=== PATIENT | female | born 1950 | race Two or more races ===

== ENCOUNTER 2020-03-24 11:21 | Outpatient (REF) | payer MEDICARE, MEDICAID, SELFPAY ==
--- NOTE | ~2020-03-24 | XR_ITS ---
EXAMINATION: XR knee RT 4V, XR knee LT 4V CLINICAL INFORMATION: Reason for Exam PAIN IN RIGHT KNEE COMPARISON: None available at the time of this dictation. TECHNIQUE: frontal, lateral, tunnel and patella sunrise views FINDINGS: BONES: No fracture or dislocation is present. JOINTS: Narrowing of joint spaces and developed osteophytes from the edges of articular surfaces suggest degenerative osteoarthritis. There is a small left knee joint effusion. SOFT TISSUE: Normal XR/XR knee RT 4V IMPRESSION: Bilateral moderate to severe degenerative osteoarthritis involving both medial and lateral compartments. There is a small left knee joint effusion.
--- NOTE | ~2020-03-24 | XR_ITS ---
EXAMINATION: XR knee RT 4V, XR knee LT 4V CLINICAL INFORMATION: Reason for Exam PAIN IN RIGHT KNEE COMPARISON: None available at the time of this dictation. TECHNIQUE: frontal, lateral, tunnel and patella sunrise views FINDINGS: BONES: No fracture or dislocation is present. JOINTS: Narrowing of joint spaces and developed osteophytes from the edges of articular surfaces suggest degenerative osteoarthritis. There is a small left knee joint effusion. SOFT TISSUE: Normal XR/XR knee LT 4V IMPRESSION: Bilateral moderate to severe degenerative osteoarthritis involving both medial and lateral compartments. There is a small left knee joint effusion.
[2020-03-24 12:36] LABS: Alanine Aminotransferase 16 U/L (0-31); Albumin Level 4.1 g/dL (3.5-5.0); Alkaline Phosphatase 98 U/L (39-117); Anion Gap 12 (12-20); Aspartate Amino Transferase 19 U/L (5-31); Bilirubin Direct < 0.2 mg/dL (0.0-0.5); Bilirubin Total 0.3 mg/dL (0.0-1.0); Blood Urea Nitrogen 30 mg/dL (9-16); Calcium 9.1 mg/dL (8.4-10.2); Carbon Dioxide 30 mmol/L (22-29); Chloride 103 mmol/L (96-108); Cholesterol 232 mg/dL; Estimated Glomerular Filt Rate 44; Glucose Random 94 mg/dL (60-115); HDL Cholesterol 78 mg/dL; LDL Cholesterol Calculated 143 mg/dl; Potassium 5.1 mmol/L (3.3-5.1); Sodium 140 mmol/L (135-145); Total Protein 7.4 g/dL (6.5-8.0); Triglycerides 56 mg/dL
== END 2020-03-24 11:22 | disposition home or self-care (01) ==
LOC: HO.LAB 11:21
PROVIDERS: PCP Student in an Organized Health Care Education/Training Program; Visit Provider Internal Medicine
DX: I10 Essential (primary) hypertension (principal); M25.562 Pain in left knee; M25.561 Pain in right knee
CPT/HCPCS: 36415; 73564; 80048; 80061; 80076

== ENCOUNTER → 2020-04-13 14:48 | Outpatient (BNVA) | payer MEDICARE, MEDICAID, SELFPAY | PROVIDERS: PCP Student in an Organized Health Care Education/Training Program; Visit Provider Surgery | DX: K64.9 Unspecified hemorrhoids (principal) | CPT/HCPCS: 46600; 99202 ==

== ENCOUNTER 2020-04-30 16:31 | Outpatient (REF) | payer MEDICARE, MEDICAID, SELFPAY ==
--- NOTE | ~2020-04-30 | XR_ITS ---
EXAMINATION: XR HIP, RIGHT CLINICAL INFORMATION: Pain. COMPARISON: None TECHNIQUE: Two views of the right hip. FINDINGS: Bones and soft tissues are normal. No fracture. Alignment is anatomic. Hip joint space is maintained. XR/XR hip RT min 2V IMPRESSION: Unremarkable right hip.
== END 2020-04-30 16:32 | disposition home or self-care (01) ==
LOC: HO.XRAY 16:31
PROVIDERS: PCP Student in an Organized Health Care Education/Training Program; Visit Provider Internal Medicine
DX: M25.551 Pain in right hip (principal)
CPT/HCPCS: 73502

== ENCOUNTER → 2020-05-15 11:02 | Outpatient (BNVA) | payer MEDICARE, MEDICAID, SELFPAY | PROVIDERS: PCP Student in an Organized Health Care Education/Training Program; Visit Provider Internal Medicine Gastroenterology | DX: Z13.89 Encounter for screening for other disorder (principal) | CPT/HCPCS: Q3014 ==

== ENCOUNTER 2020-06-08 13:22 | Outpatient (REF) | payer MEDICARE, MEDICAID, SELFPAY ==
--- NOTE | ~2020-06-08 | MM_ITS ---
EXAMINATION: MM SCREENING DIGITAL BREAST TOMOSYNTHESIS, BILATERAL CLINICAL INFORMATION: Screening. Asymptomatic. The lifetime risk of breast cancer based on the Tyrer-Cuzick Model is 19.5%. COMPARISON: Mammography: 09/17/2018, 11/26/2015 TECHNIQUE: Digital breast tomosynthesis is performed in both the craniocaudal and mediolateral oblique views along with computer-aided detection (CAD). Synthesized 2D images are generated from the tomosynthesis. Additional right CC view is provided. FINDINGS: There are scattered areas of fibroglandular density (ACR BI-RADS breast composition Category b). There are no significant masses, abnormal calcifications, or other abnormalities. Parenchymal pattern is similar to prior studies. No developing density. Again, there is biopsy clip marker central anterior left breast and a dermal lesion is again noted overlying the upper outer right breast. No significant changes. MM/MM tomosynthesis screening BI IMPRESSION: No mammographic evidence of malignancy. ASSESSMENT: BI-RADS 2: Benign RECOMMENDATION: Routine annual mammography screening. This patient's information was entered into a reminder system with a target due date for their next mammogram.
== END 2020-06-08 13:23 | disposition home or self-care (01) ==
LOC: HO.MAMMO 13:22
PROVIDERS: PCP Student in an Organized Health Care Education/Training Program; Visit Provider Student in an Organized Health Care Education/Training Program
DX: Z12.31 Encounter for screening mammogram for malignant neoplasm of breast (principal)
CPT/HCPCS: 77063; 77067

== ENCOUNTER → 2020-06-23 11:21 | Outpatient (BNVA) | payer MEDICARE, MEDICAID, SELFPAY | PROVIDERS: PCP Student in an Organized Health Care Education/Training Program; Visit Provider Internal Medicine Gastroenterology | DX: Z13.89 Encounter for screening for other disorder (principal) | CPT/HCPCS: Q3014 ==

== ENCOUNTER 2020-09-30 10:35 | Outpatient (REF) | payer MEDICARE, MEDICAID, SELFPAY ==
--- NOTE | ~2020-09-30 | US_ITS ---
EXAMINATION: US RETROPERITONEAL LIMITED (RENAL ONLY) CLINICAL INFORMATION: Disorder of kidney and ureter. COMPARISON: Renal ultrasound 03/15/2013. TECHNIQUE: Real-time imaging of the kidneys. FINDINGS: Limited exam likely due to patient body habitus. RIGHT KIDNEY: 9.4 x 3.6 x 5.4 cm (SAG x AP x TRV). The kidney is normal in size, contour, and echogenicity. Renal cortical thickness is normal. No calculi or focal parenchymal lesions. No hydronephrosis. LEFT KIDNEY: 10.6 x 5.1 x 4.3 cm (SAG x AP x TRV). The kidney is normal in size, contour, and echogenicity. Renal cortical thickness is normal. No calculi or focal parenchymal lesions. No hydronephrosis. US/US renal BI IMPRESSION: Limited exam likely due to patient body habitus. There is no hydronephrosis or stone seen here..
--- NOTE | ~2020-09-30 | XR_ITS ---
EXAMINATION: XR LUMBOSACRAL SPINE WITH OBLIQUES CLINICAL INFORMATION: Low back pain COMPARISON: None TECHNIQUE: AP, both oblique, and lateral views of the lumbar spine. Lateral view of the lumbosacral junction. FINDINGS: The vertebral bodies and posterior elements are normal. Alignment is normal. There is mild multilevel endplate degenerative changes. There is mild facet arthropathy lower lumbar spine. There is mild bilateral multilevel foraminal stenosis in the lumbar spine. The paraspinal soft tissues are normal. XR/XR lumbar spine 4V min IMPRESSION: Mild degenerative disease of lumbar spine.
[2020-09-30 11:35] LABS: Hematocrit 34.9 % (37-47); Mean Corpuscular HGB Conc 31.5 g/dl (31.0-35.0); Mean Corpuscular Hemoglobin 26.2 pg (27.0-33.0); Mean Corpuscular Volume 83.1 fL (80-98); Mean Platelet Volume 10.4 fL (9.4-12.3); Platelet Count 390 X10*3/uL (160-400); Red Cell Distribution Width 14.4 % (11.0-16.0); White Blood Count 5.3 X10*3/uL (4.8-10.8)
[2020-09-30 12:39] LABS: Thyroid Stimulating Hormone 1.88 uIU/mL (0.32-4.0)
[2020-09-30 12:44] LABS: Alanine Aminotransferase 12 U/L (0-31); Albumin Level 3.8 g/dL (3.5-5.0); Alkaline Phosphatase 121 U/L (39-117); Anion Gap 16 (12-20); Aspartate Amino Transferase 13 U/L (5-31); Bilirubin Direct 0.2 mg/dL (0.0-0.5); Bilirubin Total 0.4 mg/dL (0.0-1.0); Blood Urea Nitrogen 18 mg/dL (9-16); Calcium 9.3 mg/dL (8.4-10.2); Carbon Dioxide 25 mmol/L (22-29); Chloride 102 mmol/L (96-108); Cholesterol 205 mg/dL; Estimated Glomerular Filt Rate 38; Glucose Random 98 mg/dL (60-115); HDL Cholesterol 58 mg/dL; LDL Cholesterol Calculated 132 mg/dl; Potassium 4.9 mmol/L (3.3-5.1); Sodium 138 mmol/L (135-145); Total Protein 7.4 g/dL (6.5-8.0); Triglycerides 75 mg/dL
== END 2020-09-30 10:36 | disposition home or self-care (01) ==
LOC: HO.US 10:35
PROVIDERS: Absent Provider Student in an Organized Health Care Education/Training Program; PCP Student in an Organized Health Care Education/Training Program; Visit Provider General Practice
DX: N28.89 Other specified disorders of kidney and ureter (principal); M54.5 Low back pain; I10 Essential (primary) hypertension
CPT/HCPCS: 36415; 72110; 76775; 80048; 80061; 80076; 84443; 85027

== ENCOUNTER → 2020-10-27 08:57 | Outpatient (BNVA) | payer MEDICARE, MEDICAID, SELFPAY | PROVIDERS: PCP Student in an Organized Health Care Education/Training Program; Visit Provider Internal Medicine Gastroenterology | CPT/HCPCS: Q3014 ==

== ENCOUNTER 2021-06-16 14:35 | Outpatient (REF) | payer MEDICARE, MEDICAID, SELFPAY ==
--- NOTE | ~2021-06-16 | MM_ITS ---
EXAMINATION: MM SCREENING DIGITAL BREAST TOMOSYNTHESIS, BILATERAL CLINICAL INFORMATION: Screening. Asymptomatic. History right excisional biopsy 2006. The lifetime risk of breast cancer based on the Tyrer-Cuzick Model is 4%. COMPARISON: Mammography: 06/08/2020, 09/17/2018, 11/26/2015 TECHNIQUE: Digital breast tomosynthesis is performed in both the craniocaudal and mediolateral oblique views along with computer-aided detection (CAD). Synthesized 2D images are generated from the tomosynthesis. FINDINGS: There are scattered areas of fibroglandular density (ACR BI-RADS breast composition Category b). Parenchymal pattern is similar to prior studies. There is asymmetry of the soft tissues, right breast slightly smaller consistent with the prior surgery. There is biopsy clip marker again noted central anterior left breast. A dermal lesion overlies the upper outer quadrant right breast. There is no interval mass or architectural abnormality or abnormal calcifications. No significant changes. MM/MM tomosynthesis screening BI IMPRESSION: No mammographic evidence of malignancy. ASSESSMENT: BI-RADS 2: Benign RECOMMENDATION: Routine annual mammography screening. This patient's information was entered into a reminder system with a target due date for their next mammogram.
== END 2021-06-16 14:36 | disposition home or self-care (01) ==
LOC: HO.MAMMO 14:35
PROVIDERS: PCP Student in an Organized Health Care Education/Training Program; Visit Provider Student in an Organized Health Care Education/Training Program
DX: Z12.31 Encounter for screening mammogram for malignant neoplasm of breast (principal)
CPT/HCPCS: 77063; 77067

== ENCOUNTER 2021-08-10 08:27 | Outpatient (REF) | payer MEDICARE, MEDICAID, SELFPAY ==
--- NOTE | ~2021-08-10 | US_ITS ---
EXAMINATION: US ABDOMEN COMPLETE CLINICAL INFORMATION: Right upper quadrant pain. COMPARISON: US retroperitoneal limited (renal only) 09/30/2020 and 03/15/2013. CT abdomen with contrast 10/01/2012. TECHNIQUE: Real-time imaging of the abdominal viscera. FINDINGS: PANCREAS: Normal. ABDOMINAL AORTA: There is atherosclerotic disease. Abdominal aorta is normal in caliber. INFERIOR VENA CAVA: Visualized portions are normal. LIVER: Normal. The liver is normal in size. The liver contour is normal. Parenchymal echogenicity is normal. No focal hepatic lesion. There is no intrahepatic biliary duct dilatation seen. GALLBLADDER: Surgically absent. COMMON BILE DUCT: Normal in caliber measuring 0.5 cm in diameter. RIGHT KIDNEY: Normal. No hydronephrosis. No renal calculi or focal parenchymal lesions. The kidney measures 10.6 cm in maximum dimension. LEFT KIDNEY: There is a 7 mm cyst in the lower pole. No hydronephrosis or renal calculi. The kidney measures 11.1 cm in maximum dimension. SPLEEN: Normal. The spleen measures 9.5 cm in maximum dimension. FREE FLUID: None. US/US abdomen complete IMPRESSION: Small left renal cyst. Otherwise unremarkable exam.
[2021-08-10 09:45] LABS: MANUAL DIFF FLAG NO
[2021-08-10 10:33] LABS: Basophils Percent Auto 0.5 % (0-2); Eosinophils Absolute Auto 0.3 X10*3/uL (0.0-0.4); Eosinophils Percent Auto 4.7 % (0-4); Hematocrit 37.7 % (37.0-47.0); Hemoglobin 11.6 g/dl (12.0-16.0); Imm Gran Abs Auto 0.01 X10*3/uL (0.00-0.03); Imm Gran Pct Auto 0.2 % (0.0-0.4); Lymphocytes Absolute Auto 1.3 X10*3/uL (1.2-4.9); Lymphocytes Percent Auto 23.9 % (20-40); Mean Corpuscular HGB Conc 30.8 g/dl (31.0-35.0); Mean Corpuscular Hemoglobin 27.1 pg (27.0-33.0); Mean Corpuscular Volume 88.1 fL (80.0-98.0); Mean Platelet Volume 10.9 fL (9.4-12.3); Monocytes Absolute Auto 0.6 X10*3/uL (0.1-1.2); Monocytes Percent Auto 10.2 % (2-11); Neutrophils Absolute Auto 3.3 x10*3/uL (2.0-8.3); Neutrophils Percent Auto 60.5 % (45-73); Platelet Count 322 X10*3/uL (160-400); Red Blood Count 4.28 X10*6/uL (4.20-5.50); Red Cell Distribution Width 13.7 % (11.0-16.0); White Blood Count 5.5 X10*3/uL (4.8-10.8)
[2021-08-10 11:17] LABS: Alanine Aminotransferase 12 U/L (0-31); Albumin Level 4.1 g/dL (3.5-5.0); Alkaline Phosphatase 127 U/L (39-117); Anion Gap 13 (12-20); Aspartate Amino Transferase 14 U/L (5-31); Bilirubin Total 0.3 mg/dL (0.0-1.0); Blood Urea Nitrogen 19 mg/dL (9-16); Calcium 9.4 mg/dL (8.4-10.2); Carbon Dioxide 27 mmol/L (22-29); Chloride 103 mmol/L (96-108); Estimated Glomerular Filt Rate 47; Glucose Random 98 mg/dL (60-115); Lipase 52 U/L (8-78); Potassium 4.4 mmol/L (3.3-5.1); Sodium 139 mmol/L (135-145); Total Protein 7.4 g/dL (6.5-8.0)
== END 2021-08-10 08:28 | disposition home or self-care (01) ==
LOC: HO.US 08:27
PROVIDERS: PCP Student in an Organized Health Care Education/Training Program; Referring Provider Student in an Organized Health Care Education/Training Program; Visit Provider Internal Medicine Gastroenterology
DX: R10.11 Right upper quadrant pain (principal); K75.81 Nonalcoholic steatohepatitis (NASH)
CPT/HCPCS: 36415; 76700; 80053; 83690; 85025

== ENCOUNTER 2021-09-27 12:07 | Outpatient (REF) | payer MEDICARE, MEDICAID, SELFPAY | END 2021-09-27 12:08 | disposition home or self-care (01) | LOC: HO.LNP 12:07 | PROVIDERS: Visit Provider Internal Medicine Gastroenterology | DX: K21.9 Gastro-esophageal reflux disease without esophagitis (principal); Z11.0 Encounter for screening for intestinal infectious diseases | CPT/HCPCS: 87338 ==

== ENCOUNTER → 2021-11-15 14:21 | Outpatient (BNVA) | payer MEDICARE, MEDICAID, SELFPAY | PROVIDERS: PCP Student in an Organized Health Care Education/Training Program; Visit Provider Internal Medicine Gastroenterology | DX: K21.9 Gastro-esophageal reflux disease without esophagitis (principal) | CPT/HCPCS: 99212 ==

== ENCOUNTER 2021-12-09 06:28 | Day surgery (SDC) | payer MEDICARE, MEDICAID, SELFPAY ==
[2021-12-03 13:28] VITALS: BMI 33.4
--- NOTE | 2021-12-08 13:23 | HO.ANESPROP2 ---
Documented by User: Celia Aguila NP 12/08/21 13:24 HPI - Anesthesia Eval Consult details Narrative: 71yo F for Upper Endo Chew PH Pillcam PMFSH Active Problems Active Problems: All Active Problems (Updated 12/03/21 @ 13:23 by Unique Gordon, RN) Constipation (Acute) Hemorrhoids (Acute) LLQ abdominal pain (Acute) RUQ abdominal pain (Acute) GERD (gastroesophageal reflux disease) (Acute) Bleeding hemorrhoids (Acute) Arthritis (Acute) Hypertension (Acute) Past Medical History Medical History (Updated 12/03/21 @ 13:23 by Unique Gordon, RN) Anemia Arthritis Back pain Bleeding hemorrhoids Elevated cholesterol GERD (gastroesophageal reflux disease) History of depression Hypertension Family History Family History Father History of stomach cancer Brother History of melanoma Surgical History Surgical History (Updated 12/03/21 @ 13:23 by Unique Gordon RN) History of cataract surgery History of cholecystectomy History of esophagogastroduodenoscopy (EGD) History of hysterectomy History of neck surgery Hx of colonoscopy Hx of total knee replacement Social History Social History Household Members: Children Alcohol intake: current Alcohol intake frequency: holidays/special occasions only Patient Tobacco Use Status: Former Tobacco user Current occupational status: disabled Meds Allergies Allergy/AdvReac Type Severity Reaction Status Date / Time hydromorphone [Dilaudid] Allergy Unknown Unknown Verified 12/03/21 13:23 morphine Allergy Unknown Unknown Verified 12/03/21 13:23 Home Medications Medication Instructions Recorded Confirmed Last Taken Type aspirin 81 mg tablet,delayed 81 mg PO DAILY 04/13/20 12/03/21 Unknown History release lisinopril 20 1 tab PO DAILY 04/13/20 12/03/21 Unknown History mg-hydrochlorothiazide 25 mg tablet multivitamin with iron 1 tab PO DAILY 04/13/20 12/03/21 Unknown History blood pressure test kit-large #1 ea 05/15/20 05/15/20 Unknown History cyclobenzaprine 10 mg tablet 10 mg PO BEDTIME 05/15/20 12/03/21 Unknown History diclofenac sodium 1 % topical gel topical 05/15/20 05/15/20 Unknown History phenylephrine 0.25 %-mineral oil [place] BID 05/15/20 05/15/20 Unknown History 14 %-petrolatm 74.9 % rectal ointment ferrous sulfate 325 mg (65 mg 325 mg PO DAILY 10/27/20 12/03/21 Unknown History iron) tablet rosuvastatin 10 mg tablet 1 tab PO DAILY 12/03/21 12/03/21 Unknown History Exam Exam Date and Time: December 08, 2021 1323 Height,Weight and Vital Signs: Height 5 ft 5 in Weight 91.172 kg Pertinent Lab Results Pertinent Lab Results: Laboratory Tests 08/10/21 08/10/21 09:42 09:42 WBC 5.5 Hgb 11.6 L Hct 37.7 Plt Count 322 Sodium 139 Potassium 4.4 Chloride 103 Carbon Dioxide 27 BUN 19 H Creatinine 1.15 Assessment and Plan Assessment Anesthesia Assessment: Chart Reviewed Documented by User: Jalil Moreno MD 12/09/21 18:09 [facility] Past Medical History Medical History (Updated 12/03/21 @ 13:23 by Unique Gordon, VINAY) Anemia Arthritis Back pain Bleeding hemorrhoids Elevated cholesterol GERD (gastroesophageal reflux disease) History of depression Hypertension Functional capacity: independent ambulation Family History Family History Father History of stomach cancer Brother History of melanoma Family history of problems with anesthesia: No Surgical History Surgical History (Updated 12/03/21 @ 13:23 by Unique Gordon RN) History of cataract surgery History of cholecystectomy History of esophagogastroduodenoscopy (EGD) History of hysterectomy History of neck surgery Hx of colonoscopy Hx of total knee replacement History of Problems with Anesthesia: No Social History Social History Household Members: Children Alcohol intake: current Alcohol intake frequency: holidays/special occasions only Patient Tobacco Use Status: Former Tobacco user Current occupational status: disabled Meds Allergies Allergy/AdvReac Type Severity Reaction Status Date / Time hydromorphone [Dilaudid] Allergy Unknown Unknown Verified 12/03/21 13:23 morphine Allergy Unknown Unknown Verified 12/03/21 13:23 Home Medications Medication Instructions Recorded Confirmed Last Taken Type aspirin 81 mg tablet,delayed 81 mg PO DAILY 04/13/20 12/03/21 Unknown History release lisinopril 20 1 tab PO DAILY 04/13/20 12/03/21 Unknown History mg-hydrochlorothiazide 25 mg tablet multivitamin with iron 1 tab PO DAILY 04/13/20 12/03/21 Unknown History blood pressure test kit-large #1 ea 05/15/20 05/15/20 Unknown History cyclobenzaprine 10 mg tablet 10 mg PO BEDTIME 05/15/20 12/03/21 Unknown History diclofenac sodium 1 % topical gel topical 05/15/20 05/15/20 Unknown History phenylephrine 0.25 %-mineral oil [place] BID 05/15/20 05/15/20 Unknown History 14 %-petrolatm 74.9 % rectal ointment ferrous sulfate 325 mg (65 mg 325 mg PO DAILY 10/27/20 12/03/21 Unknown History iron) tablet rosuvastatin 10 mg tablet 1 tab PO DAILY 12/03/21 12/03/21 Unknown History Exam Airway Mallampati Class: IV TM Dist: >3cm Neck ROM: Full Loose/Missing/Broken Teeth: Yes (Poor dentition overall , fillings ) Heart: S1,S2 Lungs: b/l breath sounds Assessment and Plan Assessment Anesthesia Assessment: Anesthesia Plan Discussed Final Anesthetic Review Family History of Problems with Anesthesia: No History of Problems with Anesthesia: No NPO: Yes ASA Class: III Final Preanesthetic Review: Meds/Allgs Chart Reviewed, Consent Obtained/Reviewed and Anes Risks/Benef Reviewed Patient Risk: Intermediate Procedure Risk: Intermediate Anesthetic Plan Anesthetic Plan: MAC: Disposition: Standard PACU
--- NOTE | 2021-12-09 06:22 | MHC.SHP ---
Pre-Procedural Eval Section A Date of Service: 12/09/21 The patient is an INPATIENT: No The History & Physical has been completed within 30 days and I have reviewed it.: Yes Section B Chief Complaint: relux, abdominal pain Allergies: Allergies Allergy/AdvReac Type Severity Reaction Status Date / Time hydromorphone [Dilaudid] Allergy Unknown Unknown Verified 12/03/21 13:23 morphine Allergy Unknown Unknown Verified 12/03/21 13:23 Plan Diagnosis/Plan: Unchanged I have reviewed the history and physical and performed a pertinent physical examination on my patient. No changes have occurred unless specified.
[2021-12-09 06:40] VITALS: BMI 33.5
[2021-12-09 06:51] VITALS: BP 126/71; PULSE 86; RESP 16; TEMP 37.3; O2SAT 96
[2021-12-09] MEDS: Lactated Ringers 1,000 ML 100 ML IVCONT (07:06)
--- NOTE | 2021-12-09 07:49 | W.PM.OPN ---
Operative Note Operative Note Date of Service: 12/09/21 Narrative: Procedure Description: EGD Indication: GERD, abdominal pain Anesthesia: MAC FLEXIBLE TRANSORAL UPPER GASTROINTESTINAL ENDOSCOPY UPPER ENDOSCOPY Consent: Indications for the procedure and potential complications of bleeding, perforation, reaction to medications and missed diagnosis were discussed with the patient and informed consent was obtained. Instrument: Olympus GIF H 190 J mid size upper endoscope Monitoring: Vital signs and clinical assessment, continuous EKG monitoring, Pulse oximetry, Carbon Dioxide monitoring and blood pressure monitoring were done throughout the procedure. Procedure: The patient was placed in the left lateral decubitis position and pre-procedure medications were administered and a bite block was placed. The endoscope was inserted into the mouth and advanced under direct vision to the third part of duodenum. A careful inspection was made as the upper endoscope was withdrawn including a retroflexed examination of the proximal stomach; Findings and interventions are described below. Findings: Larynx:normal Esophagus: GE junction at 40 cm, diaphragm hiatus at 40 cm, no varices or esophagitis. Peters was deployed at 34 cm and confirmed endoscopically. Stomach: Patchy gastric erythema. Biopsies were obtained. Grade 2 flap valve on retroflexed examination of the cardia. Duodenum: Normal bulb and descending duodenum, Intervention: Biopsies as noted above, Peters placement Impression/Findings: gastritis Peters placement PLAN: await PETERS data, cont with PPI during PETERS.
--- NOTE | 2021-12-09 08:04 | PC.NURSE ---
financial analyst accountant used for the rep giving instructions.
[2021-12-09 08:36] VITALS: BP 115/73; PULSE 91; RESP 18; TEMP 36.2; O2SAT 97
[2021-12-09 08:51] VITALS: BP 123/79; PULSE 75; RESP 18; TEMP 36.2; O2SAT 95
== END 2021-12-09 09:20 | disposition home or self-care (01) ==
PROVIDERS: PCP Student in an Organized Health Care Education/Training Program; Visit Provider Internal Medicine Gastroenterology
PROC: (CPT 43239; principal; 2021-12-09 07:30)
DX: K29.50 Unspecified chronic gastritis without bleeding (principal); K21.9 Gastro-esophageal reflux disease without esophagitis; K44.9 Diaphragmatic hernia without obstruction or gangrene; I10 Essential (primary) hypertension; E78.00 Pure hypercholesterolemia, unspecified; D64.9 Anemia, unspecified; K59.00 Constipation, unspecified; K64.8 Other hemorrhoids; Z79.82 Long term (current) use of aspirin; Z79.899 Other long term (current) drug therapy; Z88.8 Allergy status to other drugs, medicaments and biological substances; Z87.891 Personal history of nicotine dependence; Z90.49 Acquired absence of other specified parts of digestive tract
CPT/HCPCS: 43239; 88305; 88342; J2250

== ENCOUNTER → 2021-12-27 10:57 | Outpatient (BNVA) | payer MEDICARE, MEDICAID, SELFPAY | PROVIDERS: PCP Student in an Organized Health Care Education/Training Program; Visit Provider Internal Medicine Gastroenterology | DX: K21.9 Gastro-esophageal reflux disease without esophagitis (principal); R63.4 Abnormal weight loss; R68.81 Early satiety | CPT/HCPCS: 99212 ==

== ENCOUNTER 2022-02-25 12:49 | Outpatient (REF) | payer MEDICARE, MEDICAID, SELFPAY ==
[2022-02-25 13:07] LABS: MANUAL DIFF FLAG NO
[2022-02-25 13:29] LABS: Basophils Percent Auto 0.6 % (0-2); Eosinophils Absolute Auto 0.3 X10*3/uL (0.0-0.4); Eosinophils Percent Auto 5.4 % (0-4); Hemoglobin 11.4 g/dl (12.0-16.0); Imm Gran Abs Auto 0.01 X10*3/uL (0.00-0.03); Imm Gran Pct Auto 0.2 % (0.0-0.4); Lymphocytes Absolute Auto 1.9 X10*3/uL (1.2-4.9); Lymphocytes Percent Auto 36.6 % (20-40); Mean Corpuscular HGB Conc 31.7 g/dl (31.0-35.0); Mean Corpuscular Hemoglobin 26.3 pg (27.0-33.0); Mean Corpuscular Volume 83.1 fL (80.0-98.0); Mean Platelet Volume 10.4 fL (9.4-12.3); Monocytes Absolute Auto 0.9 X10*3/uL (0.1-1.2); Monocytes Percent Auto 16.4 % (2-11); Neutrophils Absolute Auto 2.1 x10*3/uL (2.0-8.3); Neutrophils Percent Auto 40.8 % (45-73); Platelet Count 320 X10*3/uL (160-400); Red Blood Count 4.33 X10*6/uL (4.20-5.50); White Blood Count 5.2 X10*3/uL (4.8-10.8)
[2022-02-25 14:25] LABS: Alanine Aminotransferase 10 U/L (0-31); Albumin Level 3.9 g/dL (3.5-5.0); Alkaline Phosphatase 110 U/L (39-117); Anion Gap 13 (12-20); Aspartate Amino Transferase 17 U/L (5-31); Bilirubin Total 0.4 mg/dL (0.0-1.0); Blood Urea Nitrogen 25 mg/dL (9-16); Calcium 9.1 mg/dL (8.4-10.2); Carbon Dioxide 25 mmol/L (22-29); Chloride 104 mmol/L (96-108); Estimated Glomerular Filt Rate 48; Glucose Random 83 mg/dL (60-115); Magnesium 1.7 mg/dL (1.6-2.6); Phosphorus 2.3 mg/dL (2.7-4.5); Potassium 4.7 mmol/L (3.3-5.1); Sodium 137 mmol/L (135-145); Total Protein 7.3 g/dL (6.5-8.0); Uric Acid 7.5 mg/dL (2.4-5.7)
[2022-02-25 14:28] LABS: Vitamin D 25-OH Total 20.9 ng/mL (>30)
[2022-02-25 15:03] LABS: Creatinine Urine 161.66 mg/dL; Protein/Creatinine Ratio, Ur 0.06 (<0.2); Total Protein Urine Random 10 mg/dL (<12)
[2022-02-28 13:24] LABS: PTHI 106 pg/mL (16-77)
== END 2022-02-25 12:50 | disposition home or self-care (01) ==
LOC: HO.LAB 12:49
PROVIDERS: PCP Student in an Organized Health Care Education/Training Program; Visit Provider Internal Medicine Nephrology
DX: I10 Essential (primary) hypertension (principal); R60.0 Localized edema
CPT/HCPCS: 36415; 80053; 82306; 83735; 83970; 84100; 84156; 84550; 85025

== ENCOUNTER → 2022-03-21 13:52 | Outpatient (REF) | payer MEDICARE, MEDICAID, SELFPAY ==
--- NOTE | 2022-03-21 13:55 | CA_ITS ---
Transthoracic Echocardiogram Patient (Last, First, Middle): Usha Grace, Gender: Female Date of : 1950 Age: 71 Procedure Date: 03/21/2022 Procedure Type: Transthoracic Echocardiogram Location: OP Height: 165.1 cm Weight: 92.53 kg BSA: 1.99 m2 Heart Rate: 83 bpm BP: 125 / 75 mmHg Bag Printer: DOMINICK Mills MD: Ayaka Mitchell MD Lens Finisher: Lexx Tomas MD Symptoms: CP Study Quality: Adequate/Contrast ECG Rhythm: Sinus Conclusions: - 1. Normal LV systolic function with impaired relaxation filling pattern 2. Normal cardiac valvular Doppler 3. Normal RV systolic pressure 4. No gross pericardial effusion Findings Procedure Information Contrast agent, definity, is being given per protocol without apparent complications. Left Ventricle Normal left ventricular size, thickness, and systolic function. The visually estimated ejection fraction is between 60-65%. Spectral Doppler is indicative of an impaired relaxation filling pattern. E/E prime ratio is between 8 and 15 consistent with indeterminate filling pressures. Right Ventricle Normal right ventricular cavity size and systolic function. Atria The left atrium is normal in size. Interatrial shunt cannot be excluded. The right atrium was not well visualized. Aortic Valve The aortic valve was not well visualized. There is no aortic valve stenosis. There is no aortic valve regurgitation. Mitral Valve There is mild anterior and posterior mitral leaflet thickening. There is trace mitral valve regurgitation. There is no mitral valve stenosis. Pulmonic Valve The pulmonic valve was not well visualized. Tricuspid Valve Likely normal tricuspid valve structure and function. There is trace tricuspid valve regurgitation. The right ventricular systolic pressure is normal. The right ventricular systolic pressure is 22 mmHg. Normal right atrial pressure. There is no evidence of pulmonary hypertension. Great Vessels All visible segments of the aorta are normal in size. The pulmonary artery was not well visualized. Venous The inferior vena cava is normal in size and collapses greater than 50% with inspiration. Pericardium/Pleural There is no evidence of pericardial effusion. Prior Study Comparison No prior study available for comparison. Measurements 2D Linear Measurements IVSd: 0.96 0.6-0.9/0.6-1.0 cm LVIDd: 3.94 3.9-5.3/4.2-5.9 cm LVIDd Index: 1.98 2.4-3.2/2.2-3.1 cm/m2 LVIDs: 2.46 2.0-3.6 cm LVPWd: 1.03 0.7-1.1 cm LA Diam: 3.20 2.7-3.8/3.0-4.0 cm LAIDs Index: 1.61 1.5-2.3 cm/m2 LV Mass: 153.26 67-162/88-224 g LV Mass Index: 77.01 43-95/49-115 g/m2 LVOT Diam: 1.90 3.0+(-)1.3 cm 2D Systolic Function EF 4C: 55.90 >55% EF 2C: 69.10 >55% Mitral Valve MV Pk E: 0.62 MV PK A: 0.78 MV Decel Time: 245.00 E/A: 0.80 E'Lateral: 8.27 E'Medial: 5.33 E/E' Med: 11.60 E/E' Lat: 7.50 PHT: 72.00 MVA PHT: 3.06 Decel [place]: 2.52 Aortic Valve AoV Pk Marvin: 1.38 AoV Mn Marvin: 1.01 AoV VTI: 0.30 AoV Pk Grad: 8.00 Aov Mn Grad: 4.00 TANNER Cont.VTI: 1.86 LVOT LVOT Pk Marvin: 0.97 LVOT Mn Marvin: 0.69 LVOT VTI: 0.20 LVOT Pk Grad: 4.00 LVOT Mn Grad: 2.00 LVOT Diam: 1.90 LVOT Area: 2.84 Diastolic Function MV Pk E: 0.62 MV Pk A: 0.78 E/A: 0.80 E'Medial: 5.33 E/E' Med: 11.60 E' Laterial: 8.27 E/E' Lat: 7.50 Right Ventricle TAPSE (mm): 20.00 TVS' Marvin: 11.90 Tricuspid Valve TR Pk Marvin: 2.19 TR Pk Grad: 19.00 RA Press: 3.00 RVSP: 22.00 Great Vessels Aorta Sinus of Valsalva: 3.00 2.0-3.5 cm Ao Asc: 3.40 2.1-3.4 cm Pulmonary Valve PV Pk Marvin: 0.81 Peak PV Grad: 3.00 Updated in Other Vendor System with Status of Final Lexx Tomas MD electronically signed on 03/22/2022 5:52:06 PM with status of Final
== END ==
LOC: HO.CARD 13:52
PROVIDERS: PCP Student in an Organized Health Care Education/Training Program; Visit Provider Pediatrics
DX: R07.9 Chest pain, unspecified (principal); N18.31 Chronic kidney disease, stage 3a; K29.30 Chronic superficial gastritis without bleeding
CPT/HCPCS: 93306; Q9957

== ENCOUNTER 2022-04-19 07:39 | Outpatient (REF) | payer MEDICARE, MEDICAID, SELFPAY ==
--- NOTE | ~2022-04-19 | CT_ITS ---
EXAMINATION: CT SINUS WITHOUT CONTRAST CLINICAL INFORMATION: Chronic maxillary sinusitis. COMPARISON: None available. TECHNIQUE: Axial 2 mm thin and reformatted 2 mm thin sagittal and coronal images of the sinuses were obtained. This CT examination was performed using dose optimization techniques as appropriate, variously including the following: *Automated exposure control *Adjustment of mA and/or kV according to patient size (this includes techniques or standardized protocols for targeted exams where dose is matched to indication/reason for exam; i.e. extremities or head) *Use of iterative reconstruction technique DLP: 90 mGy-cm FINDINGS: There is normal aeration of bilateral paranasal sinuses without any mucoperiosteal thickening or air-fluid levels. The bony sinus arcos are intact. Bilateral ostiomeatal complexes and frontoethmoidal recesses are widely patent. There is a ariela bullosa of the right middle turbinate, otherwise the turbinates are symmetrical. The nasopharyngeal and nasal cavity airway is widely patent. The bony orbits, optic globes and intraconal and extraconal soft tissues are normal. No maxillofacial or periorbital soft tissue swelling is seen. CT/CT sinus wo IV con IMPRESSION: Unremarkable CT sinus exam.
== END 2022-04-19 07:40 | disposition home or self-care (01) ==
LOC: HO.CT 07:39
PROVIDERS: Visit Provider Pediatrics
DX: J32.0 Chronic maxillary sinusitis (principal)
CPT/HCPCS: 70486

== ENCOUNTER 2022-07-27 14:27 | Outpatient (REF) | payer MEDICARE, MEDICAID, SELFPAY ==
--- NOTE | ~2022-07-27 | MM_ITS ---
EXAMINATION: MM SCREENING DIGITAL BREAST TOMOSYNTHESIS, BILATERAL CLINICAL INFORMATION: Screening. Asymptomatic. Right excisional biopsy, 2006. The lifetime risk of breast cancer based on the Tyrer-Cuzick Model is 18%. COMPARISON: Mammography: 06/16/2021, 06/08/2020, 09/17/2018 TECHNIQUE: Digital breast tomosynthesis is performed in both the craniocaudal and mediolateral oblique views along with computer-aided detection (CAD). Synthesized 2D images are generated from the tomosynthesis. FINDINGS: There are scattered areas of fibroglandular density (ACR BI-RADS breast composition Category b). There are no significant masses, abnormal calcifications, or other abnormalities. No architectural abnormality. Right breast is slightly smaller consistent with the prior lumpectomy. There is a dermal lesion again seen overlying the posterior outer right breast. The axilla are unremarkable. No significant changes. MM/MM tomosynthesis screening BI IMPRESSION: No mammographic evidence of malignancy. ASSESSMENT: BI-RADS 2: Benign RECOMMENDATION: Routine annual mammography screening. This patient's information was entered into a reminder system with a target due date for their next mammogram.
== END 2022-07-27 14:28 | disposition home or self-care (01) ==
LOC: HO.MAMMO 14:27
PROVIDERS: PCP Student in an Organized Health Care Education/Training Program; Visit Provider Student in an Organized Health Care Education/Training Program
DX: Z12.31 Encounter for screening mammogram for malignant neoplasm of breast (principal)
CPT/HCPCS: 77063; 77067

== ENCOUNTER → 2022-08-08 14:03 | Outpatient (BNVA) | payer MEDICARE, MEDICAID, SELFPAY | PROVIDERS: PCP Student in an Organized Health Care Education/Training Program; Referring Provider Student in an Organized Health Care Education/Training Program; Visit Provider Internal Medicine Cardiovascular Disease | DX: R07.9 Chest pain, unspecified (principal); I10 Essential (primary) hypertension; E78.5 Hyperlipidemia, unspecified | CPT/HCPCS: 99202 ==

== ENCOUNTER → 2022-08-19 08:42 | Outpatient (REF) | payer MEDICARE, MEDICAID, SELFPAY ==
--- NOTE | ~2022-08-19 | NM_ITS ---
EXERCISE MYOCARDIAL PERFUSION STUDY INDICATION: Chest pain, assess for coronary disease and ischemia TECHNIQUE: The patient was brought in for an exercise perfusion study on 08/19/2022. Patient performed exercise as per Fan protocol and was injected 30 mCi of sestamibi once target heart rate was achieved. Images were obtained using the SPECT gamma camera interlaced with the gating device. Images were obtained in supine position. Resting perfusion study was performed on 08/24/2022. Patient was administered 30 mCi of sestamibi intravenously at rest. Images were then obtained in supine position. Images were processed with the software and compared side to side in short axis, horizontal long axis and vertical long axis views. Total DLP 104mGy-cm. FINDINGS: Raw images were reviewed. The stress perfusion study showed diminished tracer uptake in the distal part of anterior wall. There is improvement with CT attenuation correction suggestive of soft tissue attenuation artifact. The gated study shows normal LV systolic function with calculated LVEF of 70%. LV cavity is normal in size. The gated study shows normal wall thickening and contraction of segments. Resting study shows no significant perfusion abnormality. Gating at rest reveals normal wall motion with ejection fraction at 70%. The findings are consistent with mild reversible distal anterior defect, suspected to be from soft tissue attenuation artifact. NM/[place] cardiolite stress test IMPRESSION: 1. Myocardial perfusion imaging study shows no clear evidence of any ischemia or infarction at the attained workload of 4.6 METS. Based on pretest probability of obstructive coronary disease, consider further workup. 2. Gated LVEF is 70% during stress and rest. 3. Transient ischemic dilatation not present. EKG component of the test reported separately. Patient had chest pain as well as EKG findings of possible ischemia.
== END ==
LOC: HO.CARD 08:42
PROVIDERS: PCP Student in an Organized Health Care Education/Training Program; Visit Provider Internal Medicine Cardiovascular Disease
DX: R07.9 Chest pain, unspecified (principal)
CPT/HCPCS: 78452; 93017; A9500; J0280; J2785

== ENCOUNTER → 2022-08-19 08:44 | Outpatient (BNV) | payer MEDICARE, MEDICAID, SELFPAY | PROVIDERS: PCP Student in an Organized Health Care Education/Training Program; Visit Provider Nurse Practitioner Family | DX: R07.9 Chest pain, unspecified (principal) | CPT/HCPCS: 78452; 93016; 93018 ==

== ENCOUNTER 2022-10-06 15:01 | Outpatient (AMB) | payer MEDICARE, MEDICAID, SELFPAY ==
[2022-10-06 15:21] VITALS: BP 114/70; PULSE 78; BMI 34.1
--- NOTE | 2022-10-06 15:21 | MHC.OFFVIS ---
Intake Vital Signs 10/06/22 15:21 Height 5 ft 5 in Weight 205 lb 0.478 oz BMI 34.1 BP 114/70 Blood Pressure Location Lt brachial Position Sitting Pulse 78 Intake Visit Reasons: fu nuclear stress/ and CTA Intake Note: f/u nuclear stress/ and CTA Phlebotomy Tech Required: Yes Phlebotomy Tech Name: Francesco lagos [id number] Allergies hydromorphone [Dilaudid] Allergy (Unknown, Verified 10/06/22 15:28) Unknown morphine Allergy (Unknown, Verified 10/06/22 15:28) Unknown Medication List - Last Reconciled 10/06/22 by Rossy Epps, COMPOSING MACHINE OPERATOR/TENDER-C aspirin 81 mg PO DAILY blood pressure test kit-large As directed cholecalciferol (vitamin D3) 1 PO DAILY diclofenac sodium 1% 2 grams topical BID esomeprazole magnesium 40 mg PO DAILY ezetimibe (Zetia) 10 mg PO DAILY fluticasone propionate 50 mcg/actuation sprays intranasal hydrocortisone 2.5% (Anusol-HC) 1 appl [place] BID-QID PRN lisinopril-hydrochlorothiazide 20-25 mg 1 tab PO DAILY metoprolol succinate ER 25 mg PO DAILY omega 2-ntu-njx-fish oil 1,000 mg (120 mg-180 mg) 1 cap PO BID HPI fu nuclear stress/ and CTA HPI Details Usha is a 72-year-old female with past medical history of hypertension, hyperlipidemia who recently reported an episode of exertional chest discomfort and has undergone cardiac evaluation. She recently had a stress test followed by CTA of the coronary arteries and now presents for follow-up. Today she reports she has had only mild discomfort in her chest which occurs randomly. She has not had any of the more intense discomfort like she had the time when she was dancing. She describes a mild pressure in her mid chest at times. She remains active but is limited by arthritis. No shortness of breath, palpitations, dizziness, presyncope, syncope, PND, orthopnea or edema. Taking all meds as directed. [facility] Medical History Anemia Arthritis Back pain Bleeding hemorrhoids Elevated cholesterol GERD (gastroesophageal reflux disease) History of depression Hypertension Surgical History History of cataract surgery History of cholecystectomy History of esophagogastroduodenoscopy (EGD) History of hysterectomy History of neck surgery Hx of colonoscopy Hx of total knee replacement Family History Father History of stomach cancer Brother History of melanoma Social History Household Members: Children Alcohol intake: current Alcohol intake frequency: holidays/special occasions only Patient Tobacco Use Status: Former Tobacco user Current occupational status: disabled Review of Systems Const All systems reviewed & are unremarkable except as noted in HPI and below ENT Denies dizziness Card Reports chest pain, Denies chest pain at rest, Denies chest pain with activity, Denies rapid heart rate, Denies pedal edema, Denies edema, Denies leg edema, Denies lightheadedness, Denies palpitations, Denies dyspnea, Denies dyspnea on exertion and Denies orthopnea Resp Denies cough, Denies dyspnea and Denies dyspnea on exertion GI Denies hematochezia and Denies change in stool character Musc Denies abnormal gait, Denies limited range of motion, Denies muscle cramps, Denies muscle weakness, Denies numbness, Denies radiating pain into limb, Denies stiffness and Denies tingling Neuro Denies abnormal gait, Denies dizziness, Denies numbness and Denies tingling Endo Denies palpitations Physical Exam Vital Signs: Last Vital Signs Pulse 78 10/06/22 15:21 BP 114/70 10/06/22 15:21 BMI result Body Mass Index 34.1 Const General: cooperative, healthy appearing, comfortable and no acute distress Orientation/consciousness: patient oriented x3 Neck Neck: Yes normal visual inspection Resp Effort & Inspection: normal respiratory effort Auscultation: clear to auscultation bilaterally, no crackles, no rales, no rhonchi and no wheezes Cardio Jugular venous distension: no JVD Rate: regular rate Rhythm: regular rhythm Heart sounds: S1 normal heart sound present, S2 normal heart sound present, no gallops, no murmurs and no rubs Neuro General: patient oriented x3 Extrem General: Yes normal to inspection Psych Appearance: grossly normal Mental Status: mental status grossly normal Speech and movement: Normal speech and movement present Assessment & Plan Assessment & Plan (1) Exertional chest pain: Code(s): R07.9 - Chest pain, unspecified Plan: Episode of exertional chest discomfort that occurred while dancing. She tells me she has not had recurrent symptoms like that however does get random pressure in the mid chest which is different. Echocardiogram was done 03/21/2022 showing EF 60-65%, no valve abnormalities and no regional wall motion abnormalities. A nuclear stress test was done on 08/19/2022 showing exercise 9-1/2 minutes with 6/10 chest discomfort, borderline EKG changes and no clear ischemia seen on nuclear imaging. She had CTA of the coronary arteries on 09/26/2022 showing OM 1 more than 70% stenosis, FFR 0.79, no significant FFR decrease in the remainder of the coronary vasculature. She was recently started on metoprolol but she did not take it right away as she was unclear if she could take it with her lisinopril/hydrochlorothiazide. She has only been taking it a few days. At this time her symptoms are occurring randomly so will continue with medical management. Will have her continue the metoprolol, aspirin. She is not on statin as she tells me she gets significant muscle aches from them. Will add Zetia 10 mg daily with ideal LDL goal less than 70. No recent lipid profile for review, last lipid profile available in 2020 showed LDL 132. Will plan for fasted lipid in 2-3 months. Cardiology follow-up in 1 month, sooner if needed. If she continues to have discomfort that sounds anginal in nature then will consider cardiac catheterization and intervention on OM1. Reviewed with patient and she states understanding. (2) Coronary atherosclerosis: Code(s): I25.10 - Atherosclerotic heart disease of [place] coronary artery without angina pectoris (3) Hypertension: Code(s): I10 - Essential (primary) hypertension Plan: Well controlled at present time. No changes to her antihypertensive meds. (4) Hyperlipidemia: Code(s): E78.5 - Hyperlipidemia, unspecified Plan: [place] LDL goal less than 70. Intolerant to statins. Starting Zetia. Fasting lipids in 2-3 months Medications: New ezetimibe (Zetia) 10 mg PO DAILY 30 tabs 5RF Coding Level of Care Code Est Pt Level 4 (50187) Diagnoses Exertional chest pain R07.9 Coronary atherosclerosis I25.10 Hypertension I10 Hyperlipidemia E78.5 Time Spent (min) 26 Comment chart review, document, interview, assess
== END 2022-10-06 16:05 | disposition home or self-care (01) ==
PROVIDERS: PCP Student in an Organized Health Care Education/Training Program; Referring Provider Student in an Organized Health Care Education/Training Program; Visit Provider Nurse Practitioner Family
DX: R07.9 Chest pain, unspecified (principal); I25.10 Atherosclerotic heart disease of native coronary artery without angina pectoris; I10 Essential (primary) hypertension; E78.5 Hyperlipidemia, unspecified
CPT/HCPCS: 99214

== ENCOUNTER → 2022-10-06 15:01 | Outpatient (BNVA) | payer MEDICARE, MEDICAID, SELFPAY | PROVIDERS: PCP Student in an Organized Health Care Education/Training Program; Referring Provider Student in an Organized Health Care Education/Training Program; Visit Provider Nurse Practitioner Family | DX: R07.9 Chest pain, unspecified (principal); I25.10 Atherosclerotic heart disease of native coronary artery without angina pectoris; I10 Essential (primary) hypertension; E78.5 Hyperlipidemia, unspecified | CPT/HCPCS: 99212 ==

== ENCOUNTER 2022-11-08 14:32 | Outpatient (AMB) | payer MEDICARE, MEDICAID, SELFPAY ==
[2022-11-08 14:52] VITALS: BP 112/62; PULSE 88; O2SAT 97; BMI 34.0
--- NOTE | 2022-11-08 14:52 | MHC.OFFVIS ---
Intake Vital Signs 11/08/22 14:52 Height 5 ft 5 in Weight 204 lb 2.369 oz BMI 34.0 BP 112/62 Blood Pressure Location Lt brachial Position Sitting Pulse 88 Pulse Source Pulse Oximeter Pulse Oximetry (%) 97 Oxygen Delivery Method Room Air Intake Visit Reasons: 1 month follow up Intake Note: Pt presents to the office today for a 1 month follow up. Pt states she is feeling better. Pt states she has no more chest pain. Pt denies any SOB or pain. Allergies hydromorphone [Dilaudid] Allergy (Unknown, Verified 11/08/22 14:55) Unknown morphine Allergy (Unknown, Verified 11/08/22 14:55) Unknown Medication List - Last Reconciled 11/08/22 by Rossy Epps AIR AND WATER FILLER-C aspirin 81 mg PO DAILY blood pressure test kit-large As directed cholecalciferol (vitamin D3) 1 PO DAILY diclofenac sodium 1% 2 grams topical BID esomeprazole magnesium 40 mg PO DAILY ezetimibe (Zetia) 10 mg PO DAILY fluticasone propionate 50 mcg/actuation sprays intranasal hydrocortisone 2.5% (Anusol-HC) 1 appl [place] BID-QID PRN lisinopril-hydrochlorothiazide 20-25 mg 1 tab PO DAILY metoprolol succinate ER 25 mg PO DAILY omega 9-ihv-ivp-fish oil 1,000 mg (120 mg-180 mg) 1 cap PO BID HPI 1 month follow up HPI Details Usha is a 72-year-old female with past medical history of hypertension, hyperlipidemia, exertional chest discomfort who underwent cardiac evaluation and most recently CTA of the coronary arteries showing significant OM1 stenosis. She was started on metoprolol and now presents for follow-up. Today she reports that she no longer has any exertional chest discomfort. She tells me she had been getting it with stair climbing and walking far distances. Since her last visit she started on the metoprolol and she also stop taking Metamucil at night. She believes that the acid was causing her esophageal discomfort and contributing to her symptom. She is currently pleased with how she feels. She denies any shortness of breath, presyncope, syncope, falls. No PND, orthopnea or edema. She is taking her meds as directed. [facility] Medical History Back pain Anemia History of depression Elevated cholesterol GERD (gastroesophageal reflux disease) Bleeding hemorrhoids Arthritis Hypertension Surgical History History of esophagogastroduodenoscopy (EGD) Hx of colonoscopy Hx of total knee replacement History of cataract surgery History of hysterectomy History of cholecystectomy History of neck surgery Family History Father History of stomach cancer Brother History of melanoma Social History Household Members: Children Alcohol intake: current Alcohol intake frequency: holidays/special occasions only Patient Tobacco Use Status: Former Tobacco user Current occupational status: disabled Review of Systems Const All systems reviewed & are unremarkable except as noted in HPI and below Card Denies chest pain, Denies chest pain at rest and Denies chest pain with activity Physical Exam Vital Signs: Last Vital Signs Pulse 88 11/08/22 14:52 BP 112/62 11/08/22 14:52 Pulse Ox 97 11/08/22 14:52 Oxygen Delivery Method Room Air 11/08/22 14:52 BMI result Body Mass Index 34.0 Const General: cooperative, healthy appearing, comfortable and no acute distress Orientation/consciousness: patient oriented x3 Neck Neck: Yes normal visual inspection and Yes no JVD Resp Effort & Inspection: normal respiratory effort Auscultation: clear to auscultation bilaterally, no crackles, no rales, no rhonchi and no wheezes Cardio Jugular venous distension: no JVD Rate: regular rate Rhythm: regular rhythm Heart sounds: S1 normal heart sound present, S2 normal heart sound present, no murmurs and no rubs GI Inspection: Yes normal to inspection Skin General skin exam: no rashes or lesions noted Neuro General: patient oriented x3 Extrem General: Yes normal to inspection, No no pedal edema and No calf tenderness Psych Appearance: grossly normal Mental Status: mental status grossly normal Speech and movement: Normal speech and movement present Assessment & Plan Assessment & Plan (1) Exertional chest pain: Code(s): R07.9 - Chest pain, unspecified Plan: Initial episode of exertional chest discomfort occurred while dancing. She also had reported some random pressure in the mid chest. Echocardiogram was done 03/21/2022 showing EF 60-65%, no valve abnormalities and no regional wall motion abnormalities. A nuclear stress test was done on 08/19/2022 showing exercise 9-1/2 minutes with 6/10 chest discomfort, borderline EKG changes and no clear ischemia seen on nuclear imaging. She had CTA of the coronary arteries on 09/26/2022 showing OM 1 more than 70% stenosis, FFR 0.79, no significant FFR decrease in the remainder of the coronary vasculature. On last visit she was started on metoprolol. Her symptoms were reportedly random at that time. She now states her chest discomfort has resolved. She does admit that when she was getting it previously it was occurring with stair climbing and walking. Currently she denies any anginal symptoms. She believes the use of her Metamucil at night may have contributed to her chest discomfort. More likely it is the metoprolol improving her symptom. Reviewed this with her. At present will continue on aspirin and metoprolol. She refuses statin due to prior issues with significant muscle aches. . A fasting lipid profile is due, order entered. Patient informed that if she has recurrent exertional chest discomfort then cardiac catheterization will be warranted. Informed that she has coronary artery disease and may need coronary stent placement in the future. Signs and symptoms of angina reviewed. Cardiology follow-up in 3 month, sooner if needed. Emergency care if needed for any concerning symptoms (2) Coronary atherosclerosis: Code(s): I25.10 - Atherosclerotic heart disease of [place] coronary artery without angina pectoris Qualifiers: Coronary Disease-Associated Artery/Lesion type: [place] artery [place] vs. transplanted heart: [place] heart Associated angina: without angina Qualified Code(s): I25.10 - Atherosclerotic heart disease of [place] coronary artery without angina pectoris (3) Hypertension: Code(s): I10 - Essential (primary) hypertension Qualifiers: Hypertension type: primary hypertension Qualified Code(s): I10 - Essential (primary) hypertension Plan: Well controlled at present time. No changes to her antihypertensive meds. (4) Hyperlipidemia: Code(s): E78.5 - Hyperlipidemia, unspecified Qualifiers: Hyperlipidemia type: unspecified Qualified Code(s): E78.5 - Hyperlipidemia, unspecified Plan: [place] LDL goal less than 70. Intolerant to statins. Started Zetia last visit. Fasting lipids test ordered. Orders: Orders Lipid Panel Today E78.5 - Hyperlipidemia, unspecified Coding Level of Care Code Est Pt Level 3 (64661) Diagnoses Exertional chest pain R07.9 Atherosclerosis of [place] coronary artery of [place] heart without angina pectoris I25.10 Coronary Disease-Associated Artery/Lesion type: [place] artery [place] vs. transplanted heart: [place] heart Associated angina: without angina Primary hypertension I10 Hypertension type: primary hypertension Hyperlipidemia, unspecified hyperlipidemia type E78.5 Hyperlipidemia type: unspecified Time Spent (min) 24
== END 2022-11-08 15:19 | disposition home or self-care (01) ==
PROVIDERS: PCP Student in an Organized Health Care Education/Training Program; Visit Provider Nurse Practitioner Family
DX: R07.9 Chest pain, unspecified (principal); I25.10 Atherosclerotic heart disease of native coronary artery without angina pectoris; I10 Essential (primary) hypertension; E78.5 Hyperlipidemia, unspecified
CPT/HCPCS: 99213

== ENCOUNTER → 2022-11-08 14:32 | Outpatient (BNVA) | payer MEDICARE, MEDICAID, SELFPAY | PROVIDERS: PCP Student in an Organized Health Care Education/Training Program; Visit Provider Nurse Practitioner Family | DX: R07.9 Chest pain, unspecified (principal); I25.10 Atherosclerotic heart disease of native coronary artery without angina pectoris; I10 Essential (primary) hypertension; E78.5 Hyperlipidemia, unspecified | CPT/HCPCS: 99212 ==

== ENCOUNTER 2023-02-23 13:52 | Outpatient (AMB) | payer OTHER, SELFPAY ==
[2023-02-23 14:06] VITALS: BP 114/62; PULSE 86; BMI 34.0
--- NOTE | 2023-02-23 14:06 | MHC.OFFVIS ---
Intake Vital Signs 02/23/23 14:06 Height 5 ft 5 in Weight 204 lb 9.423 oz BMI 34.0 BP 114/62 Blood Pressure Location Lt brachial Position Sitting Pulse 86 Pulse Source Pulse Oximeter Intake Visit Reasons: 6 mth f/up Receiving Supervisor Required: Yes Receiving Supervisor Language: Book Salesman Name: cj [id number] Allergies hydromorphone [Dilaudid] Allergy (Unknown, Verified 02/23/23 14:10) Unknown morphine Allergy (Unknown, Verified 02/23/23 14:10) Unknown Medication List - Last Reconciled 02/23/23 by Rossy Epps NP-C aspirin 81 mg PO DAILY blood pressure test kit-large As directed cholecalciferol (vitamin D3) 1 PO DAILY diclofenac sodium 1% 2 grams topical BID esomeprazole magnesium 40 mg PO DAILY ezetimibe (Zetia) 10 mg PO DAILY fluticasone propionate 50 mcg/actuation sprays intranasal hydrocortisone 2.5% (Anusol-HC) 1 appl [place] BID-QID PRN lisinopril-hydrochlorothiazide 20-25 mg 1 tab PO DAILY metoprolol succinate ER 25 mg PO DAILY 90 days omega 2-uvd-rtv-fish oil 1,000 mg (120 mg-180 mg) 1 cap PO BID HPI 6 mth f/up HPI Details Usha is a 72-year-old female with past medical history of hypertension, hyperlipidemia, exertional chest discomfort who underwent cardiac evaluation and most recently CTA of the coronary arteries showing significant OM1 stenosis. She was started on metoprolol and reported resolution of her symptoms. She now presents for follow-up. Today she reports that she continues to feel good. She has not had any recurrent chest discomfort. No new symptoms including shortness of breath, palpitations, presyncope, syncope, PND, orthopnea or edema. She reports good activity tolerance. Taking all meds as directed. Certified historical interpreter used. [facility] Medical History Back pain Anemia History of depression Elevated cholesterol GERD (gastroesophageal reflux disease) Bleeding hemorrhoids Arthritis Hypertension Surgical History History of esophagogastroduodenoscopy (EGD) Hx of colonoscopy Hx of total knee replacement History of cataract surgery History of hysterectomy History of cholecystectomy History of neck surgery Family History Father History of stomach cancer Brother History of melanoma Social History Household Members: Children Alcohol intake: current Alcohol intake frequency: holidays/special occasions only Patient Tobacco Use Status: Former Tobacco user Current occupational status: disabled Review of Systems Const All systems reviewed & are unremarkable except as noted in HPI and below ENT Denies dizziness Card Denies chest pain, Denies chest pain at rest, Denies chest pain with activity, Denies rapid heart rate, Denies pedal edema, Denies edema, Denies leg edema, Denies lightheadedness, Denies palpitations, Denies dyspnea, Denies dyspnea on exertion and Denies orthopnea Resp Denies cough, Denies dyspnea and Denies dyspnea on exertion GI Denies hematochezia and Denies change in stool character Musc Denies abnormal gait, Denies limited range of motion, Denies muscle cramps, Denies muscle weakness, Denies numbness, Denies radiating pain into limb, Denies stiffness and Denies tingling Neuro Denies abnormal gait, Denies dizziness, Denies numbness and Denies tingling Endo Denies palpitations Physical Exam Vital Signs: Last Vital Signs Pulse 86 02/23/23 14:06 BP 114/62 02/23/23 14:06 BMI result Body Mass Index 34.0 Const General: cooperative, healthy appearing, comfortable and no acute distress Orientation/consciousness: patient oriented x3 Neck Neck: Yes normal visual inspection and Yes no JVD Resp Effort & Inspection: normal respiratory effort Auscultation: clear to auscultation bilaterally, no crackles, no rales, no rhonchi and no wheezes Cardio Jugular venous distension: no JVD Rate: regular rate Rhythm: regular rhythm Heart sounds: S1 normal heart sound present, S2 normal heart sound present, no murmurs and no rubs Neuro General: patient oriented x3 Extrem General: Yes normal to inspection, No no pedal edema and No calf tenderness Psych Appearance: grossly normal Mental Status: mental status grossly normal Speech and movement: Normal speech and movement present Assessment & Plan Assessment & Plan (1) Exertional chest pain: Code(s): R07.9 - Chest pain, unspecified Plan: Initial episode of exertional chest discomfort occurred while dancing. She also had reported some random pressure in the mid chest. Echocardiogram was done 03/21/2022 showing EF 60-65%, no valve abnormalities and no regional wall motion abnormalities. A nuclear stress test was done on 08/19/2022 showing exercise 9-1/2 minutes with 6/10 chest discomfort, borderline EKG changes and no clear ischemia seen on nuclear imaging. She had CTA of the coronary arteries on 09/26/2022 showing OM 1 more than 70% stenosis, FFR 0.79, no significant FFR decrease in the remainder of the coronary vasculature. Result was reviewed with her. She was then started on metoprolol. And continued on aspirin and Zetia. Her symptoms resolved. Today she reports that she continues to feel well with no recurrent symptoms. She reports good activity tolerance. Continue medication management for CAD, with aspirin, Zetia and metoprolol. She is intolerant to statins. Fasting lipid profile is pending. Patient informed that if she has recurrent exertional chest discomfort then cardiac catheterization will be warranted. Signs and symptoms of angina reviewed. Cardiology follow-up in 6 month, sooner if needed. Emergency care if needed for any concerning symptoms (2) Coronary atherosclerosis: Code(s): I25.10 - Atherosclerotic heart disease of [place] coronary artery without angina pectoris Qualifiers: Associated angina: without angina Coronary Disease-Associated Artery/Lesion type: [place] artery [place] vs. transplanted heart: [place] heart Qualified Code(s): I25.10 - Atherosclerotic heart disease of [place] coronary artery without angina pectoris Plan: As above (3) Hypertension: Code(s): I10 - Essential (primary) hypertension Qualifiers: Hypertension type: primary hypertension Qualified Code(s): I10 - Essential (primary) hypertension Plan: Well controlled at present time. No changes to her antihypertensive meds. (4) Hyperlipidemia: Code(s): E78.5 - Hyperlipidemia, unspecified Qualifiers: Hyperlipidemia type: unspecified Qualified Code(s): E78.5 - Hyperlipidemia, unspecified Plan: [place] LDL goal less than 70. Intolerant to statins. Started Zetia last visit. Fasting lipids test ordered. If LDL not at goal then may need PCSK9 inhibitor Plan Time spent on chart review, documentation, interview and assessment Orders: Orders Comprehensive Met. Panel Today E78.5 - Hyperlipidemia, unspecified, I10 - Essential (primary) hypertension Coding Level of Care Code Est Pt Level 4 (62522) Diagnoses Exertional chest pain R07.9 Atherosclerosis of [place] coronary artery of [place] heart without angina pectoris I25.10 Associated angina: without angina Coronary Disease-Associated Artery/Lesion type: [place] artery [place] vs. transplanted heart: [place] heart Primary hypertension I10 Hypertension type: primary hypertension Hyperlipidemia, unspecified hyperlipidemia type E78.5 Hyperlipidemia type: unspecified Time Spent (min) 28
== END 2023-02-23 14:33 | disposition home or self-care (01) ==
PROVIDERS: PCP Student in an Organized Health Care Education/Training Program; Visit Provider Nurse Practitioner Family
DX: R07.9 Chest pain, unspecified (principal); I25.10 Atherosclerotic heart disease of native coronary artery without angina pectoris; I10 Essential (primary) hypertension; E78.5 Hyperlipidemia, unspecified
CPT/HCPCS: 99214

== ENCOUNTER → 2023-02-23 13:52 | Outpatient (BNVA) | payer OTHER, SELFPAY | PROVIDERS: PCP Student in an Organized Health Care Education/Training Program; Visit Provider Nurse Practitioner Family | DX: R07.9 Chest pain, unspecified (principal); I25.10 Atherosclerotic heart disease of native coronary artery without angina pectoris; I10 Essential (primary) hypertension; E78.5 Hyperlipidemia, unspecified | CPT/HCPCS: 99212 ==

== ENCOUNTER 2023-03-01 09:53 | Outpatient (REF) | payer OTHER, SELFPAY ==
[2023-03-01 11:24] LABS: Alanine Aminotransferase 12 U/L (0-31); Albumin Level 3.8 g/dL (3.5-5.0); Alkaline Phosphatase 93 U/L (39-117); Anion Gap 10 (12-20); Aspartate Amino Transferase 13 U/L (5-31); Bilirubin Total 0.4 mg/dL (0.0-1.0); Blood Urea Nitrogen 25 mg/dL (9-16); Calcium 9.5 mg/dL (8.4-10.2); Carbon Dioxide 28 mmol/L (22-29); Chloride 104 mmol/L (96-108); Cholesterol 235 mg/dL (<200); Estimated Glomerular Filt Rate 45; Glucose Random 93 mg/dL (60-115); HDL Cholesterol 71 mg/dL (>40); LDL Cholesterol Calculated 147 mg/dL (<100); Potassium 4.4 mmol/L (3.3-5.1); Sodium 138 mmol/L (135-145); Total Protein 7.3 g/dL (6.5-8.0); Triglycerides 87 mg/dL (<150)
== END 2023-03-01 09:54 | disposition home or self-care (01) ==
LOC: HO.LAB 09:53
PROVIDERS: PCP Student in an Organized Health Care Education/Training Program; Visit Provider Nurse Practitioner Family
DX: E78.5 Hyperlipidemia, unspecified (principal); I10 Essential (primary) hypertension
CPT/HCPCS: 36415; 80053; 80061

== ENCOUNTER 2023-03-24 10:51 | Outpatient (REF) | payer OTHER, SELFPAY ==
--- NOTE | ~2023-03-24 | XR_ITS ---
EXAMINATION: XR ABDOMEN KUB CLINICAL INDICATION: Right upper quadrant pain. COMPARISON: Abdominal ultrasound dated 08/02/2021. TECHNIQUE: 2 AP views of the abdomen and pelvis are submitted. FINDINGS: The bowel gas pattern is normal with no evidence of ileus or obstruction. There is a mild to moderate stool burden. Gas and stool identified to the level of the rectum. No unusual soft tissue calcifications are noted. There are right upper quadrant surgical clips. Multiple pelvic phleboliths are noted. The bones are unremarkable. XR/XR KUB IMPRESSION: Unremarkable examination.
[2023-03-24 11:59] LABS: MANUAL DIFF FLAG NO
[2023-03-24 12:19] LABS: Basophils Percent Auto 0.4 % (0-2); Eosinophils Absolute Auto 0.2 X10*3/uL (0.0-0.4); Eosinophils Percent Auto 3.6 % (0-4); Hemoglobin 12.2 g/dl (12.0-16.0); Imm Gran Abs Auto 0.02 X10*3/uL (0.00-0.03); Imm Gran Pct Auto 0.4 % (0.0-0.4); Lymphocytes Absolute Auto 1.5 X10*3/uL (1.2-4.9); Lymphocytes Percent Auto 28.7 % (20-40); Mean Corpuscular HGB Conc 32.1 g/dl (31.0-35.0); Mean Corpuscular Hemoglobin 28.3 pg (27.0-33.0); Mean Corpuscular Volume 88.2 fL (80.0-98.0); Mean Platelet Volume 10.6 fL (9.4-12.3); Monocytes Absolute Auto 0.6 X10*3/uL (0.1-1.2); Monocytes Percent Auto 11.7 % (2-11); Neutrophils Absolute Auto 2.9 x10*3/uL (2.0-8.3); Neutrophils Percent Auto 55.2 % (45-73); Platelet Count 313 X10*3/uL (160-400); Red Blood Count 4.31 X10*6/uL (4.20-5.50); Red Cell Distribution Width 18.4 % (11.0-16.0); White Blood Count 5.2 X10*3/uL (4.8-10.8)
[2023-03-24 12:46] LABS: Alanine Aminotransferase 14 U/L (0-31); Albumin Level 3.9 g/dL (3.5-5.0); Alkaline Phosphatase 104 U/L (39-117); Anion Gap 12 (12-20); Aspartate Amino Transferase 16 U/L (5-31); Bilirubin Total 0.3 mg/dL (0.0-1.0); Blood Urea Nitrogen 23 mg/dL (9-16); Calcium 9.7 mg/dL (8.4-10.2); Carbon Dioxide 28 mmol/L (22-29); Chloride 102 mmol/L (96-108); Estimated Glomerular Filt Rate 44; Glucose Random 82 mg/dL (60-115); Potassium 4.9 mmol/L (3.3-5.1); Sodium 137 mmol/L (135-145); Total Protein 7.4 g/dL (6.5-8.0)
[2023-03-24 13:13] LABS: Appearance Urine Clear; Color Urine Yellow; Glucose Urine UA Negative (Negative); Leukocyte Esterase Urine Negative (Negative); Nitrite Urine Negative (Negative); PH 6.5 (5.0-9.0); Urine Blood Negative (Negative); Urine Ketones Negative (Negative); Urine Protein Negative (Neg-Trace)
== END 2023-03-24 10:52 | disposition home or self-care (01) ==
LOC: HO.LAB 10:51
PROVIDERS: PCP Student in an Organized Health Care Education/Training Program; Visit Provider Internal Medicine Gastroenterology
DX: K75.81 Nonalcoholic steatohepatitis (NASH) (principal); R30.0 Dysuria; R10.11 Right upper quadrant pain; K21.9 Gastro-esophageal reflux disease without esophagitis
CPT/HCPCS: 36415; 74018; 80053; 81003; 85025; 99212

== ENCOUNTER 2023-03-24 10:51 | Outpatient (AMB) | payer OTHER, SELFPAY ==
--- NOTE | 2023-03-24 10:59 | MHC.OFFVIS ---
Intake Vital Signs 03/24/23 11:02 Height 5 ft 5 in Weight 209 lb BMI 34.8 BP 118/57 L Blood Pressure Location Lt brachial Position Sitting Pulse 86 Intake Visit Reasons: f/u gerd Intake Note: Patient follow up for GERD. Patient cc: GERD on and off, RUQ pain radiating to her back, chronic constipation, denies any other GI issues. Patient wanted a Magnesium prescription. Formula Bottler Required: Yes Formula Bottler Name: [facility] [place] interpeter Accompanied by: Self / Same As Patient Allergies hydromorphone [Dilaudid] Allergy (Unknown, Verified 03/24/23 10:58) Unknown morphine Allergy (Unknown, Verified 03/24/23 10:58) Unknown HPI f/u gerd HPI Details 72 yr old f being seen for f/u RECAP: she has been having rectal bleeding on wiping, saw Dr King and will have surgery in future she wants to get eye and knee surgery first notes worse bleeding with naprosyn taking iron supplements which makes her more constipated she has left sided abdo discomfort which is wrose with constipation takes metamucil bid, occ tid stool is not hard when comes outshe also gets a lot of bloating and gas she has been having worse refluex, not on PPI, no dysphagia reviewed results of her EGD/colon 2018 --rept due 2023--no polyps, hemorrhoids and tics she was using steroid cream which gives her relief, but she ran out of it otherwise she is having pain and discomfort from the hemorrhoids she felt doxycycline did not help any symptoms of bloating and gas As she was still having bad reflux I arranged PETERS on PPI EGD 11/2021--gastritis PETERS: minimal acid reflux noted, Demeester <14.7 INTERIM: she has right sided abdominal pain--goes into the back unable to describe worse to touch food can make her have more pain no nausea or vomiting no fever no jaundice she is constipated, can be bad at times--passing gas and stools helps her pain a lot she was taking metamucil, helping a little EXAM: GENERAL: The patient is well developed and nontoxic. VITAL SIGNS:see workflow HEENT: Nonicteric sclerae, PERRLA, EOMI. Oropharynx clear. Moist mucous membranes. Conjunctivae appear well perfused. No thyroid mass. CHEST: Chest wall is nontender. HEART: Regular rate and rhythm without murmurs. LUNGS: Clear to auscultation bilaterally. ABDOMEN: Soft, positive bowel sounds,tender epigastrium, no organomegaly. tender flank left side also suprapubic SKIN: No rash, no excessive bruising, petechiae, or purpura. NEUROLOGIC: Cranial nerves II-XII intact without motor/sensory deficit. Psych: normal a/P: 1/ Constipation, maybe causing her sx as above, ddx: bile duct stones, kidney stones, UTI PLAN: 1/ Mag citrate for constipation, keep taking fiber as helps her 2/ due colonsocopy shoudl schedule due to constipation -- suprep 3/ KUB [facility] Medical History Back pain Anemia History of depression Elevated cholesterol GERD (gastroesophageal reflux disease) Bleeding hemorrhoids Arthritis Hypertension Surgical History History of esophagogastroduodenoscopy (EGD) Hx of colonoscopy Hx of total knee replacement History of cataract surgery History of hysterectomy History of cholecystectomy History of neck surgery Family History Father History of stomach cancer Brother History of melanoma Social History Household Members: Children Alcohol intake: current Alcohol intake frequency: holidays/special occasions only Patient Tobacco Use Status: Former Tobacco user Current occupational status: disabled Physical Exam Vital Signs: Last Vital Signs Pulse 86 03/24/23 11:02 BP 118/57 L 03/24/23 11:02 BMI result Body Mass Index 34.8 Assessment & Plan Assessment & Plan (1) RUQ abdominal pain: Code(s): R10.11 - Right upper quadrant pain Plan: a/P: 1/ Constipation, maybe causing her sx as above, ddx: bile duct stones, kidney stones, UTI PLAN: 1/ Mag citrate for constipation, keep taking fiber as helps her 2/ due colonsocopy shoudl schedule due to constipation -- suprep 3/ KUB Orders: Orders XR KUB 03/24/23 R10.11 - Right upper quadrant pain US abdomen complete 03/24/23 R10.11 - Right upper quadrant pain UA CC w/rflx Micro + Cult 03/24/23 R10.11 - Right upper quadrant pain, R30.0 - Dysuria Complete Blood Count Auto Diff 03/24/23 R10.11 - Right upper quadrant pain Comprehensive Met. Panel 03/24/23 K75.81 - Nonalcoholic steatohepatitis (RITTER), R10.11 - Right upper quadrant pain Medications: New magnesium citrate 30 mL PO DAILY PRN 296 mL 2RF constipation sodium,potassium,mag sulfates 17.5-3.13-1.6 gram (Suprep Bowel Prep Kit) DILUTE; drink 1/2 at 6-8 pm and half at 11 PM- 1AM 354 mL 0RF Coding Level of Care Code Est Pt Level 3 (28944) Diagnoses RUQ abdominal pain R10.11
[2023-03-24 11:02] VITALS: BP 118/57; PULSE 86; BMI 34.8
== END 2023-03-24 11:43 | disposition home or self-care (01) ==
PROVIDERS: PCP Student in an Organized Health Care Education/Training Program; Visit Provider Internal Medicine Gastroenterology
DX: R10.11 Right upper quadrant pain (principal)
CPT/HCPCS: 99213

== ENCOUNTER 2023-03-30 08:50 | Outpatient (REF) | payer OTHER, SELFPAY ==
--- NOTE | ~2023-03-30 | US_ITS ---
EXAMINATION: US ABDOMEN COMPLETE CLINICAL INFORMATION: Right upper quadrant pain. Right upper quadrant discomfort, flank pain as well. COMPARISON: X-ray abdomen KUB 03/24/2023. Ultrasound abdomen complete 08/10/2021. Renal ultrasound 09/30/2020. CT abdomen 10/01/2012. TECHNIQUE: Real-time imaging of the abdominal viscera. FINDINGS: PANCREAS: Normal. ABDOMINAL AORTA: The proximal, mid, and distal segments are normal in caliber. INFERIOR VENA CAVA: Visualized portions are normal. LIVER: The liver is normal in size. The liver contour is normal. There is diffuse increased liver parenchymal echogenicity. No focal hepatic lesion. There is no intrahepatic biliary duct dilatation seen. GALLBLADDER: Surgically absent. COMMON BILE DUCT: Normal in caliber measuring 0.5 cm in diameter. RIGHT KIDNEY: Normal. No hydronephrosis. No renal calculi or focal parenchymal lesions. The kidney measures 10.3 cm in maximum dimension. LEFT KIDNEY: Normal. No hydronephrosis. No renal calculi or focal parenchymal lesions. The kidney measures 10.3 cm in maximum dimension. SPLEEN: Normal. The spleen measures 10.2 cm in maximum dimension. FREE FLUID: None. US/US abdomen complete IMPRESSION: 1. There is generalized increase in hepatic echotexture, consistent with fatty infiltration or hepatocellular disease. Please correlate clinically. No focal hepatic mass or intrahepatic biliary dilatation is seen. 2. The gallbladder is surgically absent.
== END 2023-03-30 08:51 | disposition home or self-care (01) ==
LOC: HO.HMGCX 08:50
PROVIDERS: PCP Student in an Organized Health Care Education/Training Program; Visit Provider Internal Medicine Gastroenterology
DX: R10.11 Right upper quadrant pain (principal)
CPT/HCPCS: 76700

== ENCOUNTER 2023-07-18 13:09 | Outpatient (REF) | payer OTHER, SELFPAY ==
--- NOTE | ~2023-07-18 | XR_ITS ---
EXAMINATION: XR ABDOMEN KUB CLINICAL INDICATION: Left lower quadrant pain COMPARISON: None available. TECHNIQUE: AP view of the abdomen. FINDINGS: The bowel gas pattern is normal with no evidence of ileus or obstruction. No excessive stool burden. Multiple calcifications consistent with phleboliths are seen within the pelvis. Surgical clips in the right upper quadrant are consistent with prior cholecystectomy. The lung bases are clear. Degenerative changes are seen in the lower lumbar spine. XR/XR KUB IMPRESSION: No obstruction. No excessive stool burden.
[2023-07-18 13:29] LABS: MANUAL DIFF FLAG NO
[2023-07-18 13:52] LABS: Basophils Percent Auto 0.6 % (0-2); Eosinophils Absolute Auto 0.2 X10*3/uL (0.0-0.4); Eosinophils Percent Auto 4.8 % (0-4); Hemoglobin 12.1 g/dl (12.0-16.0); Imm Gran Abs Auto 0.01 X10*3/uL (0.00-0.03); Imm Gran Pct Auto 0.2 % (0.0-0.4); Lymphocytes Absolute Auto 1.6 X10*3/uL (1.2-4.9); Lymphocytes Percent Auto 31.8 % (20-40); Mean Corpuscular HGB Conc 32.7 g/dl (31.0-35.0); Mean Corpuscular Hemoglobin 29.6 pg (27.0-33.0); Mean Corpuscular Volume 90.5 fL (80.0-98.0); Mean Platelet Volume 10.9 fL (9.4-12.3); Monocytes Absolute Auto 0.6 X10*3/uL (0.1-1.2); Monocytes Percent Auto 11.1 % (2-11); Neutrophils Absolute Auto 2.6 x10*3/uL (2.0-8.3); Neutrophils Percent Auto 51.5 % (45-73); Platelet Count 282 X10*3/uL (160-400); Red Blood Count 4.09 X10*6/uL (4.20-5.50)
[2023-07-18 14:01] LABS: Appearance Urine Clear; Color Urine Yellow; Glucose Urine UA Negative (Negative); Leukocyte Esterase Urine Negative (Negative); Nitrite Urine Negative (Negative); Specific Gravity - Urine <= 1.005 (1.005-1.025); Urine Blood Negative (Negative); Urine Ketones Negative (Negative); Urine Protein Negative (Neg-Trace)
[2023-07-18 14:28] LABS: Alanine Aminotransferase 12 U/L (0-31); Albumin Level 3.9 g/dL (3.5-5.0); Alkaline Phosphatase 86 U/L (39-117); Anion Gap 11 (12-20); Aspartate Amino Transferase 17 U/L (5-31); Bilirubin Total 0.3 mg/dL (0.0-1.0); Blood Urea Nitrogen 24 mg/dL (9-16); C Reactive Protein 0.33 mg/dL (< or = 0.50); Calcium 9.4 mg/dL (8.4-10.2); Carbon Dioxide 27 mmol/L (22-29); Chloride 103 mmol/L (96-108); Estimated Glomerular Filt Rate 47; Glucose Random 88 mg/dL (60-115); Lipase 101 U/L (8-78); Potassium 4.4 mmol/L (3.3-5.1); Sodium 137 mmol/L (135-145)
[2023-07-18 14:44] LABS: Ferritin 33 ng/mL (10-250)
[2023-07-18 15:19] LABS: Folate 17.5 ng/mL (> or = 4.0); Vitamin B12 < 148 pg/mL (200-900)
== END 2023-07-18 13:10 | disposition home or self-care (01) ==
LOC: HO.XRAY 13:09
PROVIDERS: PCP Student in an Organized Health Care Education/Training Program; Visit Provider Internal Medicine Gastroenterology
DX: R30.0 Dysuria (principal); R10.32 Left lower quadrant pain; R10.11 Right upper quadrant pain; M19.90 Unspecified osteoarthritis, unspecified site; K75.81 Nonalcoholic steatohepatitis (NASH)
CPT/HCPCS: 36415; 74018; 80053; 81003; 82607; 82728; 82746; 83690; 85025; 86140

== ENCOUNTER → 2023-08-01 12:00 | Outpatient (BNV) | payer OTHER, SELFPAY | PROVIDERS: PCP Student in an Organized Health Care Education/Training Program; Visit Provider Radiology Diagnostic Radiology | DX: Z12.31 Encounter for screening mammogram for malignant neoplasm of breast (principal) | CPT/HCPCS: 77063; 77067 ==

== ENCOUNTER 2023-08-01 12:03 | Outpatient (REF) | payer OTHER, SELFPAY | END 2023-08-01 12:04 | disposition home or self-care (01) | LOC: HO.MAMMO 12:03 | PROVIDERS: PCP Student in an Organized Health Care Education/Training Program; Visit Provider Student in an Organized Health Care Education/Training Program | DX: Z12.31 Encounter for screening mammogram for malignant neoplasm of breast (principal) | CPT/HCPCS: 77063; 77067 ==

== ENCOUNTER 2023-08-04 12:48 | Outpatient (REF) | payer OTHER, SELFPAY ==
--- NOTE | ~2023-08-04 | US_ITS ---
EXAMINATION: US VENOUS ULTRASOUND WITH DOPPLER LOWER EXTREMITY, LEFT CLINICAL INFORMATION: Pain COMPARISON: None available. TECHNIQUE: Ultrasound of the deep veins is performed from the hip to the calf with compression sonography and color and pulse Doppler assessment. Spectral analysis with color-flow imaging is performed. FINDINGS: There is normal venous compression and respiratory variation and augmented flow. The visualized common femoral vein, superficial femoral vein, profunda femoral vein, popliteal vein, and the trifurcation region shows no evidence of deep venous thrombosis. There is no significant popliteal fossa cyst. US/US venous duplex LE LT IMPRESSION: No DVT demonstrated in the left lower extremity.
== END 2023-08-04 12:49 | disposition home or self-care (01) ==
LOC: HO.US 12:48
PROVIDERS: Visit Provider Student in an Organized Health Care Education/Training Program
DX: M79.662 Pain in left lower leg (principal)
CPT/HCPCS: 93971

== ENCOUNTER 2023-08-10 06:08 | Day surgery (SDC) | payer OTHER, SELFPAY ==
[2023-08-08 09:56] VITALS: BMI 34.8
--- NOTE | 2023-08-09 08:14 | HO.ANESPROP2 ---
Documented by User: Celia Aguila NP 08/09/23 08:22 HPI - Anesthesia Eval Consult details Narrative: 72yo F for Colonoscopy Follows [facility] [place] cardiology for CAD. Med management with beta tesfaye. Stable at 02/2023 office visit. [facility] Active Problems Active Problems: All Active Problems Hyperlipidemia (Acute) Coronary atherosclerosis (Acute) Exertional chest pain (Acute) Constipation (Acute) Hemorrhoids (Acute) LLQ abdominal pain (Acute) RUQ abdominal pain (Acute) GERD (gastroesophageal reflux disease) (Acute) Bleeding hemorrhoids (Acute) Arthritis (Acute) Hypertension (Acute) Past Medical History Medical History Back pain Anemia History of depression Elevated cholesterol GERD (gastroesophageal reflux disease) Bleeding hemorrhoids Arthritis Hypertension Family History Family History Father History of stomach cancer Brother History of melanoma Family history of problems with anesthesia: No Surgical History Surgical History History of esophagogastroduodenoscopy (EGD) Hx of colonoscopy Hx of total knee replacement History of cataract surgery History of hysterectomy History of cholecystectomy History of neck surgery History of Problems with Anesthesia: No Social History Social History Household Members: Children Alcohol intake: current Alcohol intake frequency: does not drink Patient Tobacco Use Status: Former Tobacco user Are you DNR?: No Advance Directives: No Advance Directives Information Provided: Yes Recently lost weight without trying: No Nutrition Risks: No Nutritional Risk Current occupational status: disabled Meds Allergies Allergy/AdvReac Type Severity Reaction Status Date / Time hydromorphone [Dilaudid] Allergy Severe Shortness Verified 08/10/23 06:21 of Breath morphine Allergy Severe Shortness Verified 08/10/23 06:21 of Breath Home Medications ?Medication ?Instructions ?Recorded ?Confirmed ?Last Taken ?Type aspirin 81 mg tablet,delayed 81 mg PO DAILY 04/13/20 08/10/23 08/09/23 History release lisinopril 20 1 tab PO DAILY 04/13/20 08/10/23 Unknown History mg-hydrochlorothiazide 25 mg tablet blood pressure test kit-large #1 ea 05/15/20 02/23/23 Unknown History omega 9-bus-gkt-fish oil 1,000 mg 1 cap PO BID 08/08/22 08/10/23 08/02/23 History (120 mg-180 mg) capsule cholecalciferol (vitamin D3) 50 1 mcg PO DAILY 10/06/22 02/23/23 Unknown History mcg (2,000 unit) capsule fluticasone propionate 50 1 spray intranasal BID 10/06/22 08/10/23 Unknown History mcg/actuation nasal spray,suspension Exam Height,Weight and Vital Signs: Height 5 ft 5 in Weight 94.801 kg Pertinent Lab Results Pertinent Lab Results: Laboratory Tests 07/18/23 13:28 WBC 5.0 Hgb 12.1 Hct 37.0 Plt Count 282 Sodium 137 Potassium 4.4 Chloride 103 Carbon Dioxide 27 Creatinine 1.13 Narrative Narrative: ECHO 2022 Conclusions: - 1. Normal LV systolic function with impaired relaxation filling pattern 2. Normal cardiac valvular Doppler 3. Normal RV systolic pressure 4. No gross pericardial effusion nuclear stress test was done on 08/19/2022 showing exercise 9-1/2 minutes with 6/10 chest discomfort, borderline EKG changes and no clear ischemia seen on nuclear imaging CTA of the coronary arteries on 09/26/2022 showing OM 1 more than 70% stenosis, FFR 0.79, no significant FFR decrease in the remainder of the coronary vasculature. Assessment and Plan Assessment Anesthesia Assessment: Chart Reviewed Final Anesthetic Review Family History of Problems with Anesthesia: No History of Problems with Anesthesia: No Documented by User: Milena Bettencourt MD 08/10/23 08:00 [facility] Active Problems Active Problems: All Active Problems Hyperlipidemia (Acute) Coronary atherosclerosis (Acute) Exertional chest pain (Acute) Constipation (Acute) Hemorrhoids (Acute) LLQ abdominal pain (Acute) RUQ abdominal pain (Acute) GERD (gastroesophageal reflux disease) (Acute) Bleeding hemorrhoids (Acute) Arthritis (Acute) Hypertension (Acute) CAD. Follows up with [facility] [place] cardiology. Denies recent chest pain Past Medical History Medical History Back pain Anemia History of depression Elevated cholesterol GERD (gastroesophageal reflux disease) Bleeding hemorrhoids Arthritis Hypertension Family History Family History Father History of stomach cancer Brother History of melanoma Family history of problems with anesthesia: No Surgical History Surgical History History of esophagogastroduodenoscopy (EGD) Hx of colonoscopy Hx of total knee replacement History of cataract surgery History of hysterectomy History of cholecystectomy History of neck surgery History of Problems with Anesthesia: No (woke up during colonoscopy ) Social History Social History Household Members: Children Alcohol intake: current Alcohol intake frequency: does not drink Patient Tobacco Use Status: Former Tobacco user Are you DNR?: No Advance Directives: No Advance Directives Information Provided: Yes Recently lost weight without trying: No Nutrition Risks: No Nutritional Risk Current occupational status: disabled Meds Allergies Allergy/AdvReac Type Severity Reaction Status Date / Time hydromorphone [Dilaudid] Allergy Severe Shortness Verified 08/10/23 06:21 of Breath morphine Allergy Severe Shortness Verified 08/10/23 06:21 of Breath Home Medications ?Medication ?Instructions ?Recorded ?Confirmed ?Last Taken ?Type aspirin 81 mg tablet,delayed 81 mg PO DAILY 04/13/20 08/10/23 08/09/23 History release lisinopril 20 1 tab PO DAILY 04/13/20 08/10/23 Unknown History mg-hydrochlorothiazide 25 mg tablet blood pressure test kit-large #1 ea 05/15/20 02/23/23 Unknown History omega 6-niu-jnd-fish oil 1,000 mg 1 cap PO BID 08/08/22 08/10/23 08/02/23 History (120 mg-180 mg) capsule cholecalciferol (vitamin D3) 50 1 mcg PO DAILY 10/06/22 02/23/23 Unknown History mcg (2,000 unit) capsule fluticasone propionate 50 1 spray intranasal BID 10/06/22 08/10/23 Unknown History mcg/actuation nasal spray,suspension Exam Height,Weight and Vital Signs: Height 5 ft 5 in Weight 94.801 kg Vital Signs Temp Pulse Resp BP Pulse Ox O2 Del Method 08/10/23 06:25 98.4 F 90 18 132/85 97 Room Air Airway Mallampati Class: III (Significant Overbite) TM Dist: >3cm Neck ROM: Full Loose/Missing/Broken Teeth: Yes (Missing 1 tooth bottom Right and left back) Heart: RRR Lungs: CTAB Assessment and Plan Assessment Anesthesia Assessment: Anesthesia Plan Discussed and Chart Reviewed Final Anesthetic Review Family History of Problems with Anesthesia: No History of Problems with Anesthesia: No (woke up during colonoscopy ) NPO: Yes ASA Class: III Final Preanesthetic Review: No Changes in Pt Med Stat, Meds/Allgs Chart Reviewed, Consent Obtained/Reviewed and Anes Risks/Benef Reviewed Patient Risk: Intermediate Procedure Risk: Low Assessment/Block/Sedation in SS: Assess/Block/Sedation-SS Anesthetic Plan Anesthetic Plan: TIVA Disposition: Standard PACU
--- NOTE | 2023-08-10 06:11 | MHC.SHP ---
Pre-Procedural Eval Section A - 24 Hr Update-Section A only Date of Service: 08/10/23 Section B - Complete if H&P > 30 days Chief Complaint: screening Relevant Family History (Specify if Yes): No Relevant Social History: None Present Medications: see Short Stay Collaborative assessment Medical History: Significant History (Back pain Anemia History of depression Elevated cholesterol GERD (gastroesophageal reflux disease) Bleeding hemorrhoids Arthritis Hypertension) History of Previous Operations: Relevant previous surgery/procedure and date(s) (History of esophagogastroduodenoscopy (EGD) Hx of colonoscopy Hx of total knee replacement History of cataract surgery History of hysterectomy History of cholecystectomy History of neck surgery) Allergies: Allergies Allergy/AdvReac Type Severity Reaction Status Date / Time hydromorphone [Dilaudid] Allergy Unknown Unknown Verified 03/24/23 10:58 morphine Allergy Unknown Unknown Verified 03/24/23 10:58 Review of Systems Sugical H&P ROS: Negative: Constitution, Cardiovascular, Respiratory, Neurological, Psychiatric, Hem-Onc, Allergic/Immunologic, Gastrointestinal, Genitourinary, Musculoskeletal, Integumentary, Endocrine and Eyes/Ears/Nose/Throat Exam Surgical H&P Exam: Normal: HEENT, Normal: Heart, Normal: Lungs, Normal: Extremities, Normal: Abdomen, Normal: Skin and Normal: Neurological Plan Diagnosis/Plan: Unchanged I have reviewed the history and physical and performed a pertinent physical examination on my patient. No changes have occurred unless specified. Time Spent With Patient Time: Total time managing care of this patient today ____ minutes.
[2023-08-10 06:25] VITALS: BP 132/85; PULSE 90; RESP 18; TEMP 36.9; O2SAT 97
[2023-08-10 06:26] VITALS: BMI 34.5
[2023-08-10] MEDS: Lactated Ringers 1,000 ML 100 ML IVCONT (06:47)
--- NOTE | 2023-08-10 08:02 | P.OP_ITS ---
Operative Note Operative Note Date of Service: 08/10/23 Narrative: Operative Information Procedure Description: Colonoscopy Indication: abdominal pain Anesthesia: MAC COLONOSCOPY Instrument: Olympus variable stiffness pediatric scope 190L Colonoscopy Monitoring: Vital signs and clinical assessment, continuous EKG monitoring, Pulse oximetry, Carbon Dioxide monitoring and blood pressure monitoring were done throughout the procedure. Colon withdrawal time was 13 minutes. Procedure: The patient was placed in the left lateral decubitis position and pre-procedure medications were administered. After a digital rectal examination of the ano-rectum, the video colonoscope was inserted into the rectum and advanced through the colon to the cecum/TI. The colonoscope was slowly withdrawn in a retrograde panoramic fashion and the colon mucosa was carefully examined including a retroflexed view of the rectum. Findings and interventions are described below. Procedure Difficulty: easy External hemorrhoids noted Findings: Terminal Ileum-normal, random bx taken random bx taken from right, left and rectum sides Cecum:normal Ascending Colon: 10 mm sessile polyp removed with cold snare Transverse Colon -normal Descending Colon:normal Sigmoid Colon: normal Rectum: Retroflexion with large internal hemorrhoids seen, grade II Anorectum - normal Intervention: cold forceps bx, and cold snare Colon preparation: [place] Bowel Preparation Scale Right colon; 2 Transverse colon: 2 Left colon; 2 (0 = Unprepared colon segment with mucosa not seen due to solid stool that cannot be cleared. 1 = Portion of mucosa of the colon segment seen, but other areas of the colon segment not well seen due to staining, residual stool and/or opaque liquid. 2 = Minor amount of residual staining, small fragments of stool and/or opaque liquid, but mucosa of colon segment seen well. 3 = Entire mucosa of colon segment seen well with no residual staining, small fragments of stool or opaque liquid) Impression and Post Procedure Diagnosis: colon polyp internal hemorrhoids external hemorrhoids Plan: High fiber diet leaflet Avoid straining at stool, epsom salts and sitz bath, anusol supps or cream Repeat Colonoscopy in 5 years if health allows or earlier if clinically in dicated Above findings were reviewed with the patient and relevant handouts were provided if indicated.
[2023-08-10 08:08] VITALS: BP 99/62; PULSE 83; RESP 20; TEMP 36.2; O2SAT 96
[2023-08-10 08:23] VITALS: BP 146/81; PULSE 75; RESP 16; TEMP 36.2; O2SAT 99
[2023-08-10] MEDS: Hydrocortisone 2.5 % Rectal Cr 30 GM TUBE 1 APPL PR (08:40)
== END 2023-08-10 08:57 | disposition home or self-care (01) ==
PROVIDERS: PCP Student in an Organized Health Care Education/Training Program; Visit Provider Internal Medicine Gastroenterology
PROC: 0DJD8ZZ Inspection of Lower Intestinal Tract, Via Natural or Artificial Opening Endoscopic (ICD-10-PCS; CPT 45378; principal; 2023-08-10 07:30)
DX: Z12.11 Encounter for screening for malignant neoplasm of colon (principal); D12.2 Benign neoplasm of ascending colon; K64.0 First degree hemorrhoids; K59.00 Constipation, unspecified; K75.81 Nonalcoholic steatohepatitis (NASH); R10.11 Right upper quadrant pain; Z80.0 Family history of malignant neoplasm of digestive organs; K21.9 Gastro-esophageal reflux disease without esophagitis; I10 Essential (primary) hypertension; I25.10 Atherosclerotic heart disease of native coronary artery without angina pectoris; E78.00 Pure hypercholesterolemia, unspecified; D64.9 Anemia, unspecified; Z79.51 Long term (current) use of inhaled steroids; Z79.82 Long term (current) use of aspirin; Z79.899 Other long term (current) drug therapy; Z88.5 Allergy status to narcotic agent; Z79.890 Hormone replacement therapy; Z87.891 Personal history of nicotine dependence
CPT/HCPCS: 45385; 45380; 88305; J2704

== ENCOUNTER → 2023-08-10 06:08 | Outpatient (BNV) | payer OTHER, SELFPAY | PROVIDERS: PCP Student in an Organized Health Care Education/Training Program; Visit Provider Internal Medicine Gastroenterology | DX: Z12.11 Encounter for screening for malignant neoplasm of colon (principal); K63.5 Polyp of colon; K64.1 Second degree hemorrhoids; R10.9 Unspecified abdominal pain | CPT/HCPCS: 45380; 45385 ==

== ENCOUNTER 2023-08-25 11:54 | Outpatient (AMB) | payer OTHER, SELFPAY ==
--- NOTE | 2023-08-25 11:56 | MHC.OFFVIS ---
Vital Signs 08/25/23 11:58 Height 5 ft 5 in Weight 205 lb 0.478 oz BMI 34.1 BP 109/62 Blood Pressure Location Lt brachial Position Sitting Pulse 87 Intake Visit Reasons: s/p colon Intake Note: Usha presents in the office as a follow up colonoscopy. CC: Sometimes she has pains in the umbilical region. It will take turns from left and right. [employer] Required: Yes [employer] Name: [id number] Isabella Allergies hydromorphone [Dilaudid] Allergy (Severe, Verified 08/25/23 11:58) Shortness of Breath morphine Allergy (Severe, Verified 08/25/23 11:58) Shortness of Breath HPI HPI s/p colon: Details: 72 yr old f being seen for f/u RECAP: she has been having rectal bleeding on wiping, saw Dr King and will have surgery in future she wants to get eye and knee surgery first notes worse bleeding with naprosyn taking iron supplements which makes her more constipated she has left sided abdo discomfort which is wrose with constipation takes metamucil bid, occ tid stool is not hard when comes outshe also gets a lot of bloating and gas she has been having worse refluex, not on PPI, no dysphagia reviewed results of her EGD/colon 2018 --rept due 2023--no polyps, hemorrhoids and tics she was using steroid cream which gives her relief, but she ran out of it otherwise she is having pain and discomfort from the hemorrhoids she felt doxycycline did not help any symptoms of bloating and gas As she was still having bad reflux I arranged PETERS on PPI EGD 11/2021--gastritis PETERS: minimal acid reflux noted, Demeester <14.7\ colonoscopy 07/2023-- internal hemorrhoids grade II, polyp removed , tortuous colon noted she was very low on b12 was given replacement INTERIM: she has crampy left sided abdominal pain she has tried bentyl in the past and it has helped her symptoms no nausea or vomiting no fever no jaundice EXAM: GENERAL: The patient is well developed and nontoxic. VITAL SIGNS:see workflow HEENT: Nonicteric sclerae, PERRLA, EOMI. Oropharynx clear. Moist mucous membranes. Conjunctivae appear well perfused. No thyroid mass. CHEST: Chest wall is nontender. HEART: Regular rate and rhythm without murmurs. LUNGS: Clear to auscultation bilaterally. ABDOMEN: Soft, positive bowel sounds,tender epigastrium, no organomegaly. tender flank left side also suprapubic SKIN: No rash, no excessive bruising, petechiae, or purpura. NEUROLOGIC: Cranial nerves II-XII intact without motor/sensory deficit. Psych: normal a/P: 1/ Left sided abdo pain, prob related to tortuous colon 2/ hemorrhoids, PLAN: 1/ refer IR for hemorrhoid treatment 2/ trial of levsin 3/ recheck b12 level [facility] Medical History Back pain Anemia History of depression Elevated cholesterol GERD (gastroesophageal reflux disease) Bleeding hemorrhoids Arthritis Hypertension Surgical History History of esophagogastroduodenoscopy (EGD) Hx of colonoscopy Hx of total knee replacement History of cataract surgery History of hysterectomy History of cholecystectomy History of neck surgery Family History Father History of stomach cancer Brother History of melanoma Social History Household Members: Children Alcohol intake: current Alcohol intake frequency: does not drink Patient Tobacco Use Status: Former Tobacco user Current occupational status: disabled Physical Exam Vital Signs: Last Vital Signs Pulse 87 08/25/23 11:58 BP 109/62 08/25/23 11:58 BMI result Body Mass Index 34.1 Assessment & Plan Assessment & Plan (1) Hemorrhoids: Code(s): K64.9 - Unspecified hemorrhoids Category: Medical Qualifiers: Hemorrhoid type: unspecified Qualified Code(s): K64.9 - Unspecified hemorrhoids Plan: see above (2) B12 deficiency: Code(s): E53.8 - Deficiency of other specified B group vitamins Category: Medical Plan: see above Orders: Orders Vitamin B12 and Folate Today E53.8 - Deficiency of other specified B group vitamins, K64.9 - Unspecified hemorrhoids Parietal Cell Antibody Today E53.8 - Deficiency of other specified B group vitamins, K64.9 - Unspecified hemorrhoids Intrinsic Factor Antibodies Today E53.8 - Deficiency of other specified B group vitamins, K64.9 - Unspecified hemorrhoids Medications: New hyoscyamine sulfate 0.25 mg (2 x 0.125 mg) PO TID-QID PRN 60 tabs 1RF dyspepsia Coding Level of Care Code Est Pt Level 3 (02406) Diagnoses Hemorrhoids, unspecified hemorrhoid type K64.9 Hemorrhoid type: unspecified B12 deficiency E53.8
[2023-08-25 11:58] VITALS: BP 109/62; PULSE 87; BMI 34.1
== END 2023-08-25 12:38 | disposition home or self-care (01) ==
PROVIDERS: PCP Student in an Organized Health Care Education/Training Program; Visit Provider Internal Medicine Gastroenterology
DX: K64.9 Unspecified hemorrhoids (principal); E53.8 Deficiency of other specified B group vitamins
CPT/HCPCS: 99213

== ENCOUNTER 2023-08-25 11:54 | Outpatient (REF) | payer OTHER, SELFPAY ==
[2023-08-25 14:43] LABS: Folate 16.8 ng/mL (> or = 4.0); Vitamin B12 983 pg/mL (200-900)
[2023-08-29 14:19] LABS: Intrinsic Factor Antibodies Positive (Negative)
[2023-09-03 13:27] LABS: Parietal Cell Antibody 40.8 Unit (<=20.0)
== END 2023-08-25 11:55 | disposition home or self-care (01) ==
LOC: HO.LAB 11:54
PROVIDERS: PCP Student in an Organized Health Care Education/Training Program; Visit Provider Internal Medicine Gastroenterology
DX: K64.9 Unspecified hemorrhoids (principal); E53.8 Deficiency of other specified B group vitamins; R10.9 Unspecified abdominal pain
CPT/HCPCS: 36415; 82607; 82746; 83516; 86340; 99212

== ENCOUNTER 2023-09-18 12:49 | Outpatient (AMB) | payer OTHER, SELFPAY ==
--- NOTE | 2023-09-18 12:52 | A.OFFVIS_ITS ---
Vital Signs 09/18/23 12:53 Height 5 ft 5 in Weight 205 lb 14.588 oz BMI 34.3 BP 100/62 Blood Pressure Location Lt brachial Position Sitting Pulse 88 Pulse Source Pulse Oximeter Intake Visit Reasons: f/u per NS Mixed Crop Farmer Required: No Allergies hydromorphone [Dilaudid] Allergy (Severe, Verified 09/18/23 12:59) Shortness of Breath morphine Allergy (Severe, Verified 09/18/23 12:59) Shortness of Breath Medication List - Last Reconciled 09/18/23 by MICHAEL Reyez aspirin 81 mg PO DAILY blood pressure test kit-large As directed cholecalciferol (vitamin D3) 1 mcg PO DAILY cyanocobalamin (vitamin B-12) 1,000 mcg PO DAILY diclofenac sodium 1% topical esomeprazole magnesium 40 mg PO DAILY ezetimibe (Zetia) 10 mg PO DAILY fluticasone propionate 50 mcg/actuation 1 spray intranasal BID hydrocortisone 2.5% (Procto-Med HC) 1 appl ME BEDTIME hyoscyamine sulfate 0.25 mg (2 x 0.125 mg) PO TID-QID PRN lisinopril-hydrochlorothiazide 20-25 mg 1 tab PO DAILY magnesium citrate 30 mL PO DAILY PRN metoprolol succinate ER 25 mg PO DAILY 90 days omega 4-egh-tbr-fish oil 1,000 mg (120 mg-180 mg) 1 cap PO BID rosuvastatin 5 mg PO DAILY triamcinolone acetonide 0.5% topical DAILY HPI HPI f/u per NS: Details: Usha is a 73-year-old female with past medical history of hypertension, hyp erlipidemia, episode of exertional chest discomfort who underwent cardiac evaluation and most recently CTA of the coronary arteries showing significant OM1 stenosis. She was started on metoprolol and reported resolution of her symptoms. She now presents for follow-up. Today she reports that on 1 day in early July she notice shortness of breath with activity. She said she had an uncomfortable feeling in her chest but no real pain. Her breathing improved with rest. She had no other concerning symptoms that day. Since then she has been doing well without recurrent symptoms. She denies any exertional chest discomfort or shortness of breath. She tells me she has been doing normal ADLs without issues.. No new symptoms including palpitations, presyncope, syncope, PND, orthopnea or edema. She reports good activity tolerance. Taking all meds as directed. [facility] Medical History Back pain Anemia History of depression Elevated cholesterol GERD (gastroesophageal reflux disease) Bleeding hemorrhoids Arthritis Hypertension Surgical History History of esophagogastroduodenoscopy (EGD) Hx of colonoscopy Hx of total knee replacement History of cataract surgery History of hysterectomy History of cholecystectomy History of neck surgery Family History Father History of stomach cancer Brother History of melanoma Social History Household Members: Children Alcohol intake: current Alcohol intake frequency: does not drink Patient Tobacco Use Status: Former Tobacco user Current occupational status: disabled Review of Systems Const All systems reviewed & are unremarkable except as noted in HPI and below ENT Denies dizziness Card Denies chest pain, Denies chest pain at rest, Denies chest pain with activity, Denies rapid heart rate, Denies pedal edema, Denies edema, Denies leg edema, Denies lightheadedness, Denies palpitations, Denies dyspnea, Denies dyspnea on exertion and Denies orthopnea Resp Denies cough, Denies dyspnea and Denies dyspnea on exertion GI Denies hematochezia and Denies change in stool character Musc Details: right knee pain Denies abnormal gait, Denies limited range of motion, Denies muscle cramps, Denies muscle weakness, Denies numbness, Denies radiating pain into limb, Denies stiffness and Denies tingling Neuro Denies abnormal gait, Denies dizziness, Denies numbness and Denies tingling Endo Denies palpitations Physical Exam Vital Signs: Last Vital Signs Pulse 88 09/18/23 12:53 BP 100/62 09/18/23 12:53 BMI result Body Mass Index 34.3 Const General: cooperative, healthy appearing, comfortable and no acute distress Orientation/consciousness: patient oriented x3 Neck Neck: Yes normal visual inspection and Yes no JVD Resp Effort & Inspection: normal respiratory effort Auscultation: clear to auscultation bilaterally, no crackles, no rales, no rhonchi and no wheezes Cardio Jugular venous distension: no JVD Rate: regular rate Rhythm: regular rhythm Heart sounds: S1 normal heart sound present, S2 normal heart sound present, no murmurs and no rubs Neuro General: patient oriented x3 Extrem General: Yes normal to inspection, No no pedal edema and No calf tenderness Psych Appearance: grossly normal Mental Status: mental status grossly normal Speech and movement: Normal speech and movement present Assessment & Plan Assessment & Plan (1) Exertional chest pain: Code(s): R07.9 - Chest pain, unspecified Category: Medical Plan: Initial episode of exertional chest discomfort occurred last summer while dancing. She also had reported some random pressure in the mid chest. Echocardiogram was done 03/21/2022 showing EF 60-65%, no valve abnormalities and no regional wall motion abnormalities. A nuclear stress test was done on 08/19/2022 showing exercise 9-1/2 minutes with 6/10 chest discomfort, borderline EKG changes and no clear ischemia seen on nuclear imaging. She had CTA of the coronary arteries on 09/26/2022 showing OM 1 more than 70% stenosis, FFR 0.79, no significant FFR decrease in the remainder of the coronary vasculature. Result was reviewed with her. She was then started on metoprolol. And continued on aspirin and Zetia. Her symptoms had fully resolved. Today she reports that in early July she had an episode of shortness of breath and uncomfortable feeling in her chest with activity on 1 specific day. She has had no recurrent symptoms since that time. Currently she feels well and denies chest discomfort. Her primary complaint is right knee pains. At this time will continue medication management for CAD, with aspirin, and metoprolol. She is intolerant to statins and says she is not taking Zetia for unclear reason. Discussed Repatha use and she is willing to try it. Will order then plan for fasting lipid profile after 6 weeks. Patient informed that if she has recurrent exertional chest discomfort then cardiac catheterization will be warranted. Signs and symptoms of angina reviewed. Cardiology follow-up in 6 month, sooner if needed. Emergency care if needed for any concerning symptoms. (2) Coronary atherosclerosis: Code(s): I25.10 - Atherosclerotic heart disease of [place] coronary artery without angina pectoris Category: Medical Qualifiers: Associated angina: without angina Coronary Disease-Associated Artery/Lesion type: [place] artery Tribe vs. transplanted heart: [place] heart Qualified Code(s): I25.10 - Atherosclerotic heart disease of [place] coronary artery without angina pectoris Plan: As above (3) Hypertension: Code(s): I10 - Essential (primary) hypertension Category: Medical Qualifiers: Hypertension type: primary hypertension Qualified Code(s): I10 - Essential (primary) hypertension Plan: Well controlled at present time. No changes to her antihypertensive meds. (4) Hyperlipidemia: Code(s): E78.5 - Hyperlipidemia, unspecified Category: Medical Qualifiers: Hyperlipidemia type: unspecified Qualified Code(s): E78.5 - Hyperlipidemia, unspecified Plan: [place] LDL goal less than 70. Intolerant to statins. Not taking Zetia. Starting Repatha. Plan Time spent on chart review, documentation, interview and assessment Medications: New evolocumab (Repatha SureClick) 140 mg subcut Q2W 6 mL 3RF hyperlipidemia 90 days Discontinued ezetimibe (Zetia) Discontinued Reason: Patient no longer taking 10 mg PO DAILY 30 tabs 5RF rosuvastatin Discontinued Reason: Patient no longer taking 5 mg PO DAILY 30 tabs 2RF Coding Level of Care Code Est Pt Level 4 (62408) Diagnoses Exertional chest pain R07.9 Atherosclerosis of [place] coronary artery of [place] heart without angina pectoris I25.10 Associated angina: without angina Coronary Disease-Associated Artery/Lesion type: [place] artery Tribe vs. transplanted heart: [place] heart Primary hypertension I10 Hypertension type: primary hypertension Hyperlipidemia, unspecified hyperlipidemia type E78.5 Hyperlipidemia type: unspecified Time Spent (min) 28
[2023-09-18 12:53] VITALS: BP 100/62; PULSE 88; BMI 34.3
== END 2023-09-18 13:35 | disposition home or self-care (01) ==
PROVIDERS: PCP Student in an Organized Health Care Education/Training Program; Visit Provider Nurse Practitioner Family
DX: R07.9 Chest pain, unspecified (principal); I25.10 Atherosclerotic heart disease of native coronary artery without angina pectoris; I10 Essential (primary) hypertension; E78.5 Hyperlipidemia, unspecified
CPT/HCPCS: 99214

== ENCOUNTER → 2023-09-18 12:49 | Outpatient (BNVA) | payer OTHER, SELFPAY | PROVIDERS: PCP Student in an Organized Health Care Education/Training Program; Visit Provider Nurse Practitioner Family | DX: I10 Essential (primary) hypertension (principal); E78.5 Hyperlipidemia, unspecified; R07.9 Chest pain, unspecified; I25.10 Atherosclerotic heart disease of native coronary artery without angina pectoris | CPT/HCPCS: 99212 ==

== ENCOUNTER 2023-11-01 12:29 | Outpatient (REF) | payer OTHER, SELFPAY ==
--- NOTE | ~2023-11-01 | US_ITS ---
EXAMINATION: Noninvasive assessment of the bilateral lower extremities with ARTERIAL DUPLEX and ANKLE BRACHIAL INDICES (ABIs). CLINICAL INFORMATION: Peripheral vascular disease, venous insufficiency TECHNIQUE: Duplex Doppler techniques with waveform analysis and measurement of velocities in the bilateral common femoral, profunda femoris, superficial femoral, popliteal and tibial arteries were performed. Additionally, ankle pulse volume recordings, ankle pressure measurements and ankle brachial indices were obtained of the lower extremity arterial system bilaterally. The study was performed only at rest. COMPARISON: None FINDINGS: DIRECT DUPLEX DOPPLER FINDINGS: RIGHT LEG: Common femoral artery: 111 cm/s, phasicity: Biphasic Profunda femoris artery: 61 cm/s, phasicity: Biphasic Superficial femoral artery (proximal): 80 cm/s, phasicity: Biphasic Superficial femoral artery (mid): 90 cm/s, phasicity: Biphasic Superficial femoral artery (distal): 64 cm/s, phasicity: Biphasic Popliteal artery: 54 cm/s, phasicity: Biphasic Posterior tibial artery: 68 cm/s, phasicity: Biphasic Peroneal artery: 61 cm/s, phasicity: Biphasic Anterior tibial artery: 69 cm/s, phasicity: Biphasic Dorsalis pedis artery: 29 cm/s, phasicity:Biphasic LEFT LEG: Common femoral artery: 118 cm/s, phasicity: Biphasic Profunda femoris artery: 71 cm/s, phasicity: Biphasic Superficial femoral artery (proximal): 75 cm/s, phasicity: Biphasic Superficial femoral artery (mid): 90 cm/s, phasicity: Biphasic Superficial femoral artery (distal): 75 cm/s, phasicity: Biphasic Popliteal artery: 70 cm/s, phasicity: Biphasic Posterior tibial artery: 58 cm/s, phasicity: Biphasic Peroneal artery: 38 cm/s, phasicity: Biphasic Anterior tibial artery: 30 cm/s, phasicity: Biphasic Dorsalis pedis artery: 14 cm/s, phasicity: Biphasic ANKLE-BRACHIAL INDEX: Right: 1.13 Left: 1.00 ANKLE PRESSURES: Right: PT 150, DP 146 Left: PT 131, DP 133 ANKLE PVR WAVEFORMS: Right: Normal Left: Normal US/US arterial duplex BI w/ RADHA IMPRESSION: Right leg: Unremarkable noninvasive arterial evaluation and duplex arterial ultrasound Left leg: Unremarkable noninvasive arterial evaluation and duplex arterial ultrasound RADHA Reference: - >1.4 = calcified vessels - 0.9 - 1.4 = normal - no significant arterial disease - 0.7 - 0.89 = mild peripheral arterial disease - 0.51 - 0.69 = moderate peripheral arterial disease - d 0.50 = severe peripheral arterial disease - < .30 = critical arterial disease Electronically signed by: Amado Rodríguez MD 11/07/2023 02:44 PM EDT
== END 2023-11-01 12:30 | disposition home or self-care (01) ==
LOC: HO.US 12:29
PROVIDERS: PCP Student in an Organized Health Care Education/Training Program; Visit Provider Family Medicine
DX: I87.2 Venous insufficiency (chronic) (peripheral) (principal); I73.9 Peripheral vascular disease, unspecified
CPT/HCPCS: 93922; 93925

== ENCOUNTER 2023-11-08 14:26 | Outpatient (REF) | payer OTHER, SELFPAY ==
[2023-11-08 18:00] LABS: Blood Urea Nitrogen 31 mg/dL (9-16); Estimated Glomerular Filt Rate 43
== END 2023-11-08 14:27 | disposition home or self-care (01) ==
LOC: HO.CHCLDS 14:26
PROVIDERS: Visit Provider Radiology Vascular & Interventional Radiology
DX: R94.4 Abnormal results of kidney function studies (principal)
CPT/HCPCS: 36415; 82565; 84520

== ENCOUNTER 2023-12-19 09:22 | Outpatient (REF) | payer OTHER, SELFPAY ==
[2023-12-19 15:07] LABS: Alanine Aminotransferase 18 U/L (0-31); Albumin Level 4.3 g/dL (3.5-5.0); Alkaline Phosphatase 111 U/L (39-117); Anion Gap 17 (12-20); Aspartate Amino Transferase 30 U/L (5-31); Bilirubin Direct 0.2 mg/dL (0.0-0.5); Bilirubin Total 0.3 mg/dL (0.0-1.0); Blood Urea Nitrogen 26 mg/dL (9-16); Calcium 10.2 mg/dL (8.4-10.2); Carbon Dioxide 22 mmol/L (22-29); Chloride 104 mmol/L (96-108); Cholesterol 191 mg/dL (<200); Estimated Glomerular Filt Rate 35; Glucose Random 101 mg/dL (60-115); HDL Cholesterol 72 mg/dL (>40); LDL Cholesterol Calculated 105 mg/dL (<100); Potassium 5.3 mmol/L (3.3-5.1); Sodium 138 mmol/L (135-145); Total Protein 8.2 g/dL (6.5-8.0); Triglycerides 74 mg/dL (<150)
== END 2023-12-19 09:23 | disposition home or self-care (01) ==
LOC: HO.CHCLDS 09:22
PROVIDERS: Visit Provider Student in an Organized Health Care Education/Training Program
DX: I12.9 Hypertensive chronic kidney disease with stage 1 through stage 4 chronic kidney disease, or unspecified chronic kidney disease (principal); N18.31 Chronic kidney disease, stage 3a
CPT/HCPCS: 36415; 80048; 80061; 80076

== ENCOUNTER 2024-01-01 15:03 | Outpatient (REF) | payer OTHER, SELFPAY ==
[2024-01-01 17:41] LABS: Anion Gap 11 (12-20); Blood Urea Nitrogen 19 mg/dL (9-16); Calcium 9.4 mg/dL (8.4-10.2); Carbon Dioxide 26 mmol/L (22-29); Chloride 103 mmol/L (96-108); Estimated Glomerular Filt Rate 45; Glucose Random 133 mg/dL (60-115); Potassium 4.2 mmol/L (3.3-5.1); Sodium 136 mmol/L (135-145)
== END 2024-01-01 15:04 | disposition home or self-care (01) ==
LOC: HO.CHCLDS 15:03
PROVIDERS: Visit Provider Student in an Organized Health Care Education/Training Program
DX: E87.5 Hyperkalemia (principal)
CPT/HCPCS: 36415; 80048

== ENCOUNTER → 2024-01-03 15:33 | Outpatient (BNVA) | payer OTHER, SELFPAY | PROVIDERS: PCP Student in an Organized Health Care Education/Training Program; Referring Provider Student in an Organized Health Care Education/Training Program; Visit Provider Internal Medicine Hypertension Specialist | DX: I12.9 Hypertensive chronic kidney disease with stage 1 through stage 4 chronic kidney disease, or unspecified chronic kidney disease (principal); N17.9 Acute kidney failure, unspecified; E20.811 Secondary hypoparathyroidism in diseases classified elsewhere; N18.30 Chronic kidney disease, stage 3 unspecified | CPT/HCPCS: 99202 ==

== ENCOUNTER 2024-03-12 10:10 | Outpatient (AMB) | payer OTHER, SELFPAY ==
[2024-03-12 10:03] VITALS: BMI 33.8
--- NOTE | 2024-03-12 10:03 | HO.NEPHOV_ITS ---
Vital Signs 03/12/24 10:03 Height 5 ft 5 in Weight 203 lb BMI 33.8 Intake Visit Reasons: 3 Month f/u/ Conf Sign Painter Apprentice Required: Yes Sign Painter Apprentice Name: [id number] MARNIE Accompanied by: Self / Same As Patient Allergies hydromorphone [Dilaudid] Allergy (Severe, Verified 03/12/24 10:05) Shortness of Breath morphine Allergy (Severe, Verified 03/12/24 10:05) Shortness of Breath Medication List - Last Reconciled 03/12/24 by Prabhjot Hairston MD aspirin 81 mg PO DAILY blood pressure test kit-large As directed cholecalciferol (vitamin D3) 1 mcg PO DAILY cyanocobalamin (vitamin B-12) 1,000 mcg PO DAILY diclofenac sodium 1% topical esomeprazole magnesium 40 mg PO DAILY ferrous sulfate 325 mg PO DAILY fluticasone propionate 50 mcg/actuation 1 spray intranasal BID hydrocortisone 2.5% (Procto-Med HC) 1 appl SD BEDTIME lisinopril-hydrochlorothiazide 20-12.5 mg 1 tab PO DAILY magnesium oxide 400 mg PO DAILY metoprolol succinate ER 25 mg PO DAILY 90 days omega 2-xfw-vzi-fish oil 1,000 (120-180) mg 1 cap PO BID rosuvastatin 5 mg PO DAILY triamcinolone acetonide 0.5% topical DAILY HPI Comments Details: Leann is a pleasant 73-year-old woman with a history of hypertension for more than 20 years. She has been on lisinopril hydrochlorothiazide /25 since 2017. Blood pressure has been reasonably well controlled. Few years ago metoprolol 50 mg was added. She has been monitoring her blood pressure at home. In late 12/03/2023 she had UTI. She was treated with Bactrim double strength. Subsequently she developed hyperkalemia with MELONY with a creatinine of 1.45. After discontinuing Bactrim serum creatinine returned to baseline and potassium normalized. Her EGFR is has been around 40-49 mL/minute for the last 4 years since 2020. 03/12/2024. Telehealth today. After lowering lisinopril with hydrochlorothiazide creatinine is improved. However the blood pressure is still low in the range of 100 or were 80 mm Hg systolic. She is complaining of dysuria. Increased urine frequency. [facility] Medical History Back pain Anemia History of depression Elevated cholesterol GERD (gastroesophageal reflux disease) Bleeding hemorrhoids Arthritis Hypertension Surgical History History of esophagogastroduodenoscopy (EGD) Hx of colonoscopy Hx of total knee replacement History of cataract surgery History of hysterectomy History of cholecystectomy History of neck surgery Family History Father History of stomach cancer Brother History of melanoma Social History Household Members: Children Alcohol intake: current Alcohol intake frequency: does not drink Patient Tobacco Use Status: Former Tobacco user Current occupational status: disabled Physical Exam Vital Signs: BMI result Body Mass Index 33.8 Telehealth Telehealth Telehealth Platform: Telephone Location of provider rendering services: practice address Location of patient: address on file Patient Identification confirmed using: Name, : Yes Telehealth method: voice only Minutes spent on Phone/Video with Pt.: 14 Results Reviewed Nephrology Results: Sodium 136 mmol/L (135-145) 01/01/24 Potassium 4.2 mmol/L (3.3-5.1) 01/01/24 Chloride 103 mmol/L (96-108) 01/01/24 Carbon Dioxide 26 mmol/L (22-29) 01/01/24 BUN 19 mg/dL (9-16) H 01/01/24 Creatinine 1.17 mg/dL (0.5-1.4) 01/01/24 Calcium 9.4 mg/dL (8.4-10.2) 01/01/24 Assessment & Plan Assessment & Plan (1) CKD (chronic kidney disease) stage 3, GFR 30-59 ml/min: Code(s): N18.30 - Chronic kidney disease, stage 3 unspecified Category: Medical (2) Dysuria: Code(s): R30.0 - Dysuria Category: Medical (3) MELONY (acute kidney injury): Code(s): N17.9 - Acute kidney failure, unspecified Category: Medical (4) Hypertension: Code(s): I10 - Essential (primary) hypertension Category: Medical Qualifiers: Hypertension type: primary hypertension Qualified Code(s): I10 - Essential (primary) hypertension Plan Acute kidney injury superimposed on CKD. MELONY was most likely due to use of Bactrim. After discontinuing Bactrim renal function returned to baseline. Hyperkalemia due to combination of CRISTINA inhibitors and use of Bactrim. Hyperkalemia has resolved after stopping Bactrim. Chronic kidney disease. Stage III Most likely due to hypertensive nephrosclerosis. Recent imaging did not reveal any evidence of obstruction. Urine sediments have been rather bland without significant proteinuria or hematuria. Therefore glomerular nephritis or interstitial disease seem unlikely. Hypertension Blood pressure continues to remain low. I will discontinue lisinopril 20/12.51 a day. Start her on lisinopril 10 mg a day. Recheck renal function in 4 weeks. As per dysuria check urine analysis and urine culture and see if she needs any antibiotics. Orders: Orders Urine Culture Today N18.30 - Chronic kidney disease, stage 3 unspecified, R30.0 - Dysuria UA and rflx microscopic Today N18.30 - Chronic kidney disease, stage 3 unspecified, R30.0 - Dysuria Basic Metabolic Panel 4 Weeks N18.30 - Chronic kidney disease, stage 3 unspecified Medications: New lisinopril 10 mg PO DAILY 90 tabs 1RF Discontinued lisinopril-hydrochlorothiazide 20-12.5 mg Discontinued Reason: Doctor's Order 1 tab PO DAILY 90 tabs 1RF Coding Level of Care Code Tele New Pt Level 3 (37210) Diagnoses CKD (chronic kidney disease) stage 3, GFR 30-59 ml/min N18.30 Dysuria R30.0 MELONY (acute kidney injury) N17.9 Primary hypertension I10 Hypertension type: primary hypertension
--- OUTSIDE RECORDS SUMMARY | 2024-03-12 10:58 | XMS_ITS | Encounter Summary ---
Author Organization [employer] Address [address] [place] [address] Care Team Providers Care Starch Dumper Name Role Phone Nancy Sellers MD Primary Care Provider [phone] Reason for Visit * Reason Onset Date Comments Results 04/25/2022 Encounter Details Date Type Department Care Team ([facility] st Contact Info) Description 04/25/2022 Telephone [facility] [address] [place] [address] Nancy Sellers MD [address] [place] [address] Results Social History Tobacco Use Types Packs/Day Years Used Date Smoking Tobacco: Never Assessed Depression Answer Date Recorded Patient Health Questionnaire-9 Score 4 07/31/2023 Patient Health Questionnaire-9 Score 4 07/31/2023 Last PHQ-9: Questionnaire Data Not on file 0 07/31/2023 Housing Stability Answer Date Recorded What is your housing situation today? I have [employer] [facility] 07/31/[address] you li ve. Do you have problems with any of the following? None of the above 07/31/2023 Food Insecurity Answer Date Recorded Within the past 12 months, y ou worried that your food would run out before you got money to buy more: Never True 07/31/2023 Within the past 12 months,th e food you bought just didn't last and you didn't have enough money to get more: Never True Transportation Answer Date Recorded In the past 12 months, has l ack of transportation kept you from medical appts, meetings, work or from getting things needed for daily living? No 07/31/2023 Utilities Answer Date Recorded In the past 12 months, has t he electric, gas, oil or water company threatened to shut off services in your home? No 07/31/2023 Depression Answer Date Recorded Patient Health Questionnaire-2 Score 4 07/31/2023 Internet Access Answer Date Recorded Internet Access Q1 No 10/16/2023 Internet Access Q2 Not on file 10/16/2023 Comments Unknown Sex and Gender Information Value Date Recorded Sex Assigned at Female 12/13/2021 10:15 AM EDT Legal Sex Female 10:15 AM EDT Gender Identity Female 12/13/2021 10:15 AM EDT Sexual Orientation Straight 12/13/2021 10 :15 AM EDT COVID-19 Exposure Response Date Recorded In the last 10 days, have yo u been in contact with someone who was confirmed or suspected to have Coronavirus/COVID-19? No / Unsure 08/11/2022 10:56 AM EDT documented as of this encounter Miscellaneous Notes * Telephone Encounter - Luda Cope - 04/25/2022 12:50 PM EDT Tc from pt requesting CT scan results. Please contact at [phone] Cameroonian documented in this encounter Plan of Treatment Not on file documented as of this encounter Visit Diagnoses Not on filedocumented in this encounter Care Teams Starch Dumper Relationship Specialty Start Date End Date Nancy Sellers MD [address] [place] [id number] PCP - General Family Medicine 01/30/12 documented as of this encounter
--- OUTSIDE RECORDS SUMMARY | 2024-03-12 10:58 | XMS_ITS | Encounter Summary ---
Author Organization [employer] Address [address] [place] [address] [address] [place] [address] Care Team Providers Care Check Processing Clerk Name Role Phone Nancy Sellers MD Primary Care Provider [phone] Reason for Visit * Reason Onset Date Comments Nurse Triage 06/05/2023 Encounter Details Date Type Department Care Team ([facility] st Contact Info) Description 06/05/2023 Telephone [facility] [address] [place], [place] [id number] Nancy Sellers MD [address] [place] [address] Nurse Triage Social History Tobacco Use Types Packs/Day Years Used Date Smoking Tobacco: Never Passive Smoke Exposure: Never Smokeless Tobacco: Never Alcohol Use Standard Drinks/Week Comments Never 0 (1 standard drink = 0.6 oz pur e alcohol) Depression Answer Date Recorded Patient Health Questionnaire-9 Score 2 05/17/2022 Housing Stability Answer Date Recorded What is your housing situation today? I have [employer]orne 12/13/[address] you li ve. Do you have problems with any of the following? None of the above 12/13/2022 Food Insecurity Answer Date Recorded Within the past 12 months, y ou worried that your food would run out before you got money to buy more: Never True 12/13/2022 Within the past 12 months,th e food you bought just didn't last and you didn't have enough money to get more: Never True Transportation Answer Date Recorded In the past 12 months, has l ack of transportation kept you from medical appts, meetings, work or from getting things needed for daily living? No 12/13/2022 Utilities Answer Date Recorded In the past 12 months, has t he electric, gas, oil or water company threatened to shut off services in your home? No 12/13/2022 Depression Answer Date Recorded Patient Health Questionnaire-2 Score 2 05/17/2022 Comments Unknown Sex and Gender Information Value Date Recorded Sex Assigned at Female 12/13/2021 10:15 AM EDT Legal Sex Female 10:15 AM EDT Gender Identity Female 12/13/2021 10:15 AM EDT Sexual Orientation Straight 12/13/2021 10 :15 AM EDT documented as of this encounter Miscellaneous Notes * Telephone Encounter - Dahiana Street RN - 06/05/2023 11:04 AM EDT Triage call with [employer] Apprentice Painter Hand ID [id number] Pt is reporting dry mouth . Pt was on vacation in [place] and has returned 05/24/23. Pt reports the dry mouth makes it hard to eat and started a week ago. Pt denied difficulty breathing, bleeding or whitepatches on tongue/cheek. Pt reports has had antibiotics prescribed 3 weeks ago for some type of phlegm . Pt reports drinks adequate amounts of liquid to offset constipation and is not thirstier thanusual. Pt reports hx of this dry mouth happening before and dentist advised to change tooth paste which was effective at the time but, has occurred again. Apt with Dr. Anglin 06/08/23 @ 1115am. Insurance is verified as active prior to booking. Pt agrees with disposition. Protocol Used: Mouth Symptoms (Adult) Protocol-Based Disposition: See in Office or Video Visit within 3 Days Video visit not offered Positive Triage Question: * Dry mouth and new-onset and unexplained (Exceptions: Chronic symptom or dry mouth from mild dehydration.) * All higher-acuity triage questions were negative Care Advice Discussed: * Drink Liquids If You Are Dehydrated * Reasons To Call Back - You don't feel better in 2 hours - Fainting occurs - You become worse * Telephone Encounter - Sara Wood - 06/05/2023 10:06 AM EDT Symptom: Dry Mouth Outcome: Schedule an urgent appointment (within 4 hours) or talk to a nurse or provider soon Reason: Trouble drinking The caller accepted this outcome Please contact pt at [phone] (Slovenian) documented in this encounter Plan of Treatment Not on file documented as of this encounter Visit Diagnoses Not on filedocumented in this encounter Additional Health Concerns Assessment Noted Time PHQ-9 Depression Total Score: 2 05/18/19 23 11:41 AM EDT documented as of this encounter Care Teams Check Processing Clerk Relationship Specialty Start Date End Date Nancy Sellers MD [address] [place] [phone] PCP - General Family Medicine 01/30/12 documented as of this encounter
--- OUTSIDE RECORDS SUMMARY | 2024-03-12 10:58 | XMS_ITS | Encounter Summary ---
Author Organization [employer] Address [address] [facility] 7t [place] [address] Care Team Providers Care Radio Personality Name Role Phone Nancy Sellers MD Primary Care Provider [phone] Reason for Visit * Reason Onset Date Comments Reschedule 01/18/2023 Encounter Details Date Type Department Care Team ([facility] st Contact Info) Description 01/18/2023 Telephone [facility] MEDICINE [address] [place] [address] Nancy Sellers MD [address] [place] [address] Reschedule Social History Tobacco Use Types Packs/Day Years [...] encounter Miscellaneous Notes * Telephone Encounter - Daisha Moreno - 01/18/2023 8:30 AM EST Tc from pt requesting r/s 01/18 appt, typewriter operator automatic attempted to schedule, no availability for january. documented in this encounter Plan of Treatment Not on file documented as of this encounter Visit Diagnoses Not on filedocumented in this encounter Additional Health Concerns Assessment Noted Time PHQ-9 Depression Total Score: 2 05/18/19 23 11:41 AM EDT documented as of this encounter Care Teams Radio Personality Relationship Specialty Start Date End Date Nancy Sellers MD [address] [place] [id number] PCP - General Family Medicine 01/30/12 documented as of this encounter
--- OUTSIDE RECORDS SUMMARY | 2024-03-12 10:58 | XMS_ITS | Encounter Summary ---
Author Organization [email or web address] [facility] Address [address] [place] [address] 7t [place] [address] Care Team Providers Care Laminating Machine Feeder Name Role Phone Nancy Sellers MD Primary Care Provider [phone] Encounter Details Date Type Department Care Team (Late st Contact Info) Description 01/22/[address] [facility] MEDICINE [address] [place] [address] ProviderAshok MD Social History Tobacco Use Types Packs/Day Years Used Date Smoking Tobacco: Never Assessed Comments Unknown Sex and Gender Information Value Date Recorded Sex Assigned at Female 12/13/2021 10:15 AM EDT Legal Sex Female 10:15 AM EDT Gender Identity Female 12/13/2021 10:15 AM EDT Sexual Orientation Straight 12/13/2021 10 :15 AM EDT documented as of this encounter Plan of Treatment Not on file documented as of this encounter Visit Diagnoses Not on filedocumented in this encounter Care Teams Laminating Machine Feeder Relationship Specialty Start Date End Date Nancy Sellers MD [address] [place] [address] PCP - General Family Medicine 01/30/12 documented as of this encounter
--- OUTSIDE RECORDS SUMMARY | 2024-03-12 10:58 | XMS_ITS | Encounter Summary ---
Author Organization [employer] Address [address] [facility] 7t [place] [address] Care Team Providers Care Mail Censor Name Role Phone Nancy Sellers MD Primary Care Provider [phone] Reason for Visit * Reason Onset Date Comments New Med Request 07/20/2023 Encounter Details Date Type Department Care Team ([facility] st Contact Info) Description 07/20/2023 Telephone [facility] MEDICINE [address] [place] [address] Nancy Sellers MD [address] [place] [address] New Med Request Social History Tobacco Use Types Packs/Day Years [...] encounter Miscellaneous Notes * Telephone Encounter - Alvaro Corea - 07/20/2023 1:19 PM EDT Tc from patient calling to report to the provider has received a call by the Gastro and was informed is 148 [phone] 900 and was suppose to be prescribed the B12 injections [place] [facility] [place] in this encounter Plan of Treatment Not on file documented as of this encounter Visit Diagnoses Not on filedocumented in this encounter Additional Health Concerns Assessment Noted Time PHQ-9 Depression Total Score: 2 05/18/19 23 11:41 AM EDT documented as of this encounter Care Teams Mail Censor Relationship Specialty Start Date End Date Nancy Sellers MD [address] [place] [address] PCP - General Family Medicine 01/30/12 documented as of this encounter
--- OUTSIDE RECORDS SUMMARY | 2024-03-12 10:58 | XMS_ITS | Encounter Summary ---
Author Organization [employer] Address [address] [place] [address] 7t [place] [address] Care Team Providers Care Laundry Folder Name Role Phone Nancy Sellers MD Primary Care Provider [phone] Encounter Details Date Type Department Care Team ([facility] st Contact Info) Description 10/05/2022 Orders Only [facility] MED & PEDS [address] [place], [place] [id number] Kendell Rankin MD [address] [place] [address] Social History Tobacco Use Types Packs/Day Years Used Date Smoking Tobacco: Never Passive Smoke Exposure: Never Smokeless Tobacco: Never Alcohol Use Standard Drinks/Week Comments Never 0 (1 standard drink = 0.6 oz pur e alcohol) Depression Answer Date Recorded Patient Health Questionnaire-9 Score 2 05/17/2022 Depression Answer Date Recorded Patient Health Questionnaire-2 [...] documented as of this encounter Care Teams Laundry Folder Relationship Specialty Start Date End Date Nancy Sellers MD [address] [place] [address] PCP - General Family Medicine 01/30/12 documented as of this encounter
--- OUTSIDE RECORDS SUMMARY | 2024-03-12 10:58 | XMS_ITS | Encounter Summary ---
Author Organization [employer] Address [address] [facility] 7t [place] [address] Care Team Providers Care Suspender Maker Name Role Phone Nancy Sellers MD Primary Care Provider [phone] Reason for Visit * Reason Onset Date Comments Med Change Request NUTRITION APPOINTMENT REQUEST 03/08/2023 Encounter Details Date Type Department Care Team ([facility] st Contact Info) Description 03/08/2023 Refill [facility] MED & PEDS [address] [place] [address] Nancy Sellers MD [address] [place] [address] Social History Tobacco Use Types Packs/Day Years [...] encounter Miscellaneous Notes * Telephone Encounter - Jessi Eliel - 03/09/2023 9:26 AM EST Called pt X2 to schedule DM appt. No answer LVM\ sent unable to contact letter documented in this encounter Plan of Treatment Not on file documented as of this encounter Visit Diagnoses Not on filedocumented in this encounter Additional Health Concerns Assessment Noted Time PHQ-9 Depression Total Score: 2 05/18/19 23 11:41 AM EDT documented as of this encounter Care Teams Suspender Maker Relationship Specialty Start Date End Date Nancy Sellers MD [address] [place] [address] PCP - General Family Medicine 01/30/12 documented as of this encounter
--- OUTSIDE RECORDS SUMMARY | 2024-03-12 10:58 | XMS_ITS | Encounter Summary ---
Author Organization [employer] Address [address] [facility] 7t [place] [address] Care Team Providers Care Brand Ambassadors Promotional Sales Name Role Phone Nancy Sellers MD Primary Care Provider [phone] Encounter Details Date Type Department Care Team ([facility] st Contact Info) Description 09/05/2023 Orders Only [facility] CHC MED & PEDS [address] [place], [place] [id number] Nancy Sellers MD [address] [place] [address] Social History Tobacco Use Types Packs/Day Years [...] Recorded Patient Health Questionnaire-2 Score 4 07/31/2023 Comments Unknown Sex and Gender Information Value [...] Assessment Noted Time PHQ-9 Depression Total Score: 4 07/31/19 24 10:35 AM EDT documented as of this encounter Care Teams Brand Ambassadors Promotional Sales Relationship Specialty Start Date End Date Nancy Sellers MD [address] [place] [address] PCP - General Family Medicine 01/30/12 documented as of this encounter
--- OUTSIDE RECORDS SUMMARY | 2024-03-12 10:58 | XMS_ITS | Clinical Summary ---
Author Organization [facility] Address [address] [place] [address] Care Team Providers Care Procurement Accountant Name Role Phone Nancy Sellers MD Primary Care Provider [phone] Allergies Active Allergy Reactions Criticality Noted Date Comments Hydromorphone Rash Low 08/26/2021 Medications lisinopril-hydr oCHLOROthiazide (PRINZIDE,ZESTO RETIC) 20-25 MG per tablet Take 1 tablet by mouth 1 (one) time each day 1 Active senna (SENOKOT) 8.6 MG tablet Take 8.6 mg by mouth every night 1 Active Aspirin 81 MG capsule Take 325 mg by mouth 1 (one) time each day 1 Active simvastatin (ZOCOR) 10 MG tablet Take 10 mg by mouth every night Active cephalexin (KEFLEX) 750 MG capsule Take 750 mg by mouth in the morning and 750 mg in the evening. Active Diclofenac Sodium 1 % gel Apply topically 2 (two) times a day Active pantoprazole (PROTONIX) 20 MG EC tablet Take 20 mg by mouth 1 (one) time each day Do not crush, chew, or split. Active sulfamethoxazol e-trimethoprim 800-160 MG per tablet Take 1 tablet by mouth in the morning and 1 tablet in the evening. Active Wheat Dextrin (benefiber drink mix) packet Take 1 packet by mouth 1 (one) time each day with breakfast Active psyllium (METAMUCIL SMOOTH TEXTURE) 28 % packet Take 1 packet by mouth in the morning and 1 packet in the evening. Mix and drink with at least 8 ounces of water or juice.. Active cholecalciferol (VITAMIN D-3) 50 MCG (1999) capsule TAKE 1 TABLET BY MOUTH 1 TIME EACH DAY. 90 capsule 3 3 Active Active Problems Problem Noted Date Diagnosed Date Hypertension 08/29/2021 Intermittent claudication 08/29/2021 Irritable bowel syndrome 08/29/2021 Osteoarthritis 08/29/2021 Vascular insufficiency 08/29/2021 Localized edema 08/29/2021 Social History Tobacco Use Types Packs/Day Years Used Date Smoking Tobacco: Never Assessed Comments Unknown Sex and Gender Information Value Date Recorded Sex Assigned at Not on file Legal Sex Female 10:52 AM EDT Gender Identity Not on file Sexual Orientation Not on file Last Filed Vital Signs Vital Sign Reading Time Taken Comments Blood Pressure 140/72 03/02/2022 11:48 AM EST Pulse 80 03/02/2022 11:48 AM EST Temperature - - Respiratory Rate - - Oxygen Saturation 99% 03/02/2022 11: 48 AM EST Inhaled Oxygen Concentration - - Weight 95.6 kg (210 lb 12.8 oz) 023 11:48 AM EST Height 165.1 cm (5' 5 ) 03/02/2022 11:4 8 AM EST Body Mass Index 35.08 03/02/2022 11:48 AM EST Plan of Treatment Health Maintenance Due Date Last Done Comments Breast Cancer Screening 1950 Colorectal Cancer Screening: Annual FOBT 09/16/1999 Colorectal Cancer Screening: Colonoscopy 09/16/1999 Colorectal Cancer Screening: Sigmoidoscopy 09/16/1999 Pneumococcal Vaccine: 65+ Years (2 of 2 - PCV) 02/12/2016 02/11/2015 Influenza Vaccine (#1) 10/15/2023201 7, 11/25/2015, 11/17/2014, Additional history exists Hepatitis B Vaccine Aged Out 04/03/2003, 09/26/2002, 08/21/2002 No longer eligible based on patient's age to complete this topic Insurance MEDICARE [place]ICAID [place]ARE [place]ICAID [place] Care Teams Procurement Accountant Relationship Specialty Start Date End Date Nancy Sellers MD PCP - General Family Medicine 06/30/21
--- OUTSIDE RECORDS SUMMARY | 2024-03-12 10:58 | XMS_ITS | Encounter Summary ---
Author Organization [employer] [facility] Address [address] [place] [address] 7t [place] [address] Care Team Providers Care Relations Specialist Name Role Phone Nancy Sellers MD Primary Care Provider [phone] Encounter Details Date Type Department Care Team (Latest Contact Info) Description 06/30/2020 Abstract [facility] Dental, Provider, DDS Social History Tobacco Use Types Packs/Day Years [...] on filedocumented in this encounter Care Teams Relations Specialist Relationship Specialty Start Date End Date Nancy Sellers MD [address] [place] [address] PCP - General Family Medicine 01/30/12 documented as of this encounter
--- OUTSIDE RECORDS SUMMARY | 2024-03-12 10:58 | XMS_ITS | Encounter Summary ---
Author Organization [employer] Address [address] [facility] 7t [place] [address] Care Team Providers Care Parking Control Officer Name Role Phone Nancy Sellers MD Primary Care Provider [phone] Reason for Visit * Reason Onset Date Comments Nurse Triage 07/24/2023 Encounter Details Date Type Department Care Team ([facility] st Contact Info) Description 07/24/2023 Telephone [facility] CH[facility] MED & PEDS [address] [place], [place] [phone] Nancy Slelers MD [address] [place] [address] Nurse Triage Social History Tobacco Use Types [...] Telephone Encounter - Dahiana Street RN - 07/24/2023 12:28 PM EDT Triage call with [employer] Molder Hand ID [id number] Pt reports had labs done and was low in B12. Pt reports the doctor doing the labs was supposed to order B12 injections and the prescription has not been sent yet. Pt is advised to call the doctor's office and speak with the nurses there regarding this. Pt reports has called 5 times without change. Pt is requesting PCP order the B12 injections. Pt is advised that the Doctor who did the labs shouldwrite those orders. Pt describes misc. symptoms, headache, numbness of leg, loss of memory and other symptoms caused by low B12 . Pt is advised will send this to PCP and PSYCHIATRIC nurses for follow up. Ptagrees with this plan. Protocol Used: Information Only Call - No Triage (Adult) Protocol-Based Disposition: Callback or Video Visit by PCP Today Video visit not offered Positive Triage Question: * Nursing judgment * All higher-acuity triage questions were negative Care Advice Discussed: * Reasons To Call Back - New symptoms develop - You have more questions - You become worse * Telephone Encounter - Viridiana Miner - 07/24/2023 10:22 AM EDT Symptom: Headache, leg numbness Outcome: Schedule a same-day appointment or talk to a nurse or provider today Reason: Caller denied all higher acuity questions The caller accepted this outcome Pt informs did some labs at her gastro office and was inform has low b-12 and was advice they will send injections . But pt has not heard or received any medication and would like to know if pcp can prescribe. documented in this encounter Plan of Treatment Not on file documented as of this encounter Visit Diagnoses Not on filedocumented in this encounter Additional Health Concerns Assessment Noted Time PHQ-9 Depression Total Score: 2 05/18/19 23 11:41 AM EDT documented as of this encounter Care Teams Parking Control Officer Relationship Specialty Start Date End Date Nancy Sellers MD [address] [place] [address] PCP - General Family Medicine 01/30/12 documented as of this encounter
--- OUTSIDE RECORDS SUMMARY | 2024-03-12 10:59 | XMS_ITS | Encounter Summary ---
Author Organization [facility] Address [address] [place] [address] 7t [place] [address] Care Team Providers Care Automatic Splicing Machine Operator Name Role Phone Nancy Sellers MD Primary Care Provider [phone] Encounter Details Date Type Department Care Team (Latest Contact Info) Description 08/14/2018 Abstract [facility] Dental, Provider, DDS Social [...] on filedocumented in this encounter Care Teams Automatic Splicing Machine Operator Relationship Specialty Start Date End Date Nancy Sellers MD [address] [place] [address] PCP - General Family Medicine 01/30/12 documented as of this encounter
--- OUTSIDE RECORDS SUMMARY | 2024-03-12 10:59 | XMS_ITS | Encounter Summary ---
Author Organization [employer] Address [address] [facility] 7t [place] [address] Care Team Providers Care 8Th Grade Teacher Name Role Phone Nancy Sellers MD Primary Care Provider [phone] Reason for Visit * Reason Onset Date Comments Durable Medical Equipment 01/29/2024 Blood pressure machine Encounter Details Date Type Department Care Team ([facility] st Contact Info) Description 01/29/2024 Telephone [facility] MEDICINE [address] [place] [address] Nancy Sellers MD [address] [place] [address] Durable Medical Equipment (Blood pressure machine ) Social History Tobacco Use Types Packs/Day Years [...] Access Q2 Not on file 10/16/2023 Comments No Sex and Gender Information Value Date Recorded Sex Assigned at Female 12/13/2021 10:15 AM EDT Legal Sex Female 10:15 AM EDT Gender Identity Female 12/13/2021 10:15 AM EDT Sexual Orientation Straight 12/13/2021 10 :15 AM EDT documented as of this encounter Miscellaneous Notes * Telephone Encounter - Kahlil Wolff - 01/29/2024 1:48 PM EST Tc from pt requesting a new BP monitor because she states previous monitor broke ad would have to check b/p on a daily to see if new medication is effective. documented in this encounter Plan of Treatment Not on file documented as of this encounter Visit Diagnoses Not on filedocumented in this encounter Additional Health Concerns Assessment Noted Time PHQ-9 Depression Total Score: 4 07/31/19 24 10:35 AM EDT documented as of this encounter Care Teams 8Th Grade Teacher Relationship Specialty Start Date End Date Nancy Sellers MD [address] [place] [address] PCP - General Family Medicine 01/30/12 documented as of this encounter
--- OUTSIDE RECORDS SUMMARY | 2024-03-12 10:59 | XMS_ITS | Clinical Summary ---
Author Organization [employer] Address [address] [place] [address] Care Team Providers Care Stain Wiper Name Role Phone Nancy Sellers MD Primary Care Provider [phone] Allergies Active Allergy Reactions Criticality Noted Date Comments Hydromorphone Rash,Shortness of breath High 02/13/18 00 Other reaction(s): rash sob and hives Morphine Shortness of breath High 08/10/2023 sob and hives Tramadol 09/25/2013 Medications famotidine (Pepcid) 10 MG tablet take 1 tablet by oral route every day as needed 2 Active ferrous sulfate 325 (65 Fe) MG tablet take 1 Tablet by Oral route every day 1 Active sennosides (Senokot) 8.6 MG tablet take 1 tablet by oral route every bedtime 1 Active Blood Pressure kit Apply 1 not specified by [facility]. (Non-drug;combo) route every day 2 Active nitroglycerin (Nitrostat) 0.4 MG SL tabletIndicatio ns:Chest pain, unspecified type Place 1 tablet (0.4 mg) under the tongue every 5 (five) minutes if needed for chest pain. 30 tablet 2 3 Active loratadine (Claritin) 10 MG tabletIndicatio ns:Allergy, subsequent encounter Take 1 tablet (10 mg) by mouth in the morning. 30 tablet 11 3 Active omega-3 (fish oil) 300 MG capsule take 1 capsule by oral route 2 times every day 60 capsule 11 3 Active Magnesium Glycinate 100 MG capsule TAKE 1 CAPSULE BY MOUTH EVERY MORNING 30 capsule 11 4 Active Diclofenac Sodium 1 % gelIndications: Muscle spasm APPLY 2 GRAMS TO AFFECTED AREA TWICE A DAY 100 g 1 4 Active esomeprazole (NexIUM) [address] capsule Take 40 mg by mouth Once per day. 4 Active OneLax Magnesium Citrate oral solution TAKE 30ML BY MOUTH EVERY DAY NEEDED CONSTIPATION 4 Active ezetimibe (Zetia) 10 MG tablet 3 Active metoprolol succinate XL (Toprol-XL) 25 MG 24 hr tablet Take 25 mg by mouth Once per day. 4 Active Na Sulfate-K Sulfate-Mg Sulf 17.5-3.13-1.6 GM/177ML solution DILUTE DRINK 1/2 AT 6-8 PM AND HALF AT 11 PM- 1AM 4 Active Cetylpyridinium Chloride 0.07 % liquid Use 15 mL in the mouth or throat 2 times daily. Use 15 mL as mouth wash BID 500 mL 4 Active lisinopril-hydr oCHLOROthiazide 20-25 MG tablet TAKE 1 TABLET BY MOUTH EVERY DAY IN THE MORNING 90 tablet 2 4 Active fluticasone (Flonase) 50 MCG/ACT nasal sprayIndication s:Allergy, subsequent encounter SPRAY 1 SPRAY INTO EACH NOSTRIL IN THE MORNING 16 mL 2 4 Active cholecalciferol VITAMIN D (Vitamin D-3) 50 MCG (2000 UT) capsule 4 Active cyanocobalamin (Vitamin B-12) 1000 MCG tablet Take 1,000 mcg by mouth Once per day. 4 Active triamcinolone (Kenalog) 0.5 % ointment APPLY TO AFFECTED AREA TWICE A DAY 90 g 4 Active betamethasone valerate (Valisone) 0.1 % ointment Apply topically if needed in the morning and at bedtime (dryness). 45 g 2 4 Active Diclofenac Sodium 1 % gel USE TOPICAL TWICE A DAY 100 g 3 4 Active Aspirin Low Dose 81 MG EC tablet TAKE 1 TABLET (81 MG) BY MOUTH IN THE MORNING 90 tablet 1 4 Active omega-3, EPA + DHA, (fish oil) 1000 MG capsule Take 1 capsule (1,000 mg) by mouth 2 times daily. 180 capsule 1 4 Active Blood Pressure kit Check blood pressure daily 1 kit 4 Active Active Problems Problem Noted Date Diagnosed Date Stasis dermatitis of both legs 10/19/2023 Assessment & Plan (10/19/2023 5:05 PM EDT): Referral to Vascular Surgery and ordering Vascular US for further investigation of Sx. Prescribing Betamethasone BID for Sx. Follow up with PCP. Relevant Medication Betamethasone Valerate (Valisone) 0.1 % ointment Dry mouth 06/08/2023 Assessment & Plan (06/14/2023 3:41 PM EDT): Will send mouth wash and recommended to f/up with PCP for chronic concern. Benign exam Sciatica 06/08/2023 Cervical radiculopathy 06/08/2023 Atypical chest pain 06/08/2023 Rash of both feet 12/20/2022 Assessment & Plan (12/20/2022 3:28 PM EST): Patient the presented visit with complaints of a rash on both feet will be prescribed Triamcinolone ointment to apply on affected area. *If symptoms don't improve, patient will be referred to Dermatology. Follow up in 1 month with PCP. Rash of back 12/20/2022 Assessment & Plan (12/20/2022 3:27 PM EST): Patient the presented visit with complaints of a rash on back will be prescribed Terbinafine cream to apply on affected area. *If symptoms don't improve, patient will be referred to Dermatology. Gastritis 03/10/2022 Stage 3a chronic kidney disease 03/10/2022 Hypertension 08/29/2021 Intermittent claudication 08/29/2021 Localized edema 08/29/2021 Osteoarthritis 08/29/2021 Vascular insufficiency 08/29/2021 Hyperlipidemia 07/31/2012 Irritable bowel syndrome 07/31/2012 Headache 06/13/2011 Hemorrhoids 06/13/2011 Shoulder pain 06/13/2011 Encounters Date Type Department Care Team Description 01/30/2024 Orders Only [facility] [address] [place] [address] Nancy Sellers MD 01/29/2024 Telephone [facility] [address] [place] [address] Nancy Sellers MD Durable Medical Equipment (Blood pressure machine ) 01/17/2024 Refill [facility] [address] [place] [address] Nancy Sellers MD 01/16/2024 Refill [facility] [address] [place] [address] Nancy Sellers MD 12/29/2023 Orders Only [facility] [address] [place] [address] Nancy Sellers MD Serum potassium elevated (Primary Dx) 12/28/2023 Telephone [facility] [address] [place] [address] Nancy Sellers MD Results 12/20/2023 Orders Only [facility] [address] [place] [address] Nancy Sellers MD Stage 3a chronic kidney disease (CMS/HCC) (Primary Dx) 12/19/2023 10:00 AM EST Office Visit [facility] [address] [place] [address] Cezra Obregon 12/12/2023 11:30 AM EDT Office Visit [facility] [address] [place] [address] Nancy Sellers MD Urinary tract infection without hematuria, site unspecified; Encounter for immunization 12/12/2023 Travel 12/11/2023 Telephone [facility] [address], [place] [phone] Nancy Sellers MD Nurse Triage from Last 3 Months Immunizations Name Administration Dates Next Due Hep B, adult 04/03/2003,09/26/2002,08/21/2002 Influenza High-dose Quadriva lent Preservative Free 12/15/2022,10/26/2021,11/12/2020 Influenza injectable quadriv alent IIV4 with preservative 01/04/2017,11/25/2015,11/17/2014 Influenza, High Dose Seasona l, Preservative Free 12/01/2023 Influenza, IIV3, injectable 11/15/2013 Influenza, Split (incl. hai fied surface antigen) 10/22/2012 Moderna Covid-19 Vaccine 12+ 01/11/2021,06/16/19 21,05/18/2020 Moderna Covid-19 Vaccine 6+ Bivalent 04/18/2022 Pfizer Covid-19 Vaccine 12+ 12/01/2023 Pneumococcal Conjugate PCV 20 12/12/2023 Pneumococcal Polysaccharide PPSV23 02/11/2015 TD (adult), 2 Lf tetanus tox oid, preservative free, adsorbed 09/26/2002,10/15/1991 Tdap 11/25/2015 Zoster, Recombinant 03/04/2022,11/30/2021 Social History Tobacco Use Types Packs/Day Years Used Date Smoking Tobacco: Never Passive Smoke Exposure: Never Smokeless Tobacco: Never Tobacco Cessation:Counseling Given: Not Answered Alcohol Use Standard Drinks/Week Comments Never 0 [...] the past 12 months, has t he [employer], gas, oil or water [employer] threatened to shut off services in your [...] Orientation Straight 12/13/2021 10 :15 AM EDT Last Filed Vital Signs Vital Sign Reading Time Taken Comments Blood Pressure 116/75 12/12/2023 11:34 AM EDT Pulse 86 12/12/2023 11:34 AM EDT Temperature 36.3 ??C (97.3 ??F) 12/12/2023 11:34 AM E DT Respiratory Rate 18 12/12/2023 11:34 AM EDT Oxygen Saturation 98% 10/19/2023 3:42 PM EDT Inhaled Oxygen Concentration - - Weight 92.1 kg (203 lb) 12/12/2023 11:34 AM EDT Height 160 cm (5' 3 ) 12/12/2023 11:34 AM EDT Body Mass Index 35.96 12/12/2023 11:34 AM EDT Plan of Treatment Health Maintenance Due Date Last Done Comments CT Colonography 1950 FIT DNA/Cologuard 1950 FIT 1950 FOBT 1950 Sigmoidoscopy 1950 Alcohol/Substance Use Screening 1962 Hepatitis C Screening 1968 RSV Patients and Patients Aged 60 years or older (1 - Risk 60-74 years 1-dose series) 2010 Dental Oral Exam 01/02/2023 07/01/2022, , 06/11/2015, Additional history exists Colonoscopy 09/22/2023 09/21/2018 Colorectal Cancer Screening 09/22/2023 Dental Prophylaxis 04/19/2024 10/20/2023, 0 03/16/2023, 07/01/2022, Additional history exists Depression Screening 07/30/2024 07/31/2023, 06/17/20 24 SDOH Screening 07/30/2024 07/31/2023 Mammogram 07/31/2024 08/01/2023, 07/14, 06/16/2021, Additional history exists Dental X-Ray: Bitewings 10/20/2024 10/20/19, 07/01/2022, 04/08/2020, Additional history exists Tobacco Screening 12/18/2024 12/19/2023 DTaP/Tdap/Td Vaccines (2 - Td or Tdap) 11/24/2025 11/25/2015, 09/26/2002, 10/15/1991 Dental X-Ray: Full Mouth 10/20/2026 10/20/2023, 07/15 Lipid Panel 12/18/2028 12/19/2023, 02/13, 08/03/2022, Additional history exists Hepatitis B Vaccines Completed 04/03/2003, 09/26/2002, 08/21/2002 Zoster Vaccines Completed 03/04/2022, 11/30/2021 COVID-19 Vaccine Completed 12/01/2023, 07/2022, 01/11/2021, Additional history exists Influenza Vaccine Completed 12/01/2023, , 10/26/2021, Additional history exists Pneumococcal Vaccine: 65+ Years Completed 12/12/2023, 02/11/2015 HIB Vaccines Aged Out No longer eligi ble based on patient's age to complete this topic HPV Vaccines Aged Out No longer eligi ble based on patient's age to complete this topic Hepatitis A Vaccines Aged Out No long er eligible based on patient's age to complete this topic IPV Vaccines Aged Out No longer eligi ble based on patient's age to complete this topic Meningococcal Vaccine Aged Out No mahnaz jacy eligible based on patient's age to complete this topic RSV under 20 months Aged Out No longe r eligible based on patient's age to complete this topic Rotavirus Vaccines Aged Out No longer eligible based on patient's age to complete this topic Procedures Procedure Name Priority Date/Time Associated Diagnosis Comments BASIC METABOLIC PANEL Routine 01/01/2024 3:05 PM EST Serum potassium elevated 19,30 MANDIBULAR PARTIAL DENTURE - RESIN BASE (INCLUDING, RETENTIVE/CLASPING MATERIALS, RESTS, AND TEETH) Routine 12/19/2023 10:00 AM EST HEPATIC FUNCTION PANEL Routine 12/19/2023 9:24 AM EST Primary hypertension BASIC METABOLIC PANEL Routine 12/19/2023 9:24 AM EST Primary hypertension Stage 3a chronic kidney disease (CMS/HCC) LIPID PANEL, STANDARD Routine 12/19/2023 9:24 AM EST Primary hypertension POCT URINALYSIS DIPSTICK Routine 12/12/2023 11:37 AM EDT Urinary tract infection without hematuria, site unspecified PROPHYLAXIS - ADULT Routine 10/20/2023 1 1:00 AM EDT DIAGNOSTIC - DIAGNOSTIC IMAGING - INTRAORAL - COMPREHENSIVE SERIES OF RADIOGRAPHIC IMAGES Routine 10/20/2023 11:00 AM EDT BI MAMMOGRAM SCREENING TOMOSYNTHESIS BILATERAL Routine 08/01/2023 12:20 PM EDT PERIODIC ORAL EVALUATION - ESTABLISHED PATIENT Routine 07/01/2022 3:00 PM EDT HM COLONOSCOPY Routine 09/21/2018 from Last 3 Months or Most Recently Relevant to Health Maintenance Results * (ABNORMAL) Basic Metabolic Panel (01/01/2024 3:05 PM EST) Only the most recent of2 resultswithin the time period is included. Sodium 136 135 - 145 mmol/L [facility] Potassium 4.2 3.3 - 5.1 mmol/L [facility] Chloride 103 96 - 108 mmol/L [facility] Carbon Dioxide 26 22 - 29 mmol/L [facility] Anion Gap 11(L) 12 - 20 [facility] Urea Nitrogen (BUN) 19(H) 9 - 16 mg/dL [facility] Creatinine, Serum 1.17 0.5 - 1.4 mg/dL [facility] Estimated Glomerular Filt Rate 45 [facility] Comment:Chronic Kidney Disea se: Estimated GFR < 60 mL/min/1.99b2Gumndq Kidney Disease: Estimated GFR < 15 mL/min/1.73m2 Glucose 133(H) 60 - 115 mg/dL [facility] Calcium 9.4 8.4 - 10.2 mg/dL [facility] Blood Venous blood specimen / Unknown 01/01/2024 3:05 PM EST 01/01/2024 5:23 PM EST Nancy Sellers MD LAB BLOOD ORDERABLES Final Resul t Performing Organization Address City/[facility] Co de Phone Number [facility] [address] [place] [address] [phone] * (ABNORMAL) Hepatic Function Panel (12/19/2023 9:24 AM EST) Bilirubin, Total 0.3 0.0 - 1.0 mg/dL [facility] Bilirubin, Direct 0.2 0.0 - 0.5 mg/dL [facility] Aspartate Amino Transferase 30 5 - 31 U/L [facility] Alanine Aminotransferase 18 0 - 31 U/L [facility] Total Protein 8.2(H) 6.5 - 8.0 g/dL [facility] Albumin Level 4.3 3.5 - 5.0 g/dL [facility] Alkaline Phosphatase 111 39 - 117 U/L [facility] Blood Venous blood specimen / Unknown 12/19/2023 9:24 AM EST 12/19/2023 2:23 PM EST Nancy Sellers MD LAB BLOOD ORDERABLES Final Resul t Performing Organization Address City/[facility]/ZIP Co de Phone Number [facility] [address] [place] [address] [phone] * (ABNORMAL) Lipid Panel, Standard (12/19/2023 9:24 AM EST) Triglycerides 74 <150 mg/dL [facility] Comment:Desirable Triglyceri de: less than 150 mg/dLBorderline High Triglyceride 150-199 mg/dLHigh Triglyceride: 200-499 mg/dLVery High Triglyceride: greater than or equal to 5OO mg/dL Cholesterol 191 <200 mg/dL [facility] Comment:Desirable Cholestero l: less than 200 mg/dLBorderline High Cholesterol: 200-239 mg/dLHigh Cholesterol: greater than 239 mg/dL LDL Cholesterol Calculated 105(H) <100 mg/dL [facility] Comment:Desirable LDL: less than 100 mg/dLNear Optimal/Above Optimal LDL: 110- 129 mg/dLBorderline High LDL: 130-159 mg/dLHigh LDL: 160-189 mg/dLVery High LDL: greater than or equal to 190 mg/dL HDL Cholesterol 72 >40 mg/dL [facility] Comment:Desirable HDL: great er than 40 mg/dL Note: This HDL assay may give artificially low results in patients with liver disease. Blood Venous blood specimen / Unknown 12/19/2023 9:24 AM EST 12/19/2023 2:23 PM EST us Nancy Sellers MD LAB BLOOD ORDERABLES Final Resul t [facility] [address] [place] [phone] * (ABNORMAL) POCT Urinalysis (12/12/2023 11:37 AM EDT) Color, UA Light Yellow Clarity, UA Clear Glucose, UA Negative Bilirubin, UA Negative Ketones, UA Negative Spec Grav, UA 1.015 Blood, UA Positive(A) Negative, None Detected pH, UA 6.5 Protein, UA Negative Urobilinogen, UA 0.2 Leukocytes, UA Many(A) Negative, Rare, Trace Nitrite, UA Negative Negative, None Detected Appearance, UA clear QC Media Lot # [id number] Lot# Expiration Date Urine 12/12/2023 11:3 7 AM EDT us Nancy Sellers MD POINT OF CARE TEST ENTER/EDIT OR DERABLES Final Result * BI Mammogram Screening Tomosynthesis Bilateral (08/01/2023 12:20 PM EDT) Anatomical Region Laterality Modality Breast Bilateral Mammography 08/01/2023 12:2 0 PM EDT Narrative 08/29/2023 3:10 PM EDT ? [facility] ? [address] ?[place] [address] ? Mammography Report ? Signed ? Patient: Usha Grace ?MR#: [id number] ?? [id number] ? : 1950 ?Acct:[id number] ? Age/Sex: 72 / F ?ADM Date: 08/01/23 ? Loc: HO.MAMMO ? Attending Dr: Nancy Sellers MD ? Ordering Physician: Nancy Sellers MD ?Results: 1Negati ?? ve ? Date of Service: 08/01/23 ?Follow Up: 1 Year From Orig ?? inal Mammogram ? Procedure(s): MM tomosynthesis screening BI ?? Accession Number(s): [id number] ? cc: Nancy Sellers MD ? EXAMINATION: ?? MM SCREENING DIGITAL BREAST TOMOSYNTHESIS, BILATERAL ? CLINICAL INFORMATION: ? Screening. Asymptomatic. ? COMPARISON: ?? Mammography: This study is compared with prior exams dating back to ?? 2019. ? TECHNIQUE: ?? Digital breast tomosynthesis is performed in both the craniocaudal and ?? mediolateral oblique views along with computer-aided detection (CAD). ?? Synthesized 2D images are generated from the tomosynthesis. ? FINDINGS: ?? There are scattered areas of fibroglandular density (ACR BI-RADS breast ?? composition Category b). ? There are no significant masses, abnormal calcifications, or other ?? abnormalities. ? MM/MM tomosynthesis screening BI ?? IMPRESSION: ?? No mammographic evidence of malignancy. ? ASSESSMENT: ? BI-RADS BI-RADS 1 - Negative ? RECOMMENDATION: ?? Routine annual mammography screening. ? 1 year F/U ? This examination should not preclude the clinical evaluation of a ?? suspicious palpable abnormality. ? This patient's information was entered into a reminder system with a ?? target due date for their next mammogram. ? Dictated By: ?Dana Stack MD ? Signed By: ?<Electronically signed by Dana Stack MD in OV> ? 08/29/23 1506 ? DD/ 1220 ? TD/TT: ? Carbon Paper Interleafer: ? Procedure Note Donjonaschengsheter, Image - 08/29/2023 [facility] [address] [place] [address] Mammography Report Signed Patient: Triston Grace#: [id number] : 1Acct:[id number] Age/Sex: 72 / FADM Date: 08/01/23 Loc: HO.MAMMO Attending Dr: Nancy Sellers MD Ordering Physician: Nancy Sellers MDResults: 1Negati ve Date of Service: 08/01/23Follow Up: 1 Year From Orig inal Mammogram Procedure(s): MM tomosynthesis screening BI Accession Number(s): [id number] cc: Nancy Sellers MD EXAMINATION: MM SCREENING DIGITAL BREAST TOMOSYNTHESIS, BILATERAL CLINICAL INFORMATION: Screening. Asymptomatic. COMPARISON: Mammography: This study is compared with prior exams dating back to 2019. TECHNIQUE: Digital breast tomosynthesis is performed in both the craniocaudal and mediolateral oblique views along with computer-aided detection (CAD). Synthesized 2D images are generated from the tomosynthesis. FINDINGS: There are scattered areas of fibroglandular density (ACR BI-RADS breast composition Category b). There are no significant masses, abnormal calcifications, or other abnormalities. MM/MM tomosynthesis screening BI IMPRESSION: No mammographic evidence of malignancy. ASSESSMENT: BI-RADS BI-RADS 1 - Negative RECOMMENDATION: Routine annual mammography screening. 1 year F/U This examination should not preclude the clinical evaluation of a suspicious palpable abnormality. This patient's information was entered into a reminder system with a target due date for their next mammogram. Dictated By: Dana Stack MD Signed By: <Electronically signed by Dana Stack MD in OV> 08/29/23 1506 DD/ 1220 TD/TT: Carbon Paper Interleafer: Nancy Sellers MD IMG BI PROCEDURES Final Result * Colonoscopy (09/21/2018) Colonoscopy Normal Normal Historical Provider HEALTH MAINTENANCE Final Result from Last 3 Months or Most Recently Relevant to Health Maintenance Insurance [facility] - [facility] Care Teams Stain Wiper Relationship Specialty Start Date End Date Nancy Sellers MD [address] [place] [phone] PCP - General Family Medicine 01/30/12
== END 2024-03-12 10:51 | disposition home or self-care (01) ==
LOC: HO.HKA 10:10
PROVIDERS: PCP Student in an Organized Health Care Education/Training Program; Visit Provider Internal Medicine Hypertension Specialist
DX: I12.9 Hypertensive chronic kidney disease with stage 1 through stage 4 chronic kidney disease, or unspecified chronic kidney disease (principal); N18.30 Chronic kidney disease, stage 3 unspecified; R30.0 Dysuria; N17.9 Acute kidney failure, unspecified
CPT/HCPCS: 98016

== ENCOUNTER → 2024-03-12 10:10 | Outpatient (BNVA) | payer OTHER, SELFPAY | PROVIDERS: PCP Student in an Organized Health Care Education/Training Program; Visit Provider Internal Medicine Hypertension Specialist ==

== ENCOUNTER 2024-05-29 14:43 | Outpatient (AMB) | payer OTHER, SELFPAY ==
--- NOTE | 2024-05-29 14:52 | HO.NEPHOV_ITS ---
Vital Signs 05/29/24 14:53 Height 5 ft 5 in Weight 201 lb BMI 33.4 BP 114/62 Blood Pressure Location Lt brachial Position Sitting Pulse 75 Pulse Source Pulse Oximeter Pulse Oximetry (%) 97 Oxygen Delivery Method Room Air Intake Visit Reasons: MELONY-LVM Upper Tier Required: No Product Marketing Coordinator: Product Marketing Coordinator Present (Daughter) Accompanied by: Daughter Allergies hydromorphone [Dilaudid] Allergy (Severe, Verified 05/29/24 15:04) Shortness of Breath morphine Allergy (Severe, Verified 05/29/24 15:04) Shortness of Breath Do you need a note to return to daycare/school/sports/work: No PFSH Medical History Back pain Anemia History of depression Elevated cholesterol GERD (gastroesophageal reflux disease) Bleeding hemorrhoids Arthritis Hypertension Surgical History History of esophagogastroduodenoscopy (EGD) Hx of colonoscopy Hx of total knee replacement History of cataract surgery History of hysterectomy History of cholecystectomy History of neck surgery Family History Father History of stomach cancer Brother History of melanoma Social History Household Members: Children Alcohol intake: current Alcohol intake frequency: does not drink Patient Tobacco Use Status: Former Tobacco user Current occupational status: disabled Physical Exam Vital Signs: Last Vital Signs Pulse 75 05/29/24 14:53 BP 114/62 05/29/24 14:53 Pulse Ox 97 05/29/24 14:53 Oxygen Delivery Method Room Air 05/29/24 14:53 BMI result Body Mass Index 33.4 Results Reviewed Nephrology Results: Sodium 137 mmol/L (135-145) 05/29/24 Potassium 4.5 mmol/L (3.3-5.1) 05/29/24 Chloride 103 mmol/L (96-108) 05/29/24 Carbon Dioxide 27 mmol/L (22-29) 05/29/24 BUN 27 mg/dL (9-16) H 05/29/24 Creatinine 1.07 mg/dL (0.5-1.4) 05/29/24 Calcium 9.2 mg/dL (8.4-10.2) 05/29/24 Urine Protein Negative mg/dL (Neg-Trace) 05/29/24 Assessment & Plan Assessment & Plan (1) CKD (chronic kidney disease) stage 3, GFR 30-59 ml/min: Code(s): N18.30 - Chronic kidney disease, stage 3 unspecified Category: Medical (2) Dysuria: Code(s): R30.0 - Dysuria Category: Medical (3) MELONY (acute kidney injury): Code(s): N17.9 - Acute kidney failure, unspecified Category: Medical (4) Hypertension: Code(s): I10 - Essential (primary) hypertension Category: Medical Qualifiers: Hypertension type: primary hypertension Qualified Code(s): I10 - Essential (primary) hypertension Plan Acute kidney injury superimposed on CKD. MELONY was most likely due to use of Bactrim. After discontinuing Bactrim renal function returned to baseline. Hyperkalemia due to combination of CRISTINA inhibitors and use of Bactrim. Hyperkalemia has resolved after stopping Bactrim. Chronic kidney disease. Stage III Most likely due to hypertensive nephrosclerosis. Recent imaging did not reveal any evidence of obstruction. Urine sediments have been rather bland without significant proteinuria or hematuria. Therefore glomerular nephritis or interstitial disease seem unlikely. Hypertension Blood pressure is well controlled As per dysuria -this appears chronic. No UTI Orders: Orders Basic Metabolic Panel 05/29/24 N18.30 - Chronic kidney disease, stage 3 unspecified Medications: New lisinopril-hydrochlorothiazide 20-12.5 mg 1 tab PO DAILY 90 tabs 3RF Discontinued lisinopril Discontinued Reason: Patient no longer taking 10 mg PO DAILY 90 tabs 1RF Coding Level of Care Code Est Pt Level 4 (18849) Diagnoses CKD (chronic kidney disease) stage 3, GFR 30-59 ml/min N18.30 Dysuria R30.0 MELONY (acute kidney injury) N17.9 Primary hypertension I10 Hypertension type: primary hypertension
[2024-05-29 14:53] VITALS: BP 114/62; PULSE 75; O2SAT 97; BMI 33.4
--- OUTSIDE RECORDS SUMMARY | 2024-05-29 17:28 | XMS_ITS | Encounter Summary ---
Author Organization [employer] Address [address] [place] [address] [address] [place] [address] Care Team Providers Care Design Studio Consultant Name Role Phone Nancy Sellers MD Primary Care Provider [phone] Encounter Details Date Type Department Care Team ([facility] Contact Info) Description 10/05/2022 Orders Only [facility] [address] [place] [address] Kendell Rankin MD [address] [place] [address] Social History Tobacco Use Types Packs/Day Years [...] as of this encounter Plan of Treatment Upcoming Encounters Date Type Department Care Team (Late Contact Info) Description 06/13/2024 11:00 AM EDT Office Visit [facility] [address] [place] [address] Nancy Sellers MD [address] [place] [address] documented as of this encounter Visit Diagnoses Not on filedocumented in this encounter Additional Health Concerns Assessment Noted Time PHQ-9 Depression Total Score: 2 05/18/19 23 11:41 AM EDT documented as of this encounter Care Teams Design Studio Consultant Relationship Specialty Start Date End Date Nancy Sellers MD [address] [place] [phone] PCP - General Family Medicine 01/30/12 documented as of this encounter
--- OUTSIDE RECORDS SUMMARY | 2024-05-29 17:28 | XMS_ITS | Encounter Summary ---
Author Organization [employer] Address [address] [place] [address] 7t [place] [address] Care Team Providers Care Health Analytics Consultant Name Role Phone Nancy Sellers MD Primary Care Provider [phone] Reason for Visit * Reason Onset Date Comments Nurse Triage 07/24/2023 Encounter Details Date Type Department Care Team ([facility] st Contact Info) Description 07/24/2023 Telephone [facility] MED & PEDS [address] [place], [place] [phone] Nancy Sellers MD 505 [place] [address] Nurse Triage Social History Tobacco Use Types [...] 07/24/2023 12:28 PM EDT Triage call with dot[employer] Special Events Coordinator ID [id number] Pt reports had labs done and was [...] advised will send this to PCP and [facility] nurses for follow up. Ptagrees with this [...] documented in this encounter Plan of Treatment Upcoming Encounters Date Type Department Care Team ([facility] st Contact Info) Description 06/13/2024 11:00 AM EDT Office Visit [facility] MED & PEDS [address] [place] [address] Nancy Sellers MD 505 [place] [address] documented as of this encounter Visit Diagnoses Not on filedocumented in this encounter Additional Health Concerns Assessment Noted Time PHQ-9 Depression Total Score: 2 05/18/19 23 11:41 AM EDT documented as of this encounter Care Teams Health Analytics Consultant Relationship Specialty Start Date End Date Nancy Sellers MD [address] [place] [address] PCP - General Family Medicine 01/30/12 documented as of this encounter
--- OUTSIDE RECORDS SUMMARY | 2024-05-29 17:28 | XMS_ITS | Encounter Summary ---
Author Organization [employer] [facility] Address [address] [place] [address] 7 [place] [address] Care Team Providers Care Spring Repairer Helper Hand Name Role Phone Nancy Sellers MD Primary Care Provider [phone] Encounter Details Date Type Department Care Team (Latest Contact Info) Description 08/14/2018 Abstract [facility] CONVERSIONS Dental, Provider, DDS Social History Tobacco [...] Encounters Date Type Department Care Team (Late st Contact Info) Description 06/13/2024 11:00 AM EDT Office Visit [facility] CH[facility] MED & PEDS 505 [place] [address] Nancy Sellers MD 505 [place] [address] documented as of this encounter Visit Diagnoses Not on filedocumented in this encounter Care Teams Spring Repairer Helper Hand Relationship Specialty Start Date End Date Nancy Sellers MD [address] [place] [address] PCP - General Family Medicine 01/30/12 documented as of this encounter
--- OUTSIDE RECORDS SUMMARY | 2024-05-29 17:28 | XMS_ITS | Clinical Summary ---
Author Organization [facility] Facility Address [address] [place] [address] Care Team Providers Care Property Adjuster Name Role Phone Nancy Sellers MD Primary Care Provider [phone] Allergies Active Allergy Reactions Criticality Noted Date [...] Colorectal Cancer Screening: Sigmoidoscopy 09/16/1999 Pneumococcal Vaccine: 50+ Years (2 of 2 - PCV) 02/12/2016 02/11/2015 Influenza Vaccine (Season Ended) 2024 01/04/2017, 11/25/2015, 11/17/2014, Additional history exists Hepatitis B Vaccine Aged Out 04/03/2003, 09/26/2002, 08/21/2002 No longer eligible based on patient's age to complete this topic Insurance Medicare Medicaid [place] Medicare Medicaid [place] Care Teams Property Adjuster Relationship Specialty Start Date End Date Nancy Sellers MD PCP - General Family Medicine 06/30/21
--- OUTSIDE RECORDS SUMMARY | 2024-05-29 17:28 | XMS_ITS | Encounter Summary ---
Author Organization [employer] Address [address] [place] [address] 7t [place] [address] Care Team Providers Care Professional Architect Name Role Phone Nancy Sellers MD Primary Care Provider Reason for Visit * Reason Onset Date Comments Nurse Triage 06/05/2023 Encounter Details Date Type Department Care Team ([facility] st Contact Info) Description 06/05/2023 Telephone [facility] CHC MED & PEDS 505 [place], [place] [phone] Nancy Sellers MD 505 [place] [address] Nurse Triage Social History Tobacco Use Types [...] 06/05/2023 11:04 AM EDT Triage call with [employer] Four Slide Machine Operator ID [id number] Pt is reporting dry mouth . Pt was on vacation in [place] and has returned 05/24/23. Pt reports the [...] accepted this outcome Please contact pt at [phone] (Romansh) documented in this encounter Plan of Treatment Upcoming Encounters Date Type Department Care Team ([facility] st Contact Info) Description 06/13/2024 11:00 AM EDT Office Visit [facility] MED & PEDS 505 [place] [address] Nancy Sellers MD 505 [place] [address] documented as of this encounter Visit Diagnoses Not on filedocumented in this encounter Additional Health Concerns Assessment Noted Time PHQ-9 Depression Total Score: 2 05/18/19 23 11:41 AM EDT documented as of this encounter Care Teams Professional Architect Relationship Specialty Start Date End Date Nancy Sellers MD [address] [place] [address] PCP - General Family Medicine 01/30/12 documented as of this encounter
--- OUTSIDE RECORDS SUMMARY | 2024-05-29 17:28 | XMS_ITS | Encounter Summary ---
Author Organization [employer] Address [address] [facility] 7t [place] [address] Care Team Providers Care Cleaner Housekeeping Name Role Phone Nancy Sellers MD Primary Care Provider [phone] Reason for Visit * Reason Onset Date Comments New Med Request 07/20/2023 Encounter Details Date Type Department Care Team ([facility] st Contact Info) Description 07/20/2023 Telephone [facility] MEDICINE [address] [place] [address] Nancy Sellers MD 505 [place] [address] New Med Request Social History Tobacco Use [...] injections labs was done on 07/17 at [facility] documented in this encounter Plan of Treatment Upcoming Encounters Date Type Department Care Team (Late st Contact Info) Description 06/13/2024 11:00 AM EDT Office Visit [facility] CHC MED & PEDS 505 [place] [address] Nancy Sellers MD 505 [place] [address] documented as of this encounter Visit Diagnoses Not on filedocumented in this encounter Additional Health Concerns Assessment Noted Time PHQ-9 Depression Total Score: 2 05/18/19 23 11:41 AM EDT documented as of this encounter Care Teams Cleaner Housekeeping Relationship Specialty Start Date End Date Nancy Sellers MD 230 [place] [address] PCP - General Family Medicine 01/30/12 documented as of this encounter
--- OUTSIDE RECORDS SUMMARY | 2024-05-29 17:28 | XMS_ITS | Encounter Summary ---
Author Organization [employer] Address [address] [facility] 7t [place] [address] Care Team Providers Care Stitch Rubber Name Role Phone Nancy Sellers MD Primary Care Provider [phone] Reason for Visit * Reason Onset Date Comments Reschedule 01/18/2023 Encounter Details Date Type Department Care Team ([facility] st Contact Info) Description 01/18/2023 Telephone [facility] MEDICINE [address] [place] [address] Nancy Sellers MD 505 [place] [address] Reschedule Social History Tobacco Use Types Packs/Day [...] Tc from pt requesting r/s 01/18 appt, rewriter attempted to schedule, no availability for january. documented in this encounter Plan of Treatment Upcoming Encounters Date Type Department Care Team (Late st Contact Info) Description 06/13/2024 11:00 AM EDT Office Visit [facility] CHC MED & PEDS 505 [place] [address] Nancy Sellers MD 505 [place] [address] documented as of this encounter Visit Diagnoses Not on filedocumented in this encounter Additional Health Concerns Assessment Noted Time PHQ-9 Depression Total Score: 2 05/18/19 23 11:41 AM EDT documented as of this encounter Care Teams Stitch Rubber Relationship Specialty Start Date End Date Nancy Sellers MD 230 [place] [address] PCP - General Family Medicine 01/30/12 documented as of this encounter
--- OUTSIDE RECORDS SUMMARY | 2024-05-29 17:28 | XMS_ITS | Encounter Summary ---
Author Organization [employer] Address [address] [facility] 7t [place] [address] Care Team Providers Care Risk And Insurance Manager Name Role Phone Nancy Sellers MD Primary Care Provider [phone] Reason for Visit * Reason Onset Date Comments Med Change Request NUTRITION APPOINTMENT REQUEST 03/08/2023 Encounter Details Date Type Department Care Team ([facility] st Contact Info) Description 03/08/2023 Refill [facility] MED & PEDS 505 [place] [address] Nancy Sellers MD 505 [place] [address] Social History Tobacco Use Types Packs/Day Years [...] Miscellaneous Notes * Telephone Encounter - Jessi Murphyona - 03/09/2023 9:26 AM EST Called pt X2 to schedule DM appt. No answer LVM\ sent unable to contact letter documented in this encounter Plan of Treatment Upcoming Encounters Date Type Department Care Team (Late st Contact Info) Description 06/13/2024 11:00 AM EDT Office Visit [facility] CHC MED & PEDS [address] [place] [address] Nancy Sellers MD 505 [place] [address] documented as of this encounter Visit Diagnoses Not on filedocumented in this encounter Additional Health Concerns Assessment Noted Time PHQ-9 Depression Total Score: 2 05/18/19 23 11:41 AM EDT documented as of this encounter Care Teams Risk And Insurance Manager Relationship Specialty Start Date End Date Nancy Sellers MD [address] [place] [address] PCP - General Family Medicine 01/30/12 documented as of this encounter
--- OUTSIDE RECORDS SUMMARY | 2024-05-29 17:28 | XMS_ITS | Encounter Summary ---
Author Organization [employer] [facility] Address [address] [place] [address] 7 [place] [address] Care Team Providers Care Marine Machinist Name Role Phone Nancy Sellers MD Primary Care Provider [phone] Encounter Details Date Type Department Care Team (Late st Contact Info) Description 01/22/2022 Abstract [facility] MEDICINE 230 [place] [address] ProviderAshok MD Social History Tobacco Use Types [...] Description 06/13/2024 11:00 AM EDT Office Visit [facility] CHC MED & PEDS 505 [place] [address] Nancy Sellers MD 505 [place] [address] documented as of this encounter Visit Diagnoses Not on filedocumented in this encounter Care Teams Marine Machinist Relationship Specialty Start Date End Date Nancy Sellers MD 230 [place] [address] PCP - General Family Medicine 01/30/12 documented as of this encounter
--- OUTSIDE RECORDS SUMMARY | 2024-05-29 17:28 | XMS_ITS | Encounter Summary ---
Author Organization [facility] [facility] Address [address] [place] [address] 7 [place] [address] Care Team Providers Care Professor Of Graphic Design Name Role Phone Nancy Sellers MD Primary Care Provider [phone] Encounter Details Date Type Department Care Team (Latest Contact Info) Description 06/30/2020 Abstract [facility] CONVERSIONS Dental, Provider, DDS Social History Tobacco [...] Description 06/13/2024 11:00 AM EDT Office Visit [facility] CHC MED & PEDS 505 [place] [address] Nancy Sellers MD 505 [place] [address] documented as of this encounter Visit Diagnoses Not on filedocumented in this encounter Care Teams Professor Of Graphic Design Relationship Specialty Start Date End Date Nancy Sellers MD [address] [place] [address] PCP - General Family Medicine 01/30/12 documented as of this encounter
--- OUTSIDE RECORDS SUMMARY | 2024-05-29 17:28 | XMS_ITS | Encounter Summary ---
Author Organization [employer] Address [address] [facility] 7t [place] [address] Care Team Providers Care Enrollment Management Vice President Name Role Phone Nancy Sellers MD Primary Care Provider [phone] Encounter Details Date Type Department Care Team ([facility] st Contact Info) Description 09/05/2023 Orders Only [facility] CHC MED & PEDS 505 [place], [place] [phone] Nancy Sellers MD 505 [place] [address] Social History Tobacco Use Types Packs/Day Years [...] Description 06/13/2024 11:00 AM EDT Office Visit [facility] MED & PEDS 505 [place] [address] Nancy Sellers MD 505 [place] [address] documented as of this encounter Visit Diagnoses Not on filedocumented in this encounter Additional Health Concerns Assessment Noted Time PHQ-9 Depression Total Score: 4 07/31/19 24 10:35 AM EDT documented as of this encounter Care Teams Enrollment Management Vice President Relationship Specialty Start Date End Date Nancy Sellers MD [address] [place] [address] PCP - General Family Medicine 01/30/12 documented as of this encounter
--- OUTSIDE RECORDS SUMMARY | 2024-05-29 17:28 | XMS_ITS | Clinical Summary ---
Author Organization [employer] Address [address] [facility] 7t [place] [address] Care Team Providers Care Bench Technician Name Role Phone Nancy Sellers MD Primary Care Provider [phone] Allergies Active Allergy Reactions Criticality Noted Date [...] Pressure kit Apply 1 not specified by [facility]. (Non-drug;combo) route every day 2 Active [...] Encounters Date Type Department Care Team Description 05/16/2024 Telephone [facility] MEDICINE 230 [place], [place] [phone] Nancy Sellers MD Lab Orders from Last 3 Months Immunizations Name Administration [...] 12/12/2023 11:34 AM EDT Plan of Treatment Upcoming Encounters Date Type Department Care Team (Late st Contact Info) Description 06/13/2024 11:00 AM EDT Office Visit [facility] MED & PEDS 505 [place] [address] Nancy Sellers MD 505 [place] [address] Health Maintenance Due Date Last Done Comments [...] Additional history exists Depression Screening 07/30/2024 07/31/2023, 07/31/19 SDOH Screening 07/30/2024 07/31/2023 Mammogram 07/31/2024 08/01/2023, [...] , 10/26/2021, Additional history exists Pneumococcal Vaccine: 50+ Years Completed 12/12/2023, 02/11/2015 HIB Vaccines Aged [...] Procedure Name Priority Date/Time Associated Diagnosis Comments LIPID PANEL, STANDARD Routine 12/19/2023 9:24 AM EST Primary hypertension PROPHYLAXIS - ADULT Routine 10/20/2023 1 1:00 AM EDT INTRAORAL - COMPLETE SERIES OF RADIOGRAPHIC IMAGES Routine 10/20/2023 11:00 AM EDT BI MAMMOGRAM SCREENING TOMOSYNTHESIS BILATERAL Routine 08/01/2023 12:20 PM EDT PERIODIC ORAL EVALUATION - ESTABLISHED PATIENT Routine 07/01/2022 3:00 PM EDT HM COLONOSCOPY Routine 09/21/2018 from Last 3 Months or Most Recently Relevant to Health Maintenance Results * (ABNORMAL) Lipid Panel, Standard (12/19/2023 9:24 AM EST) Triglycerides 74 <150 mg/dL [facility] Comment:Desirable Triglyceri de: less than 150 mg/dLBorderline High Triglyceride 150-199 mg/dLHigh Triglyceride: 200-499 mg/dLVery High Triglyceride: greater than or equal to 5OO mg/dL Cholesterol 191 <200 mg/dL [facility] Comment:Desirable Cholestero l: less than 200 mg/dLBorderline High Cholesterol: 200-239 mg/dLHigh Cholesterol: greater than 239 mg/dL LDL Cholesterol Calculated 105(H) <100 mg/dL [facility] Comment:Desirable LDL: less than 100 mg/dLNear Optimal/Above Optimal LDL: 110- 129 mg/dLBorderline High LDL: 130-159 mg/dLHigh LDL: 160-189 mg/dLVery High LDL: greater than or equal to 190 mg/dL HDL Cholesterol 72 >40 mg/dL [facility] Comment:Desirable HDL: great er than 40 mg/dL Note: This HDL assay may give artificially low results in patients with liver disease. Blood Venous blood specimen / Unknown 12/19/2023 9:24 AM EST 12/19/2023 2:23 PM EST us Nancy Sellers MD LAB BLOOD ORDERABLES Final Resul t [facility] [address] [place] [address] [phone] * BI Mammogram Screening Tomosynthesis Bilateral (08/01/2023 12:20 PM EDT) Anatomical Region Laterality Modality Breast Bilateral Mammography 08/01/2023 12:2 0 PM EDT Narrative 08/29/2023 3:10 PM EDT ? [facility] ? [address] ?[place] [address] ? Mammography Report ? Signed ? Patient: Usha Grace ?MR#: [id number] ?? [id number] ? : 1950 ?Acct:[id number] ? Age/Sex: 72 / F ?ADM Date: 07/31/24 ? Loc: HO.MAMMO ? Attending Dr: Nancy Sellers MD ? Ordering Physician: Nancy Sellers MD ?Results: 1Negati ?? ve ? Date of Service: 07/31/24 ?Follow Up: 1 Year From Orig ?? inal Mammogram ? Procedure(s): MM tomosynthesis screening BI ?? Accession Number(s): [id number] ? cc: Nancy Sellers MD ? EXAMINATION: [...] for their next mammogram. ? Dictated By: ?Moskos,Dana MD ? Signed By: ?<Electronically signed by Dana Stack MD in OV> ? 08/29/23 1506 ? DD/ 1220 ? TD/TT: ? Windows Administrator: ? Procedure Note Corby Vidal - 08/29/2023 [facility] [address] [place], [place] [address] Mammography Report Signed Patient: Usha Grace#: [id number] : 1950cct:[id number] Age/Sex: 72 / FADM Date: 08/01/23 Loc: HO.MAMMO Attending Dr: Nancy Sellers MD Ordering Physician: Nancy Sellers MDResults: 1Negati ve Date of Service: 08/01/23Follow Up: 1 Year From Orig inal Mammogram Procedure(s): MM tomosynthesis screening BI Accession Number(s): [id number] cc: Nancy Sellers MD EXAMINATION: MM SCREENING [...] in OV> 08/29/23 1506 DD/ 1220 TD/TT: Windows Administrator: Nancy Sellers MD IMG BI PROCEDURES Final Result * Hm Colonoscopy (09/21/2018) Colonoscopy Normal Normal Historical Provider HEALTH MAINTENANCE Final Result from Last 3 Months or Most Recently Relevant to Health Maintenance Insurance [facility] - [facility] Care Teams Bench Technician Relationship Specialty Start Date End Date Nancy Sellers MD [address] [place] [address] PCP - General Family Medicine 01/30/12
--- OUTSIDE RECORDS SUMMARY | 2024-05-29 17:28 | XMS_ITS | Encounter Summary ---
Author Organization [employer] Address [address] [facility] 7t [place] [address] Care Team Providers Care Associate Drafter Name Role Phone Nancy Sellers MD Primary Care Provider [phone] Reason for Visit * Reason Onset Date Comments Durable Medical Equipment 01/29/2024 Blood pressure machine Encounter Details Date Type Department Care Team ([facility] st Contact Info) Description 01/29/2024 Telephone [facility] MEDICINE 230 [place] [address] Nancy Sellers MD [address] [place] [address] Durable Medical Equipment (Blood pressure machine ) [...] Description 06/13/2024 11:00 AM EDT Office Visit [facility] CHC MED & PEDS 505 [place] [address] Nancy Sellers MD 505 [place] [address] documented as of this encounter Visit Diagnoses Not on filedocumented in this encounter Additional Health Concerns Assessment Noted Time PHQ-9 Depression Total Score: 4 07/31/19 24 10:35 AM EDT documented as of this encounter Care Teams Associate Drafter Relationship Specialty Start Date End Date Nancy Sellers MD [address] [place] [address] PCP - General Family Medicine 12/17/12 documented as of this encounter
== END 2024-05-29 15:20 | disposition home or self-care (01) ==
LOC: HO.HKA 14:43
PROVIDERS: PCP Student in an Organized Health Care Education/Training Program; Visit Provider Internal Medicine Hypertension Specialist
DX: N18.30 Chronic kidney disease, stage 3 unspecified (principal); R30.0 Dysuria; N17.9 Acute kidney failure, unspecified; I10 Essential (primary) hypertension
CPT/HCPCS: 99214

== ENCOUNTER 2024-05-29 15:24 | Outpatient (REF) | payer OTHER, SELFPAY ==
[2024-05-29 16:20] LABS: Appearance Urine Clear; Color Urine Yellow; Glucose Urine UA Negative (Negative); Leukocyte Esterase Urine Trace (Negative); Nitrite Urine Negative (Negative); PH 5.5 (5.0-9.0); UMIC TRIGGER UA YES; Urine Blood Trace (Negative); Urine Ketones Negative (Negative); Urine Protein Negative (Neg-Trace)
[2024-05-29 16:43] LABS: Anion Gap 12 (12-20); Blood Urea Nitrogen 27 mg/dL (9-16); Calcium 9.2 mg/dL (8.4-10.2); Carbon Dioxide 27 mmol/L (22-29); Chloride 103 mmol/L (96-108); Estimated Glomerular Filt Rate 50; Glucose Random 84 mg/dL (60-115); Potassium 4.5 mmol/L (3.3-5.1); Sodium 137 mmol/L (135-145)
[2024-05-29 16:46] LABS: Bacteria Urine None Seen (None Seen); Hyaline Casts Urine 0-2 /LPF (0-2); RBC Urine 0-2 /HPF (0-2); Squamous Epithelial Cell Urine 0-2 /HPF (0-2); WBC Urine 0-5 /HPF (0-5)
--- OUTSIDE RECORDS SUMMARY | 2024-05-29 18:00 | XMS_ITS | Clinical Summary ---
Author Organization [facility] Address [address] [place] [address] Care Team Providers Care Lunch Truck Operator Name Role Phone Nancy Sellers MD Primary Care Provider [phone] Allergies Active Allergy Reactions Criticality Noted Date [...] to complete this topic Insurance Medicare Medicaid [place] Medicare Medicaid [place] Care Teams Lunch Truck Operator Relationship Specialty Start Date End Date Nancy Sellers MD PCP - General Family Medicine 06/30/21
--- OUTSIDE RECORDS SUMMARY | 2024-05-29 18:00 | XMS_ITS | Encounter Summary ---
Author Organization [employer] Address [address] [facility] 7t [place] [address] Care Team Providers Care Van Helper Name Role Phone Nancy Sellers MD Primary Care Provider [phone] Reason for Visit * Reason Onset Date Comments Reschedule 01/18/2023 Encounter Details Date Type Department Care Team ([facility] st Contact Info) Description 01/18/2023 Telephone [facility] MEDICINE [address] [place] [address] Nancy Sellers MD 505 [place] [address] Reschedule Social History Tobacco Use Types Packs/Day [...] from pt requesting r/s 01/18 appt, typewriter aligner attempted to schedule, no availability for january. documented in this encounter Plan of Treatment Upcoming Encounters Date Type Department Care Team (Late st Contact Info) Description 06/13/2024 11:00 AM EDT Office Visit [facility] CHC MED & PEDS 505 [place] [address] Nancy Sellers MD 505 [place] [address] documented as of this encounter Visit Diagnoses Not on filedocumented in this encounter Additional Health Concerns Assessment Noted Time PHQ-9 Depression Total Score: 2 05/18/19 23 11:41 AM EDT documented as of this encounter Care Teams Van Helper Relationship Specialty Start Date End Date Nancy Sellers MD [address] [place] [address] PCP - General Family Medicine 01/30/12 documented as of this encounter
--- OUTSIDE RECORDS SUMMARY | 2024-05-29 18:00 | XMS_ITS | Encounter Summary ---
Author Organization [employer] Address [address] [facility] 7t [place] [address] Care Team Providers Care Programming Internship Name Role Phone Nancy Sellers MD Primary Care Provider [phone] Reason for Visit * Reason Onset Date Comments New Med Request 07/20/2023 Encounter Details Date Type Department Care Team ([facility] st Contact Info) Description 07/20/[address] [facility] MEDICINE [address] [place] [address] Nancy Sellers MD [address] [place] [address] New Med Request Social History Tobacco Use [...] injections labs was done on 07/17 at [facility] documented in this encounter Plan of Treatment Upcoming Encounters Date Type Department Care Team (Late st Contact Info) Description 06/13/2024 11:00 AM EDT Office Visit [facility] CHC MED & PEDS 505 [place] [address] Nancy Sellers MD [address] [place] [address] documented as of this encounter Visit Diagnoses Not on filedocumented in this encounter Additional Health Concerns Assessment Noted Time PHQ-9 Depression Total Score: 2 05/18/19 23 11:41 AM EDT documented as of this encounter Care Teams Programming Internship Relationship Specialty Start Date End Date Nancy Sellers MD 230 [place] [address] PCP - General Family Medicine 01/30/12 documented as of this encounter
--- OUTSIDE RECORDS SUMMARY | 2024-05-29 18:00 | XMS_ITS | Encounter Summary ---
Author Organization [facility] Address [address] [place] [address] 7 [place] [address] Care Team Providers Care Cylinder Sander Operator Name Role Phone Nancy Sellers MD Primary Care Provider [phone] Encounter Details Date Type Department Care Team (Late st Contact Info) Description 01/22/2022 Abstract [facility] MEDICINE 230 [place] [address] ProviderAshok MD Social History Tobacco Use Types [...] Description 06/13/2024 11:00 AM EDT Office Visit [facility] CHC MED & PEDS 505 [place] [address] Nancy Sellers MD 505 [place] [address] documented as of this encounter Visit Diagnoses Not on filedocumented in this encounter Care Teams Cylinder Sander Operator Relationship Specialty Start Date End Date Nancy Sellers MD 230 [place] [address] PCP - General Family Medicine 01/30/12 documented as of this encounter
--- OUTSIDE RECORDS SUMMARY | 2024-05-29 18:00 | XMS_ITS | Encounter Summary ---
Author Organization [employer] Address [address] [facility] 7t [place] [address] Care Team Providers Care Night Cleaner Name Role Phone Nancy Sellers MD Primary Care Provider [phone] Encounter Details Date Type Department Care Team ([facility] st Contact Info) Description 09/05/2023 Orders Only [facility] CHC MED & PEDS 505 [place], [place] [phone] Nancy Sellers MD 505 [place] [address] Social History Tobacco Use Types Packs/Day Years [...] Description 06/13/2024 11:00 AM EDT Office Visit [facility] MED & PEDS 505 [place] [address] Nancy Sellers MD 505 [place] [address] documented as of this encounter Visit Diagnoses Not on filedocumented in this encounter Additional Health Concerns Assessment Noted Time PHQ-9 Depression Total Score: 4 07/31/19 24 10:35 AM EDT documented as of this encounter Care Teams Night Cleaner Relationship Specialty Start Date End Date Nancy Sellers MD [address] [place] [address] PCP - General Family Medicine 01/30/12 documented as of this encounter
--- OUTSIDE RECORDS SUMMARY | 2024-05-29 18:00 | XMS_ITS | Encounter Summary ---
Author Organization [employer] Address [address] [place] [address] 7t [place] [address] Care Team Providers Care Heel Shaper Name Role Phone Nancy Sellers MD Primary Care Provider [phone] Reason for Visit * Reason Onset Date Comments Nurse Triage 06/05/2023 Encounter Details Date Type Department Care Team ([facility] st Contact Info) Description 06/05/2023 Telephone [facility] CHC MED & PEDS 505 [place], [place] [phone] Nancy Sellers MD 505 [place] [address] Nurse Triage Social History Tobacco Use Types [...] 06/05/2023 11:04 AM EDT 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 Pt was on vacation in [place] and has returned 05/24/23. Pt reports the [...] accepted this outcome Please contact pt at [phone] (Maltese) documented in this encounter Plan of Treatment Upcoming Encounters Date Type Department Care Team ([facility] st Contact Info) Description 06/13/2024 11:00 AM EDT Office Visit [facility] MED & PEDS 505 [place] [address] Nancy Sellers MD 505 [place] [address] documented as of this encounter Visit Diagnoses Not on filedocumented in this encounter Additional Health Concerns Assessment Noted Time PHQ-9 Depression Total Score: 2 05/18/19 23 11:41 AM EDT documented as of this encounter Care Teams Heel Shaper Relationship Specialty Start Date End Date Nancy Sellers MD [address] [place] [address] PCP - General Family Medicine 01/30/12 documented as of this encounter
--- OUTSIDE RECORDS SUMMARY | 2024-05-29 18:00 | XMS_ITS | Encounter Summary ---
Author Organization [employer] Address [address] [facility] 7t [place] [address] Care Team Providers Care Platform Worker Name Role Phone Nancy Sellers MD Primary Care Provider [phone] Reason for Visit * Reason Onset Date Comments Med Change Request NUTRITION APPOINTMENT REQUEST 03/08/2023 Encounter Details Date Type Department Care Team ([facility] st Contact Info) Description 03/08/2023 Refill [facility] MED & PEDS 505 [place] [address] Nancy Sellers MD 505 [place] [address] Social History Tobacco Use Types Packs/Day Years [...] Description 06/13/2024 11:00 AM EDT Office Visit [facility] CHC MED & PEDS 505 [place] [address] Nancy Sellers MD 505 [place] [address] documented as of this encounter Visit Diagnoses Not on filedocumented in this encounter Additional Health Concerns Assessment Noted Time PHQ-9 Depression Total Score: 2 05/18/19 23 11:41 AM EDT documented as of this encounter Care Teams Platform Worker Relationship Specialty Start Date End Date Nancy Sellers MD [address] [place] [address] PCP - General Family Medicine 01/30/12 documented as of this encounter
--- OUTSIDE RECORDS SUMMARY | 2024-05-29 18:00 | XMS_ITS | Encounter Summary ---
Author Organization [employer] [facility] Address [address] [place] [address] 7 [place] [address] Care Team Providers Care Insurance Checker Name Role Phone Nancy Sellers MD Primary Care Provider [phone] Encounter Details Date Type Department Care Team (Latest Contact Info) Description 08/14/2018 Abstract [facility] CONVERSIONS Dental, Provider, DDS Social History Tobacco [...] Description 06/13/2024 11:00 AM EDT Office Visit [facility] CHC MED & PEDS 505 [place] [address] Nancy Sellers MD 505 [place] [address] documented as of this encounter Visit Diagnoses Not on filedocumented in this encounter Care Teams Insurance Checker Relationship Specialty Start Date End Date Nancy Sellers MD [address] [place] [address] PCP - General Family Medicine 01/30/12 documented as of this encounter
--- OUTSIDE RECORDS SUMMARY | 2024-05-29 18:00 | XMS_ITS | Encounter Summary ---
Author Organization [employer] Address [address] [facility] 7t [place] [address] Care Team Providers Care Ui Ux Web Developer Name Role Phone Nancy Sellers MD Primary Care Provider [phone] Reason for Visit * Reason Onset Date Comments Durable Medical Equipment 01/29/2024 Blood pressure machine Encounter Details Date Type Department Care Team ([facility] st Contact Info) Description 01/29/2024 Telephone [facility] MEDICINE [address] [place] [address] Nancy Sellers MD [address] [place] [address] Durable Medical Equipment (Blood pressure machine ) [...] Description 06/13/2024 11:00 AM EDT Office Visit [facility] CHC MED & PEDS 505 [place] [address] Nancy Sellers MD 505 [place] [address] documented as of this encounter Visit Diagnoses Not on filedocumented in this encounter Additional Health Concerns Assessment Noted Time PHQ-9 Depression Total Score: 4 07/31/19 24 10:35 AM EDT documented as of this encounter Care Teams Ui Ux Web Developer Relationship Specialty Start Date End Date Nancy Sellers MD [address] [place] [address] PCP - General Family Medicine 12/17/12 documented as of this encounter
--- OUTSIDE RECORDS SUMMARY | 2024-05-29 18:00 | XMS_ITS | Encounter Summary ---
Author Organization [employer] Address [address] [place] [address] 7t [place] [address] Care Team Providers Care Technical Rep Name Role Phone Nancy Sellers MD Primary Care Provider [phone] Reason for Visit * Reason Onset Date Comments Nurse Triage 07/24/2023 Encounter Details Date Type Department Care Team ([facility] st Contact Info) Description 07/24/2023 Telephone [facility] CHC MED & PEDS 505 [place], [place] [phone] Nancy Sellers MD 505 [place] [address] Nurse Triage Social History Tobacco Use Types [...] 07/24/2023 12:28 PM EDT 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 Ptagrees with this [...] Upcoming Encounters Date Type Department Care Team ([facility] st Contact Info) Description 06/13/2024 11:00 AM EDT Office Visit [facility] CHC MED & PEDS [address] [place] [address] Nancy Sellers MD 505 [place] [address] documented as of this encounter Visit Diagnoses Not on filedocumented in this encounter Additional Health Concerns Assessment Noted Time PHQ-9 Depression Total Score: 2 05/18/19 23 11:41 AM EDT documented as of this encounter Care Teams Technical Rep Relationship Specialty Start Date End Date Nancy Sellers MD [address] [place] [address] PCP - General Family Medicine 01/30/12 documented as of this encounter
--- OUTSIDE RECORDS SUMMARY | 2024-05-29 18:00 | XMS_ITS | Clinical Summary ---
Author Organization [employer] Address [address] [facility] 7t [place] [address] Care Team Providers Care Scooper Name Role Phone Nancy Sellers MD Primary Care Provider [phone] Allergies Active Allergy Reactions Criticality Noted Date [...] Pressure kit Apply 1 not specified by [facility]. (Non-drug;combo) route every day [...] Type Department Care Team Description 05/16/2024 Telephone [facility] MEDICINE [address] [place], [place] [phone] Nancy Sellers MD Lab Orders from Last [...] Description 06/13/2024 11:00 AM EDT Office Visit [facility] MED & PEDS 505 [place] [address] Nancy Sellers MD 505 [place] [address] Health Maintenance Due Date Last Done Comments [...] 9:24 AM EST) Triglycerides 74 <150 mg/dL [facility] Comment:Desirable Triglyceri de: less than 150 mg/dLBorderline High Triglyceride 150-199 mg/dLHigh Triglyceride: 200-499 mg/dLVery High Triglyceride: greater than or equal to 5OO mg/dL Cholesterol 191 <200 mg/dL [facility] Comment:Desirable Cholestero l: less than 200 mg/dLBorderline High Cholesterol: 200-239 mg/dLHigh Cholesterol: greater than 239 mg/dL LDL Cholesterol Calculated 105(H) <100 mg/dL [facility] Comment:Desirable LDL: less than 100 mg/dLNear Optimal/Above Optimal LDL: 110- 129 mg/dLBorderline High LDL: 130-159 mg/dLHigh LDL: 160-189 mg/dLVery High LDL: greater than or equal to 190 mg/dL HDL Cholesterol 72 >40 mg/dL [facility] Comment:Desirable HDL: great er than 40 mg/dL Note: This HDL assay may give artificially low results in patients with liver disease. Blood Venous blood specimen / Unknown 12/19/2023 9:24 AM EST 12/19/2023 2:23 PM EST us Nancy Sellers MD LAB BLOOD ORDERABLES Final Resul t [facility] [address] [place] [address] [phone] * BI Mammogram Screening Tomosynthesis Bilateral (08/01/2023 12:20 PM EDT) Anatomical Region Laterality Modality Breast Bilateral Mammography 08/01/2023 12:2 0 PM EDT Narrative 08/29/2023 3:10 PM EDT ? [facility] [place] ? [address] ?[place] [address] ? Mammography Report ? Signed ? Patient: Usha Grace ?MR#: [id number] ?? [id number] ? : 1950 ?Acct:[id number] ? Age/Sex: 72 / F ?ADM Date: 07/31/24 ? Loc: HO.MAMMO ? Attending Dr: Nancy Sellers MD ? Ordering Physician: Nancy Sellers MD ?Results: 1Negati ?? ve ? Date of Service: 07/31/24 ?Follow Up: 1 Year From Orig ?? inal Mammogram ? Procedure(s): MM tomosynthesis screening BI ?? Accession Number(s): [id number] ? cc: Nancy Sellers MD ? EXAMINATION: [...] 1506 ? DD/ 1220 ? TD/TT: ? Fixed Income Director: ? Procedure Note Corby Vidal - 08/29/2023 [facility] [address] [place], [place] [address] Mammography Report Signed Patient: Usha Grace#: [id number] : 1950cct:[id number] Age/Sex: 72 / FADM Date: 08/01/23 Loc: HO.MAMMO Attending Dr: Nancy Sellers MD Ordering Physician: Nancy Sellers MDResults: 1Negati ve Date of Service: 08/01/23Follow Up: 1 Year From Orig inal Mammogram Procedure(s): MM tomosynthesis screening BI Accession Number(s): [id number] cc: Nancy Sellers MD EXAMINATION: MM SCREENING [...] in OV> 08/29/23 1506 DD/ 1220 TD/TT: Fixed Income Director: Nancy Sellers MD IMG BI PROCEDURES Final Result * Hm Colonoscopy (09/21/2018) Colonoscopy Normal Normal Historical Provider HEALTH MAINTENANCE Final Result from Last 3 Months or Most Recently Relevant to Health Maintenance Insurance [facility] [employer] Care Teams Scooper Relationship Specialty Start Date End Date Nancy Sellers MD [address] [place] [address] PCP - General Family Medicine 01/30/12
--- OUTSIDE RECORDS SUMMARY | 2024-05-29 18:00 | XMS_ITS | Encounter Summary ---
Author Organization [employer] [facility] Address [address] [place] [address] 7 [place] [address] Care Team Providers Care Metal Coater Operator Name Role Phone Nancy Sellers MD Primary Care Provider [phone] Encounter Details Date Type Department Care Team (Latest Contact Info) Description 06/30/2020 Abstract [facility] CONVERSIONS Dental, Provider, DDS Social History Tobacco [...] Description 06/13/2024 11:00 AM EDT Office Visit [facility] CHC MED & PEDS 505 [place] [address] Nancy Sellers MD 505 [place] [address] documented as of this encounter Visit Diagnoses Not on filedocumented in this encounter Care Teams Metal Coater Operator Relationship Specialty Start Date End Date Nancy Sellers MD [address] [place] [address] PCP - General Family Medicine 01/30/12 documented as of this encounter
--- OUTSIDE RECORDS SUMMARY | 2024-05-29 18:00 | XMS_ITS | Encounter Summary ---
Author Organization [employer] Address [address] [place] [address] 7 [place] [address] Care Team Providers Care Pressroom Worker Name Role Phone Nancy Sellers MD Primary Care Provider [phone] Encounter Details Date Type Department Care Team ([facility] Contact Info) Description 10/05/2022 Orders Only [facility] MED & PEDS 505 [place] [address] Kendell Rankin MD 505 [place] [address] Social History Tobacco Use Types Packs/Day Years [...] Office Visit [facility] MED & PEDS 505 [place] [address] Nancy Sellers MD 505 [place] [address] documented as of this encounter Visit Diagnoses Not on filedocumented in this encounter Additional Health Concerns Assessment Noted Time PHQ-9 Depression Total Score: 2 05/18/19 23 11:41 AM EDT documented as of this encounter Care Teams Pressroom Worker Relationship Specialty Start Date End Date Nancy Sellers MD [address] [place] [address] PCP - General Family Medicine 01/30/12 documented as of this encounter
== END 2024-05-29 15:25 | disposition home or self-care (01) ==
LOC: HO.HHCL 15:24
PROVIDERS: Visit Provider Internal Medicine Hypertension Specialist
DX: N18.30 Chronic kidney disease, stage 3 unspecified (principal)
CPT/HCPCS: 36415; 80048; 81001; 99212

== ENCOUNTER 2024-06-07 11:20 | Outpatient (REF) | payer OTHER, SELFPAY ==
--- OUTSIDE RECORDS SUMMARY | 2024-06-07 12:16 | XMS_ITS | Encounter Summary ---
Author Organization [employer] [facility] Address [address] [place] [address] 7 [place] [address] Care Team Providers Care Dockmaster Name Role Phone Nancy Sellers MD Primary Care Provider Encounter Details Date Type Department Care Team (Latest Contact Info) Description 06/30/[address] [facility] CONVERSIONS Dental, Provider, DDS Social History Tobacco [...] Description 06/13/2024 11:00 AM EDT Office Visit [facility] CHC MED & PEDS [address] [place] [address] Nancy Sellers MD 505 [place] [address] documented as of this encounter Visit Diagnoses Not on filedocumented in this encounter Care Teams Dockmaster Relationship Specialty Start Date End Date Nancy Sellers MD [address] [place] [address] PCP - General Family Medicine 01/30/12 documented as of this encounter
--- OUTSIDE RECORDS SUMMARY | 2024-06-07 12:16 | XMS_ITS | Encounter Summary ---
Author Organization [employer] Address [address] [facility] 7t [place] [address] Care Team Providers Care Material Worker Name Role Phone Nancy Sellers MD Primary Care Provider [phone] Encounter Details Date Type Department Care Team ([facility] st Contact Info) Description 09/05/2023 Orders Only [facility] CHC MED & PEDS 505 [place], [place] [phone] Nancy Sellers MD 505 [place] [address] Social History Tobacco Use Types Packs/Day Years [...] Description 06/13/2024 11:00 AM EDT Office Visit [facility] MED & PEDS [address] [place] [address] Nancy Sellers MD 505 [place] [address] documented as of this encounter Visit Diagnoses Not on filedocumented in this encounter Additional Health Concerns Assessment Noted Time PHQ-9 Depression Total Score: 4 07/31/19 24 10:35 AM EDT documented as of this encounter Care Teams Material Worker Relationship Specialty Start Date End Date Nancy Sellers MD [address] [place] [address] PCP - General Family Medicine 01/30/12 documented as of this encounter
--- OUTSIDE RECORDS SUMMARY | 2024-06-07 12:16 | XMS_ITS | Encounter Summary ---
Author Organization [employer] Address [address] [facility] 7t [place] [address] Care Team Providers Care Milling Machine Tender Name Role Phone Nancy Sellers MD Primary Care Provider [phone] Reason for Visit * Reason Onset Date Comments New Med Request 07/20/2023 Encounter Details Date Type Department Care Team ([facility] st Contact Info) Description 07/20/2023 Telephone [facility] MEDICINE [address] [place] [address] Nancy Sellers MD 505 [place] [address] New Med Request Social History Tobacco Use [...] injections labs was done on 07/17 at [facility] documented in this encounter Plan of Treatment Upcoming Encounters Date Type Department Care Team (Late st Contact Info) Description 06/13/2024 11:00 AM EDT Office Visit [facility] CHC MED & PEDS 505 [place] [address] Nancy Sellers MD 505 [place] [address] documented as of this encounter Visit Diagnoses Not on filedocumented in this encounter Additional Health Concerns Assessment Noted Time PHQ-9 Depression Total Score: 2 05/18/19 23 11:41 AM EDT documented as of this encounter Care Teams Milling Machine Tender Relationship Specialty Start Date End Date Nancy Sellers MD [address] [place] [address] PCP - General Family Medicine 01/30/12 documented as of this encounter
--- OUTSIDE RECORDS SUMMARY | 2024-06-07 12:16 | XMS_ITS | Encounter Summary ---
Author Organization [employer] Address [address] [place] [address] 7t [place] [address] Care Team Providers Care Rotor Casting Machine Setup Operator Name Role Phone Nancy Sellers MD Primary Care Provider [phone] Reason for Visit * Reason Onset Date Comments Nurse Triage 06/05/2023 Encounter Details Date Type Department Care Team ([facility] st Contact Info) Description 06/05/2023 Telephone [facility] CHC MED & PEDS [address] [place], [place] [phone] Nancy Sellers MD 505 [place] [address] Nurse Triage Social History Tobacco Use Types [...] 06/05/2023 11:04 AM EDT Triage call with [employer] Belt Tender ID [id number] Pt is reporting dry mouth . Pt was on vacation in [place] and has returned 05/24/23. Pt reports the [...] accepted this outcome Please contact pt at [phone] (Nepali) documented in this encounter Plan of Treatment Upcoming Encounters Date Type Department Care Team ([facility] st Contact Info) Description 06/13/2024 11:00 AM EDT Office Visit [facility] MED & PEDS [address] [place] [address] Nancy Sellers MD 505 [place] [address] documented as of this encounter Visit Diagnoses Not on filedocumented in this encounter Additional Health Concerns Assessment Noted Time PHQ-9 Depression Total Score: 2 05/18/19 23 11:41 AM EDT documented as of this encounter Care Teams Rotor Casting Machine Setup Operator Relationship Specialty Start Date End Date Nancy Sellers MD [address] [place] [address] PCP - General Family Medicine 01/30/12 documented as of this encounter
--- OUTSIDE RECORDS SUMMARY | 2024-06-07 12:16 | XMS_ITS | Encounter Summary ---
Author Organization [employer] Address [address] [place] [address] 7 [place] [address] Care Team Providers Care General Accountant Name Role Phone Nancy Sellers MD Primary Care Provider [phone] Encounter Details Date Type Department Care Team ([facility] Contact Info) Description 10/05/2022 Orders Only [facility] MED & PEDS [address] [place] [address] Kendell Rankin MD 505 [place] [address] Social History Tobacco Use Types Packs/Day Years [...] 11:00 AM EDT Office Visit [facility] MED & PEDS 505 [place] [address] Nancy Sellers MD 505 [place] [address] documented as of this encounter Visit Diagnoses Not on filedocumented in this encounter Additional Health Concerns Assessment Noted Time PHQ-9 Depression Total Score: 2 05/18/19 23 11:41 AM EDT documented as of this encounter Care Teams General Accountant Relationship Specialty Start Date End Date Nancy Sellers MD [address] [place] [address] PCP - General Family Medicine 01/30/12 documented as of this encounter
--- OUTSIDE RECORDS SUMMARY | 2024-06-07 12:16 | XMS_ITS | Encounter Summary ---
Author Organization [employer] Address [address] [facility] 7t [place] [address] Care Team Providers Care Residential Designer Name Role Phone Nancy Sellers MD Primary Care Provider [phone] Reason for Visit * Reason Onset Date Comments Reschedule 01/18/2023 Encounter Details Date Type Department Care Team ([facility] st Contact Info) Description 01/18/2023 Telephone [facility] MEDICINE [address] [place] [address] Nancy Sellers MD 505 [place] [address] Reschedule Social History Tobacco Use Types Packs/Day [...] Tc from pt requesting r/s 01/18 appt, commercial underwriter attempted to schedule, no availability for january. documented in this encounter Plan of Treatment Upcoming Encounters Date Type Department Care Team (Late st Contact Info) Description 06/13/2024 11:00 AM EDT Office Visit [facility] CHC MED & PEDS [address] [place] [address] Nancy Sellers MD 505 [place] [address] documented as of this encounter Visit Diagnoses Not on filedocumented in this encounter Additional Health Concerns Assessment Noted Time PHQ-9 Depression Total Score: 2 05/18/19 23 11:41 AM EDT documented as of this encounter Care Teams Residential Designer Relationship Specialty Start Date End Date Nancy Sellers MD [address] [place] [address] PCP - General Family Medicine 01/30/12 documented as of this encounter
--- OUTSIDE RECORDS SUMMARY | 2024-06-07 12:16 | XMS_ITS | Encounter Summary ---
Author Organization [employer] Address [address] [facility] 7t [place] [address] Care Team Providers Care Tomato Pulper Operator Name Role Phone Nancy Sellers MD Primary Care Provider [phone] Reason for Visit * Reason Onset Date Comments Lab Orders 06/07/2024 Walk-in requesti ng labs Encounter Details Date Type Department Care Team ([facility] Contact Info) Description 06/07/2024 Telephone [facility] MED & PEDS [address] [place], [place] [phone] Nancy Sellers MD 505 [place] [address] Lab Orders (Walk-in requesting labs) Social History Tobacco Use Types Packs/Day Years [...] encounter Miscellaneous Notes * Telephone Encounter - Gayathri Jose RN - 06/07/2024 11:14 AM EDT Walk-in requesting labs to be taken. She has an appointment schedule June 13. Labs placed. documented in this encounter Plan of Treatment Upcoming Encounters Date Type Department Care Team (Late st Contact Info) Description 06/13/2024 11:00 AM EDT Office Visit [facility] MED & PEDS [address] [place] [address] Nancy Sellers MD 505 [place] [address] Scheduled Orders Name Type Priority Associated Diagnoses Orde r Schedule Lipid Panel, Standard Lab Routine Other hyperlipidemia Expected: 06/07/2024 (Approximate), Expires: 06/07/2025 Basic Metabolic Panel, Fasting Lab Routine Other hyperlipidemia Expected: 06/07/2024 (Approximate), Expires: 06/07/2025 Hepatic Function Panel Lab Routine Other hyperlipidemia Expected: 06/07/2024 (Approximate), Expires: 06/07/2025 documented as of this encounter Visit Diagnoses Diagnosis Other hyperlipidemia documented in this encounter Additional Health Concerns Assessment Noted Time PHQ-9 Depression Total Score: 4 07/31/19 24 10:35 AM EDT documented as of this encounter Care Teams Tomato Pulper Operator Relationship Specialty Start Date End Date Nancy Sellers MD [address] [place] [address] PCP - General Family Medicine 01/30/12 documented as of this encounter
--- OUTSIDE RECORDS SUMMARY | 2024-06-07 12:16 | XMS_ITS | Encounter Summary ---
Author Organization [facility] Address [address] [place] [address] 7 [place] [address] Care Team Providers Care Tape Sewer Name Role Phone Nancy Sellers MD Primary Care Provider [phone] Encounter Details Date Type Department Care Team (Late st Contact Info) Description 01/22/2022 Abstract [facility] MEDICINE [address] [place] [address] ProviderAshok MD Social History Tobacco Use Types [...] Description 06/13/2024 11:00 AM EDT Office Visit [facility] CHC MED & PEDS 505 [place] [address] Nancy Sellers MD 505 [place] [address] documented as of this encounter Visit Diagnoses Not on filedocumented in this encounter Care Teams Tape Sewer Relationship Specialty Start Date End Date Nancy Sellers MD 230 [place] [address] PCP - General Family Medicine 01/30/12 documented as of this encounter
--- OUTSIDE RECORDS SUMMARY | 2024-06-07 12:16 | XMS_ITS | Encounter Summary ---
Author Organization [employer] Address [address] [facility] 7t [place] [address] Care Team Providers Care Procedure Writer Name Role Phone Nancy Sellers MD Primary Care Provider [phone] Reason for Visit * Reason Onset Date Comments Med Change Request NUTRITION APPOINTMENT REQUEST 03/08/2023 Encounter Details Date Type Department Care Team ([facility] st Contact Info) Description 03/08/2023 Refill [facility] MED & PEDS [address] [place] [address] Nancy Sellers MD 505 [place] [address] Social History Tobacco Use Types Packs/Day Years [...] Description 06/13/2024 11:00 AM EDT Office Visit [facility] CHC MED & PEDS [address] [place] [address] Nancy Sellers MD 505 [place] [address] documented as of this encounter Visit Diagnoses Not on filedocumented in this encounter Additional Health Concerns Assessment Noted Time PHQ-9 Depression Total Score: 2 05/18/19 23 11:41 AM EDT documented as of this encounter Care Teams Procedure Writer Relationship Specialty Start Date End Date Nancy Sellers MD [address] [place] [address] PCP - General Family Medicine 01/30/12 documented as of this encounter
--- OUTSIDE RECORDS SUMMARY | 2024-06-07 12:16 | XMS_ITS | Clinical Summary ---
Author Organization [employer] Address [address] [facility] 7t [place] [address] Care Team Providers Care Bow Repairer Custom Name Role Phone Nancy Sellers MD Primary Care Provider [phone] Allergies Active Allergy Reactions Criticality Noted Date [...] Pressure kit Apply 1 not specified by [facility] [place]. (Non-drug;combo) route every day 2 Active nitroglycerin [...] Encounters Date Type Department Care Team Description 06/07/2024 Telephone [facility] CHC MED & PEDS [address] [place] [address] Nancy Sellers MD Lab Orders (Walk-in requesting labs) 05/16/2024 Telephone [facility] MEDICINE [address] [place] [address] Nancy Sellers MD Lab Orders from Last [...] [facility] 505 [place], [place] [id number] Nancy Sellers MD 505 [place] [address] Health Maintenance Due Date Last Done Comments [...] history exists Depression Screening 07/30/2024 07/31/2023, 07/31/19 24 SDOH Screening 07/30/2024 07/31/2023 Mammogram 07/31/2024 [...] 9:24 AM EST) Triglycerides 74 <150 mg/dL [facility] Comment:Desirable Triglyceri de: less than 150 mg/dLBorderline High Triglyceride 150-199 mg/dLHigh Triglyceride: 200-499 mg/dLVery High Triglyceride: greater than or equal to 5OO mg/dL Cholesterol 191 <200 mg/dL [facility] Comment:Desirable Cholestero l: less than 200 mg/dLBorderline High Cholesterol: 200-239 mg/dLHigh Cholesterol: greater than 239 mg/dL LDL Cholesterol Calculated 105(H) <100 mg/dL [facility] Comment:Desirable LDL: less than 100 mg/dLNear Optimal/Above Optimal LDL: 110- 129 mg/dLBorderline High LDL: 130-159 mg/dLHigh LDL: 160-189 mg/dLVery High LDL: greater than or equal to 190 mg/dL HDL Cholesterol 72 >40 mg/dL [facility] Comment:Desirable HDL: great er than 40 mg/dL Note: This HDL assay may give artificially low results in patients with liver disease. Blood Venous blood specimen / Unknown 12/19/2023 9:24 AM EST 12/19/2023 2:23 PM EST us Nancy Sellers MD LAB BLOOD ORDERABLES Final Resul t [facility] [address] [place] [address] [phone] * BI Mammogram Screening Tomosynthesis Bilateral (08/01/2023 12:20 PM EDT) Anatomical Region Laterality Modality Breast Bilateral Mammography 08/01/2023 12:2 0 PM EDT Narrative 08/29/2023 3:10 PM EDT ? [facility] [place] ? [address] ?[place] [address] ? Mammography Report ? Signed ? Patient: Sanjay,Usha ?MR#: [id number] ?? [id number] ? : 1950 ?Acct:[id number] ? Age/Sex: 72 / F ?ADM Date: 06/18/24 ? Loc: HO.MAMMO ? Attending Dr: Nancy Sellers MD ? Ordering Physician: Verito,Nancy Gilmore MD ?Results: 1Negati ?? ve ? Date of Service: 08/01/23 ?Follow Up: 1 Year From Orig ?? inal Mammogram ? Procedure(s): MM tomosynthesis screening BI ?? Accession Number(s): [id number] ? cc: Nancy Sellers MD ? EXAMINATION: ?? MM SCREENING DIGITAL BREAST TOMOSYNTHESIS, BILATERAL ? CLINICAL INFORMATION: ? Screening. Asymptomatic. ? COMPARISON: ?? Mammography: This study is compared with prior exams dating back to ?? 2018. ? TECHNIQUE: ?? Digital breast tomosynthesis is [...] 1506 ? DD/ 1220 ? TD/TT: ? Supervisor Electric Motor Testing: ? Procedure Note Marcy, Corby - 08/29/2023 [facility] [address] [place] [address] Dr. [place], [place] [address] Mammography Report Signed Patient: Usha GraceMR#: [id number] : 1Acct:[id number] Age/Sex: 72 / FADM Date: 08/01/23 Loc: HO.MAMMO Attending Dr: Nancy Sellers MD Ordering Physician: Nancy Sellers MDResults: 1Negati ve Date of Service: 08/01/23Follow Up: 1 Year From Orig inal Mammogram Procedure(s): MM tomosynthesis screening BI Accession Number(s): [id number] cc: Nancy Sellers MD EXAMINATION: MM SCREENING [...] in OV> 08/29/23 1506 DD/ 1220 TD/TT: Supervisor Electric Motor Testing: Nancy Sellers MD IMG BI PROCEDURES Final Result * Hm Colonoscopy (09/21/2018) Colonoscopy Normal Normal Historical Provider HEALTH MAINTENANCE Final Result from Last 3 Months or Most Recently Relevant to Health Maintenance Insurance [facility] - [facility] Care Teams Bow Repairer Custom Relationship Specialty Start Date End Date Nancy Sellers MD [address] [place] [address] PCP - General Family Medicine 01/30/12
--- OUTSIDE RECORDS SUMMARY | 2024-06-07 12:16 | XMS_ITS | Encounter Summary ---
Author Organization [employer] Address [address] [facility] 7t [place] [address] Care Team Providers Care Green Ware Caster Name Role Phone Nancy Sellers MD Primary Care Provider [phone] Reason for Visit * Reason Onset Date Comments Durable Medical Equipment 01/29/2024 Blood pressure machine Encounter Details Date Type Department Care Team ([facility] st Contact Info) Description 01/29/2024 Telephone [facility] MEDICINE [address] [place] [address] Nancy Sellers MD [address] [place] [address] Durable Medical Equipment (Blood pressure machine ) [...] Description 06/13/2024 11:00 AM EDT Office Visit [facility] CHC MED & PEDS 505 [place] [address] Nancy Sellers MD 505 [place] [address] documented as of this encounter Visit Diagnoses Not on filedocumented in this encounter Additional Health Concerns Assessment Noted Time PHQ-9 Depression Total Score: 4 07/31/19 24 10:35 AM EDT documented as of this encounter Care Teams Green Ware Caster Relationship Specialty Start Date End Date Nancy Sellers MD [address] [place] [address] PCP - General Family Medicine 12/17/12 documented as of this encounter
--- OUTSIDE RECORDS SUMMARY | 2024-06-07 12:16 | XMS_ITS | Clinical Summary ---
Author Organization [facility] Address [address] [place] [address] Care Team Providers Care Spaghetti Press Helper Name Role Phone Nancy Sellers MD Primary Care Provider [phone] Allergies Active Allergy Reactions Criticality Noted Date [...] to complete this topic Insurance Medicare Medicaid [place] Medicare Medicaid [place] Care Teams Spaghetti Press Helper Relationship Specialty Start Date End Date Nancy Sellers MD PCP - General Family Medicine 06/30/21
--- OUTSIDE RECORDS SUMMARY | 2024-06-07 12:16 | XMS_ITS | Encounter Summary ---
Author Organization [employer] [facility] Address [address] [place] [address] 7 [place] [address] Care Team Providers Care Olericulture Professor Name Role Phone Nancy Sellers MD Primary Care Provider [phone] Encounter Details Date Type Department Care Team (Latest Contact Info) Description 08/14/2018 Abstract [facility] CONVERSIONS Dental, Provider, DDS Social History [...] [facility] CHC MED & PEDS [address] [place] [address] Nancy Sellers MD 505 [place] [address] documented as of this encounter Visit Diagnoses Not on filedocumented in this encounter Care Teams Olericulture Professor Relationship Specialty Start Date End Date Nancy Sellers MD [address] [place] [address] PCP - General Family Medicine 01/30/12 documented as of this encounter
--- OUTSIDE RECORDS SUMMARY | 2024-06-07 12:16 | XMS_ITS | Encounter Summary ---
Author Organization [employer] Address [address] [place] [address] 7t [place] [address] Care Team Providers Care Bench Assembler Battery Name Role Phone Nancy Sellers MD Primary Care Provider [phone] Reason for Visit * Reason Onset Date Comments Nurse Triage 07/24/2023 Encounter Details Date Type Department Care Team ([facility] st Contact Info) Description 07/24/2023 Telephone [facility] CHC MED & PEDS [address] [place], [place] [phone] Nancy Sellers MD [address] [place] [address] Nurse Triage Social History Tobacco Use Types [...] 07/24/2023 12:28 PM EDT Triage call with [employer] Tile Setter ID [id number] Pt reports had labs done and was [...] advised will send this to PCP and [facility] nurses for follow up. Ptagrees with [...] Upcoming Encounters Date Type Department Care Team ([facility] st Contact Info) Description 06/13/2024 11:00 AM EDT Office Visit [facility] CHC MED & PEDS [address] [place] [address] Nancy Sellers MD [address] [place] [address] documented as of this encounter Visit Diagnoses Not on filedocumented in this encounter Additional Health Concerns Assessment Noted Time PHQ-9 Depression Total Score: 2 05/18/19 23 11:41 AM EDT documented as of this encounter Care Teams Bench Assembler Battery Relationship Specialty Start Date End Date Nancy Sellers MD [address] [place] [address] PCP - General Family Medicine 01/30/12 documented as of this encounter
[2024-06-07 14:33] LABS: Alanine Aminotransferase 17 U/L (0-31); Alkaline Phosphatase 98 U/L (39-117); Anion Gap 9 (12-20); Aspartate Amino Transferase 23 U/L (5-31); Bilirubin Direct 0.1 mg/dL (0.0-0.5); Bilirubin Total 0.4 mg/dL (0.0-1.0); Blood Urea Nitrogen 23 mg/dL (9-16); Calcium 9.5 mg/dL (8.4-10.2); Carbon Dioxide 28 mmol/L (22-29); Chloride 106 mmol/L (96-108); Cholesterol 250 mg/dL (<200); Estimated Glomerular Filt Rate 53; Glucose Fasting 103 mg/dL (60-99); HDL Cholesterol 72 mg/dL (>40); LDL Cholesterol Calculated 161 mg/dL (<100); Potassium 4.3 mmol/L (3.3-5.1); Sodium 139 mmol/L (135-145); Total Protein 7.5 g/dL (6.5-8.0); Triglycerides 87 mg/dL (<150)
== END 2024-06-07 11:21 | disposition home or self-care (01) ==
LOC: HO.CHCLDS 11:20
PROVIDERS: Visit Provider Student in an Organized Health Care Education/Training Program
DX: E78.49 Other hyperlipidemia (principal); R07.9 Chest pain, unspecified; I25.10 Atherosclerotic heart disease of native coronary artery without angina pectoris
CPT/HCPCS: 36415; 80048; 80061; 80076; 93005; 99212

== ENCOUNTER 2024-06-07 12:51 | Outpatient (AMB) | payer OTHER, SELFPAY ==
--- NOTE | 2024-06-07 13:07 | MHC.OFFVIS ---
Vital Signs 06/07/24 13:08 Height 5 ft 5 in Weight 202 lb 13.204 oz BMI 33.7 BP 122/68 Blood Pressure Location Lt brachial Position Sitting Pulse 88 Pulse Source Monitor Intake Visit Reasons: f/u Voice Coach Required: Yes Voice Coach Name: [id number] Allergies hydromorphone [Dilaudid] Allergy (Severe, Verified 05/29/24 15:04) Shortness of Breath morphine Allergy (Severe, Verified 05/29/24 15:04) Shortness of Breath Medication List - Last Reconciled 06/07/24 by MICHAEL Reyez aspirin 81 mg PO DAILY blood pressure test kit-large As directed cholecalciferol (vitamin D3) 1 mcg PO DAILY cyanocobalamin (vitamin B-12) 1,000 mcg PO DAILY diclofenac sodium 1% topical esomeprazole magnesium 40 mg PO DAILY ferrous sulfate 325 mg PO DAILY fluticasone propionate 50 mcg/actuation 1 spray intranasal BID hydrocortisone 2.5% (Procto-Med HC) 1 appl AR BEDTIME lisinopril-hydrochlorothiazide 20-12.5 mg 1 tab PO DAILY magnesium oxide 400 mg PO DAILY metoprolol succinate ER 25 mg PO DAILY 90 days omega 3-vkt-xjy-fish oil 1,000 (120-180) mg 1 cap PO BID sucralfate (Carafate) 1 g PO BID triamcinolone acetonide 0.5% topical DAILY HPI HPI f/u: Details: Usha is a 73-year-old female with past medical history of hypertension, hyperlipidemia, episode of exertional chest discomfort who underwent cardiac evaluation and CTA of the coronary arteries showing significant OM1 stenosis. She was started on metoprolol and reported resolution of her symptoms. She now presents for follow-up. Today she reports that in April she was in [place] and did lots of walking. She started getting mid chest pressure with walking that resolved with rest. She continues to have that symptom when she walks distances. She denies chest discomfort at rest. No shortness of breath. She denies palpitations, presyncope, syncope, PND, orthopnea or edema. She has been taking rosuvastatin and developed significant leg discomfort. She stopped the medication 3 days ago. She is not interested in injectable cholesterol-lowering agents. Taking all meds as directed. [facility] Medical History Back pain Anemia History of depression Elevated cholesterol GERD (gastroesophageal reflux disease) Bleeding hemorrhoids Arthritis Hypertension Surgical History History of esophagogastroduodenoscopy (EGD) Hx of colonoscopy Hx of total knee replacement History of cataract surgery History of hysterectomy History of cholecystectomy History of neck surgery Family History Father History of stomach cancer Brother History of melanoma Social History Household Members: Children Alcohol intake: current Alcohol intake frequency: does not drink Patient Tobacco Use Status: Former Tobacco user Current occupational status: disabled Review of Systems Const All systems reviewed & are unremarkable except as noted in HPI and below Denies weakness ENT Denies dizziness Card Reports chest pain, Reports chest pain with activity, Denies syncope, Denies rapid heart rate, Denies pedal edema, Denies edema, Denies leg edema, Denies lightheadedness, Denies palpitations, Denies dyspnea, Denies dyspnea on exertion and Denies orthopnea Resp Denies cough, Denies dyspnea and Denies dyspnea on exertion GI Denies hematochezia and Denies change in stool character Musc Details: leg aching Denies abnormal gait, Reports arthralgias, Reports muscle cramps, Denies muscle weakness, Denies numbness, Denies radiating pain into limb and Denies tingling Neuro Denies abnormal gait, Denies dizziness, Denies syncope, Denies numbness, Denies tingling and Denies weakness Endo Denies palpitations Physical Exam Vital Signs: Last Vital Signs Pulse 88 06/07/24 13:08 BP 122/68 06/07/24 13:08 BMI result Body Mass Index 33.7 Const General: cooperative, healthy appearing, comfortable and no acute distress Orientation/consciousness: patient oriented x3 Neck Neck: Yes normal visual inspection and Yes no JVD Resp Effort & Inspection: normal respiratory effort Auscultation: clear to auscultation bilaterally, no crackles, no rales, no rhonchi and no wheezes Cardio Jugular venous distension: no JVD Rate: regular rate Rhythm: regular rhythm Heart sounds: S1 normal heart sound present, S2 normal heart sound present, no murmurs and no rubs Neuro General: patient oriented x3 Extrem General: Yes normal to inspection, No no pedal edema and No calf tenderness Psych Appearance: grossly normal Mental Status: mental status grossly normal Speech and movement: Normal speech and movement present Office Procedures EKG Details: Today, read by me, Normal sinus rhythm, low voltage QRs, rate 88, Qtc 447ms [id number], Complete Assessment & Plan Assessment & Plan (1) Exertional chest pain: Code(s): R07.9 - Chest pain, unspecified Category: Medical Plan: Initial episode of exertional chest discomfort occurred last summer 2022 while dancing. Echocardiogram was done 03/21/2022 showing EF 60-65%, no valve abnormalities and no regional wall motion abnormalities. A nuclear stress test was done on 08/19/2022 showing exercise 9-1/2 minutes with 6/10 chest discomfort, borderline EKG changes and no clear ischemia seen on nuclear imaging. She had CTA of the coronary arteries on 09/26/2022 showing OM 1 more than 70% stenosis, FFR 0.79, no significant FFR decrease in the remainder of the coronary vasculature. She was then started on metoprolol, aspirin and had full resolution of her symptoms. Now she was reporting recurrent chest discomfort brought on by physical activity, over the last 6 weeks. Informed her this may be angina. EKG done today shows normal sinus rhythm, no acute ST or T-wave abnormalities, rate 88. Discussed cardiac catheterization with her, including risks, potential findings and treatment. She says she will only proceed if her shareholder says it is okay. Will send message to Dr. Hairston regarding this. Signs and symptoms of angina reviewed with her. Emergency care if ever needed for symptoms. Will increase metoprolol XL up to 50 mg daily. Continue aspirin. She has been intolerant to statins and declines PCSK9 inhibitor. Continue [place] 3. -anticipate her follow-up will be 2 weeks post cardiac catheterization procedure. (2) Coronary atherosclerosis: Code(s): I25.10 - Atherosclerotic heart disease of [place] coronary artery without angina pectoris Category: Medical Qualifiers: Associated angina: without angina Coronary Disease-Associated Artery/Lesion type: [place] artery [place] vs. transplanted heart: [place] heart Qualified Code(s): I25.10 - Atherosclerotic heart disease of [place] coronary artery without angina pectoris Plan: As above (3) Hypertension: Code(s): I10 - Essential (primary) hypertension Category: Medical Qualifiers: Hypertension type: primary hypertension Qualified Code(s): I10 - Essential (primary) hypertension Plan: Blood pressure goal less than 130/80. Normal range at present. Increasing metoprolol. (4) Hyperlipidemia: Code(s): E78.5 - Hyperlipidemia, unspecified Category: Medical Qualifiers: Hyperlipidemia type: unspecified Qualified Code(s): E78.5 - Hyperlipidemia, unspecified Plan: [place] LDL goal less than 70. Intolerant to statins. Not taking Zetia. Declines PCSK9 inhibitor. She is on [place] 3 fish oil capsules. Plan Time spent on chart review, documentation, interview and assessment Medications: New metoprolol succinate ER dose increased 50 mg PO DAILY 30 tabs 5RF Discontinued metoprolol succinate ER Discontinued Reason: Doctor's Order 25 mg PO DAILY 90 days 90 tabs 3RF Coding Level of Care Code Est Pt Level 4 (03055) Complex EM visit Add On G2211 Diagnoses Exertional chest pain R07.9 Atherosclerosis of [place] coronary artery of [place] heart without angina pectoris I25.10 Associated angina: without angina Coronary Disease-Associated Artery/Lesion type: [place] artery [place] vs. transplanted heart: [place] heart Primary hypertension I10 Hypertension type: primary hypertension Hyperlipidemia, unspecified hyperlipidemia type E78.5 Hyperlipidemia type: unspecified CPT Codes EKG - CPT: 78884-[id number], Complete ([id number]) Time Spent (min) 36
[2024-06-07 13:08] VITALS: BP 122/68; PULSE 88; BMI 33.7
--- OUTSIDE RECORDS SUMMARY | 2024-06-07 13:30 | XMS_ITS | Encounter Summary ---
Author Organization [employer] [facility] Address [address] [place] [address] 7 [place] [address] Care Team Providers Care Measurement Supervisor Name Role Phone Nancy Sellers MD Primary Care Provider [phone] Encounter Details Date Type Department Care Team (Latest Contact Info) Description 06/30/2020 Abstract [facility] CONVERSIONS Dental, Provider, DDS Social History [...] Description 06/13/2024 11:00 AM EDT Office Visit [facility] CHC MED & PEDS [address] [place] [address] Nancy Sellers MD [address] [place] [address] documented as of this encounter Visit Diagnoses Not on filedocumented in this encounter Care Teams Measurement Supervisor Relationship Specialty Start Date End Date Nancy Sellers MD [address] [place] [address] PCP - General Family Medicine 01/30/12 documented as of this encounter
--- OUTSIDE RECORDS SUMMARY | 2024-06-07 13:31 | XMS_ITS | Encounter Summary ---
Author Organization [employer] [facility] Address [address] [place] [address] 7 [place] [address] Care Team Providers Care Parts Runner Name Role Phone Nancy Sellers MD Primary Care Provider [phone] Encounter Details Date Type Department Care Team (Latest Contact Info) Description 08/14/2018 Abstract [facility] CONVERSIONS Dental, Provider, DDS Social History Tobacco [...] Description 06/13/2024 11:00 AM EDT Office Visit [facility] CHC MED & PEDS [address] [place] [address] Nancy Sellers MD [address] [place] [address] documented as of this encounter Visit Diagnoses Not on filedocumented in this encounter Care Teams Parts Runner Relationship Specialty Start Date End Date Nancy Sellers MD [address] [place] [address] PCP - General Family Medicine 01/30/12 documented as of this encounter
--- OUTSIDE RECORDS SUMMARY | 2024-06-07 13:31 | XMS_ITS | Encounter Summary ---
Author Organization [employer] Address [address] [facility] 7t [place] [address] Care Team Providers Care Search Engine Marketing Manager Name Role Phone Nancy Sellers MD Primary Care Provider [phone] Reason for Visit * Reason Onset Date Comments Durable Medical Equipment 01/29/2024 Blood pressure machine Encounter Details Date Type Department Care Team ([facility] st Contact Info) Description 01/29/2024 Telephone [facility] MEDICINE [address] [place] [address] Nancy Sellers MD [address] [place] [address] Durable Medical Equipment (Blood pressure machine ) [...] Description 06/13/2024 11:00 AM EDT Office Visit [facility] CHC MED & PEDS [address] [place] [address] Nancy Sellers MD [address] [place] [address] documented as of this encounter Visit Diagnoses Not on filedocumented in this encounter Additional Health Concerns Assessment Noted Time PHQ-9 Depression Total Score: 4 07/31/19 24 10:35 AM EDT documented as of this encounter Care Teams Search Engine Marketing Manager Relationship Specialty Start Date End Date Nancy Sellers MD [address] [place] [address] PCP - General Family Medicine 12/17/12 documented as of this encounter
--- OUTSIDE RECORDS SUMMARY | 2024-06-07 13:31 | XMS_ITS | Encounter Summary ---
Author Organization [employer] Address [address] [facility] 7t [place] [address] Care Team Providers Care Insole Beveler Name Role Phone Nancy Sellers MD Primary Care Provider [phone] Reason for Visit * Reason Onset Date Comments Reschedule 01/18/2023 Encounter Details Date Type Department Care Team ([facility] st Contact Info) Description 01/18/2023 Telephone [facility] [address] [place] [address] Nancy Sellers MD [address] [place] [address] Reschedule Social History Tobacco Use Types Packs/Day [...] Tc from pt requesting r/s 01/18 appt, information writer attempted to schedule, no availability for january. documented in this encounter Plan of Treatment Upcoming Encounters Date Type Department Care Team (Late st Contact Info) Description 06/13/2024 11:00 AM EDT Office Visit [facility]EDS [address] [place] [address] Nancy Sellers MD [address] [place] [address] documented as of this encounter Visit Diagnoses Not on filedocumented in this encounter Additional Health Concerns Assessment Noted Time PHQ-9 Depression Total Score: 2 05/18/19 23 11:41 AM EDT documented as of this encounter Care Teams Insole Beveler Relationship Specialty Start Date End Date Nancy Sellers MD [address] [place] [address] PCP - General Family Medicine 01/30/12 documented as of this encounter
--- OUTSIDE RECORDS SUMMARY | 2024-06-07 13:31 | XMS_ITS | Encounter Summary ---
Author Organization [employer] Address [address] [place] [address] 7t [place] [address] Care Team Providers Care Predatory Game Hunter Name Role Phone Nancy Sellers MD Primary Care Provider [phone] Reason for Visit * Reason Onset Date Comments Nurse Triage 06/05/2023 Encounter Details Date Type Department Care Team ([facility] st Contact Info) Description 06/05/2023 Telephone [facility] MED & PEDS [address] [place], [place] [phone] aNncy Sellers MD [address] [place] [address] Nurse Triage Social History Tobacco Use Types [...] 06/05/2023 11:04 AM EDT Triage call with Edevate Water Proofer ID [id number] Pt is reporting dry mouth . Pt was on vacation in [place] and has returned 05/24/23. Pt reports the [...] accepted this outcome Please contact pt at [phone] (Belarusian) documented in this encounter Plan of Treatment Upcoming Encounters Date Type Department Care Team ([facility] st Contact Info) Description 06/13/2024 11:00 AM EDT Office Visit [facility] MED & PEDS [address] [place] [address] Nancy Sellers MD 505 [place] [address] documented as of this encounter Visit Diagnoses Not on filedocumented in this encounter Additional Health Concerns Assessment Noted Time PHQ-9 Depression Total Score: 2 05/18/19 23 11:41 AM EDT documented as of this encounter Care Teams Predatory Game Hunter Relationship Specialty Start Date End Date Nancy Sellers MD [address] [place] [address] PCP - General Family Medicine 01/30/12 documented as of this encounter
--- OUTSIDE RECORDS SUMMARY | 2024-06-07 13:31 | XMS_ITS | Clinical Summary ---
Author Organization [employer] Address [address] [facility] 7t [place] [address] Care Team Providers Care Tank Carpenter Name Role Phone Nancy Sellers MD Primary Care Provider [phone] Allergies Active Allergy Reactions Criticality Noted Date [...] Pressure kit Apply 1 not specified [place] [facility] (Non-drug;combo) route every day 2 Active nitroglycerin [...] Type Department Care Team Description 06/07/2024 Telephone [facility] CHC MED & PEDS [address] [place] [address] Nancy Sellers MD Lab Orders (Walk-in requesting labs) 05/16/2024 Telephone [facility] MEDICINE [address] [place] [address] Nancy Sellers MD Lab Orders from Last [...] EDT Office Visit [facility] MED [facility]EDS [address] [place], [place] [phone] Nancy Sellers MD 505 [place] [address] Health Maintenance Due Date Last Done Comments [...] 9:24 AM EST) Triglycerides 74 <150 mg/dL [facility] Comment:Desirable Triglyceri de: less than 150 mg/dLBorderline High Triglyceride 150-199 mg/dLHigh Triglyceride: 200-499 mg/dLVery High Triglyceride: greater than or equal to 5OO mg/dL Cholesterol 191 <200 mg/dL [facility] Comment:Desirable Cholestero l: less than 200 mg/dLBorderline High Cholesterol: 200-239 mg/dLHigh Cholesterol: greater than 239 mg/dL LDL Cholesterol Calculated 105(H) <100 mg/dL [facility] Comment:Desirable LDL: less than 100 mg/dLNear Optimal/Above Optimal LDL: 110- 129 mg/dLBorderline High LDL: 130-159 mg/dLHigh LDL: 160-189 mg/dLVery High LDL: greater than or equal to 190 mg/dL HDL Cholesterol 72 >40 mg/dL [facility] Comment:Desirable HDL: great er than 40 mg/dL Note: This HDL assay may give artificially low results in patients with liver disease. Blood Venous blood specimen / Unknown 12/19/2023 9:24 AM EST 12/19/2023 2:23 PM EST us Nancy Sellers MD LAB BLOOD ORDERABLES Final Resul t [facility] [address] [place] [address] [phone] * BI Mammogram Screening Tomosynthesis Bilateral (08/01/2023 12:20 PM EDT) Anatomical Region Laterality Modality Breast Bilateral Mammography 08/01/2023 12:2 0 PM EDT Narrative 08/29/2023 3:10 PM EDT ? [facility] [place] ? [address] ?[place] [address] ? Mammography Report ? Signed ? Patient: Sanjay,Usha ?MR#: [id number] ?? [id number] ? : 1950 ?Acct:[id number] ? Age/Sex: 72 / F ?ADM Date: 06/18/24 ? Loc: HO.MAMMO ? Attending Dr: Nancy Sellers MD ? Ordering Physician: Verito,Nancy Gilmore MD ?Results: 1Negati ?? ve ? Date of Service: 08/01/23 ?Follow Up: 1 Year From Orig ?? inal Mammogram ? Procedure(s): MM tomosynthesis screening BI ?? Accession Number(s): [id number] ? cc: Nancy Sellers MD ? EXAMINATION: [...] 1506 ? DD/ 1220 ? TD/TT: ? Hotel Night Auditor: ? Procedure Note Marcy, Corby - 08/29/2023 [facility] [address] [place] [address] Dr. [place], [place] [address] Mammography Report Signed Patient: Usha GraceMR#: [id number] : 1Acct:[id number] Age/Sex: 72 / FADM Date: 08/01/23 Loc: HO.MAMMO Attending Dr: Nancy Sellers MD Ordering Physician: Nancy Sellers MDResults: 1Negati ve Date of Service: 08/01/23Follow Up: 1 Year From Orig inal Mammogram Procedure(s): MM tomosynthesis screening BI Accession Number(s): [id number] cc: Nancy Sellers MD EXAMINATION: MM SCREENING [...] in OV> 08/29/23 1506 DD/ 1220 TD/TT: Hotel Night Auditor: Nancy Sellers MD IMG BI PROCEDURES Final Result * Hm Colonoscopy (09/21/2018) Colonoscopy Normal Normal Historical Provider HEALTH MAINTENANCE Final Result from Last 3 Months or Most Recently Relevant to Health Maintenance Insurance [facility] - [facility] DENTAL - [facility] Care Teams Tank Carpenter Relationship Specialty Start Date End Date Nancy Sellers MD [address] [place] [address] PCP - General Family Medicine 01/30/12
--- OUTSIDE RECORDS SUMMARY | 2024-06-07 13:31 | XMS_ITS | Encounter Summary ---
Author Organization [employer] Address [address] [facility] 7t [place] [address] Care Team Providers Care Attorney Recruiter Name Role Phone Nancy Sellers MD Primary Care Provider [phone] Reason for Visit * Reason Onset Date Comments Lab Orders 06/07/2024 Walk-in requesti ng labs Encounter Details Date Type Department Care Team ([facility] Contact Info) Description 06/07/2024 Telephone [facility] MED & PEDS [address] [place], [place] [phone] Nancy Sellers MD [address] [place] [address] Lab Orders (Walk-in requesting labs) Social History [...] Description 06/13/2024 11:00 AM EDT Office Visit [facility] MED & PEDS [address] [place] [address] Nancy Sellers MD 505 [place] [address] Scheduled Orders Name Type Priority Associated Diagnoses [...] documented as of this encounter Care Teams Attorney Recruiter Relationship Specialty Start Date End Date Nancy Sellers MD [address] [place] [address] PCP - General Family Medicine 01/30/12 documented as of this encounter
--- OUTSIDE RECORDS SUMMARY | 2024-06-07 13:31 | XMS_ITS | Encounter Summary ---
Author Organization [employer] Address [address] [facility] 7t [place] [address] Care Team Providers Care Loan Processor Name Role Phone Nancy Sellers MD Primary Care Provider [phone] Reason for Visit * Reason Onset Date Comments Med Change Request NUTRITION APPOINTMENT REQUEST 03/08/2023 Encounter Details Date Type Department Care Team ([facility] st Contact Info) Description 03/08/2023 Refill [facility] MED & PEDS [address] [place] [address] Nancy Sellers MD 505 [place] [address] Social History Tobacco Use Types Packs/Day Years [...] Description 06/13/2024 11:00 AM EDT Office Visit [facility] MED & PEDS [address] [place] [address] Nancy Sellers MD 505 [place] [address] documented as of this encounter Visit Diagnoses Not on filedocumented in this encounter Additional Health Concerns Assessment Noted Time PHQ-9 Depression Total Score: 2 05/18/19 23 11:41 AM EDT documented as of this encounter Care Teams Loan Processor Relationship Specialty Start Date End Date Nancy Sellers MD [address] [place] [address] PCP - General Family Medicine 01/30/12 documented as of this encounter
--- OUTSIDE RECORDS SUMMARY | 2024-06-07 13:31 | XMS_ITS | Encounter Summary ---
Author Organization [employer] [facility] Address [address] [place] [address] 7 [place] [address] Care Team Providers Care Sour Bleaching Pleater Name Role Phone Nancy Sellers MD Primary Care Provider [phone] Encounter Details Date Type Department Care Team (Late st Contact Info) Description 01/22/[address] [facility] MEDICINE [address] [place] [address] ProviderAshok MD Social History Tobacco Use Types [...] 06/13/2024 11:00 AM EDT Office Visit [facility] CH[facility] MED & PEDS [address] [place] [address] Nancy Sellers MD 505 [place] [address] documented as of this encounter Visit Diagnoses Not on filedocumented in this encounter Care Teams Sour Bleaching Pleater Relationship Specialty Start Date End Date Nancy Sellers MD [address] [place] [address] PCP - General Family Medicine 01/30/12 documented as of this encounter
--- OUTSIDE RECORDS SUMMARY | 2024-06-07 13:31 | XMS_ITS | Encounter Summary ---
Author Organization [email or web address] Address [address] [facility] 7t [place] [address] Care Team Providers Care Software Development Test Engineer Name Role Phone Nancy Sellers MD Primary Care Provider [phone] Encounter Details Date Type Department Care Team ([facility] st Contact Info) Description 09/05/2023 Orders Only [facility] CH[facility] MED & PEDS [address] [place], [place] [phone] Nancy Sellers MD 505 [place] [address] Social History Tobacco Use Types Packs/Day Years [...] Description 06/13/2024 11:00 AM EDT Office Visit [facility] MED & PEDS [address] [place] [address] Nancy Sellers MD 505 [place] [address] documented as of this encounter Visit Diagnoses Not on filedocumented in this encounter Additional Health Concerns Assessment Noted Time PHQ-9 Depression Total Score: 4 07/31/19 24 10:35 AM EDT documented as of this encounter Care Teams Software Development Test Engineer Relationship Specialty Start Date End Date Nancy Sellers MD [address] [place] [address] PCP - General Family Medicine 01/30/12 documented as of this encounter
--- OUTSIDE RECORDS SUMMARY | 2024-06-07 13:31 | XMS_ITS | Encounter Summary ---
Author Organization [employer] Address [address] [facility] 7t [place] [address] Care Team Providers Care Telemarketer Supervisor Name Role Phone Nancy Sellers MD Primary Care Provider Reason for Visit * Reason Onset Date Comments New Med Request 07/20/2023 Encounter Details Date Type Department Care Team ([facility] st Contact Info) Description 07/20/[address] [facility] MEDICINE [address] [place] [address] Nancy Sellers MD 505 [place] [address] New Med Request Social History Tobacco Use [...] injections labs was [facility] 07[facility] documented in this encounter Plan of Treatment Upcoming Encounters Date Type Department Care Team (Late st Contact Info) Description 06/13/2024 11:00 AM EDT Office Visit [facility] CH[facility] MED & PEDS [address] [place] [address] Nancy Sellers MD 505 [place] [address] documented as of this encounter Visit Diagnoses Not on filedocumented in this encounter Additional Health Concerns Assessment Noted Time PHQ-9 Depression Total Score: 2 05/18/19 23 11:41 AM EDT documented as of this encounter Care Teams Telemarketer Supervisor Relationship Specialty Start Date End Date Nancy Sellers MD [address] [place] [address] PCP - General Family Medicine 01/30/12 documented as of this encounter
--- OUTSIDE RECORDS SUMMARY | 2024-06-07 13:31 | XMS_ITS | Encounter Summary ---
Author Organization [employer] Address [address] [place] [address] 7 [place] [address] Care Team Providers Care Data Management Analyst Name Role Phone Nancy Sellers MD Primary Care Provider [phone] Encounter Details Date Type Department Care Team ([facility] [address] Contact Info) Description 10/05/2022 Orders Only [facility] MED & PEDS [address] [place] [address] Kendell Rankin MD [address] [place] [address] Social History Tobacco Use Types Packs/Day Years [...] Description 06/13/2024 11:00 AM EDT Office Visit [facility] MED & PEDS [address] [place] [address] Nancy Sellers MD [address] [place] [address] documented as of this encounter Visit Diagnoses Not on filedocumented in this encounter Additional Health Concerns Assessment Noted Time PHQ-9 Depression Total Score: 2 05/18/19 23 11:41 AM EDT documented as of this encounter Care Teams Data Management Analyst Relationship Specialty Start Date End Date Nancy Sellers MD [address] [place] [address] PCP - General Family Medicine 01/30/12 documented as of this encounter
--- OUTSIDE RECORDS SUMMARY | 2024-06-07 13:31 | XMS_ITS | Encounter Summary ---
Author Organization [employer] Address [address] [place] [address] 7t [place] [address] Care Team Providers Care Sr. Pricing Analyst Name Role Phone Nancy Sellers MD Primary Care Provider [phone] Reason for Visit * Reason Onset Date Comments Nurse Triage 07/24/2023 Encounter Details Date Type Department Care Team ([facility] st Contact Info) Description 07/24/2023 Telephone [facility] CHC MED & PEDS [address] [place], [place] [phone] Nancy Sellers MD [address] [place] [address] Nurse Triage Social History Tobacco Use Types [...] 07/24/2023 12:28 PM EDT Triage call with [employer] Track Service Worker ID [id number] Pt reports had labs done and was [...] advised will send this to PCP and [facility] nurses for follow up. Ptagrees with [...] Upcoming Encounters Date Type Department Care Team ([facility] st Contact Info) Description 06/13/2024 11:00 AM EDT Office Visit [facility] CHC MED & PEDS [address] [place] [address] Nancy Sellers MD [address] [place] [address] documented as of this encounter Visit Diagnoses Not on filedocumented in this encounter Additional Health Concerns Assessment Noted Time PHQ-9 Depression Total Score: 2 05/18/19 23 11:41 AM EDT documented as of this encounter Care Teams Sr. Pricing Analyst Relationship Specialty Start Date End Date Nancy Sellers MD [address] [place] [address] PCP - General Family Medicine 01/30/12 documented as of this encounter
--- OUTSIDE RECORDS SUMMARY | 2024-06-07 13:31 | XMS_ITS | Clinical Summary ---
Author Organization [facility] Facility Address [address] [place] [address] Care Team Providers Care Poke In Name Role Phone Nancy Sellers MD Primary Care Provider [phone] Allergies Active Allergy Reactions Criticality Noted Date [...] to complete this topic Insurance Medicare Medicaid [place] Medicare Medicaid [place] Care Teams Poke In Relationship Specialty Start Date End Date Nancy Sellers MD PCP - General Family Medicine 06/30/21
== END 2024-06-07 13:46 | disposition home or self-care (01) ==
LOC: HO.HCS 12:52
PROVIDERS: PCP Student in an Organized Health Care Education/Training Program; Visit Provider Nurse Practitioner Family
DX: R07.9 Chest pain, unspecified (principal); I25.10 Atherosclerotic heart disease of native coronary artery without angina pectoris; I10 Essential (primary) hypertension; E78.5 Hyperlipidemia, unspecified
CPT/HCPCS: 93010; 99214; G2211

== ENCOUNTER 2024-08-02 14:30 | Outpatient (REF) | payer OTHER, SELFPAY ==
--- OUTSIDE RECORDS SUMMARY | 2024-08-02 14:32 | XMS_ITS | Encounter Summary ---
Author Organization [facility] Address [address] [place] [address] 7t [place] [address] Care Team Providers Care Automatic Hemmer Name Role Phone Nancy Sellers MD Primary Care Provider [phone] Encounter Details Date Type Department Care Team (Latest Contact Info) Description 06/30/2020 Abstract [facility] Dental, Provider, DDS Social History [...] Care Team (Late st Contact Info) Description 10/15/2024 11:00 AM EDT Office Visit [facility] CHC MED & PEDS [address] [place] [address] Yessenia Baltazar MD 505 [place] [address] documented as of this encounter Visit Diagnoses Not on filedocumented in this encounter Care Teams Automatic Hemmer Relationship Specialty Start Date End Date Nancy Sellers MD [address] [place] [address] PCP - General Family Medicine 01/30/12 documented as of this encounter
[2024-08-02 14:44] LABS: MANUAL DIFF FLAG NO
[2024-08-02 15:21] LABS: Basophils Percent Auto 0.9 % (0-2); Eosinophils Absolute Auto 0.3 X10*3/uL (0.0-0.4); Eosinophils Percent Auto 6.6 % (0-4); Hematocrit 37.7 % (37.0-47.0); Hemoglobin 12.4 g/dl (12.0-16.0); Imm Gran Abs Auto 0.01 X10*3/uL (0.00-0.03); Imm Gran Pct Auto 0.2 % (0.0-0.4); Lymphocytes Absolute Auto 1.4 X10*3/uL (1.2-4.9); Lymphocytes Percent Auto 30.6 % (20-40); Mean Corpuscular HGB Conc 32.9 g/dl (31.0-35.0); Mean Corpuscular Hemoglobin 28.3 pg (27.0-33.0); Mean Corpuscular Volume 86.1 fL (80.0-98.0); Mean Platelet Volume 11.2 fL (9.4-12.3); Monocytes Absolute Auto 0.7 X10*3/uL (0.1-1.2); Neutrophils Absolute Auto 2.2 x10*3/uL (2.0-8.3); Neutrophils Percent Auto 47.7 % (45-73); Platelet Count 225 X10*3/uL (160-400); Red Blood Count 4.38 X10*6/uL (4.20-5.50); Red Cell Distribution Width 14.6 % (11.0-16.0); White Blood Count 4.7 X10*3/uL (4.8-10.8)
[2024-08-02 15:21] LABS: Appearance Urine Clear; Color Urine Yellow; Glucose Urine UA Negative (Negative); Leukocyte Esterase Urine Small (1+) (Negative); Nitrite Urine Negative (Negative); PH 5.5 (5.0-9.0); UMIC TRIGGER UA YES; Urine Blood Negative (Negative); Urine Ketones Negative (Negative); Urine Protein Negative (Neg-Trace)
[2024-08-02 15:25] LABS: INTERNATIONAL NORM RATIO 0.9 (0.9-1.1); Prothrombin Time 10.5 SEC (10.9-12.4)
[2024-08-02 15:37] LABS: Bacteria Urine None Seen (None Seen); Hyaline Casts Urine 0-2 /LPF (0-2); RBC Urine 0-2 /HPF (0-2); Squamous Epithelial Cell Urine 0-2 /HPF (0-2); WBC Urine 0-5 /HPF (0-5)
[2024-08-02 15:45] LABS: Anion Gap 14 (12-20); Blood Urea Nitrogen 31 mg/dL (9-16); Calcium 8.9 mg/dL (8.4-10.2); Carbon Dioxide 25 mmol/L (22-29); Chloride 103 mmol/L (96-108); Estimated Glomerular Filt Rate 53; Glucose Random 81 mg/dL (60-115); Potassium 4.6 mmol/L (3.3-5.1); Sodium 137 mmol/L (135-145)
[2024-08-02 15:47] LABS: Total Protein Urine Random < 7 mg/dL (<12)
== END 2024-08-02 14:31 | disposition home or self-care (01) ==
LOC: HO.LAB 14:30
PROVIDERS: Internal Medicine Hypertension Specialist; PCP Student in an Organized Health Care Education/Training Program; Visit Provider Nurse Practitioner Family
DX: N18.30 Chronic kidney disease, stage 3 unspecified (principal); R30.0 Dysuria; R07.9 Chest pain, unspecified
CPT/HCPCS: 36415; 80048; 81001; 84156; 85025; 85610; 87086

== ENCOUNTER → 2024-08-06 23:59 | Outpatient (BNV) | payer OTHER, SELFPAY | PROVIDERS: PCP Student in an Organized Health Care Education/Training Program; Visit Provider Internal Medicine Cardiovascular Disease | DX: I20.89 Other forms of angina pectoris (principal); R93.1 Abnormal findings on diagnostic imaging of heart and coronary circulation | CPT/HCPCS: 92928; 93458; 99152 ==

== ENCOUNTER 2024-08-15 13:10 | Outpatient (AMB) | payer OTHER, SELFPAY ==
--- NOTE | 2024-08-15 13:15 | MHC.OFFVIS ---
Vital Signs 08/15/24 13:18 Height 5 ft 5 in Weight 205 lb 0.478 oz BMI 34.1 BP 108/62 Blood Pressure Location Lt brachial Position Sitting Pulse 78 Pulse Source Pulse Oximeter Intake Visit Reasons: Follow up post cardiac cath Allergies hydromorphone (Dilaudid) Allergy (Severe, Verified 08/15/24 13:20) Shortness of Breath Medication List - Last Reconciled 08/15/24 by Rossy Epps SECURITY MANAGEMENT SPECIALIST-C aspirin 81 mg PO DAILY blood pressure test kit-large As directed cholecalciferol (vitamin D3) 1 mcg PO DAILY cyanocobalamin (vitamin B-12) 1,000 mcg PO DAILY diclofenac sodium 1% topical fluticasone propionate 50 mcg/actuation 1 spray intranasal BID hydrocortisone 2.5% (Procto-Med HC) 1 appl UT BEDTIME lisinopril-hydrochlorothiazide 20-12.5 mg 1 tab PO DAILY magnesium oxide 400 mg PO DAILY metoprolol succinate ER 50 mg PO DAILY omega 3-zkf-tmo-fish oil 1,000 (120-180) mg 1 cap PO BID sucralfate (Carafate) 1 g PO BID ticagrelor (Brilinta) 90 mg PO BID triamcinolone acetonide 0.5% topical DAILY HPI HPI Follow up post cardiac cath: Details: Usha is a 73-year-old female with past medical history of hypertension, hyperlipidemia, episode of exertional chest discomfort who underwent cardiac evaluation and CTA of the coronary arteries showing significant OM1 stenosis. She was started on metoprolol and reported resolution of her symptoms. On last follow-up she reported recurrent exertional symptoms and underwent cardiac catheterization showing mid circumflex 95% stenosis, LAURIE placed. She now presents for follow-up. Today she reports that since her stent placement she has not had any recurrent chest discomfort. She has been doing only light activity around the house. Her right radial catheterization site is healing well however she does have resolving ecchymosis in the area. She has no shortness of breath, PND, orthopnea or edema.. She denies palpitations, presyncope, syncope. She previously tried rosuvastatin and developed significant leg discomfort. She is not interested in injectable cholesterol-lowering agents. Taking all other meds as directed. [facility] Medical History Back pain Anemia History of depression Elevated cholesterol GERD (gastroesophageal reflux disease) Bleeding hemorrhoids Arthritis Hypertension Surgical History History of esophagogastroduodenoscopy (EGD) Hx of colonoscopy Hx of total knee replacement History of cataract surgery History of hysterectomy History of cholecystectomy History of neck surgery Family History Father History of stomach cancer Brother History of melanoma Social History Household Members: Children Alcohol intake: current Alcohol intake frequency: does not drink Patient Tobacco Use Status: Former Tobacco user Current occupational status: disabled Review of Systems Const All systems reviewed & are unremarkable except as noted in HPI and below ENT Denies dizziness Card Denies chest pain, Denies chest pain at rest, Denies chest pain with activity, Denies rapid heart rate, Denies pedal edema, Denies edema, Denies leg edema, Denies lightheadedness, Denies palpitations, Denies dyspnea, Denies dyspnea on exertion and Denies orthopnea Resp Denies cough, Denies dyspnea and Denies dyspnea on exertion GI Denies hematochezia and Denies change in stool character Musc Denies abnormal gait, Denies limited range of motion, Denies muscle cramps, Denies muscle weakness, Denies numbness, Denies radiating pain into limb, Denies stiffness and Denies tingling Skin/Breast Details: Bruising right forearm from cardiac catheterization Neuro Denies abnormal gait, Denies dizziness, Denies numbness and Denies tingling Endo Denies palpitations Physical Exam Vital Signs: Last Vital Signs Pulse 78 08/15/24 13:18 BP 108/62 08/15/24 13:18 BMI result Body Mass Index 34.1 Const General: cooperative, healthy appearing, comfortable and no acute distress Orientation/consciousness: patient oriented x3 Neck Neck: Yes normal visual inspection Resp Effort & Inspection: normal respiratory effort Auscultation: clear to auscultation bilaterally, no crackles, no rales, no rhonchi and no wheezes Cardio Rate: regular rate Rhythm: regular rhythm Heart sounds: S1 normal heart sound present, S2 normal heart sound present, no gallops, no murmurs and no rubs Neuro General: patient oriented x3 Extrem Other: Right radial catheterization site with easily palpable radial pulse, hand assessment normal, resolving ecchymosis noted along right forearm General: Yes normal to inspection, No no pedal edema and No calf tenderness Psych Appearance: grossly normal Mental Status: mental status grossly normal Speech and movement: Normal speech and movement present Assessment & Plan Assessment & Plan (1) Exertional chest pain: Code(s): R07.9 - Chest pain, unspecified Category: Medical Plan: Cardiac evaluation for an episode of chest discomfort summer 2022 while dancing. Echocardiogram was done 03/21/2022 showing EF 60-65%, no valve abnormalities and no regional wall motion abnormalities. A nuclear stress test was done on 08/19/2022 showing exercise 9-1/2 minutes with 6/10 chest discomfort, borderline EKG changes and no clear ischemia seen on nuclear imaging. She had CTA of the coronary arteries on 09/26/2022 showing OM 1 more than 70% stenosis, FFR 0.79, no significant FFR decrease in the remainder of the coronary vasculature. She was then started on metoprolol, aspirin and had full resolution of her symptoms and did well for many months. On last follow-up she reported recurrent exertional angina. She underwent cardiac catheterization on 08/06/2024 showing left circumflex mid 95% stenosis, LAURIE placed, with resolution of symptoms. Cardiac catheterization results, CAD, signs and symptoms of angina reviewed with her. Continue aspirin indefinitely. Continue Brilinta 90 mg b.i.d. uninterrupted for at least 1 year post stent. Continue metoprolol. She has been intolerant to statins, zetia and declines PCSK9 inhibitor. Continue [place] 3. Start cardiac rehab at [facility]. Cardiology follow-up 3 months, sooner if needed (2) Coronary atherosclerosis: Code(s): I25.10 - Atherosclerotic heart disease of [place] coronary artery without angina pectoris Category: Medical Qualifiers: Coronary Disease-Associated Artery/Lesion type: [place] artery [place] vs. transplanted heart: [place] heart Associated angina: without angina Qualified Code(s): I25.10 - Atherosclerotic heart disease of [place] coronary artery without angina pectoris Plan: As above (3) Hypertension: Code(s): I10 - Essential (primary) hypertension Category: Medical Qualifiers: Hypertension type: primary hypertension Qualified Code(s): I10 - Essential (primary) hypertension Plan: Blood pressure goal less than 130/80. Normal range at present. Continue metoprolol and lisinopril/hydrochlorothiazide combination (4) Hyperlipidemia: Code(s): E78.5 - Hyperlipidemia, unspecified Category: Medical Qualifiers: Hyperlipidemia type: unspecified Qualified Code(s): E78.5 - Hyperlipidemia, unspecified Plan: [place] LDL goal less than 70. Intolerant to statins. Not taking Zetia. Declines PCSK9 inhibitor. She is on [place] 3 fish oil capsules. (5) S/P cardiac catheterization: Comment: 08/06/2024 left main, lad, RCA all normal, left circumflex mid 95% stenosis, LAURIE placed Code(s): Z98.890 - Other specified postprocedural states Category: Surgical Plan: Right radial catheterization site healing well, resolving ecchymosis. (6) Stented coronary artery: Comment: LAURIE to left circumflex Code(s): Z95.5 - Presence of coronary angioplasty implant and graft Category: Surgical Plan I discussed with the patient the importance of continuing aspirin and Brilinta to prevent clot formation and maintain stent patency. We talked about the benefits of cardiac rehabilitation in improving cardiovascular health and the need to adhere to a heart-healthy diet. I advised her to monitor for any recurrence of symptoms and to follow up in three months or sooner if needed. Orders: Orders Cardiac Rehab Today Z95.5 - Presence of coronary angioplasty implant and graft Patient Instructions: - Continue taking aspirin and Brilinta as prescribed. - Attend cardiac rehabilitation sessions as scheduled. - Follow a heart-healthy diet, avoiding greasy and fatty foods. - Report any new or worsening symptoms immediately. - Follow up in three months or sooner if needed. Patient was informed and verbally consented to the use of an ambient scribe for clinic note documentation during this visit. Visit time spent on chart review, interview, assessment, orders, documentation. Coding Level of Care Code Est Pt Level 4 (39491) Complex EM visit Add On G2211 Diagnoses Exertional chest pain R07.9 Atherosclerosis of [place] coronary artery of [place] heart without angina pectoris I25.10 Coronary Disease-Associated Artery/Lesion type: [place] artery [place] vs. transplanted heart: [place] heart Associated angina: without angina Primary hypertension I10 Hypertension type: primary hypertension Hyperlipidemia, unspecified hyperlipidemia type E78.5 Hyperlipidemia type: unspecified S/P cardiac catheterization Z98.890 Stented coronary artery Z95.5 Time Spent (min) 32
--- OUTSIDE RECORDS SUMMARY | 2024-08-15 13:15 | XMS_ITS | Clinical Summary ---
Author Organization [facility] Facility Address [address] [place] [address] Care Team Providers Care Network Relay Tester Name Role Phone Nancy Sellers MD Primary Care Provider [phone] Allergies Active Allergy Reactions Criticality Noted Date [...] to complete this topic Insurance Medicare Medicaid [place] Medicare Medicaid [place] Care Teams Network Relay Tester Relationship Specialty Start Date End Date Nancy Sellers MD PCP - General Family Medicine 06/30/21
--- OUTSIDE RECORDS SUMMARY | 2024-08-15 13:15 | XMS_ITS | Encounter Summary ---
Author Organization [facility] Address [address] [place] [address] [address] [address] Care Team Providers Care Site Auditor Name Role Phone Nancy Sellers MD Primary [...] Description 10/15/2024 11:00 AM EDT Office Visit [facility] CHC MED & PEDS [address] [place] [address] Yessenia Baltazar MD 505 [place] [address] documented as of this encounter Visit Diagnoses Not on filedocumented in this encounter Care Teams Site Auditor Relationship Specialty Start Date End Date Nancy Sellers MD [address] [place] [address] PCP - General Family Medicine 01/30/12 documented as of this encounter
[2024-08-15 13:18] VITALS: BP 108/62; PULSE 78; BMI 34.1
== END 2024-08-15 14:08 | disposition home or self-care (01) ==
LOC: HO.HCS 13:10
PROVIDERS: PCP Student in an Organized Health Care Education/Training Program; Visit Provider Nurse Practitioner Family
DX: R07.9 Chest pain, unspecified (principal); I25.10 Atherosclerotic heart disease of native coronary artery without angina pectoris; I10 Essential (primary) hypertension; E78.5 Hyperlipidemia, unspecified; Z98.890 Other specified postprocedural states; Z95.5 Presence of coronary angioplasty implant and graft
CPT/HCPCS: 99214; G2211

== ENCOUNTER → 2024-08-15 13:10 | Outpatient (BNVA) | payer OTHER, SELFPAY | PROVIDERS: PCP Student in an Organized Health Care Education/Training Program; Visit Provider Nurse Practitioner Family | DX: I10 Essential (primary) hypertension (principal); I25.10 Atherosclerotic heart disease of native coronary artery without angina pectoris; R07.9 Chest pain, unspecified; E78.5 Hyperlipidemia, unspecified; Z95.5 Presence of coronary angioplasty implant and graft; Z98.890 Other specified postprocedural states | CPT/HCPCS: 99212 ==

== ENCOUNTER 2024-09-02 11:50 | Outpatient (REF) | payer OTHER, SELFPAY ==
--- NOTE | ~2024-09-02 | XR_ITS ---
EXAMINATION: XR ANKLE, left CLINICAL INFORMATION: pain COMPARISON: None available. TECHNIQUE: AP, lateral, and mortise views lower extremity joint, ankle. FINDINGS: Ankle mortise is congruent. There is no widening of the syndesmosis. Talar dome is intact. There is a small plantar calcaneal enthesiophytes. There is linear ossification in the distal Achilles tendon. XR/XR ankle LT min 3V IMPRESSION: Nonspecific calcaneal spur Electronically signed by: Valdemar Samaniego MD 09/02/2024 01:21 PM EDT
[2024-09-02 12:30] LABS: Alanine Aminotransferase 15 U/L (0-31); Albumin Level 4.1 g/dL (3.5-5.0); Alkaline Phosphatase 97 U/L (39-117); Anion Gap 13 (12-20); Aspartate Amino Transferase 19 U/L (5-31); Blood Urea Nitrogen 23 mg/dL (9-16); Calcium 9.4 mg/dL (8.4-10.2); Carbon Dioxide 28 mmol/L (22-29); Chloride 107 mmol/L (96-108); Cholesterol 234 mg/dL (<200); Estimated Glomerular Filt Rate 53; HDL Cholesterol 70 mg/dL (>40); Potassium 4.6 mmol/L (3.3-5.1); Sodium 143 mmol/L (135-145); Total Protein 7.5 g/dL (6.5-8.0); Triglycerides 87 mg/dL (<150)
--- OUTSIDE RECORDS SUMMARY | 2024-09-02 12:51 | XMS_ITS | Clinical Summary ---
Author Organization [facility] Facility Address [address] [place] [address] Care Team Providers Care Vat Tender Name Role Phone Nancy Sellers MD Primary Care Provider [phone] Allergies Active Allergy Reactions Criticality Noted Date [...] - PCV) 02/12/2016 02/11/2015 Influenza Vaccine (#1) 10/14/2024201 7, 11/25/2015, 11/17/2014, Additional history exists Hepatitis B Vaccine Aged Out 04/03/2003, 09/26/2002, 08/21/2002 No longer eligible based on patient's age to complete this topic Insurance Medicare Medicaid [place] Medicare Medicaid [place] Care Teams Vat Tender Relationship Specialty Start Date End Date Nancy Sellers MD PCP - General Family Medicine 06/30/21
--- OUTSIDE RECORDS SUMMARY | 2024-09-02 12:51 | XMS_ITS | Encounter Summary ---
Author Organization [employer] [facility] Address [address] [place] [address] [address] [place] [address] Care Team Providers Care Sap Treasury Consultant Name Role Phone Nancy Sellers MD Primary Care Provider [phone] Encounter Details Date Type Department Care Team (Latest Contact Info) Description 06/30/2020 Abstract [facility] CONVERSIONS Dental, Provider, DDS Social History [...] Description 10/15/2024 11:00 AM EDT Office Visit [facility] [address] [place] [address] Yessenia Baltazar MD [address] [place] [address] documented as of this encounter Visit Diagnoses Not on filedocumented in this encounter Care Teams Sap Treasury Consultant Relationship Specialty Start Date End Date Nancy Sellers MD [address] [place] [id number] PCP - General Family Medicine 01/30/12 documented as of this encounter
== END 2024-09-02 11:51 | disposition home or self-care (01) ==
LOC: HO.LAB 11:50
PROVIDERS: PCP Student in an Organized Health Care Education/Training Program; Visit Provider Student in an Organized Health Care Education/Training Program
DX: I10 Essential (primary) hypertension (principal); M25.572 Pain in left ankle and joints of left foot; G89.29 Other chronic pain
CPT/HCPCS: 36415; 73610; 80048; 80061; 80076

== ENCOUNTER → 2024-09-02 12:04 | Outpatient (BNV) | payer OTHER, SELFPAY | PROVIDERS: PCP Student in an Organized Health Care Education/Training Program; Visit Provider Radiology Diagnostic Radiology | DX: M25.572 Pain in left ankle and joints of left foot (principal) | CPT/HCPCS: 73610 ==

== ENCOUNTER 2024-10-07 14:02 | Outpatient (REF) | payer OTHER, SELFPAY ==
[2024-10-07 16:29] LABS: Appearance Urine Clear; Glucose Urine UA Negative (Negative); PH 6.5 (5.0-9.0); Specific Gravity - Urine 1.010 (1.005-1.025)
[2024-10-07 16:46] LABS: Anion Gap 13 (12-20); Blood Urea Nitrogen 19 mg/dL (9-16); Calcium 9.7 mg/dL (8.4-10.2); Carbon Dioxide 27 mmol/L (22-29); Chloride 103 mmol/L (96-108); Estimated Glomerular Filt Rate 50; Potassium 4.3 mmol/L (3.3-5.1); Sodium 139 mmol/L (135-145)
== END 2024-10-07 14:03 | disposition home or self-care (01) ==
LOC: HO.LAB 14:02
PROVIDERS: Absent Provider Internal Medicine Hypertension Specialist; PCP Student in an Organized Health Care Education/Training Program; Visit Provider Internal Medicine Gastroenterology
DX: R10.32 Left lower quadrant pain (principal); N18.30 Chronic kidney disease, stage 3 unspecified; R30.0 Dysuria; Z79.899 Other long term (current) drug therapy
CPT/HCPCS: 36415; 80048; 81003; 99212

== ENCOUNTER 2024-10-07 14:02 | Outpatient (AMB) | payer OTHER, SELFPAY ==
--- NOTE | 2024-10-07 14:11 | MHC.OFFVIS ---
Vital Signs 10/07/24 14:15 Height 5 ft 5 in Weight 207 lb 3.752 oz BMI 34.5 BP 131/68 Blood Pressure Location Lt brachial Position Sitting Pulse 79 Intake Visit Reasons: 7 month f/u Intake Note: Usha presents in the office as a 7 month follow up. CC: She states she had a stent put in at [facility] ED - she states that she does not feel well. She is in Cardiac Rehab and when she is at home she is having SOB. She said that she spoke with them and she was given the Brillanta and it is a side effect and that she needs to talk to Rossy Epps to fix her mdications. Contract Serviceman Required: Yes Allergies hydromorphone (Dilaudid) Allergy (Severe, Verified 10/07/24 14:15) Shortness of Breath HPI HPI 7 month f/u: Details: 74 yr old f being seen for f/u RECAP: she has been having rectal bleeding on wiping, saw Dr King and will have surgery in future she wants to get eye and knee surgery first notes worse bleeding with naprosyn taking iron supplements which makes her more constipated she has left sided abdo discomfort which is wrose with constipation takes metamucil bid, occ tid stool is not hard when comes outshe also gets a lot of bloating and gas she has been having worse refluex, not on PPI, no dysphagia reviewed results of her EGD/colon 2018 --rept due 2023--no polyps, hemorrhoids and tics she was using steroid cream which gives her relief, but she ran out of it otherwise she is having pain and discomfort from the hemorrhoids she felt doxycycline did not help any symptoms of bloating and gas As she was still having bad reflux I arranged PETERS on PPI EGD 11/2021--gastritis PETERS: minimal acid reflux noted, Demeester <14.7\ colonoscopy 07/2023-- internal hemorrhoids grade II, polyp removed , tortuous colon noted she was very low on b12 was given replacement INTERIM: she has good control of GERD with carafate she has noted strong pain on the left side mostly at night --goes into the back and the groin if she passes stool and gas it may or may not help she goes daily to the bathroom, mild nausea but no vomiting no fever no jaundice EXAM: GENERAL: The patient is well developed and nontoxic. VITAL SIGNS:see workflow HEENT: Nonicteric sclerae, PERRLA, EOMI. Oropharynx clear. Moist mucous membranes. Conjunctivae appear well perfused. No thyroid mass. CHEST: Chest wall is nontender. HEART: Regular rate and rhythm without murmurs. LUNGS: Clear to auscultation bilaterally. ABDOMEN: Soft, positive bowel sounds,tender epigastrium, no organomegaly. tender flank left side also suprapubic SKIN: No rash, no excessive bruising, petechiae, or purpura. NEUROLOGIC: Cranial nerves II-XII intact without motor/sensory deficit. Psych: normal MS: pain worse with lateral rotation and stretching a/P: 1/ Left sided abdo pain, prob related to tortuous colon - uncertain if due to renal, GI or muscular etiology PLAN: 1/ CT A/P with PO contrast 2/ can consider trial of bentyl again 3/ can cont with carafate since helps [facility] Medical History Back pain Anemia History of depression Elevated cholesterol GERD (gastroesophageal reflux disease) Bleeding hemorrhoids Arthritis Hypertension Surgical History History of esophagogastroduodenoscopy (EGD) Hx of colonoscopy Hx of total knee replacement History of cataract surgery History of hysterectomy History of cholecystectomy History of neck surgery Family History Father History of stomach cancer Brother History of melanoma Social History Household Members: Children Alcohol intake: current Alcohol intake frequency: does not drink Patient Tobacco Use Status: Former Tobacco user Current occupational status: disabled Physical Exam Vital Signs: Last Vital Signs Pulse 79 10/07/24 14:15 BP 131/68 10/07/24 14:15 BMI result Body Mass Index 34.5 Assessment & Plan Assessment & Plan (1) LLQ abdominal pain: Code(s): R10.32 - Left lower quadrant pain Category: Medical Plan: as above Orders: Orders UA CC w/rflx Micro + Cult Today R30.0 - Dysuria CT abdomen pelvis wo IV con Today R10.32 - Left lower quadrant pain Medications: New dicyclomine 10 mg PO BID 60 caps 0RF Coding Level of Care Code Est Pt Level 3 (48603) Diagnoses LLQ abdominal pain R10.32
[2024-10-07 14:15] VITALS: BP 131/68; PULSE 79; BMI 34.5
--- OUTSIDE RECORDS SUMMARY | 2024-10-07 15:25 | XMS_ITS | Encounter Summary ---
Author Organization [employer] Address [address] [place] [address] [address] [address] Care Team Providers Care Animal Feeder Name Role Phone Nancy Sellers MD Primary Care Provider [phone] Encounter Details Date Type Department Care Team ([facility] Contact Info) Description 10/05/2022 Orders Only [facility] MED [facility] P[facility] [address] [place], [place] [id number] Kendell Rankin MD [address] [place] [address] Social History Tobacco Use Types Packs/Day Years [...] Department Care Team (Late Contact Info) Description 10/15/2024 11:00 AM EDT Office Visit [facility] [address] [place] [address] Yessenia Baltazar MD [address] [place], [place] [phone] documented as of this encounter Visit Diagnoses Not on filedocumented in this encounter Additional Health Concerns Assessment Noted Time PHQ-9 Depression Total Score: 2 05/18/19 23 11:41 AM EDT documented as of this encounter Care Teams Animal Feeder Relationship Specialty Start Date End Date Nancy Sellers MD [address] [place] [address] PCP - General Family Medicine 01/30/12 documented as of this encounter
--- OUTSIDE RECORDS SUMMARY | 2024-10-07 15:25 | XMS_ITS | Clinical Summary ---
Author Organization [facility] Facility Address [address] [place] [address], [place] [address] Care Team Providers Care Manager Operations Research Name Role Phone Nancy Sellers MD Primary Care Provider Allergies Active Allergy Reactions Criticality Noted Date Comments Hydromorphone Rash Low 08/26/2021 Medications lisinopril-hyd roCHLOROthiazi de (PRINZIDE,ZEST ORETIC) 20-25 MG per tablet Take 1 tablet by mouth 1 (one) time each day 06/23/19 21 Active senna (SENOKOT) 8.6 MG tablet Take 8.6 mg by mouth every night 07/10/19 21 Active Aspirin 81 MG capsule Take 325 mg by mouth 1 (one) time each day 07/10/19 21 Active simvastatin (ZOCOR) 10 MG tablet Take [...] Do not crush, chew, or split. Active sulfamethoxazo le-trimethopri m 800-160 MG per tablet Take 1 tablet [...] 8 ounces of water or juice.. Active cholecalcifero l (VITAMIN D-3) 50 MCG (1999 [place]) capsule TAKE 1 CAPSULE BY MOUTH EVERY DAY 90 capsule 3 10/01/19 25 Active cholecalcifero l (VITAMIN D-3) 50 MCG (1999 [place]) capsule TAKE 1 TABLET BY MOUTH 1 TIME EACH DAY. 90 capsule 3 01/09/20 23 025 Discontinued Active Problems Problem Noted Date Diagnosed Date Hypertension 08/29/2021 Intermittent claudication 08/29/2021 Irritable bowel syndrome 08/29/2021 Osteoarthritis 08/29/2021 Vascular insufficiency 08/29/2021 Localized edema 08/29/2021 Encounters Date Type Department Care Team Description 09/27/2024 Refill [facility] [address] [place] [address] Bear Miles MD from Last 3 Months Social History Tobacco Use Types Packs/Day Years [...] Colonoscopy 09/16/1999 Colorectal Cancer Screening: Sigmoidoscopy 09/16/1999 Influenza Vaccine (#1) 2024 , 01/04/2017, 11/25/2015, Additional history exists Hepatitis B Vaccine Aged Out 04/03/2003, 09/26/2002, 08/21/2002 No longer eligible based on patient's age to complete this topic Pneumococcal Vaccine: 50+ Years Completed 12/12/2023, 02/11/2015 Insurance Medicare Medicaid [place] Medicare Medicaid [place] Care Teams Manager Operations Research Relationship Specialty Start Date End Date Nancy Sellers MD PCP - General Family Medicine 06/30/21
--- OUTSIDE RECORDS SUMMARY | 2024-10-07 15:25 | XMS_ITS | Encounter Summary ---
Author Organization [employer] [facility] Address [address] [place] [address] [address] [place] [address] Care Team Providers Care Search Manager Name Role Phone Nancy Sellers MD Primary Care Provider [phone] Encounter Details Date Type Department Care Team (Latest Contact Info) Description 08/14/2018 Abstract [facility] CONVERSIONS Dental, Provider, DDS Social History [...] Description 10/15/2024 11:00 AM EDT Office Visit [facility] [address] [place] [address] Yessenia Baltazar MD [address] [place] [address] documented as of this encounter Visit Diagnoses Not on filedocumented in this encounter Care Teams Search Manager Relationship Specialty Start Date End Date Nancy Sellers MD [address] [place] [id number] PCP - General Family Medicine 01/30/12 documented as of this encounter
--- OUTSIDE RECORDS SUMMARY | 2024-10-07 15:25 | XMS_ITS | Encounter Summary ---
Author Organization [employer] Address [address] [place] [address] [address] [place] [address] Care Team Providers Care Devops Engineer Name Role Phone Nancy Sellers MD Primary Care Provider [phone] Encounter Details Date Type Department Care Team ([facility] st Contact Info) Description 08/02/2024 Results Follow-Up [facility] [address] [place] [address] Belen Mccallum MD [address] [place] [address] CBC auto differential, Urinalysis Complete, Prothrombin Time-INR, Additional followed-up results: 2 Social History Tobacco Use Types Packs/Day Years [...] Answer Date Recorded Internet Access Q1 No 06/13/2024 Internet Access Q2 I do not want or need it 02/2024 Comments No Sex and Gender Information Value Date Recorded Sex Assigned at Female 12/13/2021 10:15 AM EDT Legal Sex Female 10:15 AM EDT Gender Identity Female 12/13/2021 10:15 AM EDT Sexual Orientation Straight 12/13/2021 10 :15 AM EDT documented as of this encounter Miscellaneous Notes * Result Encounter Note - Belen Camarena MD - 08/02/2024 10:44 PM EDT Labs done by outside provider documented in this encounter Plan of Treatment Upcoming Encounters Date Type Department Care Team (Late st Contact Info) Description 10/15/2024 11:00 AM EDT Office Visit [facility] [address] [place] [address] Yessenia Baltazar MD [address] [place] [address] documented as of this encounter Visit Diagnoses Not on filedocumented in this encounter Additional Health Concerns Assessment Noted Time PHQ-9 Depression Total Score: 4 07/31/19 24 10:35 AM EDT documented as of this encounter Care Teams Devops Engineer Relationship Specialty Start Date End Date Nancy Sellers MD [address] [place] [id number] PCP - General Family Medicine 01/30/12 documented as of this encounter
--- OUTSIDE RECORDS SUMMARY | 2024-10-07 15:25 | XMS_ITS | Encounter Summary ---
Author Organization [employer] [facility] Address [address] [place] [address] [address] [place] [address] Care Team Providers Care Rfid Specialist Name Role Phone Nancy Sellers MD Primary Care Provider [phone] Encounter Details Date Type Department Care Team (Latest Contact Info) Description 06/30/2020 Abstract [facility] CONVERSIONS Dental, Provider, DDS Social History [...] Description 10/15/2024 11:00 AM EDT Office Visit [facility] PEDS [address] [place] [address] Yessenia Baltazar MD [address] [place] [address] documented as of this encounter Visit Diagnoses Not on filedocumented in this encounter Care Teams Rfid Specialist Relationship Specialty Start Date End Date Nancy Sellers MD [address] [place] [id number] PCP - General Family Medicine 01/30/12 documented as of this encounter
--- OUTSIDE RECORDS SUMMARY | 2024-10-07 15:25 | XMS_ITS | Encounter Summary ---
Author Organization [employer] Address [address] [facility] 7t [place] [address] Care Team Providers Care Patient Care Name Role Phone Nancy Sellers MD Primary Care Provider [phone] Reason for Visit * Reason Onset Date Comments New Med Request 07/20/2023 Encounter Details Date Type Department Care Team ([facility] st Contact Info) Description 07/20/2023 Telephone [facility] MEDICINE [address] [place] [address] Nancy Sellers MD [address] [place] [address] New Med Request Social History Tobacco Use [...] injections labs [place] [facility] in this encounter Plan of Treatment Upcoming Encounters Date Type Department Care Team (Late st Contact Info) Description 10/15/2024 11:00 AM EDT Office Visit [facility] CHC MED & PEDS [address] [place] [address] Yessenia Baltazar MD [address] [place] [address] documented as of this encounter Visit Diagnoses Not on filedocumented in this encounter Additional Health Concerns Assessment Noted Time PHQ-9 Depression Total Score: 2 05/18/19 23 11:41 AM EDT documented as of this encounter Care Teams Patient Care Relationship Specialty Start Date End Date Nancy Sellers MD [address] [place] [id number] PCP - General Family Medicine 01/30/12 documented as of this encounter
--- OUTSIDE RECORDS SUMMARY | 2024-10-07 15:25 | XMS_ITS | Encounter Summary ---
Author Organization [employer] Address [address] [facility] [address] [place] [address] Care Team Providers Care Manager Strategic Alliances Name Role Phone Nancy Sellers MD Primary Care Provider [phone] Encounter Details Date Type Department Care Team ([facility] st Contact Info) Description 09/05/2023 Orders Only [facility] CHC MED & PEDS [address] [place], [place] [phone] Nancy Sellers MD [address] [place] [address] Social History Tobacco Use Types Packs/Day Years [...] Description 10/15/2024 11:00 AM EDT Office Visit [facility] MED & PEDS [address] [place] [address] Yessenia Baltazar MD [address] [place] [address] documented as of this encounter Visit Diagnoses Not on filedocumented in this encounter Additional Health Concerns Assessment Noted Time PHQ-9 Depression Total Score: 4 07/31/19 24 10:35 AM EDT documented as of this encounter Care Teams Manager Strategic Alliances Relationship Specialty Start Date End Date Nancy Sellers MD [address] [place] [id number] PCP - General Family Medicine 01/30/12 documented as of this encounter
--- OUTSIDE RECORDS SUMMARY | 2024-10-07 15:25 | XMS_ITS | Encounter Summary ---
Author Organization [employer] Address [address] [place] [address] 7t [place] [address] Care Team Providers Care Health Professional Name Role Phone Nancy Sellers MD Primary Care Provider [phone] Reason for Visit * Reason Onset Date Comments Med Change Request NUTRITION APPOINTMENT REQUEST 03/08/2023 Encounter Details Date Type Department Care Team ([facility] Contact Info) Description 03/08/2023 Refill [facility] MED & PEDS [address] [place] [address] Nancy Sellers MD [address] [place] [address] Social History Tobacco Use Types Packs/Day Years [...] Miscellaneous Notes * Telephone Encounter - Jessi Julian - 03/09/2023 9:26 AM EST Called pt X2 to schedule DM appt. No answer LVM\ sent unable to contact letter documented in this encounter Plan of Treatment Upcoming Encounters Date Type Department Care Team (Late st Contact Info) Description 10/15/2024 11:00 AM EDT Office Visit [facility] CHC MED & PEDS [address] [place] [address] Yessenia Baltazar MD [address] [place] [address] documented as of this encounter Visit Diagnoses Not on filedocumented in this encounter Additional Health Concerns Assessment Noted Time PHQ-9 Depression Total Score: 2 05/18/19 23 11:41 AM EDT documented as of this encounter Care Teams Health Professional Relationship Specialty Start Date End Date Nancy Sellers MD [address] [place] [address] PCP - General Family Medicine 01/30/12 documented as of this encounter
--- OUTSIDE RECORDS SUMMARY | 2024-10-07 15:25 | XMS_ITS | Clinical Summary ---
Author Organization [address] [place] [address] Address [address] [place] [address] Phone Care Team Providers Care Raw Stock Dyeing Machine Tender Name Role Phone Nancy Sellers MD Primary Care Provider [phone] Social History Tobacco Use Types Packs/Day Years Used Date Smoking Tobacco: Never Assessed Comments Unknown Sex and Gender Information Value Date Recorded Sex Assigned at Not on file Legal Sex Female 9:17 AM EDT Gender Identity Not on file Sexual Orientation Not on file Plan of Treatment Upcoming Encounters Date Type Department Care Team ([facility] st Contact Info) Description 11/13/2024 2:15 PM EDT Consult Orthopedic Surgery - [place] [id number] [id number] Nirav Drew, DPM [address] [address] Health Maintenance Due Date Last Done Comments Breast Cancer Screening 1950 DTaP,Tdap,and Td Vaccines (1 - Tdap) 1969 Pneumococcal Vaccine: 50+ Ye ars (1 of 1 - PCV) 2000 Zoster Vaccines (1 of 2) 2000 COVID-19 Vaccine ( - 2023-2 5 season) 2023 Depression Screening 02/14/2024 Colorectal Cancer Screening: Colonoscopy 09/05/2024 Falls Risk Assessment 09/05/2024 Hepatitis C Screening 09/05/2024 Medicare Annual Wellness Visit 09/05/2024 Osteoporosis Screening (Bone Density Screening) 09/05/2024 Social Influencers of Health Screening 09/05/2024 Influenza Vaccine (#1) 2024 RSV Immunization Adult Patie nts (1 - 1-dose 75+ series) 2025 HIB Vaccines Aged Out No longer eligi ble based on patient's age to complete this topic HPV Vaccines Aged Out No longer eligi ble based on patient's age to complete this topic Hepatitis A Vaccines Aged Out No long er eligible based on patient's age to complete this topic Hepatitis B Vaccines Aged Out No long er eligible based on patient's age to complete this topic IPV Vaccines Aged Out No longer eligi ble based on patient's age to complete this topic MMR Vaccines Aged Out No longer eligi ble based on patient's age to complete this topic Meningococcal ACWY Vaccine Aged Out N o longer eligible based on patient's age to complete this topic Meningococcal B Vaccine Aged Out No l onger eligible based on patient's age to complete this topic RSV Immunization Patients Un aretha 20 months Aged Out No longer eligible b ased on patient's age to complete this topic Varicella Vaccines Aged Out No longer eligible based on patient's age to complete this topic Insurance [employer] MEDICARE Member Subscriber Plan / Payer (Ef fective 2023-Present) Name:USHA CHAUHAN Relation to Subscriber:Self Name:Usha Chauhan Payer ID:[id number] Group ID:[id number] Type:Not on file Address: [place] [address] [place] [phone] Care Teams Raw Stock Dyeing Machine Tender Relationship Specialty Start Date End Date Nancy Sellers MD [address] [place] [id number] PCP - General Family Medicine 09/04/24
--- OUTSIDE RECORDS SUMMARY | 2024-10-07 15:25 | XMS_ITS | Continuity of Care Document ---
Author Name [employer] Address [address] [place] [address] Organization Unknown Address [address] [place] [address] Medications No known medications Problems No known problems
--- OUTSIDE RECORDS SUMMARY | 2024-10-07 15:25 | XMS_ITS | Encounter Summary ---
Author Organization [employer] Address [address] [facility] 7t [place] [address] Care Team Providers Care Supervisor Building Maintenance Name Role Phone Nancy Sellers MD Primary Care Provider [phone] Reason for Visit * Reason Onset Date Comments Durable Medical Equipment 01/29/2024 Blood pressure machine Encounter Details Date Type Department Care Team ([facility] Contact Info) Description 01/29/2024 Telephone [facility] MEDICINE [address] [place] [address] Nancy Sellers MD [address] [place] [address] Durable Medical Equipment (Blood pressure machine ) [...] Description 10/15/2024 11:00 AM EDT Office Visit [facility] CHC MED & PEDS [address] [place] [address] Yessenia Baltazar MD [address] [place] [address] documented as of this encounter Visit Diagnoses Not on filedocumented in this encounter Additional Health Concerns Assessment Noted Time PHQ-9 Depression Total Score: 4 07/31/19 24 10:35 AM EDT documented as of this encounter Care Teams Supervisor Building Maintenance Relationship Specialty Start Date End Date Nancy Sellers MD [address] [place] [phone] PCP - General Family Medicine 01/30/12 documented as of this encounter
--- OUTSIDE RECORDS SUMMARY | 2024-10-07 15:25 | XMS_ITS | Clinical Summary ---
Author Organization [employer] Address [address] [facility] 7[address] [place] [address] Care Team Providers Care Freight Tallier Name Role Phone Nancy Sellers MD Primary Care Provider [phone] Allergies Active Allergy Reactions Criticality Noted Date Comments Hydromorphone Rash,Shortness of breath High 02/13/18 Other reaction(s): rash sob and hives Morphine [...] kit Apply 1 [place] [facility] [place]Non-drug;combo) route every day [...] EVERY MORNING 30 capsule 11 4 Active esomeprazole (NexIUM) [address] [...] mouth wash BID 500 mL 4 Active cholecalciferol VITAMIN D (Vitamin D-3) 50 MCG (1999 UT) capsule 4 Active cyanocobalamin (Vitamin B-12) 1000 MCG tablet Take 1,000 mcg by mouth Once per day. 4 Active triamcinolone (Kenalog) 0.5 % ointment APPLY TO AFFECTED AREA TWICE A DAY 90 g 4 Active betamethasone valerate (Valisone) 0.1 % ointment Apply topically if needed in the morning and at bedtime (dryness). 45 g 2 4 Active Aspirin Low Dose 81 MG EC tablet TAKE 1 TABLET (81 MG) BY MOUTH IN THE MORNING 90 tablet 1 4 Active omega-3, EPA + DHA, (fish oil) 1000 MG capsule Take 1 capsule (1,000 mg) by mouth 2 times daily. 180 capsule 1 4 Active Blood Pressure kit Check blood pressure daily 1 kit 4 Active lisinopril-hydr oCHLOROthiazide 20-12.5 MG tablet Take 1 tablet by mouth Once per day. 5 Active gabapentin (Neurontin) 300 MG capsule Take 1 capsule (300 mg) by mouth at bedtime. 30 capsule 11 5 06/14/19 26 Active Diclofenac Sodium 1 % gel USE TOPICAL TWICE A DAY 100 g 3 5 Active estradiol (Estrace) 0.1 MG/GM vaginal cream Insert 2 g into the vagina Once per day. 42.5 g 3 5 Active Red Yeast Rice 600 MG capsule TAKE 1 CAPSULE BY MOUTH TWICE A DAY 60 capsule 11 5 Active fluticasone (Flonase) 50 MCG/ACT nasal sprayIndication s:Allergy, subsequent encounter SPRAY 1 SPRAY INTO EACH NOSTRIL IN THE MORNING 16 mL 2 5 Active ticagrelor (Brilinta) 90 MG tablet Take 90 mg by mouth. 5 Active lisinopril 10 MG tablet Take 1 tablet by mouth Once per day. 5 Active cyclobenzaprine (Flexeril) 10 MG tabletIndicatio ns:Chronic bilateral low back pain with sciatica, sciatica laterality unspecified Take 1 tablet (10 mg) by mouth at bedtime for 10 days. 10 tablet 5 Active Active Problems Problem Noted Date Diagnosed [...] Encounters Date Type Department Care Team Description 09/30/[address] [facility] [address] [place] [address] Nancy Sellers MD Results 09/05/[address] [facility] [address] [place] [address] Nancy Sellers MD Chronic bilateral low back pain with sciatica, sciatica laterality unspecified (Primary Dx) 09/04/2024 Telephone [facility] [address] [place] [address] Nancy Sellers MD Nurse Triage 09/03/[address] [facility] [address] [place] [address] Nancy Sellers MD Calcaneal spur of foot, left (Primary Dx) 09/03/2024 Results Follow-Up [facility] [address] [place] [address] Nancy Sellers MD XR Ankle 3+ Views Left 09/02/[address] [facility] [address] [place] [address] Nancy Sellers MD Walk-In 08/30/2024 3:20 PM EDT Office Visit [facility] [address] [place] [address] Nancy Sellers MD Chronic pain of left ankle (Primary Dx); Primary hypertension 08/30/2024 Travel 08/29/2024 Telephone [facility] [address] [place] [address] Nancy Sellers MD Nurse Triage 08/02/2024 Results Follow-Up [facility] [address] [facility] [place] [address] Belen Mccallum MD CBC auto differential, Urinalysis Complete, Prothrombin Time-INR, Additional followed-up results: 2 08/02/2024 Orders Only GENERIC EXTERNAL DATA DEPARTMENT Provider, Generic External Data 07/20/[address] [facility] [address] [place] [address] Nancy Sellers MD Allergy, subsequent encounter 07/15/[address] [facility] [address] [place] [address] Nancy Sellers MD Appointment Request (Pt needs derm appt) from Last 3 Months Immunizations Immunization Administration Dates Next Due Hep B, adult [...] Sign Reading Time Taken Comments Blood Pressure 127/70 08/30/2024 3:32 PM EDT Pulse 85 08/30/2024 3:32 PM EDT Temperature 36.4 C (97.6 F) 08/30/2024 3:32 PM EDT Respiratory Rate 18 08/30/2024 3:32 PM EDT Oxygen Saturation 96% 06/13/2024 11:02 AM EDT Inhaled Oxygen Concentration - - Weight 91.6 kg (202 lb) 08/30/2024 3:32 PM EDT Height 160 cm (5' 3 ) 08/30/2024 3:32 PM EDT Body Mass Index 35.78 08/30/2024 3:32 PM EDT Plan of Treatment Upcoming Encounters Date Type Department Care Team (Late st Contact Info) Description 10/15/2024 11:00 AM EDT Office Visit [facility] [address] [place] [address] Yessenia Baltazar MD [address] [place] [address] Health Maintenance Due Date Last Done Comments CT Colonography 1950 FIT DNA/Cologuard 1950 FIT 1950 FOBT 1950 Sigmoidoscopy 1950 Hepatitis C Screening 1968 RSV Patients and Patients Aged 60 years or older (1 - Risk 60-74 years 1-dose series) 2010 Dental Oral Exam 01/02/2023 07/01/2022, , 06/11/2015, Additional history exists Dental Prophylaxis 04/19/2024 10/20/2023, 0 03/16/2023, 07/01/2022, Additional history exists COVID-19 Vaccine ( season) 2024 12/01/2023, 04/18/2022, 01/11/2021, Additional history exists Depression Screening 07/30/2024 07/31/2023, 07/31/19 24 Mammogram 07/31/2024 08/01/2023, 07/14, 06/16/2021, Additional history exists Influenza Vaccine (#1) 2024 , 12/15/2022, 10/26/2021, Additional history exists Dental X-Ray: Bitewings 10/20/2024 10/20/19 24, 07/01/2022, 04/08/2020, Additional history exists Alcohol/Substance Use Screening 06/13/2025 06/13/2024 SDOH Screening 06/13/2025 06/13/2024 Tobacco Screening 06/13/2025 06/13/2024 DTaP/Tdap/Td Vaccines (2 - Td or Tdap) 11/24/2025 11/25/2015, 09/26/2002, 10/15/1991 Dental X-Ray: Full Mouth 10/20/2026 10/20/2023, 07/15 Colonoscopy 08/09/2028 08/10/2023, 09/21/2018 Colorectal Cancer Screening 08/09/2028 Lipid Panel 09/02/2029 09/02/2024, 05/15, 12/19/2023, Additional history exists Hepatitis B Vaccines Completed 04/03/2003, 09/26/2002, 08/21/2002 Zoster Vaccines Completed 03/04/2022, 11/30/2021 Pneumococcal Vaccine: 50+ Years Completed 12/12/2023, 02/11/2015 [...] Procedure Name Priority Date/Time Associated Diagnosis Comments XR ANKLE 3+ VIEWS LEFT Routine 09/02/2024 12:05 PM EDT HEPATIC FUNCTION PANEL Routine 09/02/2024 11:57 AM EDT Primary hypertension LIPID PANEL, STANDARD Routine 09/02/2024 11:57 AM EDT Primary hypertension BASIC METABOLIC PANEL Routine 09/02/2024 11:57 AM EDT Primary hypertension BASIC METABOLIC PANEL Routine 08/02/2024 2:43 PM EDT PROTHROMBIN TIME-INR Routine 08/02/2024 2:43 PM EDT CBC WITH AUTO DIFFERENTIAL Routine 08/02/2024 2:43 PM EDT URINE PROTEIN, TOTAL, RANDOM (W/O CREATININE) Routine 08/02/2024 2:35 PM EDT URINALYSIS, COMPLETE Routine 08/02/2024 2:35 PM EDT CULTURE, URINE, ROUTINE Routine 08/02/2024 2:35 PM EDT PROPHYLAXIS - ADULT Routine 10/20/2023 1 1:00 AM EDT INTRAORAL - COMPLETE SERIES OF RADIOGRAPHIC IMAGES Routine 10/20/2023 11:00 AM EDT HM COLONOSCOPY Routine 08/10/2023 BI MAMMOGRAM SCREENING TOMOSYNTHESIS BILATERAL Routine 08/01/2023 12:20 PM EDT PERIODIC ORAL EVALUATION - ESTABLISHED PATIENT Routine 07/01/2022 3:00 PM EDT from Last 3 Months or Most Recently Relevant to Health Maintenance Results * XR Ankle 3+ Views Left (09/02/2024 12:05 PM EDT) Anatomical Region Laterality Modality Lower Extremities, Ankle Left Radiogr aphic Imaging 09/02/2024 12:0 5 PM EDT Narrative 09/02/2024 1:24 PM EDT [address] [address] XRay Report Signed Patient: Usha Grace MR#: [id number] : 1950 Acct:[id number] Age/Sex: 73 / F ADM Date: 09/02/24 Loc: HO.LAB Attending Dr: Nancy Sellers MD Ordering Physician: Nancy Sellers MD Date of Service: 09/02/24 Procedure(s): XR ankle LT min 3V Accession Number(s): [id number] cc: Nancy Sellers MD EXAMINATION: XR ANKLE, left CLINICAL INFORMATION: pain COMPARISON: None available. TECHNIQUE: AP, lateral, and mortise views lower extremity joint, ankle. FINDINGS: Ankle mortise is congruent. There is no widening of the syndesmosis. Talar dome is intact. There is a small plantar calcaneal enthesiophytes. There is linear ossification in the distal Achilles tendon. XR/XR ankle LT min 3V IMPRESSION: Nonspecific calcaneal spur Electronically signed by: Valdemar Samaniego MD 09/02/2024 01:21 PM EDT RP Dictated By: Valdemar Samaniego MD Signed By: <Electronically signed by Valdemar Samaniego MD in OV> 09/02/24 1321 DD/ 1205 TD/TT: 09/02/24 1217 Mat Maker: Procedure Note Donotuseinterpreter, Image - 09/02/[address] [address] XRay Report Signed Patient: Usha GraceMR#: [id number] : 1950cct:[id number] Age/Sex: 73 / FADM Date: 09/02/24 Loc: HO.LAB Attending Dr: Nancy Sellers MD Ordering Physician: Nancy Sellers MD Date of Service: 09/02/24 Procedure(s): XR ankle LT min 3V Accession Number(s): [id number] cc: Nancy Sellers MD EXAMINATION: XR ANKLE, left CLINICAL INFORMATION: pain COMPARISON: None available. TECHNIQUE: AP, lateral, and mortise views lower extremity joint, ankle. FINDINGS: Ankle mortise is congruent. There is no widening of the syndesmosis. Talar dome is intact. There is a small plantar calcaneal enthesiophytes. There is linear ossification in the distal Achilles tendon. XR/XR ankle LT min 3V IMPRESSION: Nonspecific calcaneal spur Electronically signed by: Valdemar Samaniego MD 09/02/2024 01:21 PM EDT RP Dictated By: Valdemar Samaniego MD Signed By: <Electronically signed by Valdemar Samaniego MD in OV> 09/02/24 1321 DD/ 1205 TD/TT: 09/02/24 1217 Mat Maker: Nancy Sellers MD IMG XR PROCEDURES Final Result * Hepatic Function Panel (09/02/2024 11:57 AM EDT) Bilirubin, Total 0.4 0.0 - 1.0 mg/dL [facility] Bilirubin, Direct 0.2 0.0 - 0.5 mg/dL [facility] Aspartate Amino Transferase 19 5 - 31 U/L [facility] Alanine Aminotransferase 15 0 - 31 U/L [facility] Total Protein 7.5 6.5 - 8.0 g/dL [facility] Albumin Level 4.1 3.5 - 5.0 g/dL [facility] Alkaline Phosphatase 97 39 - 117 U/L [facility] Blood Venous blood specimen / Unknown 09/02/2024 11:57 AM EDT 09/02/2024 11:57 AM EDT Nancy Sellers MD LAB BLOOD ORDERABLES Final Resul t [facility] [address] [place] [address] [phone] * (ABNORMAL) Lipid Panel, Standard (09/02/2024 11:57 AM EDT) Triglycerides 87 <150 mg/dL [facility] Comment:Desirable Triglyceri de: less than 150 mg/dLBorderline High Triglyceride 150-199 mg/dLHigh Triglyceride: 200-499 mg/dLVery High Triglyceride: greater than or equal to 5OO mg/dL Cholesterol 234(H) <200 mg/dL [facility] Comment:Desirable Cholestero l: less than 200 mg/dLBorderline High Cholesterol: 200-239 mg/dLHigh Cholesterol: greater than 239 mg/dL LDL Cholesterol Calculated 147(H) <100 mg/dL [facility] Comment:Desirable LDL: less than 100 mg/dLNear Optimal/Above Optimal LDL: 110- 129 mg/dLBorderline High LDL: 130-159 mg/dLHigh LDL: 160-189 mg/dLVery High LDL: greater than or equal to 190 mg/dL HDL Cholesterol 70 >40 mg/dL [facility] Comment:Desirable HDL: great er than 40 mg/dL Note: This HDL assay may give artificially low results in patients with liver disease. Blood Venous blood specimen / Unknown 09/02/2024 11:57 AM EDT 09/02/2024 11:57 AM EDT us Nancy Sellers MD LAB BLOOD ORDERABLES Final Resul t [facility] [address] [place] [phone] * (ABNORMAL) Basic Metabolic Panel (09/02/2024 11:57 AM EDT) Only the most recent of2 resultswithin the time period is included. Sodium 143 135 - 145 mmol/L [facility] Potassium 4.6 3.3 - 5.1 mmol/L [facility] Chloride 107 96 - 108 mmol/L [facility] Carbon Dioxide 28 22 - 29 mmol/L [facility] Anion Gap 13 12 - 20 [facility] Urea Nitrogen (BUN) 23(H) 9 - 16 mg/dL [facility] Creatinine, Serum 1.02 0.5 - 1.4 mg/dL [facility] Estimated Glomerular Filt Rate 53 [facility] Comment:Chronic Kidney Disea se: Estimated GFR < 60 mL/min/1.42f2Gbyseu Kidney Disease: Estimated GFR < 15 mL/min/1.73m2 Glucose 99 60 - 115 mg/dL [facility] Calcium 9.4 8.4 - 10.2 mg/dL [facility] Blood Venous blood specimen / Unknown 09/02/2024 11:57 AM EDT 09/02/2024 11:57 AM EDT us Nancy Sellers MD LAB BLOOD ORDERABLES Final Resul t [facility] [address] [place] [address] [phone] * (ABNORMAL) CBC auto differential (08/02/2024 2:43 PM EDT) White Blood Count 4.7(L) 4.8 - 10.8 X10*3/uL [facility] Red Blood Count 4.38 4.20 - 5.50 X10*6/uL [facility] Hemoglobin 12.4 12.0 - 16.0 g/dl [facility] Hematocrit 37.7 37.0 - 47.0 % [facility] Mean Corpuscular Volume 86.1 80.0 - 98.0 fL [facility] Mean Corpuscular Hemoglobin 28.3 27.0 - 33.0 pg [facility] Mean Corpuscular HGB Conc 32.9 31.0 - 35.0 g/dl [facility] Red Cell Distribution Width 14.6 11.0 - 16.0 % [facility] Platelet Count 225 160 - 400 X10*3/uL [facility] Mean Platelet Volume 11.2 9.4 - 12.3 fL [facility] Neutrophils Percent Auto 47.7 45 - 73 % [facility] Imm Gran Pct Auto 0.2 0.0 - 0.4 % [facility] Lymphocytes Percent Auto 30.6 20 - 40 % [facility] Monocytes Percent Auto 14.0(H) 2 - 11 % [facility] Eosinophils Percent Auto 6.6(H) 0 - 4 % [facility] Basophils Percent Auto 0.9 0 - 2 % [facility] NRBC Pct Auto 0.0 0.0 - 0.2 /100WBC [facility] Neutrophils Absolute Auto 2.2 2.0 - 8.3 x10*3/uL [facility] Imm Gran Abs Auto 0.01 0.00 - 0.03 X10*3/uL [facility] Lymphocytes Absolute Auto 1.4 1.2 - 4.9 X10*3/uL [facility] Monocytes Absolute Auto 0.7 0.1 - 1.2 X10*3/uL [facility] Eosinophils Absolute Auto 0.3 0.0 - 0.4 X10*3/uL [facility] Basophils Absolute Auto 0.0 0.0 - 0.2 X10*3/uL [facility] NRBC Abs Auto 0.000 0.0 - 0.012 X10*3/uL [facility] 08/02/2024 2:43 PM EDT 08/02/2024 2:43 PM EDT Generic External Data Provider LAB BLOOD ORDERAB LES Final Result Performing Organization Address [facility] de Phone Number [facility] [address] [place] [phone] * (ABNORMAL) Prothrombin Time-INR (08/02/2024 2:43 PM EDT) Prothrombin Time 10.5(L) 10.9 - 12.4 SEC [facility] INTERNATIONAL NORM RATIO 0.9 0.9 - 1.1 [facility] Comment:INTERNATIONAL NORMAL IZED RATIO (INR) REFERENCE RANGES Reference RangeFor patients not on anticoagulant therapy: 0.9 - 1.1INR ranges for oral anticoagulanttherapy:For prevention and treatment of venous thrombosis and pulmonary embolism: 2.0 - 3.0For acute myocardial infarction with aspirin therapy: 2.0 - 3.0For acute myocardial infarction without aspirin therapy: 3.0 - 4.0For patients with mechanical prosthetic heart valves: 2.5 - 3.5 08/02/2024 2:43 PM EDT 08/02/2024 2:43 PM EDT Generic External Data Provider LAB BLOOD ORDERAB LES Final Result Performing Organization Address [facility]/State/ZIP Co de Phone Number [facility] [address] [place] [address] [phone] * Urine Protein, Total, Random without Creatinine (08/02/2024 2:35 PM EDT) Protein, Total, Random Urine <7 <12 mg/dL [facility] 08/02/2024 2:35 PM EDT 08/02/2024 3:09 PM EDT us Generic External Data Provider LAB URINE ORDERAB LES Final Result Performing Organization Address [facility] Co de Phone Number [facility] [address] [place] [phone] * (ABNORMAL) Urinalysis Complete (08/02/2024 2:35 PM EDT) Color Urine Yellow [facility] Appearance Urine Clear [facility] PH 5.5 5.0 - 9.0 [facility] Glucose Urine UA Negative Negative mg/dL [facility] Urine Blood Negative Negative [facility] Specific [place] - Urine 1.020 1.005 - 1.025 [facility] Urine Protein Negative Neg-Trace mg/dL [facility] Urine Ketones Negative Negative mg/dL [facility] Nitrite Urine Negative Negative [facility] Leukocyte Esterase Urine Small (1+)(A) Negative [facility] RBC Urine 0-2 0 - 2 /HPF [facility] Urine WBC 0-5 0 - 5 /HPF [facility] Urine Squamous Epithelial Cell 0-2 0 - 2 /HPF [facility] Urine Bacteria None Seen None Seen [facility] Hyaline Casts, Urine 0-2 0 - 2 /LPF [facility] 08/02/2024 2:35 PM EDT 08/02/2024 3:09 PM EDT us Generic External Data Provider LAB URINE ORDERAB LES Final Result Performing Organization Address [facility]/ZIP Co de Phone Number [facility] [address] [place] [address] [phone] * Culture, Urine, Routine (08/02/2024 2:35 PM EDT) Urine Urine specimen obtained by clean catch procedure / Unknown 08/02/2024 2:35 PM EDT 08/02/2024 3:09 PM EDT Comment:UACC Narrative [facility] - 08/03/2024 11:24 AM EDT Urine Culture Report Result Urine Culture 50,000 to 100,000 cfu/ml Urine Culture Mixed bacterial ezra characteristic of Urine Culture urogenital contamination. Specimen Source: Urine clean catch Generic External Data Provider LAB MICROBIOLOGY - GENERAL ORDERABLES Final Result Performing Organization Address [facility] Co de Phone Number [facility] [address] [place] [address] [phone] * Colonoscopy (08/10/2023) Colonoscopy Normal Normal Narrative [facility] - 08/10/2023 Recommended 5 years . See see external hospital admission note with matching date Historical Provider HEALTH MAINTENANCE Final Result * BI Mammogram Screening Tomosynthesis Bilateral (08/01/2023 12:20 PM EDT) Anatomical Region Laterality Modality Breast Bilateral Mammography 08/01/2023 12:2 0 PM EDT Narrative 08/29/2023 3:10 PM EDT [facility] [address] [place] [address] Mammography Report Signed Patient: Usha Grace MR#: [id number] : 1950 Acct:[id number] Age/Sex: 72 / F ADM Date: 08/01/23 Loc: [facility] Attending Dr: Nancy Sellers MD Ordering Physician: Nancy Sellers MD Results: 1Negati ve Date of Service: 08/01/23 Follow Up: 1 Year From Orig inal Mammogram Procedure(s): MM tomosynthesis screening BI Accession Number(s): [id number] cc: Nancy Sellers MD EXAMINATION: MM SCREENING [...] in OV> 08/29/23 1506 DD/ 1220 TD/TT: Mat Maker: Procedure Note Donotuseinterpreter, Image - 08/29/2023 [facility] [address] [place] [address] Mammography Report Signed Patient: Usha Grace#: [id number] : 1950cct:[id number] Age/Sex: 72 / FADM Date: 08/01/23 Loc: MAMMO Attending Dr: Nancy Sellers MD Ordering Physician: Nancy Sellers MDResults: 1Negati ve Date of Service: 08/01/23Follow Up: 1 Year From Orig inal Mammogram Procedure(s): MM tomosynthesis screening BI Accession Number(s): [id number] cc: Nancy Sellers MD EXAMINATION: MM SCREENING [...] in OV> 08/29/23 1506 DD/ 1220 TD/TT: Mat Maker: Nancy Sellers MD IMG BI PROCEDURES Final Result from Last 3 Months or Most Recently Relevant to Health Maintenance Insurance [facility] [employer] OPTIONS (O D-SNP) [place] [id number] [facility] Care Teams Freight Tallier Relationship Specialty Start Date End Date Nancy Sellers MD [address] [place] [phone] PCP - General Family Medicine 01/30/12
--- OUTSIDE RECORDS SUMMARY | 2024-10-07 15:25 | XMS_ITS | Encounter Summary ---
Author Organization [employer] Address [address] [facility] 7t [place] [address] Care Team Providers Care Human Factors Engineer Name Role Phone Nancy Sellers MD Primary Care Provider [phone] Reason for Visit * Reason Onset Date Comments Nurse Triage 06/05/2023 Encounter Details Date Type Department Care Team ([facility] st Contact Info) Description 06/05/2023 Telephone [facility] [address] [place], [place] [phone] Nancy Sellers MD [address] [place] [address] Nurse Triage Social History Tobacco Use Types [...] 06/05/2023 11:04 AM EDT Triage call [place] [employer] [place] [id number] Pt is reporting dry mouth . Pt [...] accepted this outcome Please contact pt at [phone] (Urdu) documented in this encounter Plan of Treatment Upcoming Encounters Date Type Department Care Team ([facility] st Contact Info) Description 10/15/2024 11:00 AM EDT Office Visit [facility] [address] [place] [address] Yessenia Baltazar MD [address] [place] [address] documented as of this encounter Visit Diagnoses Not on filedocumented in this encounter Additional Health Concerns Assessment Noted Time PHQ-9 Depression Total Score: 2 05/18/19 23 11:41 AM EDT documented as of this encounter Care Teams Human Factors Engineer Relationship Specialty Start Date End Date Nancy Sellers MD [address] [place] [phone] PCP - General Family Medicine 01/30/12 documented as of this encounter
--- OUTSIDE RECORDS SUMMARY | 2024-10-07 15:25 | XMS_ITS | Encounter Summary ---
Author Organization [employer] Address [address] [facility] 7[address] [place] [address] Care Team Providers Care Yard Goods Salesperson Name Role Phone Nancy Sellers MD Primary Care Provider [phone] Reason for Visit * Reason Onset Date Comments Reschedule 01/18/2023 Encounter Details Date Type Department Care Team ([facility] st Contact Info) Description 01/18/2023 Telephone [facility] [address] [place] [address] Nancy Sellers MD [address] [place] [address] Reschedule Social History Tobacco Use Types Packs/Day [...] Tc from pt requesting r/s 01/18 appt, contract technical writer attempted to schedule, no availability for january. documented in this encounter Plan of Treatment Upcoming Encounters Date Type Department Care Team (Late st Contact Info) Description 10/15/2024 11:00 AM EDT Office Visit [facility] [address] [place] [address] Yessenia Baltazar MD [address] [place] [address] documented as of this encounter Visit Diagnoses Not on filedocumented in this encounter Additional Health Concerns Assessment Noted Time PHQ-9 Depression Total Score: 2 05/18/19 23 11:41 AM EDT documented as of this encounter Care Teams Yard Goods Salesperson Relationship Specialty Start Date End Date Nancy Sellers MD [address] [place] [phone] PCP - General Family Medicine 01/30/12 documented as of this encounter
--- OUTSIDE RECORDS SUMMARY | 2024-10-07 15:25 | XMS_ITS | Encounter Summary ---
Author Organization [employer] Address 75 [facility] 7t [place] [address] Care Team Providers Care Substation Operator Helper Name Role Phone Nancy Sellers MD Primary Care Provider [phone] Reason for Visit * Reason Onset Date Comments Nurse Triage 07/24/2023 Encounter Details Date Type Department Care Team ([facility] st Contact Info) Description 07/24/2023 Telephone [facility]S [address] [place], [place] [phone] Nancy Sellers MD 505 [place] [address] Nurse Triage Social History Tobacco Use Types [...] 07/24/2023 12:28 PM EDT Triage call with [employer] Teacher ID [id number] Pt reports had labs done and was [...] advised will send this to PCP and [facility] nurses for follow up. Ptagrees with this [...] Upcoming Encounters Date Type Department Care Team ([facility] st Contact Info) Description 10/15/2024 11:00 AM EDT Office Visit [facility] [address] [place], [place] [phone] Yessenia Baltazar MD 505 [place] [address] documented as of this encounter Visit Diagnoses Not on filedocumented in this encounter Additional Health Concerns Assessment Noted Time PHQ-9 Depression Total Score: 2 05/18/19 23 11:41 AM EDT documented as of this encounter Care Teams Substation Operator Helper Relationship Specialty Start Date End Date Nancy Sellers MD [address] [place] [address] PCP - General Family Medicine 01/30/12 documented as of this encounter
--- OUTSIDE RECORDS SUMMARY | 2024-10-07 15:26 | XMS_ITS | Encounter Summary ---
Author Organization [employer] [facility] Address [address] [place] [address] [address] [address] Care Team Providers Care Fingernail Sculpturer Name Role Phone Nancy Sellers MD Primary Care Provider [phone] Encounter Details Date Type Department Care Team (Late st Contact Info) Description 01/22/2022 Abstract [facility] MEDICINE [address] [place] [address] ProviderAshok MD Social History Tobacco Use Types [...] Description 10/15/2024 11:00 AM EDT Office Visit [facility] MED [facility] PEDS [address] [place] [address] Yessenia Baltazar MD 505 [place] [address] documented as of this encounter Visit Diagnoses Not on filedocumented in this encounter Care Teams Fingernail Sculpturer Relationship Specialty Start Date End Date Nancy Sellers MD [address] [place] [address] PCP - General Family Medicine 01/30/12 documented as of this encounter
--- OUTSIDE RECORDS SUMMARY | 2024-10-07 15:26 | XMS_ITS | Encounter Summary ---
Author Organization [facility] Address [address] [place] [address] Encounters * CPT with Medical instED at [facility] on 2024-09-06 Shaheed is a 73 yo Swazi speaking female with h/o but not all inclusive of OA, pain in multiple sites, IBS, Anxiety, gastritis, GERD, HTN, Agoraphobia and chest pain. Allergies to Dilaudid. MSR transfer call for medical. This CRU RN was connected to Mbr who is primarily Swazi speaking but understands and speaks some Gabonese. Mbr recently had heart stent placed and was put on anticoagulants. Mbr is now having on/off bleeding from rectal areas and stating it is her hemorrhoids. Mbr denies lightheadedness, chest pain or sob. Mbr denies nausea or vomiting. Mbr lives alone and has [employer] DIV[employer] services in the morning only. Mbr has had three BMs today and they have been bloody per mbr but was unable to describe the amount. This CRU RN instructed Mbr to go to ER and she declined. Offered insted and she agreed. Mbr stated she has been using ice on her hemorrhoids and using a kotex pad. Instructed Mbr that if s/s worsen to call 911 and go to ER. Mbr agreed with plan. Confirmed address and phone/[phone]. Alerted CC that this CRU RN placed INSTED referral in on Mbr's behalf. { reasonForRequest : , patientReports : , denies&quot ;:[], chiefComplaints : Diarrhea , pmh : Chronic Pain, Anxiety Disorder, Hypertension, Gastroesophageal Reflux Disease (GERD), Inflammatory Bowel Disease (Crohn's Disease, Ulcerative Colitis), Osteoarthritis , allergies : Dilaudid , ot herAllergies : , painAssessment : , visitOutcome :&qu ot; , additionalComments : HPI reviewed } Sent to a call for a pt complaining of bleeding hemorrhoids. SC8 arrives on scene, pt is alert and oriented, airway is patent. Pt had a stent placed on August 06 and was put on Ticagrelor (also takesaspirin). Pt states she has a history of rectal bleeding due to hemorrhoids, and had a procedure performed in November 2023. Pt complains of three different days of rectal bleeding since August 06, first two days resolved on their own, with third starting today approx 3hrs prior to visit. Pt complains of bright red blood and blood clots during multiple bowel movements. Pt denies hallman, dizziness, cp,sob, n/v, abd pain, fever, or loc. Family states pt keeps spending prolonged time on toilet and straining during bowel movements. [facility] (sitting) BP:146/84, P:86, RR:18, SpO2:99% RA, T:97.6; (standing) BP:129/77, P:84; Head: unremarkable; Lung sounds: clear bilaterally; Abdomen: soft, non-tender, no distention; Back: unremarkable; Extremities: unremarkable; Skin: pink, warm, dry; C consulted and orders BMP. Venous blood draw performed; Istat Chem8+ results: uploaded to [facility]. Pt is advised she needs to go to ED if bleeding does not stop this evening. Pt advised to follow up with GI doctor on Monday. Red flags discussed. Pt has no further questions. IV_(FLUIDS_AND/OR_MEDICATION), POC_BLOODWORK, ORTHOSTATIC_VITAL_SIGNS, PO_MEDICATION Written by [facility] on 2024-09-06
== END 2024-10-07 15:10 | disposition home or self-care (01) ==
LOC: HO.HGI 14:03
PROVIDERS: PCP Student in an Organized Health Care Education/Training Program; Visit Provider Internal Medicine Gastroenterology
DX: R10.32 Left lower quadrant pain (principal)
CPT/HCPCS: 99213

== ENCOUNTER 2024-11-09 08:19 | Outpatient (REF) | payer OTHER, SELFPAY ==
--- NOTE | ~2024-11-09 | CT_ITS ---
CLINICAL HISTORY: R10.32 - Left lower quadrant pain --- Additional Notes or Special Instructions: left sided groin and lower back pain, pls assess bowels and urinary tract CT abdomen and pelvis without contrast Comparison: None provided Findings: Lung bases clear. No acute bony abnormality. Liver and spleen within normal limits. Pancreas and adrenal glands unremarkable. Cholecystectomy. No bilateral renal stone or hydronephrosis. No focal renal abnormality or ureteral dilation. No evidence for aortic aneurysm. No free fluid or adenopathy in the pelvis. No diverticulitis. Appendix unremarkable. Hysterectomy. No adnexal abnormality. Impression: No acute processes This document has been electronically signed by: Shawn Kruger MD on 11/11/2024 19:40:37
== END 2024-11-09 08:20 | disposition home or self-care (01) ==
LOC: HO.CT 08:19
PROVIDERS: PCP Student in an Organized Health Care Education/Training Program; Visit Provider Internal Medicine Gastroenterology
DX: R10.32 Left lower quadrant pain (principal)
CPT/HCPCS: 74176

== ENCOUNTER → 2024-11-09 08:26 | Outpatient (BNV) | payer OTHER, SELFPAY | PROVIDERS: PCP Student in an Organized Health Care Education/Training Program; Visit Provider Radiology Diagnostic Radiology | DX: R10.32 Left lower quadrant pain (principal) | CPT/HCPCS: 74176 ==

== ENCOUNTER 2024-12-02 13:43 | Outpatient (AMB) | payer OTHER, SELFPAY ==
[2024-12-02 14:04] VITALS: BP 116/60; PULSE 80; O2SAT 97; BMI 34.3
--- NOTE | 2024-12-02 14:04 | HO.NEPHOV_ITS ---
Vital Signs 12/02/24 14:04 Height 5 ft 5 in Weight 206 lb BMI 34.3 BP 116/60 Blood Pressure Location Rt brachial Position Sitting Pulse 80 Pulse Source Pulse Oximeter Pulse Oximetry (%) 97 Oxygen Delivery Method Room Air Intake Visit Reasons: 6 mth follow up-Conf Track Moving Machine Operator Required: Yes Track Moving Machine Operator Name: Annalisa [id number] Accompanied by: Self / Same As Patient Allergies hydromorphone (Dilaudid) Allergy (Severe, Verified 12/02/24 14:07) Shortness of Breath Medication List - Last Reconciled 12/02/24 by Prabhjot Hairston MD aspirin 81 mg PO DAILY barium sulfate 2%(w/v) (Readi-Cat 2) 900 mL PO ONCE blood pressure test kit-large As directed cholecalciferol (vitamin D3) 1 mcg PO DAILY clopidogrel (Plavix) 75 mg PO DAILY 90 days cyanocobalamin (vitamin B-12) 1,000 mcg PO DAILY diclofenac sodium 1% topical dicyclomine 10 mg PO BID fluticasone propionate 50 mcg/actuation 1 spray intranasal BID gabapentin 200 mg PO BEDTIME PRN hydrocortisone 2.5% (Procto-Med HC) [address] BEDTIME lisinopril-hydrochlorothiazide 20-12.5 mg 1 tab PO DAILY magnesium oxide 400 mg PO DAILY metoprolol succinate ER 50 mg PO DAILY omega 1-elg-eph-fish oil 1,000 (120-180) mg 1 cap PO BID red yeast rice 600 mg PO BID sucralfate (Carafate) 1 g PO BID triamcinolone acetonide 0.5% topical DAILY HPI Comments Details: Leann is a pleasant 73-year-old woman with a history of hypertension for more than 20 years. She has been on lisinopril hydrochlorothiazide since 2016. Blood pressure has been reasonably well controlled. Few years ago metoprolol 50 mg was added. She has been monitoring her blood pressure at home. In late 12/03/2023 she had UTI. She was treated with Bactrim double strength. Subsequently she developed hyperkalemia with MELONY with a creatinine of 1.45. After discontinuing Bactrim serum creatinine returned to baseline and potassium normalized. Her EGFR is has been around 40-49 mL/minute for the last 4 years since 2020. 03/12/2024. Telehealth today. After lowering lisinopril with hydrochlorothiazide creatinine is improved. However the blood pressure is still low in the range of 100 or were 80 mm Hg systolic. She is complaining of dysuria. Increased urine frequency. 12/02/24 - The patient is a 74-year-old female presenting with chronic kidney disease management and follow-up after coronary artery stent placement. - Coronary artery disease: Stent placement in July, completed cardiovascular rehabilitation, continues independently. - Chronic kidney disease: Kidney function stable, creatinine fluctuations normal for age. - Diarrhea: Occurred after stopping Metamucil, initially taken for bowel movements, caused stomach aches. [facility] Medical History Back pain Anemia History of depression Elevated cholesterol GERD (gastroesophageal reflux disease) Bleeding hemorrhoids Arthritis Hypertension Surgical History History of esophagogastroduodenoscopy (EGD) Hx of colonoscopy Hx of total knee replacement History of cataract surgery History of hysterectomy History of cholecystectomy History of neck surgery Family History Father History of stomach cancer Brother History of melanoma Social History Household Members: Children Alcohol intake: current Alcohol intake frequency: does not drink Patient Tobacco Use Status: Former Tobacco user Current occupational status: disabled Physical Exam Vital Signs: Last Vital Signs Pulse 80 12/02/24 14:04 BP 116/60 12/02/24 14:04 Pulse Ox 97 12/02/24 14:04 Oxygen Delivery Method Room Air 12/02/24 14:04 BMI result Body Mass Index 34.3 Comfortable Neck supple no JVD. Lungs entry equal no rales. Heart S1-S2 heard no gallop or rub. Abdomen soft nontender. Neuro alert awake oriented. No asterixis. Extremities no edema. Results Reviewed Nephrology Results: Hgb, (12.0-16.0) 12.4 g/dl 08/02/24 WBC, (4.8-10.8) 4.7 X10*3/uL L 08/02/24 Plt Count, (160-400) 225 X10*3/uL 08/02/24 Sodium, (135-145) 139 mmol/L 10/07/24 Potassium, (3.3-5.1) 4.3 mmol/L 10/07/24 Chloride, (96-108) 103 mmol/L 10/07/24 Carbon Dioxide, (22-29) 27 mmol/L 10/07/24 BUN, (9-16) 19 mg/dL H 10/07/24 Creatinine, (0.5-1.4) 1.08 mg/dL 10/07/24 Calcium, (8.4-10.2) 9.7 mg/dL 10/07/24 Urine Protein, (Neg-Trace) Negative mg/dL 10/07/24 Renal US 09/30/20 Assessment & Plan Assessment & Plan (1) CKD (chronic kidney disease) stage 3, GFR 30-59 ml/min: Code(s): N18.30 - Chronic kidney disease, stage 3 unspecified Category: Medical (2) Dysuria: Code(s): R30.0 - Dysuria Category: Medical (3) MELONY (acute kidney injury): Code(s): N17.9 - Acute kidney failure, unspecified Category: Medical (4) Hypertension: Code(s): I10 - Essential (primary) hypertension Category: Medical Qualifiers: Hypertension type: primary hypertension Qualified Code(s): I10 - Essential (primary) hypertension Plan Acute kidney injury superimposed on CKD. MELONY was most likely due to use of Bactrim. After discontinuing Bactrim renal function returned to baseline. Hyperkalemia due to combination of CRISTINA inhibitors and use of Bactrim. Hyperkalemia has resolved after stopping Bactrim. Chronic kidney disease. Stage III Most likely due to hypertensive nephrosclerosis. Recent imaging did not reveal any evidence of obstruction. Urine sediments have been rather bland without significant proteinuria or hematuria. Therefore glomerular nephritis or interstitial disease seem unlikely. Hypertension Blood pressure wellc ontrolled Orders: Orders Basic Metabolic Panel 6 Months N18.30 - Chronic kidney disease, stage 3 unspecified Complete Blood Count Auto Diff 6 Months N18.30 - Chronic kidney disease, stage 3 unspecified Coding Level of Care Code Est Pt Level 4 (14535) Diagnoses CKD (chronic kidney disease) stage 3, GFR 30-59 ml/min N18.30 Dysuria R30.0 MELONY (acute kidney injury) N17.9 Primary hypertension I10 Hypertension type: primary hypertension
--- OUTSIDE RECORDS SUMMARY | 2024-12-02 17:01 | XMS_ITS | Encounter Summary ---
Author Organization [employer] Address 75 [facility] 7t [place] [address] Care Team Providers Care Regional Liaison Name Role Phone Nancy Sellers MD Primary Care Provider Reason for Visit * Reason Onset Date Comments Durable Medical Equipment 01/29/2024 Blood pressure machine Encounter Details Date Type Department Care Team ([facility] Contact Info) Description 01/29/2024 Telephone [facility] MEDICINE [address] [place] [address] Nancy Sellers MD [address] [place] [address] Durable Medical Equipment (Blood pressure machine ) [...] Care Team (Late st Contact Info) Description 12/04/2024 2:00 PM EDT Immunization [facility] MED & PEDS [address] [place] [address] documented as of this encounter Visit Diagnoses Not on filedocumented in this encounter Additional Health Concerns Assessment Noted Time PHQ-9 Depression Total Score: 4 07/31/19 24 10:35 AM EDT documented as of this encounter Care Teams Regional Liaison Relationship Specialty Start Date End Date Nancy Sellers MD [address] [place] [address] PCP - General Family Medicine 01/30/12 documented as of this encounter
--- OUTSIDE RECORDS SUMMARY | 2024-12-02 17:01 | XMS_ITS | Clinical Summary ---
Author Organization [facility] Address [address] [place] [address] Care Team Providers Care Customer Experience Analyst Name Role Phone Nancy Sellers MD Primary Care Provider [phone] Allergies Active Allergy Reactions Criticality Noted Date [...] D-3) 50 MCG (1999) capsule TAKE 1 CAPSULE BY MOUTH EVERY DAY 90 capsule 3 5 Active Active Problems Problem Noted Date Diagnosed Date Hypertension 08/29/2021 Intermittent claudication 08/29/2021 Irritable bowel syndrome 08/29/2021 Osteoarthritis 08/29/2021 Vascular insufficiency 08/29/2021 Localized edema 08/29/2021 Encounters Date Type Department Care Team Description 09/27/2024 Refill [facility] [address] [place] [address] Bear Miles MD from Last 3 Months [...] Screening: Sigmoidoscopy 09/16/1999 Influenza Vaccine (#1) 2024 4, 01/04/2017, 11/25/2015, Additional history exists Hepatitis B Vaccine Aged Out 04/03/2003, 09/26/2002, 08/21/2002 No longer eligible based on patient's age to complete this topic Pneumococcal Vaccine: 50+ Years Completed 12/12/2023, 02/11/2015 Insurance Medicare Medicaid [place] Medicare Medicaid [place] Care Teams Customer Experience Analyst Relationship Specialty Start Date End Date Nancy Sellers MD PCP - General Family Medicine 06/30/21
--- OUTSIDE RECORDS SUMMARY | 2024-12-02 17:01 | XMS_ITS | Encounter Summary ---
Author Organization [employer] Address 75 [facility] 7t [place] [address] Care Team Providers Care Home Energy Rater Name Role Phone Nancy Sellers MD Primary Care Provider [phone] Reason for Visit * Reason Onset Date Comments Nurse Triage 06/05/2023 Encounter Details Date Type Department Care Team ([facility] st Contact Info) Description 06/05/2023 Telephone [facility] MED & PEDS [address] [place], [place] [phone] Nancy Sellers MD [address] [place] [address] Nurse Triage Social History Tobacco Use Types [...] 06/05/2023 11:04 AM EDT Triage call with [employer] Label Maker ID [id number] Pt is reporting dry mouth . Pt was on vacation in [place] and has returned 05/24/23. Pt reports the [...] accepted this outcome Please contact pt at [phone] (Persian) documented in this encounter Plan of Treatment Upcoming Encounters Date Type Department Care Team (Late st Contact Info) Description 12/04/2024 2:00 PM EDT Immunization [facility] MED & PEDS [address] [place] [address] documented as of this encounter Visit Diagnoses Not on filedocumented in this encounter Additional Health Concerns Assessment Noted Time PHQ-9 Depression Total Score: 2 05/18/19 23 11:41 AM EDT documented as of this encounter Care Teams Home Energy Rater Relationship Specialty Start Date End Date Nancy Sellers MD [address] [place] [address] PCP - General Family Medicine 01/30/12 documented as of this encounter
--- OUTSIDE RECORDS SUMMARY | 2024-12-02 17:01 | XMS_ITS | Encounter Summary ---
Author Organization [employer] Address [address] [facility] [address] 7t [place] [address] Care Team Providers Care Equal Opportunity Assistant Name Role Phone Nancy Sellers MD Primary Care Provider [phone] Encounter Details Date Type Department Care Team ([facility] st Contact Info) Description 09/05/2023 Orders Only [facility] CHC MED & PEDS [address] [place], [place] [phone] Nancy Sellers MD [address] [place] [address] Social History Tobacco Use Types Packs/Day Years [...] Info) Description 12/04/2024 2:00 PM EDT Immunization [facility] MED & PEDS [address] [place] [address] documented as of this encounter Visit Diagnoses Not on filedocumented in this encounter Additional Health Concerns Assessment Noted Time PHQ-9 Depression Total Score: 4 07/31/19 24 10:35 AM EDT documented as of this encounter Care Teams Equal Opportunity Assistant Relationship Specialty Start Date End Date Nancy Sellers MD [address] [place] [address] PCP - General Family Medicine 01/30/12 documented as of this encounter
--- OUTSIDE RECORDS SUMMARY | 2024-12-02 17:01 | XMS_ITS | Encounter Summary ---
Author Organization [employer] Address [address] [facility] 7t [place] [address] Care Team Providers Care Hogshead Weigher Name Role Phone Nancy Sellers MD Primary Care Provider [phone] Reason for Visit * Reason Onset Date Comments Reschedule 01/18/2023 Encounter Details Date Type Department Care Team ([facility] st Contact Info) Description 01/18/2023 Telephone [facility] MEDICINE [address] [place] [address] Nancy Sellers MD [address] [place] [address] Reschedule Social History Tobacco Use Types Packs/Day [...] Tc from pt requesting r/s 01/18 appt, typewriters functional tester attempted to schedule, no availability for january. documented in this encounter Plan of Treatment Upcoming Encounters Date Type Department Care Team (Late st Contact Info) Description 12/04/2024 2:00 PM EDT Immunization [facility] MED & PEDS [address] [place] [address] documented as of this encounter Visit Diagnoses Not on filedocumented in this encounter Additional Health Concerns Assessment Noted Time PHQ-9 Depression Total Score: 2 05/18/19 23 11:41 AM EDT documented as of this encounter Care Teams Hogshead Weigher Relationship Specialty Start Date End Date Nancy Sellers MD [address] [place] [address] PCP - General Family Medicine 01/30/12 documented as of this encounter
--- OUTSIDE RECORDS SUMMARY | 2024-12-02 17:01 | XMS_ITS | Encounter Summary ---
Author Organization [employer] Address [address] [facility] 7t [place] [address] Care Team Providers Care Technical Business Systems Analyst Name Role Phone Nancy Sellers MD Primary Care Provider [phone] Reason for Visit * Reason Onset Date Comments Nurse Triage 07/24/2023 Encounter Details Date Type Department Care Team ([facility] st Contact Info) Description 07/24/2023 Telephone [facility] CHC MED & PEDS [address] [place], [place] [phone] Nancy Sellers MD [address] [place] [address] Nurse Triage Social History Tobacco Use Types [...] 07/24/2023 12:28 PM EDT Triage call with [employer]andal Rn Provider Relations ID [id number] Pt reports had labs done and was [...] advised will send this to PCP and [facility] nurses for follow up. Ptagrees with [...] Upcoming Encounters Date Type Department Care Team ([facility] st Contact Info) Description 12/04/2024 2:00 PM EDT Immunization [facility] CH[facility] MED & PEDS [address] [place] [address] documented as of this encounter Visit Diagnoses Not on filedocumented in this encounter Additional Health Concerns Assessment Noted Time PHQ-9 Depression Total Score: 2 05/18/19 23 11:41 AM EDT documented as of this encounter Care Teams Technical Business Systems Analyst Relationship Specialty Start Date End Date Nancy Sellers MD [address] [place] [address] PCP - General Family Medicine 01/30/12 documented as of this encounter
--- OUTSIDE RECORDS SUMMARY | 2024-12-02 17:01 | XMS_ITS | Encounter Summary ---
Author Organization [employer] Address [address] [place] [address] 7t [place] [address] Care Team Providers Care Cordwainer Name Role Phone Nancy Sellers MD Primary Care Provider [phone] Reason for Visit * Reason Onset Date Comments Med Change Request NUTRITION APPOINTMENT REQUEST 03/08/2023 Encounter Details Date Type Department Care Team ([facility] st Contact Info) Description 03/08/2023 Refill [facility] [address] [place] [address] Nancy Sellers MD [address] [place] [address] Social History Tobacco Use Types Packs/Day Years [...] encounter Miscellaneous Notes * Telephone Encounter - Jessieverett Murphyona - 03/09/2023 9:26 AM EST Called pt X2 to schedule DM appt. No answer LVM\ sent unable to contact letter documented in this encounter Plan of Treatment Upcoming Encounters Date Type Department Care Team (Late st Contact Info) Description 12/04/2024 2:00 PM EDT Immunization [facility]ED[facility] [address] [place] [address] documented as of this encounter Visit Diagnoses Not on filedocumented in this encounter Additional Health Concerns Assessment Noted Time PHQ-9 Depression Total Score: 2 05/18/19 23 11:41 AM EDT documented as of this encounter Care Teams Cordwainer Relationship Specialty Start Date End Date Nancy Sellers MD [address] [place] [address] PCP - General Family Medicine 01/30/12 documented as of this encounter
--- OUTSIDE RECORDS SUMMARY | 2024-12-02 17:01 | XMS_ITS | Encounter Summary ---
Author Organization [employer] Address [address] [facility] 7t [place] [address] Care Team Providers Care Oxygen Tank Filler Name Role Phone Nancy Sellers MD Primary Care Provider [phone] Reason for Visit * Reason Onset Date Comments New Med Request 07/20/2023 Encounter Details Date Type Department Care Team ([facility] st Contact Info) Description 07/20/2023 Telephone [facility] MEDICINE [address] [place] [address] Nancy Sellers MD [address] [place] [address] New Med Request Social History Tobacco Use [...] Info) Description 12/04/2024 2:00 PM EDT Immunization [facility] MED & PEDS [address] [place] [address] documented as of this encounter Visit Diagnoses Not on filedocumented in this encounter Additional Health Concerns Assessment Noted Time PHQ-9 Depression Total Score: 2 05/18/19 23 11:41 AM EDT documented as of this encounter Care Teams Oxygen Tank Filler Relationship Specialty Start Date End Date Nancy Sellers MD [address] [place] [address] PCP - General Family Medicine 01/30/12 documented as of this encounter
--- OUTSIDE RECORDS SUMMARY | 2024-12-02 17:01 | XMS_ITS | Encounter Summary ---
Author Organization [employer] [facility] Address [address] [place] [address] 7t [place] [address] Care Team Providers Care Director Biostatistics Name Role Phone Nancy Sellers MD Primary Care Provider [phone] Encounter Details Date Type Department Care Team (Latest Contact Info) Description 08/14/2018 Abstract [facility] CONVERSIONS Dental, Provider, DDS Social History [...] 12/04/2024 2:00 PM EDT Immunization [facility] MED & PEDS [address] [place] [address] documented as of this encounter Visit Diagnoses Not on filedocumented in this encounter Care Teams Director Biostatistics Relationship Specialty Start Date End Date Nancy Sellers MD [address] [place] [address] PCP - General Family Medicine 01/30/12 documented as of this encounter
--- OUTSIDE RECORDS SUMMARY | 2024-12-02 17:01 | XMS_ITS | Encounter Summary ---
Author Organization [employer] Address [address] [place] [address] 7t [place] [address] Care Team Providers Care Coke Burner Name Role Phone Nancy Sellers MD Primary Care Provider [phone] Encounter Details Date Type Department Care Team ([facility] Contact Info) Description 10/05/2022 Orders Only [facility] MED & PEDS [address] [place] [address] Kendell Rankin MD [address] [place] [address] Social History Tobacco Use Types Packs/Day Years [...] Department Care Team (Late Contact Info) Description 12/04/2024 2:00 PM EDT Immunization [facility] MED & PEDS [address] [place] [address] documented as of this encounter Visit Diagnoses Not on filedocumented in this encounter Additional Health Concerns Assessment Noted Time PHQ-9 Depression Total Score: 2 05/18/19 23 11:41 AM EDT documented as of this encounter Care Teams Coke Burner Relationship Specialty Start Date End Date Nancy Sellers MD [address] [place] [address] PCP - General Family Medicine 01/30/12 documented as of this encounter
--- OUTSIDE RECORDS SUMMARY | 2024-12-02 17:02 | XMS_ITS | Encounter Summary ---
Author Organization [employer] Address [address] 7[address] [place] [address] Care Team Providers Care Spear Fisher Name Role Phone Nancy Sellers MD Primary Care Provider [phone] Encounter Details Date Type Department Care Team (Latest Contact Info) Description 11/27/2024 Travel Social History Tobacco Use Types Packs/Day Years [...] Info) Description 12/04/2024 2:00 PM EDT Immunization [facility] MED & PEDS [address] [place] [address] documented as of this encounter Visit Diagnoses Not on filedocumented in this encounter Additional Health Concerns Assessment Noted Time PHQ-9 Depression Total Score: 4 07/31/19 24 10:35 AM EDT documented as of this encounter Care Teams Spear Fisher Relationship Specialty Start Date End Date Nancy Sellers MD [address] [place] [phone] PCP - General Family Medicine 01/30/12 documented as of this encounter
--- OUTSIDE RECORDS SUMMARY | 2024-12-02 17:02 | XMS_ITS | Encounter Summary ---
Author Organization [employer] [facility] Address [address] [place] [address] 7[address] [place] [address] Care Team Providers Care Inseminator Name Role Phone Nancy Sellers MD Primary Care Provider [phone] Encounter Details Date Type Department Care Team (Late st Contact Info) Description 01/22/2022 Abstract [facility] MEDICINE [address] [place] [address] ProviderAshok MD Social History Tobacco Use Types [...] Info) Description 12/04/2024 2:00 PM EDT Immunization [facility] CHC MED & PEDS [address] [place] [address] documented as of this encounter Visit Diagnoses Not on filedocumented in this encounter Care Teams Inseminator Relationship Specialty Start Date End Date Nancy Sellers MD [address] [place] [address] PCP - General Family Medicine 01/30/12 documented as of this encounter
--- OUTSIDE RECORDS SUMMARY | 2024-12-02 17:02 | XMS_ITS | Clinical Summary ---
Author Organization [employer] Address [address] [facility] 7t [place] [address] Care Team Providers Care Expedition Supervisor Name Role Phone Nancy Sellers MD Primary Care Provider [phone] Allergies Active Allergy Reactions Criticality Noted Date Comments Hydromorphone Rash,Shortness of breath High 02/13/18 00 Other reaction(s): rash sob and hives Morphine Shortness of breath High 08/10/2023 sob and hives Tramadol 09/25/2013 Medications Blood Pressure kit Apply 1 not specified by [facility] [place] [place]. (Non-drug;combo) route every day 2 Active omega-3 (fish oil) 300 MG capsule take 1 capsule by oral route 2 times every day 60 capsule 11 3 Active Magnesium Glycinate 100 MG capsule TAKE 1 CAPSULE BY MOUTH EVERY MORNING 30 capsule 11 4 Active OneLax Magnesium Citrate oral solution TAKE 30ML BY MOUTH EVERY DAY NEEDED CONSTIPATION 4 Active metoprolol succinate XL (Toprol-XL) 25 MG 24 hr tablet Take 25 mg by mouth Once per day. 4 Active cholecalciferol VITAMIN D (Vitamin D-3) [...] 30 capsule 11 5 06/14/19 26 Active Red Yeast Rice 600 MG capsule TAKE 1 CAPSULE BY MOUTH TWICE A DAY 60 capsule 11 5 Active fluticasone (Flonase) 50 MCG/ACT nasal sprayIndication s:Allergy, subsequent encounter SPRAY 1 SPRAY INTO EACH NOSTRIL IN THE MORNING 16 mL 2 5 Active ticagrelor (Brilinta) 90 MG tablet Take 90 mg by mouth. 5 Active Diclofenac Sodium 1 % gel APPLY TOPICALLY TWICE DAILY 100 g 3 5 Active gabapentin (Neurontin) 100 MG capsuleIndicati ons:Lichen simplex chronicus 200 mg at bedtime ( Dose decreased from 300 mg at bedtime) 120 capsule 11 5 Active Active Problems Problem Noted Date [...] Gastritis 03/10/2022 Stage 3a chronic kidney disease (CMS/HCC) 2022 Hypertension 08/29/2021 Intermittent claudication 08/29/2021 Localized edema 08/29/2021 Osteoarthritis 08/29/2021 Vascular insufficiency 08/29/2021 Hyperlipidemia 07/31/2012 Irritable bowel syndrome 07/31/2012 Headache 06/13/2011 Hemorrhoids 06/13/2011 Shoulder pain 06/13/2011 Encounters Date Type Department Care Team Description 11/27/2024 Travel 11/22/2024 Telephone [facility] MED & PEDS [address] [place] [address] Nancy Sellers MD Lab Orders 11/09/2024 Orders Only [facility] External Provider, [facility] 10/15/2024 11:00 AM EDT Office Visit [facility] MED & PEDS [address] [place] [address] Yessenia Batlazar MD Nevus (Primary Dx); Lichen simplex chronicus 10/15/2024 Travel 10/15/2024 Refill [facility] MED & PEDS [address] [place] [address] Nancy Sellers MD 10/08/2024 Travel 10/07/2024 Orders Only GENERIC EXTERNAL DATA DEPARTMENT Provider, Generic External Data 09/30/2024 Telephone [facility] MED & PEDS [address] [place] [address] Nancy Sellers MD Results 09/05/2024 Orders Only [facility] MED & PEDS [address] [place] [address] Nancy Sellers MD Chronic bilateral low back pain with sciatica, sciatica laterality unspecified (Primary Dx) 09/04/2024 Telephone [facility] MEDICINE [address] [place] [address] Nancy Sellers MD Nurse Triage 09/03/2024 Orders Only [facility] MED & PEDS [address] [place] [address] Nancy Sellers MD Calcaneal spur of foot, left (Primary Dx) 09/03/2024 Results Follow-Up [facility] MED & PEDS [address] [place] [address] Nancy Sellers MD XR Ankle 3+ Views Left 09/02/2024 Telephone [facility] MED & PEDS [address] [place], [place] [phone] Nancy Sellers MD Walk-In from Last 3 Months Immunizations Immunization Administration [...] Sign Reading Time Taken Comments Blood Pressure 139/78 10/15/2024 10:55 AM EDT Pulse 76 10/15/2024 10:55 AM EDT Temperature 36.6 C (97.8 F) 10/15/2024 10:55 AM EDT Respiratory Rate 20 10/15/2024 10:55 AM EDT Oxygen Saturation 97% 10/15/2024 10:55 AM EDT Inhaled Oxygen Concentration - - Weight 93.9 kg (207 lb) 10/15/2024 10:55 AM EDT Height 160 cm (5' 3 ) 10/15/2024 10:55 AM EDT Body Mass Index 36.67 10/15/2024 10:55 AM EDT Plan of Treatment Upcoming Encounters Date Type Department Care Team (Late st Contact Info) Description 12/04/2024 2:00 PM EDT Immunization [facility] MED & PEDS [address] [place], [place] [phone] Health Maintenance Due Date Last Done Comments [...] 07/31/2024 08/01/2023, 07/14, 06/16/2021, Additional history exists COVID-19 Vaccine ( season) 2024 12/01/2023, 04/18/2022, 01/11/2021, Additional history exists Influenza Vaccine (#1) 2024 [...] Procedure Name Priority Date/Time Associated Diagnosis Comments CT ABDOMEN PELVIS WO CONTRAST Routine 11/11/2024 7:40 PM EDT BASIC METABOLIC PANEL Routine 10/07/2024 4:01 PM EDT URINALYSIS WITH REFLEX MICROSCOPIC Routine 10/07/2024 3:53 PM EDT XR ANKLE 3+ VIEWS LEFT Routine 09/02/2024 12:05 PM EDT HEPATIC FUNCTION PANEL Routine 09/02/2024 11:57 AM EDT Primary hypertension LIPID PANEL, STANDARD Routine 09/02/2024 11:57 AM EDT Primary hypertension BASIC METABOLIC PANEL Routine 09/02/2024 11:57 AM EDT Primary hypertension PROPHYLAXIS - ADULT Routine 10/20/2023 1 1:00 AM EDT INTRAORAL - COMPLETE SERIES OF RADIOGRAPHIC IMAGES Routine 10/20/2023 11:00 AM EDT HM COLONOSCOPY Routine 08/10/2023 BI MAMMOGRAM SCREENING TOMOSYNTHESIS BILATERAL Routine 08/01/2023 12:20 PM EDT PERIODIC ORAL EVALUATION - ESTABLISHED PATIENT Routine 07/01/2022 3:00 PM EDT from Last 3 Months or Most Recently Relevant to Health Maintenance Results * CT Abdomen Pelvis w/o Contrast (11/11/2024 7:40 PM EDT) Anatomical Region Laterality Modality Body, Pelvis, Abdomen Computed T omography 11/11/2024 7:40 PM EDT Narrative 11/11/2024 7:42 PM EDT [place] [address] CT Scan Report Signed Patient: Usha Grace MR#: [id number] : 1950 Acct:[id number] Age/Sex: 74 / F ADM Date: 11/09/24 Loc: HO.CT Attending Dr: Nj Hernandez MD Ordering Physician: Nj Hernandez MD Date of Service: 11/09/24 Procedure(s): CT abdomen pelvis wo IV con Accession Number(s): [id number] cc: Nj Hernandez MD; Nancy Sellers MD Report Number: [id number]: Total DLP = 596.00 mGy-cm Reason for Exam: R10.32 - Left lower quadrant pain CLINICAL HISTORY: R10.32 - Left lower quadrant pain --- Additional Notes or Special Instructions: left sided groin and lower back pain, pls assess bowels and urinary tract CT abdomen and pelvis without contrast Comparison: None provided Findings: Lung bases clear. No acute bony abnormality. Liver and spleen within normal limits. Pancreas and adrenal glands unremarkable. Cholecystectomy. No bilateral renal stone or hydronephrosis. No focal renal abnormality or ureteral dilation. No evidence for aortic aneurysm. No free fluid or adenopathy in the pelvis. No diverticulitis. Appendix unremarkable. Hysterectomy. No adnexal abnormality. Impression: No acute processes This document has been electronically signed by: Shawn Kruger MD on 11/11/2024 19:40:37 Dictated By: Shawn Kruger MD Signed By: <Electronically signed by Shawn Kruger MD in OV> 11/11/241941 DD/ 39 TD/TT: 11/11/241939 Car Rental Sales Assistant: Procedure Note Donotuseinterpreter, Image - 11/11/[address] [place] [address] [address] Scan Report Signed Patient: Triston Grace#: [id number] : 1950cct:[id number] Age/Sex: 74 / FADM Date: 11/09/24 Loc: HO.CT Attending Dr: Nj Hernandez MD Ordering Physician: Nj Hernandez MD Date of Service: 11/09/24 Procedure(s): CT abdomen pelvis wo IV con Accession Number(s): [id number] cc: Nj Hernandez MD; Nancy Sellers MD Report Number: [id number]: Total DLP = 596.00 mGy-cm Reason for Exam: R10.32 - Left lower quadrant pain CLINICAL HISTORY: R10.32 - Left lower quadrant pain --- Additional Notesor Special Instructions: left sided groin and lower back pain, pls assess bowels and urinary tract CT abdomen and pelvis without contrast Comparison: None provided Findings: Lung bases clear. No acute bony abnormality. Liver and spleen within normal limits. Pancreas and adrenal glands unremarkable. Cholecystectomy. No bilateral renal stone or hydronephrosis. No focal renal abnormality or ureteral dilation. No evidence for aortic aneurysm. No free fluid or adenopathy in the pelvis. No diverticulitis. Appendix unremarkable. Hysterectomy. No adnexal abnormality. Impression: No acute processes This document has been electronically signed by: Shawn Kruger MD on 11/11/2024 19:40:37 Dictated By: Shawn Kruger MD Signed By: <Electronically signed by Shawn Kruger MD in OV> 11/11/241941 DD/ 39 TD/TT: 11/11/241939 Car Rental Sales Assistant: [facility] External Provider IMG CT PROCEDURES Final Result * (ABNORMAL) Basic Metabolic Panel (10/07/2024 4:01 PM EDT) Only the most recent of2 resultswithin the time period is included. Sodium 139 135 - 145 mmol/L [facility] Potassium 4.3 3.3 - 5.1 mmol/L [facility] Chloride 103 96 - 108 mmol/L [facility] Carbon Dioxide 27 22 - 29 mmol/L [facility] Anion Gap 13 12 - 20 [facility] Urea Nitrogen (BUN) 19(H) 9 - 16 mg/dL [facility] Creatinine, Serum 1.08 0.5 - 1.4 mg/dL [facility] Estimated Glomerular Filt Rate 50 [facility] Comment:Chronic Kidney Disea se: Estimated GFR < 60 mL/min/1.88b5Gkzhfu Kidney Disease: Estimated GFR < 15 mL/min/1.73m2 Glucose 92 60 - 115 mg/dL [facility] Calcium 9.7 8.4 - 10.2 mg/dL [facility] 10/07/2024 4:01 PM EDT 10/07/2024 4:01 PM EDT Generic External Data Provider LAB BLOOD ORDERAB LES Final Result [facility] [address] [place] [address] [phone] * Urinalysis w/reflex microscopic (10/07/2024 3:53 PM EDT) Color Urine Yellow [facility] Appearance Urine Clear [facility] PH 6.5 5.0 - 9.0 [facility] Glucose Urine UA Negative Negative mg/dL [facility] Urine Blood Negative Negative [facility] Specific Festus - Urine 1.010 1.005 - 1.025 [facility] Urine Protein Negative Neg-Trace mg/dL [facility] Urine Ketones Negative Negative mg/dL [facility] Nitrite Urine Negative Negative [facility] Leukocyte Esterase Urine Negative Negative [facility] 10/07/2024 3:53 PM EDT 10/07/2024 4:16 PM EDT Narrative [facility] - 10/07/2024 4:30 PM EDT Urine, Clean Catch us Generic External Data Provider LAB URINE ORDERAB LES Final Result Performing Organization Address City/State/[facility] Co de Phone Number [facility] [address] [place] [phone] * XR Ankle 3+ Views Left (09/02/2024 12:05 PM EDT) Anatomical Region Laterality Modality Lower Extremities, Ankle Left Radiogr aphic Imaging 09/02/2024 12:0 5 PM EDT Narrative 09/02/2024 1:24 PM EDT [address] [address] XRay Report Signed Patient: Usha Grace MR#: [id number] : 1950 Acct:[id number] Age/Sex: 73 / F ADM Date: 09/02/24 Loc: HO.LAB Attending Dr: Nancy Sellers MD Ordering Physician: Nancy Sellers MD Date of Service: 09/02/24 Procedure(s): XR ankle LT min 3V Accession Number(s): [id number] cc: Nancy Sellers MD EXAMINATION: XR ANKLE, [...] 09/02/24 1321 DD/ 1205 TD/TT: 09/02/24 1217 Car Rental Sales Assistant: Procedure Note Donotuseinterpreter, Image - 09/02/2024 [place] [address] XRay Report Signed Patient: Usha Grace#: [id number] : 1950cct:[id number] Age/Sex: 73 / FADM Date: 09/02/24 Loc: HO.LAB Attending Dr: Nancy Sellers MD Ordering Physician: Nancy Sellers MD Date of Service: 09/02/24 Procedure(s): XR ankle LT min 3V Accession Number(s): [id number] cc: Nancy Sellers MD EXAMINATION: XR ANKLE, [...] 09/02/24 1321 DD/ 1205 TD/TT: 09/02/24 1217 Car Rental Sales Assistant: Nancy Sellers MD IMG XR PROCEDURES Final Result * Hepatic Function Panel (09/02/2024 11:57 AM EDT) Bilirubin, Total 0.4 0.0 - 1.0 mg/dL [facility] Bilirubin, Direct 0.2 0.0 - 0.5 mg/dL [facility] Aspartate Amino Transferase 19 5 - 31 U/L [facility] Alanine Aminotransferase 15 0 - 31 U/L [facility] Total Protein 7.5 6.5 - 8.0 g/dL [facility] Albumin Level 4.1 3.5 - 5.0 g/dL [facility] Alkaline Phosphatase 97 39 - 117 U/L [facility] Blood Venous blood specimen / Unknown 09/02/2024 11:57 AM EDT 09/02/2024 11:57 AM EDT Nancy Sellers MD LAB BLOOD ORDERABLES Final Resul t [facility] [address] [place] [phone] * (ABNORMAL) Lipid Panel, Standard (09/02/2024 11:57 AM EDT) Triglycerides 87 <150 mg/dL [facility] Comment:Desirable Triglyceri de: less than 150 mg/dLBorderline High Triglyceride 150-199 mg/dLHigh Triglyceride: 200-499 mg/dLVery High Triglyceride: greater than or equal to 5OO mg/dL Cholesterol 234(H) <200 mg/dL [facility] Comment:Desirable Cholestero l: less than 200 mg/dLBorderline High Cholesterol: 200-239 mg/dLHigh Cholesterol: greater than 239 mg/dL LDL Cholesterol Calculated 147(H) <100 mg/dL [facility] Comment:Desirable LDL: less than 100 mg/dLNear Optimal/Above Optimal LDL: 110- 129 mg/dLBorderline High LDL: 130-159 mg/dLHigh LDL: 160-189 mg/dLVery High LDL: greater than or equal to 190 mg/dL HDL Cholesterol 70 >40 mg/dL [facility] Comment:Desirable HDL: great er than 40 mg/dL Note: This HDL assay may give artificially low results in patients with liver disease. Blood Venous blood specimen / Unknown 09/02/2024 11:57 AM EDT 09/02/2024 11:57 AM EDT Nancy Sellers MD LAB BLOOD ORDERABLES Final Resul t [facility] [address] [place] [phone] [phone] * Hm Colonoscopy (08/10/2023) Colonoscopy Normal Normal Narrative [facility] - 08/10/2023 Recommended 5 years . See see external hospital admission note with matching date Historical Provider HEALTH MAINTENANCE Final Result * BI Mammogram Screening Tomosynthesis Bilateral (08/01/2023 12:20 PM EDT) Anatomical Region Laterality Modality Breast Bilateral Mammography 08/01/2023 12:2 0 PM EDT Narrative 08/29/2023 3:10 PM EDT [address] [place] [address] Mammography Report Signed Patient: Usha Grace MR#: [id number] : 1950 Acct:[id number] Age/Sex: 72 / F ADM Date: 08/01/23 Loc: HO.MAMMO Attending Dr: Nancy Sellers MD Ordering Physician: Nancy Sellers MD Results: 1Negati ve Date of Service: 08/01/23 Follow Up: 1 Year From Orig inal Mammogram Procedure(s): MM tomosynthesis screening BI Accession Number(s): [id number] cc: Nancy Sellers MD EXAMINATION: MM SCREENING [...] in OV> 08/29/23 1506 DD/ 1220 TD/TT: Car Rental Sales Assistant: Procedure Note Donotuseinterpreter, Image - 08/29/2023 [facility] [address] [place], [place] [address] Mammography Report Signed Patient: Triston Grace#: [id number] : 1Acct:[id number] Age/Sex: 72 / FADM Date: 08/01/23 Loc: [facility] Attending Dr: Nancy Sellers MD Ordering Physician: Nancy Sellers MDResults: 1Negati ve Date of Service: 08/01/23Follow Up: 1 Year From Orig inal Mammogram Procedure(s): MM tomosynthesis screening BI Accession Number(s): [id number] cc: Nancy Sellers MD EXAMINATION: MM SCREENING [...] in OV> 08/29/23 1506 DD/ 1220 TD/TT: Car Rental Sales Assistant: Nancy Sellers MD IMG BI PROCEDURES Final Result from Last 3 Months or Most Recently Relevant to Health Maintenance Insurance [facility] [employer] OPTIONS (O D-SNP) [place] [id number] [facility] Care Teams Expedition Supervisor Relationship Specialty Start Date End Date Nancy Sellers MD [address] [place] [phone] PCP - General Family Medicine 01/30/12
--- OUTSIDE RECORDS SUMMARY | 2024-12-02 17:02 | XMS_ITS | Encounter Summary ---
Author Organization [employer] [facility] Address [address] [place] [address] [address] [place] [address] Care Team Providers Care Manager Case Management Name Role Phone Nancy Sellers MD Primary Care Provider [phone] Encounter Details Date Type Department Care Team (Latest Contact Info) Description 06/30/2020 Abstract [facility] CONVERSIONS Dental, Provider, DDS Social History [...] Info) Description 12/04/2024 2:00 PM EDT Immunization [facility] MED & PEDS [address] [place] [address] documented as of this encounter Visit Diagnoses Not on filedocumented in this encounter Care Teams Manager Case Management Relationship Specialty Start Date End Date Nancy Sellers MD [address] [place] [phone] PCP - General Family Medicine 01/30/12 documented as of this encounter
== END 2024-12-02 14:20 | disposition home or self-care (01) ==
LOC: HO.HKA 13:44
PROVIDERS: PCP Student in an Organized Health Care Education/Training Program; Visit Provider Internal Medicine Hypertension Specialist
DX: N18.30 Chronic kidney disease, stage 3 unspecified (principal); R30.0 Dysuria; N17.9 Acute kidney failure, unspecified; I10 Essential (primary) hypertension
CPT/HCPCS: 99214

== ENCOUNTER → 2024-12-02 13:43 | Outpatient (BNVA) | payer OTHER, SELFPAY | PROVIDERS: PCP Student in an Organized Health Care Education/Training Program; Visit Provider Internal Medicine Hypertension Specialist | DX: I10 Essential (primary) hypertension (principal); N18.30 Chronic kidney disease, stage 3 unspecified; R30.0 Dysuria; N17.9 Acute kidney failure, unspecified | CPT/HCPCS: 99212 ==

== ENCOUNTER 2024-12-05 12:46 | Outpatient (AMB) | payer OTHER, SELFPAY ==
--- OUTSIDE RECORDS SUMMARY | 2024-12-04 14:00 | XMS_ITS | Encounter Summary ---
Author Organization [employer] Address [address] [place] [address] Care Team Providers Care Art Objects Supervisor Name Role Phone Nancy Sellers MD Primary Care Provider [phone] Encounter Details Date Type Department Care Team ([facility] st Contact Info) Description 12/04/2024 2:00 PM EDT Immunization [facility] MED & PEDS [address] [place], [place] [phone] Encounter for immunization Social History Tobacco Use Types Packs/Day Years [...] as of this encounter Visit Diagnoses Diagnosis Encounter for immunization documented in this encounter Additional Health Concerns Assessment Noted Time PHQ-9 Depression Total Score: 4 07/31/19 24 10:35 AM EDT documented as of this encounter Care Teams Art Objects Supervisor Relationship Specialty Start Date End Date Nancy Sellers MD [address] [place] [address] PCP - General Family Medicine 01/30/12 documented as of this encounter
[2024-12-05 12:56] VITALS: BP 108/62; PULSE 80; BMI 33.8
--- NOTE | 2024-12-05 12:56 | A.OFFVIS_ITS ---
Vital Signs 12/05/24 12:56 Height 5 ft 5 in Weight 203 lb 4.259 oz BMI 33.8 BP 108/62 Blood Pressure Location Lt brachial Position Sitting Pulse 80 Pulse Source Pulse Oximeter Intake Visit Reasons: 3m follow up Bow Repairer Custom Required: Yes Bow Repairer Custom Language: Cycle Manager Name: rosalba varghese [id number] Allergies hydromorphone (Dilaudid) Allergy (Severe, Verified 12/05/24 13:01) Shortness of Breath Medication List - Last Reconciled 12/05/24 by KAYKAY ReyezC aspirin 81 mg PO DAILY blood pressure test kit-large As directed cholecalciferol (vitamin D3) 1 mcg PO DAILY clopidogrel (Plavix) 75 mg PO DAILY 90 days cyanocobalamin (vitamin B-12) 1,000 mcg PO DAILY diclofenac sodium 1% topical dicyclomine 10 mg PO BID fluticasone propionate 50 mcg/actuation 1 spray intranasal BID gabapentin 200 mg PO BEDTIME PRN hydrocortisone 2.5% (Procto-Med HC) 1 appl NV BEDTIME lisinopril-hydrochlorothiazide 20-12.5 mg 1 tab PO DAILY magnesium oxide 400 mg PO DAILY metoprolol succinate ER 50 mg PO DAILY omega 4-stq-udf-fish oil 1,000 (120-180) mg 1 cap PO BID red yeast rice 600 mg PO BID sucralfate (Carafate) 1 g PO BID triamcinolone acetonide 0.5% topical DAILY HPI HPI 3m follow up: Details: Usha is a 74-year-old female with past medical history of hypertension, hyperlipidemia, coronary artery disease with catheterization 08/06/2024 and LAURIE placed to the left circumflex who now presents for follow-up. Today she reports that she is now concerned about her cholesterol. She has been taking [place] 3 and a few months ago added red yeast rice. She has been intolerant to statins and Zetia in the past and previously declined PCSK9 inhibitors. At this time she is reconsidering but would like her cholesterol rechecked. She has been feeling well with no concerning symptoms. She completed cardiac rehab and will be starting stage II cardiac rehab. No chest discomfort, shortness of breath, heart palpitations. Compliant with medications. [facility] Medical History Back pain Anemia History of depression Elevated cholesterol GERD (gastroesophageal reflux disease) Bleeding hemorrhoids Arthritis Hypertension Surgical History History of esophagogastroduodenoscopy (EGD) Hx of colonoscopy Hx of total knee replacement History of cataract surgery History of hysterectomy History of cholecystectomy History of neck surgery Family History Father History of stomach cancer Brother History of melanoma Social History Household Members: Children Alcohol intake: current Alcohol intake frequency: does not drink Patient Tobacco Use Status: Former Tobacco user Current occupational status: disabled Review of Systems Const All systems reviewed & are unremarkable except as noted in HPI and below ENT Denies dizziness Card Denies chest pain, Denies chest pain at rest, Denies chest pain with activity, Denies rapid heart rate, Denies pedal edema, Denies edema, Denies leg edema, Denies lightheadedness, Denies palpitations, Denies dyspnea, Denies dyspnea on exertion and Denies orthopnea Resp Denies cough, Denies dyspnea and Denies dyspnea on exertion GI Denies hematochezia and Denies change in stool character Musc Denies abnormal gait, Denies limited range of motion, Denies muscle cramps, Denies muscle weakness, Denies numbness, Denies radiating pain into limb, Denies stiffness and Denies tingling Neuro Denies abnormal gait, Denies dizziness, Denies numbness and Denies tingling Endo Denies palpitations Physical Exam Vital Signs: Last Vital Signs Pulse 80 12/05/24 12:56 BP 108/62 12/05/24 12:56 BMI result Body Mass Index 33.8 Const General: cooperative, healthy appearing, comfortable and no acute distress Orientation/consciousness: patient oriented x3 Neck Neck: Yes normal visual inspection Resp Effort & Inspection: normal respiratory effort Auscultation: clear to auscultation bilaterally, no crackles, no rales, no rhonchi and no wheezes Cardio Rate: regular rate Rhythm: regular rhythm Heart sounds: S1 normal heart sound present, S2 normal heart sound present, no gallops, no murmurs and no rubs Neuro General: patient oriented x3 Extrem General: Yes normal to inspection, No no pedal edema and No calf tenderness Psych Appearance: grossly normal Mental Status: mental status grossly normal Speech and movement: Normal speech and movement present Assessment & Plan Assessment & Plan (1) Exertional chest pain: Code(s): R07.9 - Chest pain, unspecified Category: Medical Plan: Cardiac evaluation for an episode of chest discomfort summer 2022 while dancing. Echocardiogram was done 03/21/2022 showing EF 60-65%, no valve abnormalities and no regional wall motion abnormalities. A nuclear stress test was done on 08/19/2022 showing exercise 9-1/2 minutes with 6/10 chest discomfort, borderline EKG changes and no clear ischemia seen on nuclear imaging. She had CTA of the coronary arteries on 09/26/2022 showing OM 1 more than 70% stenosis, FFR 0.79, no significant FFR decrease in the remainder of the coronary vasculature. She was then started on metoprolol, aspirin and had full resolution of her symptoms until recently. She then had cardiac catheterization on 08/06/2024 showing left circumflex mid 95% stenosis, LAURIE placed, with resolution of symptoms. Currently asymptomatic. Attends cardiac rehab. Continue aspirin indefinitely. Continue Plavix uninterrupted for at least 1 year post stent. (had shortness of breath with Brilinta) Continue metoprolol. She has been intolerant to statins, zetia and previously declined PCSK9 inhibitor. Continue [place] 3. Cardiology follow-up 4 months, sooner if needed. (2) Coronary atherosclerosis: Code(s): I25.10 - Atherosclerotic heart disease of [place] coronary artery without angina pectoris Category: Medical Qualifiers: Associated angina: without angina Coronary Disease-Associated Artery/Lesion type: [place] artery [place] vs. transplanted heart: [place] heart Qualified Code(s): I25.10 - Atherosclerotic heart disease of [place] coronary artery without angina pectoris Plan: As above (3) Hypertension: Code(s): I10 - Essential (primary) hypertension Category: Medical Qualifiers: Hypertension type: primary hypertension Qualified Code(s): I10 - Essential (primary) hypertension Plan: Blood pressure goal less than 130/80. Normal range at present. Continue metoprolol and lisinopril/hydrochlorothiazide combination (4) Hyperlipidemia: Code(s): E78.5 - Hyperlipidemia, unspecified Category: Medical Qualifiers: Hyperlipidemia type: unspecified Qualified Code(s): E78.5 - Hyperlipidemia, unspecified Plan: Britt LDL goal less than 70. Intolerant to statins. Not taking Zetia. Previously Declines PCSK9 inhibitor. She is on [place] 3 fish oil capsules and a few months ago started red yeast rice. Will check a fasting lipid profile. Then plan for addition of PCSK9 inhibitor which she is now agreeing to. (5) S/P cardiac catheterization: Comment: 08/06/2024 left main, lad, RCA all normal, left circumflex mid 95% stenosis, LAURIE placed Code(s): Z98.890 - Other specified postprocedural states Category: Surgical Plan: As above (6) Stented coronary artery: Comment: LAURIE to left circumflex Code(s): Z95.5 - Presence of coronary angioplasty implant and graft Category: Surgical Plan: As above Plan Time spent on chart review, documentation, interview and assessment Orders: Orders Lipid Panel Today I25.10 - Atherosclerotic heart disease of [place] coronary artery without angina pectoris Coding Level of Care Code Est Pt Level 4 (47256) Complex EM visit Add On G2211 Diagnoses Exertional chest pain R07.9 Atherosclerosis of [place] coronary artery of [place] heart without angina pectoris I25.10 Associated angina: without angina Coronary Disease-Associated Artery/Lesion type: [place] artery [place] vs. transplanted heart: [place] heart Primary hypertension I10 Hypertension type: primary hypertension Hyperlipidemia, unspecified hyperlipidemia type E78.5 Hyperlipidemia type: unspecified S/P cardiac catheterization Z98.890 Stented coronary artery Z95.5 Time Spent (min) 28
--- OUTSIDE RECORDS SUMMARY | 2024-12-05 15:55 | XMS_ITS | Data Portability ---
Author Organization [employer] Address [address] [place] [address] Care Team Providers Care Screen Making Supervisor Name Role Phone HIM CCA OTHER Assessment Encounter Date Assessment Date Assessment LastModified by Organization Details LastModified Time 09/06/2024 09/06/2024 Evaluation in the field was performed by my bean snipper colleague, as noted above, I provided real-time direction and supervision for this visit. This is a 73yo F presenting for evaluation of rectal bleeding. She has had 3 separate episodes of bright red blood and clots from the rectum since being started on aspirin and Brilinta after having a cardiac stent placed. She does have a history of bleeding hemorrhoids in the past. Today has had rectal bleeding for about 4 hours which she describes as red blood and sometimes clots. Denies lightheadedness , SOB, or other associated symptoms. During the previous 2 episodes of bleeding it resolved on its own, and her ammonia print operator advised her to continue the blood thinners. PE: General: Awake & alert, NAD Respiratory: Chest rise equal bilat, no increased wob CV: Regular rate, normal peripheral perfusion Abd: Soft, nontender, nondistended Impression: Rectal bleeding Plan: -VSS, appears well. BP 129/77, HR 84. -Hgb stable at 13.6 indicating no significant blood loss at this time. -Medic unable to visualize the blood. -Patient is not interested in going to the ED at this time, just wants the bleeding to stop. I advised her I cannot confirm if this bleeding is from hemorrhoids or another GI source in our current setup in her home. I also am unable to stop her bleeding. I advise ED. -Pt will remain at home for now, still not interested in ED eval. She understands that if the bleeding does not stop tonight, if it gets worse, or if she becomes symptomatic in any way she needs to go to the ED immediately. -Should f/u with GI if this episode resolves. Disposition: Remain at home We discussed the diagnostic uncertainty of home visits and the risk associated with this. In this case, the patient and I felt this to be an acceptable and reasonable amount of risk given the benefit of avoiding an ED visit. We discussed the need to seek care urgently/emerge ntly in the setting of any new or worsening serious symptoms. [email or web address] Not available 09/06/2024 17:47:52 Plan of Treatment Reminders Order Date Submit Date Provider Last Modified By Organization Details Last Modified Time Details Appointments None recorded . Lab BMP, serum or plasma 025 09/07/19 [facility], [address] [place] [address], [id number] 18:58:49 Referral None recorded . Procedures None recorded . Surgeries None recorded . Imaging None recorded . Medication Orders None recorded . Patient TargetsNo targets recorded. Patient InstructionsNo instructions recorded. Reason for Referral None Reported. Results Created Date Observation Date Name Description Value Unit Range Abnormal Flag Note LastModifiedBy Organization Detail LastModifiedTime Result Notes None recorded. Medical Equipment None Reported. Allergies Allergen ID Allergen Name Allergen Category Reaction Reaction Severity Criticality Documentation Date Start Date Code Code System Note Provider Name and Address Organization Details Recorded Time 34175 Dilaudid medicatio n Not available Not available Not available 09/06/2024 92284 3 RxNorm Not Available [facility] [employer] - production 15:49:39 Medications Name Sig Start Date Stop Date Status Note LastModified by Organization Details LastModified Time betamethaso ne valerate 0.1 % topical ointment APPLY TOPICALLY IF NEEDED IN THE MORNING AND AT BEDTIME (DRYNESS) . active Not Available Not Available No t Available lisinopril 20 mg-hydrochl orothiazide 12.5 mg tablet TAKE 1 TABLET BY MOUTH EVERY DAY active Not Available Not Available No t Available metoprolol succinate ER 50 mg tablet,exte nded release 24 hr TAKE 1 TABLET BY MOUTH EVERY DAY active Not Available Not Available No t Available sucralfate 1 gram tablet TAKE 1 TABLET ORALLY 2 TIMES A DAY active Not Available Not Available No t Available cyanocobala min (vit B-12) 1,000 mcg tablet TAKE 1 TABLET BY MOUTH EVERY DAY active Not Available Not Available No t Available triamcinolo ne acetonide 0.5 % topical ointment APPLY TO AFFECTED AREA TWICE A DAY active Not Available Not Available No t Available sulfamethox azole 800 mg-trimetho prim 160 mg tablet TAKE 1 TABLET BY MOUTH TWICE A DAY FOR 7 DAYS 09/06 completed Not Available Not Available Not Available aspirin 81 mg tablet,deirdre yed release TAKE 1 TABLET BY MOUTH EVERY DAY active Not Available Not Available No t Available esomeprazol e magnesium 40 mg capsule,del ayed release TAKE 1 CAPSULE BY MOUTH EVERY DAY active Not Available Not Available No t Available lisinopril 10 mg tablet TAKE 1 TABLET BY MOUTH EVERY DAY active Not Available Not Available No t Available gabapentin 300 mg capsule TAKE 1 CAPSULE BY MOUTH AT BEDTIME active Not Available Not Available No t Available lisinopril 20 mg-hydrochl orothiazide 25 mg tablet TAKE 1 TABLET BY MOUTH EVERY DAY IN THE MORNING active Not Available Not Available No t Available metoprolol succinate ER 25 mg tablet,exte nded release 24 hr TAKE 1 TABLET BY MOUTH EVERY DAY FOR 90 DAYS active Not Available Not Available No t Available estradiol 0.01% (0.1 mg/gram) vaginal cream INSERT 2 G INTO THE VAGINA ONCE PER DAY. active Not Available Not Available No t Available fluticasone propionate 50 mcg/actuati on nasal spray,suspe nsion SPRAY 1 SPRAY INTO EACH NOSTRIL IN THE MORNING active Not Available Not Available No t Available rosuvastati n 20 mg tablet TAKE 1 TABLET BY MOUTH EVERY DAY active Not Available Not Available No t Available red yeast rice 600 mg capsule TAKE 1 CAPSULE BY MOUTH TWICE A DAY active Not Available Not Available No t Available omega-3 fatty acids-fish oil 300 mg-1,000 mg capsule TAKE 1 CAPSULE (1,000 MG) BY MOUTH 2 TIMES DAILY. active Not Available Not Available No t Available diclofenac 1 % topical gel APPLY TOPICALLY TWICE DAILY active Not Available Not Available No t Available cholecalcif charity (vitamin D3) 50 mcg (2,000 unit) capsule TAKE 1 CAPSULE BY MOUTH EVERY DAY active Not Available Not Available No t Available omega 3-dha-epa-f megha oil 1,000 mg (120 mg-180 mg) capsule TAKE 1 CAPSULE BY MOUTH TWICE A DAY active Not Available Not Available No t Available ticagrelor 90 mg tablet TAKE 1 TABLET BY MOUTH TWICE A DAY active Not Available Not Available No t Available Repatha SureClick 140 mg/mL subcutaneou s pen injector INJECT 1 PEN SUBCUTANE OUSLY ONCE EVERY 2 WEEKS active Not Available Not Available No t Available Omron Blood Pressure Monitor-3 Series kit Check blood pressure on arm as directed EVERY DAY active Not Available Not Available No t Available Vitals Date Recorded Oxygen saturation Oxygen saturation in Arterial blood by Pulse oximetry Respiratory rate Body height Heart rate Body temperature Body weight Heart rate Systolic And Diastolic Systolic And Diastolic Provider Name and Address Organization Details Last Updated DateTime 5 99 % 99 % 18 /min 165.1 cm 86 /min 97.6 [degF] 31081.3 6 g 84 /min 146/84 mm[Hg] 129/77 mm[Hg] Not Available [facility] - production 5 17:19:04 Social History None recorded. Functional Status None recorded. Mental Status None recorded. Family History Nothing Reported. Medical History No medical history recorded. Gynecological HistoryNo gynecological history recorded. Obstetrics History GPAL:G 0 P 0 0 0 0 Past Encounters Encounter ID Performer Location Encounter Start Date Encounter Closed Date Diagnosis/Indication Diagnosis SNOMED-CT Code Diagnosis ICD10 Code Diagnosis IMO Codes Diagnosis Note [id number] Senait Ca MD [facility] Medical [address] [address] 09/06/2024 16:52:05 09/08/2024 15:11:52 Rectal hemorrhage 02749417 K62.5 94872 Health Concerns Section Related Observation LastModified by Organization Detai ls LastModified Time None Recorded Concern Status LastModified by Organization Details LastModified Time None Recorded Advance Directives Directive None Recorded Payers Insurance Date Sequence Insurance Name Policy Number Policy Prieto Covered Member ID Prieto Member ID Guarantor Name 09/06/2024 1 [facility] - DOS ON OR AFTER 2022 - DUAL ELIGIBLE - [facility] OPTIONS AND ONE CARE (MEDICARE REPLACEMENT/AD VANTAGE - HMO) Usha Grace [id number] Usha Grace Notes Date Note Type Note Provider Name and Address Organization Details Recorded Time 09/06/2024 text/html ROS as noted in the HPI HPI: Mbr is a 73 yo Kiswahili speaking female with h/o but not all inclusive of OA, pain in multiple sites, IBS, Anxiety, gastritis, GERD, HTN, Agoraphobia and chest pain. Allergies to Dilaudid. MSR transfer call for medical. This CRU RN was connected to Mbr who is primarily Kiswahili speaking but understands and speaks some Luxembourgish. Mbr recently had heart stent placed and was put on anticoagulants. Mbr is now having on/off bleeding from rectal areas and stating it is her hemorrhoids. Mbr denies lightheadedness, chest pain or sob. Mbr denies nausea or vomiting. Froylanr lives alone and has AGENCY SALES REPRESENTATIVE services in the morning only. Mbr has [...] Mbr agreed with plan. Confirmed address and phone/[phone]. Alerted CC that this CRU RN placed INSTED referral in on Mbr's behalf. ...................... ...................... ...................... ...................... ...................... ...................... ......... [facility] Nurse Triage Notes (Yany Quiroz): Chief Complaints: Diarrhea PMH: Chronic Pain, Anxiety Disorder, Hypertension, Gastroesophageal Reflux Disease (GERD), Inflammatory Bowel Disease (Crohn's Disease, Ulcerative Colitis), Osteoarthritis PMH Reviewed at 09/06/2024 15:49 Allergies Reviewed at 09/06/2024 15:49 Comments: HPI reviewed Hose Stripper Organization Information for [employer] Business Legal Name: [employer]. Address: [address] [place] [id number], Increment Manager: Isidro Jo MD CLIA No.: [id number] Hose Stripper POC Test Results from [employer] - DENNY iSTAT Chem8+ (17:32:36) Na: 135mEq/L K: 4.4mEq/L Cl: 100mEq/L iCa: 1.16mmol/L TCO2: 25mmol/L Glu: 105mg/dL BUN: 26mg/dL Crea: 1.3mg/dL Hct: 40% Hb: 13.6g/dL Ammol/L Cartridge Number: [id number] Attachments uploaded as part of this test result can be found under Documents section. ...................... ...................... ...................... ...................... ...................... ...................... ......... Hose Stripper Note From [employer]: Sent to a call for a pt complaining of bleeding hemorrhoids. SC8 arrives on scene, pt is alert and oriented, airway is patent. Pt had a stent placed on August 06 and was put on Ticagrelor (also takes aspirin). Pt states she has a history of [...] multiple bowel movements. Pt denies hallman, dizziness, cp, sob, n/v, abd pain, fever, or loc. Family states pt keeps spending prolonged time on toilet and straining during bowel movements. Pt declined ED prior to [facility] visit. (sitting) BP:146/84, P:86, RR:18, SpO2:99% RA, T:97.6; (standing) BP:129/77, P:84; Head: unremarkable; Lung sounds: clear bilaterally; Abdomen: soft, non-tender, no distention; Back: unremarkable; Extremities: unremarkable; Skin: pink, warm, dry; [facility] consulted and orders BMP. Venous blood draw performed; Istat Chem8+ results: uploaded to [facility]. Pt is advised she needs to go to ED if bleeding does not stop this evening. Pt advised to follow up with GI doctor on Monday. Red flags discussed. Pt has no further questions. [facility] Lab Orders: BMP, serum or plasma: Performed ...................... ...................... ...................... ...................... ...................... ...................... ......... [facility] Consulted: Senait Ca ...................... ...................... ...................... ...................... ...................... ...................... ......... Disposition: Fulfilled Senait Ca MD [address] [facility],[address], [place], [address], [employer] 09/06/2024 18:37:23 OBGyn Episode No OBEpisode recorded.
--- OUTSIDE RECORDS SUMMARY | 2024-12-05 15:55 | XMS_ITS | Clinical Summary ---
Author Organization [facility] Facility Address [address] [place] [address] Care Team Providers Care Casting Machine Operator Helper Name Role Phone Nancy Sellers MD Primary Care Provider [phone] Allergies Active Allergy Reactions Criticality Noted Date [...] Of [address] [place] [address] Bear Miles MD from Last 3 Months [...] Medicaid [place] Care Teams Casting Machine Operator Helper Relationship Specialty Start Date End Date Nancy Sellers MD PCP - General Family Medicine 06/30/21
--- OUTSIDE RECORDS SUMMARY | 2024-12-05 15:55 | XMS_ITS | Encounter Summary ---
Author Organization [employer] Address [address] [facility] [address] [place] [address] Care Team Providers Care Contact Lens Polisher Name Role Phone Nancy Sellers MD Primary Care Provider Reason for Visit * Reason Onset Date Comments Durable Medical Equipment 01/29/2024 Blood pressure machine Encounter Details Date Type Department Care Team ([facility] Contact Info) Description 01/29/2024 Telephone [facility] MEDICINE [address] [place] [address] Nancy Sellers MD [address] [place] [address] Durable Medical Equipment (Blood pressure machine ) [...] documented as of this encounter Care Teams Contact Lens Polisher Relationship Specialty Start Date End Date Nancy Sellers MD [address] [place] [address] PCP - General Family Medicine 01/30/12 documented as of this encounter
--- OUTSIDE RECORDS SUMMARY | 2024-12-05 15:55 | XMS_ITS | Encounter Summary ---
Author Organization [employer] Address [address] [facility] [address] [place] [address] Care Team Providers Care Master Black Belt Name Role Phone Nancy Sellers MD Primary Care Provider [phone] Reason for Visit * Reason Onset Date Comments Nurse Triage 07/24/2023 Encounter Details Date Type Department Care Team ([facility] st Contact Info) Description 07/24/2023 Telephone [facility]S [address] [place], [place] [phone] Nancy Sellers MD [address] [place] [address] Nurse Triage Social History Tobacco Use Types [...] 07/24/2023 12:28 PM EDT Triage call with [facility] [id number] Pt reports had labs done and was [...] advised will send this to PCP and [facility] nurses for follow up. Ptagrees with [...] documented as of this encounter Care Teams Master Black Belt Relationship Specialty Start Date End Date Nancy Sellers MD [address] [place] [address] PCP - General Family Medicine 01/30/12 documented as of this encounter
--- OUTSIDE RECORDS SUMMARY | 2024-12-05 15:55 | XMS_ITS | Encounter Summary ---
Author Organization [employer] Address [address] [place] [address] 7t [place] [address] Care Team Providers Care Asset Management Analyst Name Role Phone Nancy Sellers MD Primary Care Provider [phone] Reason for Visit * Reason Onset Date Comments Med Change Request NUTRITION APPOINTMENT REQUEST 03/08/2023 Encounter Details Date Type Department Care Team ([facility] Contact Info) Description 03/08/2023 Refill [facility] MED & PEDS [address] [place] [address] Nancy Sellers MD 505 [place] [address] Social History Tobacco Use Types Packs/Day Years [...] documented as of this encounter Care Teams Asset Management Analyst Relationship Specialty Start Date End Date Nancy Sellers MD [address] [place] [address] PCP - General Family Medicine 01/30/12 documented as of this encounter
--- OUTSIDE RECORDS SUMMARY | 2024-12-05 15:55 | XMS_ITS | Encounter Summary ---
Author Organization [employer] Address 75 [facility] 7t [place] [address] Care Team Providers Care Display Carver Name Role Phone Nancy Sellers MD Primary Care Provider [phone] Reason for Visit * Reason Onset Date Comments Nurse Triage 06/05/2023 Encounter Details Date Type Department Care Team ([facility] st Contact Info) Description 06/05/2023 Telephone [facility] MED & PEDS 505 [place], [place] [phone] Nancy Sellers MD 505 [place] [address] Nurse Triage Social History Tobacco Use Types [...] 06/05/2023 11:04 AM EDT Triage call with [employer] Extruder Operator ID [id number] Pt is reporting dry mouth . Pt was on vacation in [place] and has returned 05/24/23. Pt reports the [...] accepted this outcome Please contact pt at [phone] (Divehi) documented in this encounter Plan of Treatment Not on file documented as of this encounter Visit Diagnoses Not on filedocumented in this encounter Additional Health Concerns Assessment Noted Time PHQ-9 Depression Total Score: 2 05/18/19 23 11:41 AM EDT documented as of this encounter Care Teams Display Carver Relationship Specialty Start Date End Date Nancy Sellers MD [address] [place] [address] PCP - General Family Medicine 01/30/12 documented as of this encounter
--- OUTSIDE RECORDS SUMMARY | 2024-12-05 15:55 | XMS_ITS | Encounter Summary ---
Author Organization [facility] Address [address] [place] [address] 7t [place] [address] Care Team Providers Care Ski Patrol Director Name Role Phone Nancy Sellers MD Primary Care Provider [phone] Encounter Details Date Type Department Care Team (Late st Contact Info) Description 01/22/2022 Abstract [facility] MEDICINE 230 [place] [address] Provider, MD Ashok Social History Tobacco Use Types Packs/Day Years [...] on filedocumented in this encounter Care Teams Ski Patrol Director Relationship Specialty Start Date End Date Nancy Sellers MD 230 [place] [address] PCP - General Family Medicine 01/30/12 documented as of this encounter
--- OUTSIDE RECORDS SUMMARY | 2024-12-05 15:55 | XMS_ITS | Encounter Summary ---
Author Organization [employer] Address 75 [facility] 7t [place] [address] Care Team Providers Care Business Services Specialist Sales Name Role Phone Nancy Sellers MD Primary Care Provider [phone] Reason for Visit * Reason Onset Date Comments New Med Request 07/20/2023 Encounter Details Date Type Department Care Team ([facility] st Contact Info) Description 07/20/2023 Telephone [facility] MEDICINE 230 [place] [address] Nancy Sellers MD [address] [place] [address] New Med Request Social History Tobacco Use [...] injections labs was done [place] 07[place] [place] [facility] documented in this encounter Plan of Treatment Not on file documented as of this encounter Visit Diagnoses Not on filedocumented in this encounter Additional Health Concerns Assessment Noted Time PHQ-9 Depression Total Score: 2 05/18/19 23 11:41 AM EDT documented as of this encounter Care Teams Business Services Specialist Sales Relationship Specialty Start Date End Date Nancy Sellers MD 230 [place] [address] PCP - General Family Medicine 01/30/12 documented as of this encounter
--- OUTSIDE RECORDS SUMMARY | 2024-12-05 15:55 | XMS_ITS | Encounter Summary ---
Author Organization [employer] Address [address] [facility] [address] 7t [place] [address] Care Team Providers Care Gm Mobile Name Role Phone Nancy Sellers MD Primary Care Provider [phone] Encounter Details Date Type Department Care Team ([facility] st Contact Info) Description 09/05/2023 Orders Only [facility] MED & PEDS 505 [place], [place] [phone] Nancy Sellers MD 505 [place] [address] Social History Tobacco Use Types Packs/Day Years [...] documented as of this encounter Care Teams Gm Mobile Relationship Specialty Start Date End Date Nancy Sellers MD [address] [place] [address] PCP - General Family Medicine 01/30/12 documented as of this encounter
--- OUTSIDE RECORDS SUMMARY | 2024-12-05 15:55 | XMS_ITS | Encounter Summary ---
Author Organization [employer] Address 75 [facility] 7t [place] [address] Care Team Providers Care Therapeutic Consultant Name Role Phone Nancy Sellers MD Primary Care Provider [phone] Encounter Details Date Type Department Care Team ([facility] st Contact Info) Description 10/05/2022 Orders Only [facility] CHC MED & PEDS 505 [place], [place] [phone] Kendell Rankin MD 505 [place] [address] Social History Tobacco Use Types Packs/Day Years [...] documented as of this encounter Care Teams Therapeutic Consultant Relationship Specialty Start Date End Date Nancy Sellers MD [address] [place] [address] PCP - General Family Medicine 01/30/12 documented as of this encounter
--- OUTSIDE RECORDS SUMMARY | 2024-12-05 15:55 | XMS_ITS | Clinical Summary ---
Author Organization [employer] Address 75 [facility] 7t [place] [address] Care Team Providers Care Inside Sales Agent Name Role Phone aNncy Sellers MD Primary Care Provider [phone] Allergies Active Allergy Reactions Criticality Noted Date Comments Hydromorphone Rash,Shortness of breath High 02/13/18 00 Other reaction(s): rash sob and hives Morphine Shortness of breath High 08/10/2023 sob and hives Tramadol 09/25/2013 Medications Blood Pressure kit Apply 1 [place] [facility] [place] (Non-drug;combo) route every day 2 Active omega-3 [...] Encounters Date Type Department Care Team Description 12/04/2024 2:00 PM EDT Immunization [facility] MED & PEDS 505 [place] [address] Encounter for immunization 12/04/2024 Travel 11/27/2024 Travel 11/22/2024 Telephone [facility] MED & PEDS 505 [facility] [place] [address] Nancy Sellers MD Lab Orders 11/09/2024 Orders Only [facility] External Provider, [facility] 10/15/2024 11:00 AM EDT Office Visit [facility] MED & PEDS 505 [facility] [address] Yessenia Baltazar MD Nevus (Primary Dx); Lichen simplex chronicus 10/15/2024 Travel 10/15/2024 Refill [facility] MED & PEDS 505 [facility] [place] [address] Nancy Sellers MD 10/08/2024 Travel 10/07/2024 Orders Only GENERIC EXTERNAL DATA DEPARTMENT Provider, Generic External Data 09/30/2024 Telephone [facility] MED & PEDS 505 [facility], [place] [phone] Nancy Sellers MD Results 09/05/2024 Orders Only [facility] MED & PEDS 505 [place] [address] Nancy Sellers MD Chronic bilateral low back pain with sciatica, sciatica laterality unspecified (Primary Dx) 09/04/2024 Telephone [facility] MEDICINE 230 [place] [address] Nancy Sellers MD Nurse Triage from Last 3 Months Immunizations Immunization Administration Dates Next Due Hep B, adult 04/03/2003,09/26/2002,08/21/2002 Influenza High-dose Quadriva lent Preservative Free 12/15/2022,10/26/2021,11/12/2020 Influenza injectable quadriv alent IIV4 with preservative 01/04/2017,11/25/2015,11/17/2014 Influenza, High Dose Seasona l, Preservative Free 12/04/2024,12/01/2023 Influenza, IIV3, injectable 11/15/2013 Influenza, Split (incl. [...] 10/15/2024 10:55 AM EDT Plan of Treatment Health Maintenance [...] 2024 12/01/2023, 04/18/2022, 01/11/2021, Additional history exists Dental X-Ray: B[facility]ings 10/20/2024 [...] Pneumococcal Vaccine: 50+ Years Completed 12/12/2023, 02/11/2015 Influenza Vaccine Completed 12/04/2024, , 12/15/2022, Additional history exists HIB Vaccines Aged Out No longer eligi [...] REFLEX MICROSCOPIC Routine 10/07/2024 3:53 PM EDT LIPID PANEL, STANDARD Routine 09/02/2024 11:57 AM [...] PM EDT Narrative 11/11/2024 7:42 PM EDT [place] [address] CT Scan Report Signed Patient: Usha Grace MR#: [id number] : 1950 Acct:[id number] Age/Sex: 74 / F ADM Date: 11/09/24 Loc: HO.CT Attending Dr: Nj Hernandez MD Ordering Physician: Nj Hernandez MD Date of Service: 11/09/24 Procedure(s): CT abdomen pelvis wo IV con Accession Number(s): [id number] cc: Nj Hernandez MD; Nancy Sellers MD Report Number: [id number]: Total DLP = 596.00 mGy-cm Reason for [...] in OV> 11/11/241941 DD/ 39 TD/TT: 11/11/241939 Conservation Policy Analyst: Procedure Note Donotuseinterpreter, Image - 11/11/[address] [address] [address] Scan Report Signed Patient: Usha Grace#: [id number] : 1Acct:[id number] Age/Sex: 74 / FADM Date: 11/09/24 Loc: HO.CT Attending Dr: Nj Hernandez MD Ordering Physician: Nj Hernandez MD Date of Service: 11/09/24 Procedure(s): CT abdomen pelvis wo IV con Accession Number(s): [id number] cc: Nj Hernandez MD; Nancy Sellers MD Report Number: [id number]: Total DLP = 596.00 mGy-cm Reason for [...] in OV> 11/11/241941 DD/ 39 TD/TT: 11/11/241939 Conservation Policy Analyst: [facility] External Provider IMG CT PROCEDURES Final Result * (ABNORMAL) Basic Metabolic Panel (10/07/2024 4:01 PM EDT) Sodium 139 135 - 145 mmol/L [facility] Potassium 4.3 3.3 - 5.1 mmol/L [facility] Chloride 103 96 - 108 mmol/L [facility] Carbon Dioxide 27 22 - 29 mmol/L [facility] Anion Gap 13 12 - 20 [facility] Urea Nitrogen (BUN) 19(H) 9 - 16 mg/dL [facility] Creatinine, Serum 1.08 0.5 - 1.4 mg/dL [facility] Estimated Glomerular Filt Rate 50 [facility] Comment:Chronic Kidney Disea se: Estimated GFR < 60 mL/min/1.42q8Eozfoc Kidney Disease: Estimated GFR < 15 mL/min/1.73m2 Glucose 92 60 - 115 mg/dL [facility] Calcium 9.7 8.4 - 10.2 mg/dL [facility] 10/07/2024 4:01 PM EDT 10/07/2024 4:01 PM EDT us Generic External Data Provider LAB BLOOD ORDERAB LES Final Result Performing Organization Address [facility] Co de Phone Number [facility] [address] [place] [phone] * Urinalysis w/reflex microscopic (10/07/2024 3:53 PM EDT) Color Urine Yellow [facility] Appearance Urine Clear [facility] PH 6.5 5.0 - 9.0 [facility] Glucose Urine UA Negative Negative mg/dL [facility] Urine Blood Negative Negative [facility] Specific Tram - Urine 1.010 1.005 - 1.025 [facility] Urine Protein Negative Neg-Trace mg/dL [facility] Urine Ketones Negative Negative mg/dL [facility] Nitrite Urine Negative Negative [facility] Leukocyte Esterase Urine Negative Negative [facility] 10/07/2024 3:53 PM EDT 10/07/2024 4:16 PM EDT Narrative [facility] - 10/07/2024 4:30 PM EDT Urine, Clean Catch us Generic External Data Provider LAB URINE ORDERAB LES Final Result Performing Organization Address City/[facility]/ZIP Co de Phone Number [facility] [address] [place] [address] [phone] * (ABNORMAL) Lipid Panel, Standard (09/02/2024 11:57 AM EDT) Triglycerides 87 <150 mg/dL [facility] Comment:Desirable Triglyceri de: less than 150 mg/dLBorderline High Triglyceride 150-199 mg/dLHigh Triglyceride: 200-499 mg/dLVery High Triglyceride: greater than or equal to 5OO mg/dL Cholesterol 234(H) <200 mg/dL [facility] Comment:Desirable Cholestero l: less than 200 mg/dLBorderline High Cholesterol: 200-239 mg/dLHigh Cholesterol: greater than 239 mg/dL LDL Cholesterol Calculated 147(H) <100 mg/dL [facility] Comment:Desirable LDL: less than 100 mg/dLNear Optimal/Above Optimal LDL: 110- 129 mg/dLBorderline High LDL: 130-159 mg/dLHigh LDL: 160-189 mg/dLVery High LDL: greater than or equal to 190 mg/dL HDL Cholesterol 70 >40 mg/dL [facility] Comment:Desirable HDL: great er than 40 mg/dL Note: This HDL assay may give artificially low results in patients with liver disease. Blood Venous blood specimen / Unknown 09/02/2024 11:57 AM EDT 09/02/2024 11:57 AM EDT Nancy Sellers MD LAB BLOOD ORDERABLES Final Resul t [facility] [address] [place] [address] [phone] * Hm Colonoscopy (08/10/2023) Colonoscopy Normal Normal Narrative [facility] - 08/10/2023 Recommended 5 years . See see external hospital admission note with matching date Ashok Provider HEALTH MAINTENANCE Final Result * BI Mammogram Screening Tomosynthesis Bilateral (08/01/2023 12:20 PM EDT) Anatomical Region Laterality Modality Breast Bilateral Mammography 08/01/2023 12:2 0 PM EDT Narrative 08/29/2023 3:10 PM EDT [address] [place] [address] Mammography Report Signed Patient: Usha Grace MR#: [id number] : 1950 Acct:[id number] Age/Sex: 72 / F ADM Date: 08/01/23 Loc: HO.MAMMO Attending Dr: Nancy Sellers MD Ordering Physician: Nancy Sellers MD Results: 1Negati ve Date of Service: 08/01/23 Follow Up: 1 Year From Orig inal Mammogram Procedure(s): MM tomosynthesis screening BI Accession Number(s): [id number] cc: Nancy Sellers MD EXAMINATION: MM SCREENING [...] in OV> 08/29/23 1506 DD/ 1220 TD/TT: Conservation Policy Analyst: Procedure Note Donotuseinterpreter, Image - 08/29/[address] [place] [address] Mammography Report Signed Patient: Usha GraceMR#: [id number] : 1950cct:[id number] Age/Sex: 72 / FADM Date: 08/01/23 Loc: HO.MAMMO Attending Dr: Nancy Sellers MD Ordering Physician: Nancy Sellers MDResults: 1Negati ve Date of Service: 08/01/23Follow Up: 1 Year From Orig inal Mammogram Procedure(s): MM tomosynthesis screening BI Accession Number(s): [id number] cc: Nancy Sellers MD EXAMINATION: MM SCREENING [...] in OV> 08/29/23 1506 DD/ 1220 TD/TT: Conservation Policy Analyst: Nancy Sellers MD IMG BI PROCEDURES Final Result from Last 3 Months or Most Recently Relevant to Health Maintenance Insurance [facility] HALFWAY OPTIONS (O D-SNP) [facility] Care Teams Inside Sales Agent Relationship Specialty Start Date End Date Nancy Sellers MD [address] [place] [address] PCP - General Family Medicine 01/30/12
--- OUTSIDE RECORDS SUMMARY | 2024-12-05 15:55 | XMS_ITS | Encounter Summary ---
Author Organization [employer] Address 75 [facility] 7t [place] [address] Care Team Providers Care Tax Manager Name Role Phone Nancy Sellers MD Primary Care Provider [phone] Reason for Visit * Reason Onset Date Comments Reschedule 01/18/2023 Encounter Details Date Type Department Care Team ([facility] st Contact Info) Description 01/18/[address] [facility] MEDICINE [address] [place] [address] Nancy Sellers MD [address] [place] [address] Reschedule Social History Tobacco Use Types Packs/Day [...] Tc from pt requesting r/s 01/18 appt, editorial writer attempted to schedule, no availability for january. documented in this encounter Plan of Treatment Not on file documented as of this encounter Visit Diagnoses Not on filedocumented in this encounter Additional Health Concerns Assessment Noted Time PHQ-9 Depression Total Score: 2 05/18/19 23 11:41 AM EDT documented as of this encounter Care Teams Tax Manager Relationship Specialty Start Date End Date Nancy Sellers MD [address] [place] [address] PCP - General Family Medicine 01/30/12 documented as of this encounter
--- OUTSIDE RECORDS SUMMARY | 2024-12-05 15:55 | XMS_ITS | Clinical Summary ---
Author Organization [facility] Address [address] [place] [address] Phone Care Team Providers Care Cutch Cleaner Name Role Phone Nancy Sellers MD Primary Care Provider [phone] Encounters Date Type Department Care Team Description 11/13/2024 2:15 PM EDT Consult Orthopedic [facility] [address] [phone] Nirav Drew DPM Posterior tibial tendon dysfunction (PTTD) of left lower extremity (Primary Dx) from Last 3 Months Social History Tobacco Use Types Packs/Day Years Used Date Smoking Tobacco: Never Assessed Comments Unknown Sex and Gender Information Value Date Recorded Sex Assigned at Not on file Legal Sex Female 9:17 AM EDT Gender Identity Not on file Sexual Orientation Not on file Plan of Treatment Upcoming Encounters Date Type Department Care Team ([facility] st Contact Info) Description 01/13/2025 2:30 PM EST Office Visit [facility] [address] [address] Nirav Drew DPM [address] [phone] Health Maintenance Due Date Last Done Comments Breast Cancer Screening 1950 Colorectal Cancer Screening: Colonoscopy 1950 Depression Screening 02/14/2024 Falls Risk Assessment 09/05/2024 Hepatitis C Screening 09/05/2024 Medicare Annual Wellness Visit 09/05/2024 Osteoporosis Screening (Bone Density Screening) 09/05/2024 Social Influencers of Health Screening 09/05/2024 COVID-19 Vaccine ( season) 2024 12/01/2023, 04/18/2022, 01/11/2021, Additional history exists Influenza Vaccine (#1) 2024 , 12/15/2022, 10/26/2021, Additional history exists RSV Immunization Adult Patients (1 - 1-dose 75+ series) 2025 Hypertension/CHF/CAD Annual BMP Blood Test 10/07/2025 10/07/2024, 09/02/2024 DTaP,Tdap,and Td Vaccines (4 - Td or Tdap) 11/24/2025 11/25/2015, 09/26/2002, 10/15/1991 Cholesterol Screening (Lipid Panel) 09/02/2029 09/02/2024 Hepatitis B Vaccines Completed 04/03/2003, 09/26/2002, 08/21/2002 [...] to complete this topic RSV Immunization Patients Under 20 months Aged Out No longer eligible based on patient's age to complete this topic Varicella Vaccines Aged Out No longer eligible based on patient's age to complete this topic Insurance [employer] MEDICARE Member Subscriber Plan / Payer (Ef fective 2023-Present) Name:USHA CHAUHAN Relation to Subscriber:Self Name:Usha Chauhan Payer ID:[id number] Group ID:[id number] Type:Not on file Address: [address] [place] [phone] Care Teams Cutch Cleaner Relationship Specialty Start Date End Date Nancy Sellers MD [address] [place] [address] PCP - General Family Medicine 09/04/24
--- OUTSIDE RECORDS SUMMARY | 2024-12-05 15:55 | XMS_ITS | Encounter Summary ---
Author Organization [employer] Address [address] [place] [address] 7t [place] [address] Care Team Providers Care Construction Secretary Name Role Phone Nancy Sellers MD Primary [...] on filedocumented in this encounter Care Teams Construction Secretary Relationship Specialty Start Date End Date Nancy Sellers MD [address] [place] [phone] PCP - General Family Medicine 01/30/12 documented as of this encounter
--- OUTSIDE RECORDS SUMMARY | 2024-12-05 15:55 | XMS_ITS | Encounter Summary ---
Author Organization [employer] Address [address] [place] [address] 7t [place] [address] Care Team Providers Care Telephone Surveyor Name Role Phone Nancy Sellers MD Primary Care Provider [phone] Encounter Details Date Type Department Care Team [...] on filedocumented in this encounter Care Teams Telephone Surveyor Relationship Specialty Start Date End Date Nancy Sellers MD [address] [place] [address] PCP - General Family Medicine 01/30/12 documented as of this encounter
--- OUTSIDE RECORDS SUMMARY | 2024-12-05 15:56 | XMS_ITS | Encounter Summary ---
Author Organization [employer] Address [address] [facility] [address]t [place] [address] Care Team Providers Care Music Manager Name Role Phone Nancy Sellers MD Primary Care Provider [phone] Encounter Details Date Type Department Care Team (Latest Contact Info) Description 12/04/2024 Travel Social History Tobacco Use Types Packs/Day [...] documented as of this encounter Care Teams Music Manager Relationship Specialty Start Date End Date Nancy Sellers MD [address] [place] [address] PCP - General Family Medicine 01/30/12 documented as of this encounter
== END 2024-12-05 13:27 | disposition home or self-care (01) ==
LOC: HO.HCS 12:46
PROVIDERS: PCP Student in an Organized Health Care Education/Training Program; Visit Provider Nurse Practitioner Family
DX: R07.9 Chest pain, unspecified (principal); I25.10 Atherosclerotic heart disease of native coronary artery without angina pectoris; I10 Essential (primary) hypertension; E78.5 Hyperlipidemia, unspecified; Z98.890 Other specified postprocedural states; Z95.5 Presence of coronary angioplasty implant and graft
CPT/HCPCS: 99214; G2211

== ENCOUNTER → 2024-12-05 12:46 | Outpatient (BNVA) | payer OTHER, SELFPAY | PROVIDERS: PCP Student in an Organized Health Care Education/Training Program; Visit Provider Nurse Practitioner Family | DX: I10 Essential (primary) hypertension (principal); I25.10 Atherosclerotic heart disease of native coronary artery without angina pectoris; R07.9 Chest pain, unspecified; E78.5 Hyperlipidemia, unspecified; Z95.5 Presence of coronary angioplasty implant and graft | CPT/HCPCS: 99212 ==

== ENCOUNTER 2024-12-11 11:33 | Outpatient (REF) | payer OTHER, SELFPAY ==
[2024-12-11 13:03] LABS: Cholesterol 227 mg/dL (<200); HDL Cholesterol 68 mg/dL (>40); Triglycerides 82 mg/dL (<150)
--- OUTSIDE RECORDS SUMMARY | 2024-12-11 15:00 | XMS_ITS | Encounter Summary ---
Author Organization [employer] Address [address] [place] [address] 7t [place] [address] Care Team Providers Care Edging Machine Operator Name Role Phone Nancy Sellers MD Primary Care Provider [phone] Reason for Visit * Reason Onset Date Comments Nurse Triage 07/24/2023 Encounter Details Date Type Department Care Team ([facility] st Contact Info) Description 07/24/2023 Telephone [facility] CHC MED & PEDS [address] [place], [place] [phone] Nancy Sellers MD [address] [place] [address] Nurse Triage Social History Tobacco Use Types [...] 07/24/2023 12:28 PM EDT Triage call [place] [employer] [place] [id number] Pt reports had labs done and was [...] advised will send this to PCP and [facility] nurses for follow up. Ptagrees [...] documented as of this encounter Care Teams Edging Machine Operator Relationship Specialty Start Date End Date Nancy Sellers MD [address] [place] [address] PCP - General Family Medicine 01/30/12 documented as of this encounter
--- OUTSIDE RECORDS SUMMARY | 2024-12-11 15:00 | XMS_ITS | Encounter Summary ---
Author Organization [employer] Address [address] [place] [address] 7t [place] [address] Care Team Providers Care Pond Tender Name Role Phone Nancy Sellers MD Primary Care Provider [phone] Reason for Visit * Reason Onset Date Comments Nurse Triage 06/05/2023 Encounter Details Date Type Department Care Team ([facility] st Contact Info) Description 06/05/2023 Telephone [facility] CHC MED & PEDS [address] [place], [place] [phone] Nancy Sellers MD [address] [place] [address] Nurse Triage Social History Tobacco Use Types [...] 06/05/2023 11:04 AM EDT Triage call with [employer] Facility Service Manager ID [id number] Pt is reporting dry mouth . Pt was on vacation in [place] and has returned 05/24/23. Pt reports the [...] accepted this outcome Please contact pt at [phone] ([place]) documented in this encounter Plan of Treatment Not on file documented as of this encounter Visit Diagnoses Not on filedocumented in this encounter Additional Health Concerns Assessment Noted Time PHQ-9 Depression Total Score: 2 05/18/19 23 11:41 AM EDT documented as of this encounter Care Teams Pond Tender Relationship Specialty Start Date End Date Nancy Sellers MD [address] [place] [address] PCP - General Family Medicine 01/30/12 documented as of this encounter
--- OUTSIDE RECORDS SUMMARY | 2024-12-11 15:00 | XMS_ITS | Encounter Summary ---
Author Organization [employer] Address [address] [facility] 7t [place] [address] Care Team Providers Care Rehab Aid Name Role Phone Nancy Sellers MD Primary Care Provider [phone] Encounter Details Date Type Department Care Team (Late st Contact Info) Description 12/11/2024 Orders Only GENERIC EXTERNAL DATA DEPARTMENT Provider, Generic External Data Social History Tobacco Use Types Packs/Day Years [...] on file documented as of this encounter Procedures Procedure Name Priority Date/Time Associated Diagnosis Comments LIPID PANEL, STANDARD Routine 12/11/2024 11:42 AM EDT documented in this encounter Results * (ABNORMAL) Lipid Panel, Standard (12/11/2024 11:42 AM EDT) Triglycerides 82 <150 mg/dL [facility] Comment:Desirable Triglyceri de: less than 150 mg/dLBorderline High Triglyceride 150-199 mg/dLHigh Triglyceride: 200-499 mg/dLVery High Triglyceride: greater than or equal to 5OO mg/dL Cholesterol 227(H) <200 mg/dL [facility] Comment:Desirable Cholestero l: less than 200 mg/dLBorderline High Cholesterol: 200-239 mg/dLHigh Cholesterol: greater than 239 mg/dL LDL Cholesterol Calculated 143(H) <100 mg/dL [facility] Comment:Desirable LDL: less than 100 mg/dLNear Optimal/Above Optimal LDL: 110- 129 mg/dLBorderline High LDL: 130-159 mg/dLHigh LDL: 160-189 mg/dLVery High LDL: greater than or equal to 190 mg/dL HDL Cholesterol 68 >40 mg/dL [facility] Comment:Desirable HDL: great er than 40 mg/dL Note: This HDL assay may give artificially low results in patients with liver disease. 12/11/2024 11:4 2 AM EDT 12/11/2024 11:42 AM EDT us Generic External Data Provider LAB BLOOD ORDERAB LES Final Result [facility] [address] [place] [address] [phone] documented in this encounter Visit Diagnoses Not on filedocumented in this encounter Additional Health Concerns Assessment Noted Time PHQ-9 Depression Total Score: 4 07/31/19 24 10:35 AM EDT documented as of this encounter Care Teams Rehab Aid Relationship Specialty Start Date End Date Nancy Sellers MD [address] [place] [phone] PCP - General Family Medicine 01/30/12 documented as of this encounter
--- OUTSIDE RECORDS SUMMARY | 2024-12-11 15:00 | XMS_ITS | Encounter Summary ---
Author Organization [employer] Address [address] [place] [address] 7t [place] [address] Care Team Providers Care Scientific Software Engineer Name Role Phone Nancy Sellers MD Primary Care Provider [phone] Encounter Details Date Type Department Care Team ([facility] st Contact Info) Description 10/05/2022 Orders Only [facility] CHC MED & PEDS [address] [place], [place] [phone] Kendell Rankin MD [address] [place] [address] Social History Tobacco Use Types Packs/Day Years [...] documented as of this encounter Care Teams Scientific Software Engineer Relationship Specialty Start Date End Date Nancy Sellers MD [address] [place] [address] PCP - General Family Medicine 01/30/12 documented as of this encounter
--- OUTSIDE RECORDS SUMMARY | 2024-12-11 15:00 | XMS_ITS | Encounter Summary ---
Author Organization [employer] Address [address] [facility] 7t [place] [address] Care Team Providers Care Assistant To The President Name Role Phone Nancy Sellers MD Primary Care Provider [phone] Reason for Visit * Reason Onset Date Comments Reschedule 01/18/2023 Encounter Details Date Type Department Care Team ([facility] st Contact Info) Description 01/18/2023 Telephone [facility] MED[facility]INE [address] [place] [address] Nancy Sellers MD [address] [place] [address] Reschedule Social History Tobacco Use Types Packs/Day [...] Tc from pt requesting r/s 01/18 appt, mortgage or loan underwriter attempted to schedule, no availability for january. documented in this encounter Plan of Treatment Not on file documented as of this encounter Visit Diagnoses Not on filedocumented in this encounter Additional Health Concerns Assessment Noted Time PHQ-9 Depression Total Score: 2 05/18/19 23 11:41 AM EDT documented as of this encounter Care Teams Assistant To The President Relationship Specialty Start Date End Date Nancy Sellers MD [address] [place] [address] PCP - General Family Medicine 01/30/12 documented as of this encounter
--- OUTSIDE RECORDS SUMMARY | 2024-12-11 15:00 | XMS_ITS | Encounter Summary ---
Author Organization [employer] Address [address] [place] [address] 7t [place] [address] Care Team Providers Care Whipper Beater Name Role Phone Nancy Sellers MD Primary Care Provider [phone] Reason for Visit * Reason Onset Date Comments Med Change Request NUTRITION APPOINTMENT REQUEST 03/08/2023 Encounter Details Date Type Department Care Team ([facility] Contact Info) Description 03/08/2023 Refill [facility] MED & PEDS [address] [place] [address] Nancy Sellers MD 505 [place] [address] Social History Tobacco Use Types Packs/Day Years [...] documented as of this encounter Care Teams Whipper Beater Relationship Specialty Start Date End Date Nancy Sellers MD [address] [place] [address] PCP - General Family Medicine 01/30/12 documented as of this encounter
--- OUTSIDE RECORDS SUMMARY | 2024-12-11 15:00 | XMS_ITS | Encounter Summary ---
Author Organization [employer] Address 75 [facility] 7t [place] [address] Care Team Providers Care Ultrasound Manager Name Role Phone Nancy Sellers MD Primary Care Provider [phone] Reason for Visit * Reason Onset Date Comments New Med Request 07/20/2023 Encounter Details Date Type Department Care Team ([facility] st Contact Info) Description 07/20/2023 Telephone [facility] MEDICINE [address] [place] [address] Nancy Sellers MD [address] [place] [address] New Med Request Social History Tobacco Use [...] injections labs was done on 07/17 at [facility] documented in this encounter Plan of Treatment Not on file documented as of this encounter Visit Diagnoses Not on filedocumented in this encounter Additional Health Concerns Assessment Noted Time PHQ-9 Depression Total Score: 2 05/18/19 23 11:41 AM EDT documented as of this encounter Care Teams Ultrasound Manager Relationship Specialty Start Date End Date Nancy Sellers MD [address] [place] [address] PCP - General Family Medicine 01/30/12 documented as of this encounter
--- OUTSIDE RECORDS SUMMARY | 2024-12-11 15:01 | XMS_ITS | Clinical Summary ---
Author Organization [facility] Address [address] [place] [address] Care Team Providers Care Geropsychologist Name Role Phone Nancy Sellers MD Primary Care Provider [phone] Allergies Active Allergy Reactions Criticality Noted Date [...] Of [address] [place] [address] Bear Miles MD from Last 3 Months [...] Medicaid [place] Care Teams Geropsychologist Relationship Specialty Start Date End Date Nancy Sellers MD PCP - General Family Medicine 06/30/21
--- OUTSIDE RECORDS SUMMARY | 2024-12-11 15:01 | XMS_ITS | Encounter Summary ---
Author Organization [employer] Address [address] [place] [address] 7t [place] [address] Care Team Providers Care Buffet Server Name Role Phone Nancy Sellers MD Primary Care Provider [phone] Encounter Details Date Type Department Care Team [...] on filedocumented in this encounter Care Teams Buffet Server Relationship Specialty Start Date End Date Nancy Sellers MD [address] [place] [phone] PCP - General Family Medicine 01/30/12 documented as of this encounter
--- OUTSIDE RECORDS SUMMARY | 2024-12-11 15:01 | XMS_ITS | Encounter Summary ---
Author Organization [facility] Address [address] [place] [address] 7t [place] [address] Care Team Providers Care Amusement Or Recreation Card Checker Name Role Phone Nancy Sellers MD Primary Care Provider [phone] Encounter Details Date Type Department Care Team (Late st Contact Info) Description 01/22/2022 Abstract [facility] [address] [place] [address] Provider, MD Ashok Social History Tobacco Use [...] on filedocumented in this encounter Care Teams Amusement Or Recreation Card Checker Relationship Specialty Start Date End Date Nancy Sellers MD [address] [place] [address] PCP - General Family Medicine 01/30/12 documented as of this encounter
--- OUTSIDE RECORDS SUMMARY | 2024-12-11 15:01 | XMS_ITS | Clinical Summary ---
Author Organization [employer] Address [address] [facility] 7t [place] [address] Care Team Providers Care Bricklayer Helper Name Role Phone Nancy Sellers MD Primary Care Provider [phone] Allergies Active Allergy Reactions Criticality Noted Date Comments Hydromorphone Rash,Shortness of breath High 02/13/18 00 Other reaction(s): rash sob and hives Morphine Shortness of breath High 08/10/2023 sob and hives Tramadol 09/25/2013 Medications Blood Pressure kit Apply 1 not specified by [facility]. (Non-drug;combo) route every day 2 Active omega-3 [...] Encounters Date Type Department Care Team Description 12/11/2024 Orders Only GENERIC EXTERNAL DATA DEPARTMENT Provider, Generic External Data 12/04/2024 2:00 PM EDT Immunization [facility] MED & PEDS [address] [place] [address] Encounter for immunization 12/04/2024 Travel 11/27/2024 Travel 11/22/2024 Telephone [facility] MED & PEDS [address] [place] [address] Nancy Sellers MD Lab Orders 11/09/2024 Orders Only [facility] External Provider, [facility] 10/15/2024 11:00 AM EDT Office Visit [facility]EDS [address] [place] [address] Yessenia Baltazar MD Nevus (Primary Dx); Lichen simplex chronicus 10/15/2024 Travel 10/15/2024 Refill [facility] & PEDS 505 [facility] [place] [address] Nancy Sellers MD 10/08/2024 Travel 10/07/2024 Orders Only GENERIC EXTERNAL DATA DEPARTMENT Provider, Generic External Data 09/30/2024 Telephone [facility] MED & PEDS [address] [facility] [place] [address] Nancy Sellers MD Results from Last 3 Months Immunizations Immunization Administration [...] Colorectal Cancer Screening 08/09/2028 Lipid Panel 09/02/2029 12/11/2024, 08/14, 06/07/2024, Additional history exists Hepatitis B Vaccines Completed [...] PANEL, STANDARD Routine 12/11/2024 11:[address] ABDOMEN PELVIS WO CONTRAST Routine 11/11/2024 7:40 PM EDT BASIC METABOLIC PANEL Routine 10/07/2024 4:01 PM EDT URINALYSIS WITH REFLEX MICROSCOPIC Routine 10/07/2024 3:53 PM EDT PROPHYLAXIS - ADULT Routine 10/20/2023 [...] Maintenance Results * (ABNORMAL) Lipid Panel, Standard (12/11/2024 11:42 AM EDT) Triglycerides 82 <150 mg/dL [facility] Comment:Desirable Triglyceri de: less than 150 mg/dLBorderline High Triglyceride 150-199 mg/dLHigh Triglyceride: 200-499 mg/dLVery High Triglyceride: greater than or equal to 5OO mg/dL Cholesterol 227(H) <200 mg/dL [facility] Comment:Desirable Cholestero l: less than 200 mg/dLBorderline High Cholesterol: 200-239 mg/dLHigh Cholesterol: greater than 239 mg/dL LDL Cholesterol Calculated 143(H) <100 mg/dL [facility] Comment:Desirable LDL: less than 100 mg/dLNear Optimal/Above Optimal LDL: 110- 129 mg/dLBorderline High LDL: 130-159 mg/dLHigh LDL: 160-189 mg/dLVery High LDL: greater than or equal to 190 mg/dL HDL Cholesterol 68 >40 mg/dL [facility] Comment:Desirable HDL: great er than 40 mg/dL Note: This HDL assay may give artificially low results in patients with liver disease. 12/11/2024 11:4 2 AM EDT 12/11/2024 11:42 AM EDT us Generic External Data Provider LAB BLOOD ORDERAB LES Final Result Performing Organization Address City/State/[facility] [[email or web address]] Co de Phone Number [facility] [address] [place] [address] [phone] * CT Abdomen Pelvis w/o Contrast (11/11/2024 7:40 PM EDT) Anatomical Region Laterality Modality Body, Pelvis, Abdomen Computed T omography 11/11/2024 7:40 PM EDT Narrative 11/11/2024 7:42 PM EDT [place] [address] CT Scan Report Signed Patient: Usha Grace MR#: [id number] : 1950 Acct:[id number] Age/Sex: 74 / F ADM Date: 11/09/24 Loc: HO.CT Attending Dr: Nj Hernandez MD Ordering Physician: Nj Hernandez MD Date of Service: 11/09/24 Procedure(s): CT abdomen pelvis wo IV con Accession Number(s): [id number] cc: Nj Hernandez MD; Nancy Sellers MD Report Number: [id number]: Total DLP = 596.00 mGy-cm Reason for [...] in OV> 11/11/241941 DD/ 39 TD/TT: 11/11/241939 Research Test Engine Evaluator: Procedure Note Donotuseinterpreter, Image - 11/11/[address] [place] [address] [address] Scan Report Signed Patient: Triston Grace#: [id number] : 1950cct:[id number] Age/Sex: 74 / FADM Date: 11/09/24 Loc: HO.CT Attending Dr: Nj Hernandez MD Ordering Physician: Nj Hernandez MD Date of Service: 11/09/24 Procedure(s): CT abdomen pelvis wo IV con Accession Number(s): [id number] cc: Nj Hernandez MD; Nancy Sellers MD Report Number: [id number]: Total DLP = 596.00 mGy-cm Reason for [...] in OV> 11/11/241941 DD/ 39 TD/TT: 11/11/241939 Research Test Engine Evaluator: [facility] External Provider IMG CT PROCEDURES Final Result * (ABNORMAL) Basic Metabolic Panel (10/07/2024 4:01 PM EDT) Sodium 139 135 - 145 mmol/L [facility] Potassium 4.3 3.3 - 5.1 mmol/L [facility] Chloride 103 96 - 108 mmol/L [facility] Carbon Dioxide 27 22 - 29 mmol/L [facility] Anion Gap 13 12 - 20 [facility] Urea Nitrogen (BUN) 19(H) 9 - 16 mg/dL [facility] Creatinine, Serum 1.08 0.5 - 1.4 mg/dL [facility] Estimated Glomerular Filt Rate 50 [facility] Comment:Chronic Kidney Disea se: Estimated GFR < 60 mL/min/1.04x8Ynzbit Kidney Disease: Estimated GFR < 15 mL/min/1.73m2 Glucose 92 60 - 115 mg/dL [facility] Calcium 9.7 8.4 - 10.2 mg/dL [facility] 10/07/2024 4:01 PM EDT 10/07/2024 4:01 PM EDT Generic External Data Provider LAB BLOOD ORDERAB LES Final Result [facility] [address] [place] [address] [phone] * Urinalysis w/reflex microscopic (10/07/2024 3:53 PM EDT) Color Urine Yellow [facility] Appearance Urine Clear [facility] PH 6.5 5.0 - 9.0 [facility] Glucose Urine UA Negative Negative mg/dL [facility] Urine Blood Negative Negative [facility] Specific [place] - Urine 1.010 1.005 - 1.025 [facility] Urine Protein Negative Neg-Trace mg/dL [facility] Urine Ketones Negative Negative mg/dL [facility] Nitrite Urine Negative Negative [facility] Leukocyte Esterase Urine Negative Negative [facility] 10/07/2024 3:53 PM EDT 10/07/2024 4:16 PM EDT Narrative [facility] - 10/07/2024 4:30 PM EDT Urine, Clean Catch us Generic External Data Provider LAB URINE ORDERAB LES Final Result [facility] [address] [place] [address] [phone] * Hm Colonoscopy (08/10/2023) Colonoscopy Normal Normal Narrative [facility] - 08/10/2023 Recommended 5 years . See see external hospital admission note with matching date us Historical Provider MD HEALTH MAINTENANCE Final Result * BI Mammogram Screening Tomosynthesis Bilateral (08/01/2023 12:20 PM EDT) Anatomical Region Laterality Modality Breast Bilateral Mammography 08/01/2023 12:2 0 PM EDT Narrative 08/29/2023 3:10 PM EDT [facility] [address] [place] [address] Mammography Report Signed Patient: Usha Grace MR#: [id number] : 1950 Acct:[id number] Age/Sex: 72 / F ADM Date: 08/01/23 Loc: [facility] Attending Dr: Nancy Sellers MD Ordering Physician: Nancy Sellers MD Results: 1Negati ve Date of Service: 08/01/23 Follow Up: 1 [facility] From [facility] Mammogram Procedure(s): MM tomosynthesis screening BI Accession Number(s): [id number] cc: Nancy Sellers MD EXAMINATION: MM SCREENING [...] in OV> 08/29/23 1506 DD/ 1220 TD/TT: Research Test Engine Evaluator: Procedure Note Donotuseinterpreter, Image - 08/29/2023 [facility] [address] [place], [place] [address] Mammography Report Signed Patient: Usha Grace#: [id number] : 1Acct:[id number] Age/Sex: 72 / FADM Date: 08/01/23 Loc: [facility] Attending Dr: Nancy Sellers MD Ordering Physician: Nancy Sellers MDResults: 1Negati ve Date of Service: 08/01/23Follow Up: 1 Year From Orig inal Mammogram Procedure(s): MM tomosynthesis screening BI Accession Number(s): [id number] cc: Nancy Sellers MD EXAMINATION: MM SCREENING [...] in OV> 08/29/23 1506 DD/ 1220 TD/TT: Research Test Engine Evaluator: Nancy Sellers MD IMG BI PROCEDURES Final Result from Last 3 Months or Most Recently Relevant to Health Maintenance Insurance [employer] (HMO D-SNP) [place] [id number] [facility] Care Teams Bricklayer Helper Relationship Specialty Start Date End Date Nancy Sellers MD [address] [place] [address] PCP - General Family Medicine 01/30/12
--- OUTSIDE RECORDS SUMMARY | 2024-12-11 15:01 | XMS_ITS | Clinical Summary ---
Author Organization [address] [facility] Address [address] [place] [address] Phone Care Team Providers Care Executive Director Name Role Phone Nancy Sellers MD Primary Care Provider [phone] Encounters Date Type Department Care Team Description 11/13/2024 2:15 PM EDT Consult Orthopedic [facility] [address] [phone] Nirav Drew DPM Posterior tibial tendon dysfunction [...] Upcoming Encounters Date Type Department Care Team ([facility] st Contact Info) Description 01/13/2025 2:30 PM EST Office Visit [facility] [address] [address] Nirav Drew DPM [address] [place] [phone] Health Maintenance Due Date Last Done Comments [...] ID:[id number] Group ID:[id number] Type:Not on file Address: [facility] [address] [place] [phone] Care Teams Executive Director Relationship Specialty Start Date End Date Nancy Sellers MD [address] [place] [address] PCP - General Family Medicine 09/04/24
--- OUTSIDE RECORDS SUMMARY | 2024-12-11 15:01 | XMS_ITS | Encounter Summary ---
Author Organization [employer] Address [address] [facility]t [place] [address] Care Team Providers Care Tank Welder Name Role Phone Nancy Sellers MD Primary Care Provider [phone] Encounter Details Date Type Department Care Team ([facility] st Contact Info) Description 09/05/2023 Orders Only [facility] CH[facility] MED & PEDS [address] [place], [place] [phone] Nancy Sellers MD [address] [place] [address] Social History Tobacco Use Types Packs/Day Years [...] documented as of this encounter Care Teams Tank Welder Relationship Specialty Start Date End Date Nancy Sellers MD [address] [place] [address] PCP - General Family Medicine 01/30/12 documented as of this encounter
--- OUTSIDE RECORDS SUMMARY | 2024-12-11 15:01 | XMS_ITS | Encounter Summary ---
Author Organization [employer] Address [address] [facility] 7t [place] [address] Care Team Providers Care Stone Derrickman And Rigger Name Role Phone Nancy Sellers MD Primary Care Provider [phone] Reason for Visit * Reason Onset Date Comments Durable Medical Equipment 01/29/2024 Blood pressure machine Encounter Details Date Type Department Care Team ([facility] Contact Info) Description 01/29/2024 Telephone [facility] MEDICINE [address] [place] [address] Nancy Sellers MD [address] [place] [address] Durable Medical Equipment (Blood pressure machine ) [...] documented as of this encounter Care Teams Stone Derrickman And Rigger Relationship Specialty Start Date End Date Nancy Sellers MD [address] [place] [address] PCP - General Family Medicine 01/30/12 documented as of this encounter
--- OUTSIDE RECORDS SUMMARY | 2024-12-11 15:01 | XMS_ITS | Encounter Summary ---
Author Organization [employer] Address [address] [place] [address] 7t [place] [address] Care Team Providers Care Rolling Machine Tender Name Role Phone Nancy Sellers MD Primary Care Provider [phone] Encounter Details Date Type Department Care Team [...] on filedocumented in this encounter Care Teams Rolling Machine Tender Relationship Specialty Start Date End Date Nancy Sellers MD [address] [place] [address] PCP - General Family Medicine 01/30/12 documented as of this encounter
== END 2024-12-11 11:34 | disposition home or self-care (01) ==
LOC: HO.LAB 11:33
PROVIDERS: PCP Student in an Organized Health Care Education/Training Program; Visit Provider Nurse Practitioner Family
DX: I25.10 Atherosclerotic heart disease of native coronary artery without angina pectoris (principal)
CPT/HCPCS: 36415; 80061

== ENCOUNTER 2024-12-25 15:14 | Outpatient (REF) | payer OTHER, SELFPAY ==
--- NOTE | ~2024-12-25 | MM_ITS ---
EXAMINATION: MM SCREENING DIGITAL BREAST TOMOSYNTHESIS, BILATERAL CLINICAL INFORMATION: Screening. Asymptomatic. Streaky right excisional biopsy 2006. COMPARISON: Mammography: Comparison is made with available priors TECHNIQUE: Digital breast mammography with tomosynthesis is performed in both the craniocaudal and mediolateral oblique views along with computer-aided detection (CAD). FINDINGS: There are scattered areas of fibroglandular density. Right excisional biopsy changes are stable. There are no significant masses, abnormal calcifications, or other abnormalities. MM/MM tomosynthesis screening BI IMPRESSION: No mammographic evidence of malignancy. ASSESSMENT: BI-RADS Category 2: Benign RECOMMENDATION: Routine annual mammography screening. 1 year F/U This examination should not preclude the clinical evaluation of a suspicious palpable abnormality. This patient's information was entered into a reminder system with a target due date for their next mammogram. Electronically signed by: Michelle Degroot DO 12/27/2024 07:42 PM [facility]
--- OUTSIDE RECORDS SUMMARY | 2024-12-25 18:28 | XMS_ITS | Encounter Summary ---
Author Organization [employer] Address [address] [facility] [address] 7t [place] [address] Care Team Providers Care Fish Trapper Name Role Phone Nancy Sellers MD Primary Care Provider [phone] Meera Orozco CNP Primary Care Provider [phone] Reason for Visit * Reason Onset Date Comments Reschedule 01/18/2023 Encounter Details Date Type Department Care Team ([facility] st Contact Info) Description 01/18/2023 Telephone [facility] MED[facility]INE [address] [place] [address] Nancy Sellers MD [address] [place] [address] Reschedule Social History Tobacco Use Types Packs/Day [...] Tc from pt requesting r/s 01/18 appt, sign writer hand attempted to schedule, no availability for january. documented in this encounter Plan of Treatment Upcoming Encounters Date Type Department Care Team (Late st Contact Info) Description 12/27/2024 2:00 PM EST Office Visit [facility] MED & PEDS [address] [place] [address] Meera Orozco CNP [address] [place] [address] documented as of this encounter Visit Diagnoses Not on filedocumented in this encounter Additional Health Concerns Assessment Noted Time PHQ-9 Depression Total Score: 2 05/18/19 23 11:41 AM EDT documented as of this encounter Care Teams Fish Trapper Relationship Specialty Start Date End Date Nancy Sellers MD [address] [place] [address] PCP - General Family Medicine 01/30/12 12/15/24 Meera Orozco CNP [address] [place] [address] PCP - General Family Medicine 12/16/24 documented as of this encounter
--- OUTSIDE RECORDS SUMMARY | 2024-12-25 18:28 | XMS_ITS | Encounter Summary ---
Author Organization [employer] Address [address] [facility] 7t [place] [address] Care Team Providers Care Writing Tutor Name Role Phone Nancy Sellers MD Primary Care Provider [phone] Meera Orozco CNP Primary Care Provider [phone] Reason for Visit * Reason Onset Date Comments Med Change Request NUTRITION APPOINTMENT REQUEST 03/08/2023 Encounter Details Date Type Department Care Team ([facility] st Contact Info) Description 03/08/2023 Refill [facility] MED & PEDS [address] [place], [place] [phone] Nancy Sellers MD 505 [place], [place] [phone] Social History Tobacco Use Types Packs/Day Years Used Date Smoking Tobacco: Never Passive Smoke Exposure: Never Smokeless Tobacco: Never Alcohol Use Standard Drinks/Week Comments Never 0 (1 standard drink = 0.6 oz pur e alcohol) Depression Answer Date Recorded Patient Health Questionnaire-9 Score 2 05/17/2022 Housing Stability Answer Date Recorded What is your housing situation today? I have ludwinnas hawthorne 12/13/[address] you [...] Description 12/27/2024 2:00 PM EST Office Visit [facility] CHC MED & PEDS [address] [place] [address] Meera Orozco CNP [address] [place] [address] documented as of this encounter Visit Diagnoses Not on filedocumented in this encounter Additional Health Concerns Assessment Noted Time PHQ-9 Depression Total Score: 2 05/18/19 23 11:41 AM EDT documented as of this encounter Care Teams Writing Tutor Relationship Specialty Start Date End Date Nancy Sellers MD [address] [place] [address] PCP - General Family Medicine 01/30/12 12/15/24 Meera Orozco CNP [address] [place] [address] PCP - General Family Medicine 12/16/24 documented as of this encounter
--- OUTSIDE RECORDS SUMMARY | 2024-12-25 18:28 | XMS_ITS | Encounter Summary ---
Author Organization [employer] Address [address] [facility] [address] 7t [place] [address] Care Team Providers Care Peoplesoft Programmer Name Role Phone Nancy Sellers MD Primary Care Provider Meera Orozco CNP Primary Care Provider [phone] Reason for Visit * Reason Onset Date Comments New Med Request 07/20/2023 Encounter Details Date Type Department Care Team ([facility] st Contact Info) Description 07/20/2023 Telephone [facility] MEDICINE [address] [place] [address] Nancy Sellers MD 505 [place] [address] New Med Request Social History Tobacco Use [...] labs was done on 07/17 at [facility] documented in this encounter Plan of Treatment Upcoming Encounters Date Type Department Care Team (Late st Contact Info) Description 12/27/2024 2:00 PM EST Office Visit [facility] CH[facility] MED & PEDS 505 [place] [address] Meera Orozco CNP 505 [place] [address] documented as of this encounter Visit Diagnoses Not on filedocumented in this encounter Additional Health Concerns Assessment Noted Time PHQ-9 Depression Total Score: 2 05/18/19 23 11:41 AM EDT documented as of this encounter Care Teams Peoplesoft Programmer Relationship Specialty Start Date End Date Nancy Sellers MD [address] [place] [address] PCP - General Family Medicine 01/30/12 12/15/24 Meera Orozco CNP [address] [place], [place] [phone] PCP - General Family Medicine 12/16/24 documented as of this encounter
--- OUTSIDE RECORDS SUMMARY | 2024-12-25 18:28 | XMS_ITS | Encounter Summary ---
Author Organization [employer] Address [address] [place] [address] 7 [place] [address] Care Team Providers Care Cable Installer Repairer Helper Name Role Phone Nancy Sellers MD Primary Care Provider Meera Orozco CNP Primary Care Provider [phone] Encounter Details Date Type Department Care Team (Late st Contact Info) Description 10/05/2022 Orders Only [facility] MED & PEDS 505 [place] [address] Kendell Rankin MD 505 [place] [address] Social History Tobacco Use Types Packs/Day Years [...] Description 12/27/2024 2:00 PM EST Office Visit [facility] MED & PEDS [address] [place] [address] Meera Orozco CNP 505 [place] [address] documented as of this encounter Visit Diagnoses Not on filedocumented in this encounter Additional Health Concerns Assessment Noted Time PHQ-9 Depression Total Score: 2 05/18/19 23 11:41 AM EDT documented as of this encounter Care Teams Cable Installer Repairer Helper Relationship Specialty Start Date End Date Nancy Sellers MD [address] [place] [address] PCP - General Family Medicine 01/30/12 12/15/24 Meera Orozco CNP 505 [place] [address] PCP - General Family Medicine 12/16/24 documented as of this encounter
--- OUTSIDE RECORDS SUMMARY | 2024-12-25 18:28 | XMS_ITS | Encounter Summary ---
Author Organization [employer] Address [address] [facility] 7t [place] [address] Care Team Providers Care Physician Underwriter Name Role Phone Nancy Sellers MD Primary Care Provider [phone] Meera Orozco CNP Primary Care Provider [phone] Reason for Visit * Reason Onset Date Comments Nurse Triage 07/24/2023 Encounter Details Date Type Department Care Team ([facility] st Contact Info) Description 07/24/2023 Telephone [facility] CHC MED & PEDS [address] [place], [place] [phone] Nancy Sellers MD 505 [place] [address] Nurse Triage Social History Tobacco Use Types [...] 07/24/2023 12:28 PM EDT Triage call with [employer] Sole Edge Inker Machine ID [id number] Pt reports had labs done and was [...] advised will send this to PCP and [facility] nurses for follow up. Ptagrees [...] Upcoming Encounters Date Type Department Care Team ([facility] st Contact Info) Description 12/27/2024 2:00 PM EST Office Visit [facility] MED & PEDS [address] [place], [place] [phone] Meera Orozco CNP 505 [place], [place] [phone] documented as of this encounter Visit Diagnoses Not on filedocumented in this encounter Additional Health Concerns Assessment Noted Time PHQ-9 Depression Total Score: 2 05/18/19 23 11:41 AM EDT documented as of this encounter Care Teams Physician Underwriter Relationship Specialty Start Date End Date Nancy Sellers MD [address] [place] [address] PCP - General Family Medicine 01/30/12 12/15/24 Meera Orozco CNP [address] [place] [address] PCP - General Family Medicine 12/16/24 documented as of this encounter
--- OUTSIDE RECORDS SUMMARY | 2024-12-25 18:29 | XMS_ITS | Encounter Summary ---
Author Organization [employer] Address [address] [facility] 7t [place] [address] Care Team Providers Care Medical Office Coordinator Name Role Phone Nancy Sellers MD Primary Care Provider [phone] Meera Orozco CNP Primary Care Provider [phone] Reason for Visit * Reason Onset Date Comments Nurse Triage 06/05/2023 Encounter Details Date Type Department Care Team ([facility] st Contact Info) Description 06/05/2023 Telephone [facility] CHC MED & PEDS 505 [place], [place] [phone] Nancy Sellers MD 505 [place] [address] Nurse Triage Social History Tobacco Use Types [...] 06/05/2023 11:04 AM EDT Triage call with [employer] Handler 2Nd Shift ID [id number] Pt is reporting dry mouth . Pt was on vacation in [place] and has returned 05/24/23. Pt reports the [...] accepted this outcome Please contact pt at [phone] (Stateless) documented in this encounter Plan of Treatment Upcoming Encounters Date Type Department Care Team ([facility] st Contact Info) Description 12/27/2024 2:00 PM EST Office Visit [facility] MED & PEDS 505 [place], [place] [phone] Meera Orozco CNP [address] [place], [place] [phone] documented as of this encounter Visit Diagnoses Not on filedocumented in this encounter Additional Health Concerns Assessment Noted Time PHQ-9 Depression Total Score: 2 05/18/19 23 11:41 AM EDT documented as of this encounter Care Teams Medical Office Coordinator Relationship Specialty Start Date End Date Nancy Sellers MD [address] [place] [address] PCP - General Family Medicine 01/30/12 12/15/24 Meera Orozco CNP 505 [place] [address] PCP - General Family Medicine 12/16/24 documented as of this encounter
--- OUTSIDE RECORDS SUMMARY | 2024-12-25 18:29 | XMS_ITS | Clinical Summary ---
Author Organization [facility] Address [address] [place] [address] Care Team Providers Care Shipfitters Supervisor Name Role Phone Nancy Sellers MD Primary Care Provider [phone] Allergies Active Allergy Reactions Criticality Noted Date [...] Of [place] [address] [place] [address] Bear Miles MD from Last 3 Months [...] Medicaid [place] Care Teams Shipfitters Supervisor Relationship Specialty Start Date End Date Nancy Sellers MD PCP - General Family Medicine 06/30/21
--- OUTSIDE RECORDS SUMMARY | 2024-12-25 18:29 | XMS_ITS | Encounter Summary ---
Author Organization [employer] [facility] Address [address] [place] [address] [place], [place] [address] Care Team Providers Care Personal Financial Counselor Name Role Phone Nancy Sellers MD Primary Care Provider [phone] Meera Orozco CNP Primary Care Provider [phone] Encounter Details Date Type Department Care Team (Latest Contact Info) Description 06/30/2020 Abstract [facility] CONVERSIONS Dental, Provider, DDS Social [...] Description 12/27/2024 2:00 PM EST Office Visit [facility] MED & PEDS 505 [place] [address] Meera Orozco CNP 505 [place] [address] documented as of this encounter Visit Diagnoses Not on filedocumented in this encounter Care Teams Personal Financial Counselor Relationship Specialty Start Date End Date Nancy Sellers MD [address] [place] [address] PCP - General Family Medicine 01/30/12 12/15/24 Meera Orozco CNP [address] [place] [address] PCP - General Family Medicine 12/16/24 documented as of this encounter
--- OUTSIDE RECORDS SUMMARY | 2024-12-25 18:29 | XMS_ITS | Clinical Summary ---
Author Organization [employer] Address [address] [facility] 7t [place] [address] Care Team Providers Care Development Lead Name Role Phone OrozcoMeera ALLISON Primary Care Provider [phone] Allergies Active Allergy Reactions Criticality Noted Date Comments Chlorpropamide 03/28/2024 Hydromorphone Rash,Shortness of breath High 02/13/18 00 Other reaction(s): rash sob and hives Other Reaction(s): Not available Morphine Shortness of breath High 08/10/2023 sob and hives Tramadol 09/25/2013 Medications Blood Pressure kit Apply 1 not specified by [facility]. (Non-drug;combo) route every day 07/01/19 22 Active omega-3 (fish oil) 300 MG capsule take 1 capsule by oral route 2 times every day 60 capsule 11 06/30/19 23 Active Magnesium Glycinate 100 MG capsule TAKE 1 CAPSULE BY MOUTH EVERY MORNING 30 capsule 11 03/29/19 24 Active OneLax Magnesium Citrate oral solution TAKE 30ML BY MOUTH EVERY DAY NEEDED CONSTIPATION 03/24/19 24 Active metoprolol succinate XL (Toprol-XL) 25 MG 24 hr tablet Take 25 mg by mouth Once per day. 03/21/19 24 Active cholecalcifer ol VITAMIN D (Vitamin D-3) 50 MCG (1999) capsule 10/10/19 24 Active cyanocobalami n (Vitamin B-12) 1000 MCG tablet Take 1,000 mcg by mouth Once per day. 07/26/19 24 Active triamcinolone (Kenalog) 0.5 % ointment APPLY TO AFFECTED AREA TWICE A DAY 90 g 10/23/19 24 Active betamethasone valerate (Valisone) 0.1 % ointment Apply topically if needed in the morning and at bedtime (dryness). 45 g 2 12/01/19 24 Active Aspirin Low Dose 81 MG EC tablet TAKE 1 TABLET (81 MG) BY MOUTH IN THE MORNING 90 tablet 1 01/17/20 Active Blood Pressure kit Check blood pressure daily 1 kit 01/30/20 Active lisinopril-hy droCHLOROthia zide 20-12.5 MG tablet Take 1 tablet by mouth Once per day. 03/28/19 25 Active gabapentin (Neurontin) 300 MG capsule Take 1 capsule (300 mg) by mouth at bedtime. 30 capsule 11 06/14/19 25 2025 Active Red Yeast Rice 600 MG capsule TAKE 1 CAPSULE BY MOUTH TWICE A DAY 60 capsule 11 06/15/19 25 Active fluticasone (Flonase) 50 MCG/ACT nasal sprayIndicati ons:Allergy, subsequent encounter SPRAY 1 SPRAY INTO EACH NOSTRIL IN THE MORNING 16 mL 2 07/23/19 25 Active ticagrelor (Brilinta) 90 MG tablet Take 90 mg by mouth. 08/07/19 25 Active Diclofenac Sodium 1 % gel APPLY TOPICALLY TWICE DAILY 100 g 3 10/17/19 25 Active gabapentin (Neurontin) 100 MG capsuleIndica tions:Lichen simplex chronicus 200 mg at bedtime ( Dose decreased from 300 mg at bedtime) 120 capsule 11 10/16/19 25 Active omega-3 (Fish Oil) 1000 MG capsule TAKE 1 CAPSULE (1,000 MG) BY MOUTH 2 TIMES DAILY. 180 capsule 1 12/25/19 25 Active acetaminophen (Tylenol) 325 MG tablet Take 650 mg by mouth. 08/09/19 25 Active Readi-Cat 2 2 % suspension TAKE 900 ML ORALLY ONCE 10/18/19 25 Active Plavix 75 MG tablet 10/11/19 25 Active dicyclomine (Bentyl) 10 MG capsule Take 1 capsule by mouth 2 times daily. 10/08/19 25 Active Estradiol 0.01 % cream INSERT 2 G INTO THE VAGINA ONCE PER DAY. Active Repatha SureClick 140 MG/ML injection INJECT 140MG SUBCUTANEOUSLY EVERY 2 WEEKS Active rosuvastatin (Crestor) 20 MG tablet Take 20 mg by mouth Once per day. 08/07/19 25 Active sucralfate (Carafate) 1 g tablet Take 1 g by mouth 2 times daily. Active omega-3, EPA + DHA, (fish oil) 1000 MG capsule Take 1 capsule (1,000 mg) by mouth 2 times daily. 180 capsule 1 01/17/20 24 2024 Discontinued Active Problems Problem Noted Date Diagnosed Date Constipation 12/23/2024 Coronary atherosclerosis 12/23/2024 LLQ abdominal pain 12/23/2024 RUQ abdominal pain 12/23/2024 Severe obesity (CMS/HCC) 12/23/2024 Arthritis 12/23/2024 GERD (gastroesophageal reflux disease) Bleeding hemorrhoids 12/23/2024 Claudication 12/23/2024 Exertional chest pain 12/23/2024 Venous insufficiency 12/23/2024 Stasis dermatitis of both legs 10/19/2023 Assessment [...] Encounters Date Type Department Care Team Description 12/24/2024 Travel 12/23/2024 Telephone [facility] MED & PEDS [address] [place] [address] Meera Orozco CNP chart prep 12/23/2024 Refill [facility] MED & PEDS [address] [facility] [place] [address] Nancy Sellers MD 12/18/2024 Telephone [facility] MED & PEDS [address] [facility] [place] [address] Meera Orozco CNP Results 12/18/2024 Telephone [facility] MED & PEDS [address] [facility] [place] [address] Meera Orozco CNP Appointment Request 12/11/2024 Orders Only GENERIC EXTERNAL DATA DEPARTMENT Provider, Generic External Data 12/04/2024 2:00 PM EDT Immunization [facility] MED & PEDS [address] [facility] [place] [address] Encounter for immunization 12/04/2024 Travel 11/27/2024 Travel 11/22/2024 Telephone [facility] MED & PEDS 505 [facility] [place] [address] Nancy Sellers MD Lab Orders 11/09/2024 Orders Only [facility] External Provider, [facility] 10/15/2024 11:00 AM EDT Office Visit [facility] MED & PEDS [address] [facility] [place] [address] Yessenia Baltazar MD Nevus (Primary Dx); Lichen simplex chronicus 10/15/2024 Travel 10/15/2024 Refill [facility] MED & PEDS [address] [facility] [place] [address] Nancy Sellers MD 10/08/2024 Travel 10/07/2024 Orders Only GENERIC EXTERNAL DATA DEPARTMENT Provider, Generic External Data 09/30/2024 Telephone [facility] MED & PEDS [address] [place] [address] Nancy Sellers MD Results from Last 3 [...] Upcoming Encounters Date Type Department Care Team ([facility] st Contact Info) Description 12/27/2024 2:00 PM EST Office Visit [facility] MED & PEDS 505 [place] [address] Meera Orozco, SPAR MACHINE OPERATOR HELPER [address] [place] [address] Health Maintenance Due Date Last Done Comments CT Colonography 1950 FIT DNA/Cologuard 1950 FIT 1950 FOBT 1950 Sigmoidoscopy 1950 Hepatitis C Screening 1968 RSV Patients and Patients Aged 60 years or older (1 - Risk 50-74 years 1-dose series) 2000 Dental Oral Exam 01/02/2023 07/01/2022, , 06/11/2015, [...] 09/21/2018 Colorectal Cancer Screening 08/09/2028 Lipid Panel 12/11/2029 12/11/2024, 08/14, 06/07/2024, Additional history exists Hepatitis [...] 11:42 AM EDT) Triglycerides 82 <150 mg/dL [facility] Comment:Desirable Triglyceri de: less than 150 mg/dLBorderline High Triglyceride 150-199 mg/dLHigh Triglyceride: 200-499 mg/dLVery High Triglyceride: greater than or equal to 5OO mg/dL Cholesterol 227(H) <200 mg/dL [facility] Comment:Desirable Cholestero l: less than 200 mg/dLBorderline High Cholesterol: 200-239 mg/dLHigh Cholesterol: greater than 239 mg/dL LDL Cholesterol Calculated 143(H) <100 mg/dL [facility] Comment:Desirable LDL: less than 100 mg/dLNear Optimal/Above Optimal LDL: 110- 129 mg/dLBorderline High LDL: 130-159 mg/dLHigh LDL: 160-189 mg/dLVery High LDL: greater than or equal to 190 mg/dL HDL Cholesterol 68 >40 mg/dL [facility] Comment:Desirable HDL: great er than 40 mg/dL Note: This HDL assay may give artificially low results in patients with liver disease. 12/11/2024 11:4 2 AM EDT 12/11/2024 11:42 AM EDT us Generic External Data Provider LAB BLOOD ORDERAB LES Final Result Performing Organization Address City/State/RUST Co de Phone Number [facility] [address] [place] [phone] * CT Abdomen Pelvis w/o Contrast (11/11/2024 7:40 PM EDT) Anatomical Region Laterality Modality Body, Pelvis, Abdomen Computed T omography 11/11/2024 7:40 PM EDT Narrative 11/11/2024 7:42 PM EDT [place] [address] CT Scan Report Signed Patient: Usha Grace MR#: [id number] : 1950 Acct:[id number] Age/Sex: 74 / F ADM Date: 11/09/24 Loc: HO.CT Attending Dr: Nj Hernandez MD Ordering Physician: Nj Hernandez MD Date of Service: 11/09/24 Procedure(s): CT abdomen pelvis wo IV con Accession Number(s): [id number] cc: Nj Hernandez MD; Nancy Sellers MD Report Number: [id number]: Total DLP = 596.00 mGy-cm Reason for [...] in OV> 11/11/241941 DD/ 39 TD/TT: 11/11/241939 Supervisor Unloading: Procedure Note Donotuseinterpreter, Image - 11/11/[address] [place] [address] [address] Scan Report Signed Patient: Usha Grace#: [id number] : 1950cct:[id number] Age/Sex: 74 / FADM Date: 11/09/24 Loc: HO.CT Attending Dr: Nj Hernandez MD Ordering Physician: Nj Hernandez MD Date of Service: 11/09/24 Procedure(s): CT abdomen pelvis wo IV con Accession Number(s): [id number] cc: Nj Hernandez MD; Nancy Sellers MD Report Number: [id number]: Total DLP = 596.00 mGy-cm Reason for [...] in OV> 11/11/241941 DD/ 39 TD/TT: 11/11/241939 Supervisor Unloading: [facility] External Provider IMG CT PROCEDURES Final Result * (ABNORMAL) Basic Metabolic Panel (10/07/2024 4:01 PM EDT) Sodium 139 135 - 145 mmol/L [facility] Potassium 4.3 3.3 - 5.1 mmol/L [facility] Chloride 103 96 - 108 mmol/L [facility] Carbon Dioxide 27 22 - 29 mmol/L [facility] Anion Gap 13 12 - 20 [facility] Urea Nitrogen (BUN) 19(H) 9 - 16 mg/dL [facility] Creatinine, Serum 1.08 0.5 - 1.4 mg/dL [facility] Estimated Glomerular Filt Rate 50 [facility] Comment:Chronic Kidney Disea se: Estimated GFR < 60 mL/min/1.11q0Ukmame Kidney Disease: Estimated GFR < 15 mL/min/1.73m2 Glucose 92 60 - 115 mg/dL [facility] Calcium 9.7 8.4 - 10.2 mg/dL [facility] 10/07/2024 4:01 PM EDT 10/07/2024 4:01 PM EDT us Generic External Data Provider LAB BLOOD ORDERAB LES Final Result Performing Organization Address [facility]/ZIP Co de Phone Number [facility] [address] [place] [phone] * Urinalysis w/reflex microscopic (10/07/2024 3:53 PM EDT) Color Urine Yellow [facility] Appearance Urine Clear [facility] PH 6.5 5.0 - 9.0 [facility] Glucose Urine UA Negative Negative mg/dL [facility] Urine Blood Negative Negative [facility] Specific [place] - Urine 1.010 1.005 - 1.025 [facility] Urine Protein Negative Neg-Trace mg/dL [facility] Urine Ketones Negative Negative mg/dL [facility] Nitrite Urine Negative Negative [facility] Leukocyte Esterase Urine Negative Negative [facility] 10/07/2024 3:53 PM EDT 10/07/2024 4:16 PM EDT Narrative [facility] - 10/07/2024 4:30 PM EDT Urine, Clean Catch Generic External Data Provider LAB URINE ORDERAB LES Final Result Performing Organization Address [facility]/ZIP Co de Phone Number [facility] [address] [place] [phone] * Hm Colonoscopy (08/10/2023) Colonoscopy Normal Normal Narrative [facility] - 08/10/2023 Recommended 5 years . See see external hospital admission note with matching date us Historical Provider MD HEALTH MAINTENANCE Final Result * BI Mammogram Screening Tomosynthesis Bilateral (08/01/2023 12:20 PM EDT) Anatomical Region Laterality Modality Breast Bilateral Mammography 08/01/2023 12:2 0 PM EDT Narrative 08/29/2023 3:10 PM EDT [address] [place] [address] Mammography Report Signed Patient: Usha Grace MR#: [id number] : 1950 Acct:[id number] Age/Sex: 72 / F ADM Date: 08/01/23 Loc: HO.MAMMO Attending Dr: Nancy Sellers MD Ordering Physician: Nancy Sellers MD Results: 1Negati ve Date of Service: 08/01/23 Follow Up: 1 Year From Orig inal Mammogram Procedure(s): MM tomosynthesis screening BI Accession Number(s): [id number] cc: Nancy Sellers MD EXAMINATION: MM SCREENING [...] OV> 08/29/23 1506 DD/ 1220 TD/TT: Supervisor Unloading: Procedure Note Donotuseinterpreter, Image - 08/29/[address] [place] [address] Mammography Report Signed Patient: Usha GraceMR#: [id number] : 1950cct:[id number] Age/Sex: 72 / FADM Date: 08/01/23 Loc: JAZMINE.MAMMO Attending Dr: Nancy Sellers MD Ordering Physician: Nancy Sellers MDResults: 1Negati ve Date of Service: 08/01/23Follow Up: 1 Year From Orig inal Mammogram Procedure(s): MM tomosynthesis screening BI Accession Number(s): [id number] cc: Nancy Sellers MD EXAMINATION: MM SCREENING [...] OV> 08/29/23 1506 DD/ 1220 TD/TT: Supervisor Unloading: us Nancy Sellers MD IMG BI PROCEDURES Final Result from Last 3 Months or Most Recently Relevant to Health Maintenance Insurance [facility] [employer] OPTIONS (O D-SNP) [facility] Care Teams Development Lead Relationship Specialty Start Date End Date Meera Orozco CNP [address] [place] [address] PCP - General Family Medicine 12/16/24
--- OUTSIDE RECORDS SUMMARY | 2024-12-25 18:29 | XMS_ITS | Data Portability ---
Author Organization [employer] [facility] Address [address] [place] [address] Care Team Providers Care Escort Service Attendant Name Role Phone HIM CCA OTHER Assessment Encounter Date Assessment Date Assessment LastModified by Organization Details LastModified Time 09/06/2024 09/06/2024 Evaluation in the field was performed by my drum carrier colleague, as noted above, I provided real-time [...] it resolved on its own, and her rubber trimmer advised her to continue the blood thinners. [...] Lab BMP, serum or plasma 025 09/07/19 [facility], [address] [place] [address], [id number] 18:58:49 Referral None recorded . Procedures None [...] Name and Address Organization Details Recorded Time 08334 Dilaudid medicatio n Not available Not available Not available 09/06/2024 04306 3 RxNorm Not Available [employer] - production 15:49:39 Medications Name Sig Start [...] /min 165.1 cm 86 /min 97.6 [degF] 01563.3 6 g 84 /min 146/84 mm[Hg] 129/77 [...] ICD10 Code Diagnosis IMO Codes Diagnosis Note [id number] Senait Ca MD [facility] ED Medical [address] [address] 09/06/2024 16:52:05 09/08/2024 15:11:52 Rectal hemorrhage [id number] K62.5 [id number] Health Concerns Section Related Observation LastModified by Organization Detai ls LastModified Time None Recorded Concern Status LastModified by Organization Details LastModified Time None Recorded Advance Directives Directive None Recorded Payers Insurance Date Sequence Insurance Name Policy Number Policy Prieto Covered Member ID Prieto Member ID Guarantor Name 09/06/2024 1 [facility] - DOS ON OR AFTER 2022 - DUAL ELIGIBLE - SENIOR LIVING OPTIONS AND ONE CARE (MEDICARE REPLACEMENT/AD VANTAGE - HMO) Usha Grace [id number] Usha Grace Notes Date Note Type Note Provider Name and Address Organization Details Recorded Time 09/06/2024 text/html ROS as noted in the HPI HPI: Mbr is a 73 yo Lao speaking female with h/o but not all inclusive of OA, pain in multiple sites, IBS, Anxiety, gastritis, GERD, HTN, Agoraphobia and chest pain. Allergies to Dilaudid. MSR transfer call for medical. This CRU RN was connected to Mbr who is primarily Lao speaking but understands and speaks some Welsh. Mbr recently had heart stent placed and was put on anticoagulants. Mbr is now having on/off bleeding from rectal areas and stating it is her hemorrhoids. Mbr denies lightheadedness, chest pain or sob. Mbr denies nausea or vomiting. Froylanr lives alone and has [employer] services in the morning only. Mbr has [...] Mbr agreed with plan. Confirmed address and phone/[phone]. Alerted CC that this CRU RN placed INSTED referral in on Mbr's behalf. ...................... ...................... ...................... ...................... ...................... ...................... ......... CRC Nurse Triage Notes (Yany Quiroz): Chief Complaints: Diarrhea PMH: Chronic Pain, Anxiety Disorder, Hypertension, Gastroesophageal Reflux Disease (GERD), Inflammatory Bowel Disease (Crohn's Disease, Ulcerative Colitis), Osteoarthritis PMH Reviewed at 09/06/2024 15:49 Allergies Reviewed at 09/06/2024 15:49 Comments: HPI reviewed Recreation Adviser Organization Information for [employer] Legal Name: [employer]. Address: [address] [place] [address], Mushroom Spawn Maker: Isidro Jo MD CLIA No.: [id number] Recreation Adviser POC Test Results from [employer] - DENNY iSTAT Chem8+ (17:32:36) Na: 135mEq/L K: 4.4mEq/L Cl: 100mEq/L iCa: 1.16mmol/L TCO2: 25mmol/L Glu: 105mg/dL BUN: 26mg/dL Crea: 1.3mg/dL Hct: 40% Hb: 13.6g/dL Ammol/L Cartridge Number: [id number] Attachments uploaded as part of this test result can be found under Documents section. ...................... ...................... ...................... ...................... ...................... ...................... ......... Recreation Adviser Note From [employer]: Sent to a [...] unremarkable; Extremities: unremarkable; Skin: pink, warm, dry; [facility] consulted and orders BMP. Venous blood draw performed; Istat Chem8+ results: uploaded to [employer]. Pt is advised she needs to go to ED if bleeding does not stop this evening. Pt advised to follow up with GI doctor on Monday. Red flags discussed. Pt has no further questions. [facility] Lab Orders: BMP, serum or plasma: Performed ...................... ...................... ...................... ...................... ...................... ...................... ......... [facility] Consulted: Senait Ca ...................... ...................... ...................... ...................... ...................... ...................... ......... Disposition: Fulfilled Senait Ca MD [address] [facility],[address], [place], [address], [employer] 09/06/2024 18:37:23 OBGyn Episode No OBEpisode recorded.
--- OUTSIDE RECORDS SUMMARY | 2024-12-25 18:29 | XMS_ITS | Encounter Summary ---
Author Organization [employer] [facility] Address [address] [place] [address] [address], [place] [address] Care Team Providers Care Yoghurt Maker Name Role Phone Nancy Sellers MD Primary Care Provider [phone] Meera Orozco CNP Primary Care Provider [phone] Encounter Details Date Type Department Care Team (Late st Contact Info) Description 01/22/2022 Abstract [facility] MEDICINE [address] [place] [address] ProviderAshok MD Social History Tobacco Use Types [...] Description 12/27/2024 2:00 PM EST Office Visit [facility] CHC MED & PEDS [address] [place] [address] Meera Orozco CNP [address] [place] [address] documented as of this encounter Visit Diagnoses Not on filedocumented in this encounter Care Teams Yoghurt Maker Relationship Specialty Start Date End Date Nancy Sellers MD [address] [place] [address] PCP - General Family Medicine 01/30/12 12/15/24 Meera Orozco CNP [address] [place] [address] PCP - General Family Medicine 12/16/24 documented as of this encounter
--- OUTSIDE RECORDS SUMMARY | 2024-12-25 18:29 | XMS_ITS | Encounter Summary ---
Author Organization [employer] Address [address] [place] [address] Care Team Providers Care Liturgical Music Director Name Role Phone OrozcoMeera ALLISON Primary Care Provider [phone] Encounter Details Date Type Department Care Team (Latest Contact Info) Description 12/24/2024 Travel Social History Tobacco Use Types Packs/Day [...] Description 12/27/2024 2:00 PM EST Office Visit [facility] CHC MED & PEDS [address] [place], [place] [phone] Meera Orozco CNP [address] [place] [address] documented as of this encounter Visit Diagnoses Not on filedocumented in this encounter Additional Health Concerns Assessment Noted Time PHQ-9 Depression Total Score: 4 07/31/19 24 10:35 AM EDT documented as of this encounter Care Teams Liturgical Music Director Relationship Specialty Start Date End Date Meera Orozco CNP [address] [place] [address] PCP - General Family Medicine 12/16/24 documented as of this encounter
--- OUTSIDE RECORDS SUMMARY | 2024-12-25 18:29 | XMS_ITS | Encounter Summary ---
Author Organization [employer] Address [address] [facility] [address] [place] [address] Care Team Providers Care Take Off Man Name Role Phone Nancy Sellers MD Primary Care Provider [phone] Meera Orozco CNP Primary Care Provider [phone] Reason for Visit * Reason Onset Date Comments Durable Medical Equipment 01/29/2024 Blood pressure machine Encounter Details Date Type Department Care Team ([facility] st Contact Info) Description 01/29/2024 Telephone [facility] MEDICINE [address] [place] [address] Nancy Sellers MD [address] [place] [address] Durable Medical Equipment (Blood pressure machine ) [...] [facility] MED & PEDS [address] [place] [address] Meera Orozco CNP [address] [place] [address] documented as of this encounter Visit Diagnoses Not on filedocumented in this encounter Additional Health Concerns Assessment Noted Time PHQ-9 Depression Total Score: 4 07/31/19 24 10:35 AM EDT documented as of this encounter Care Teams Take Off Man Relationship Specialty Start Date End Date Nancy Sellers MD [address] [place] [address] PCP - General Family Medicine 01/30/12 12/15/24 Meera Orozco CNP [address] [place] [address] PCP - General Family Medicine 12/16/24 documented as of this encounter
--- OUTSIDE RECORDS SUMMARY | 2024-12-25 18:29 | XMS_ITS | Encounter Summary ---
Author Organization [employer] Address [address] [facility] [address] [place] [address] Care Team Providers Care Pediatrician Active Practice Name Role Phone Nancy Sellers MD Primary Care Provider [phone] Meera Orozco CNP Primary Care Provider [phone] Encounter Details Date Type Department Care Team (Late st Contact Info) Description 09/05/2023 Orders Only [facility] CHC MED & PEDS [address] [place], [place] [phone] Nancy Sellers MD [address] [place] [address] Social History Tobacco Use Types Packs/Day Years [...] Description 12/27/2024 2:00 PM EST Office Visit [facility] MED & PEDS [address] [place] [address] Meera Orozco CNP [address] [place] [address] documented as of this encounter Visit Diagnoses Not on filedocumented in this encounter Additional Health Concerns Assessment Noted Time PHQ-9 Depression Total Score: 4 07/31/19 24 10:35 AM EDT documented as of this encounter Care Teams Pediatrician Active Practice Relationship Specialty Start Date End Date Nancy Sellers MD [address] [place] [address] PCP - General Family Medicine 01/30/12 12/15/24 Meera Orozco CNP [address] [place] [address] PCP - General Family Medicine 12/16/24 documented as of this encounter
--- OUTSIDE RECORDS SUMMARY | 2024-12-25 18:29 | XMS_ITS | Encounter Summary ---
Author Organization [employer] Address [address] [facility] 7t [place] [address] Care Team Providers Care Aquarist Name Role Phone Meera Orozco CNP Primary Care Provider [phone] Reason for Visit * Reason Onset Date Comments chart prep 12/23/2024 Encounter Details Date Type Department Care Team ([facility] st Contact Info) Description 12/23/2024 Telephone [facility] CHC MED & PEDS [address] [place], [place] [phone] Meera Orozco CNP [address] [place] [address] chart prep Social History Tobacco Use Types Packs/Day Years [...] encounter Miscellaneous Notes * Telephone Encounter - Erin Molina [place] - 12/23/2024 2:17 PM EST Chart Prep Labs: not applicable Images: not applicable Referrals: not applicable Vaccines due: Covid and RSV Screenings: mammogram Overdue care gaps: PHQ-9 and MEET-7 documented in this encounter Plan of Treatment Upcoming Encounters Date Type Department Care Team ([facility] st Contact Info) Description 12/27/2024 2:00 PM EST Office Visit [facility] MED & PEDS [address] [place] [address] Meera Orozco CNP [address] [place] [address] documented as of this encounter Visit Diagnoses Not on filedocumented in this encounter Additional Health Concerns Assessment Noted Time PHQ-9 Depression Total Score: 4 07/31/19 24 10:35 AM EDT documented as of this encounter Care Teams Aquarist Relationship Specialty Start Date End Date Meera Orozco CNP [address] [place] [address] PCP - General Family Medicine 12/16/24 documented as of this encounter
--- OUTSIDE RECORDS SUMMARY | 2024-12-25 18:29 | XMS_ITS | Encounter Summary ---
Author Organization [employer] Address [address] [facility] 7t [place] [address] Care Team Providers Care Research Investigator Name Role Phone Meera Orozco CNP Primary Care Provider [phone] Reason for Visit * Reason Onset Date Comments Appointment Request 12/18/2024 Encounter Details Date Type Department Care Team ([facility] st Contact Info) Description 12/18/2024 Telephone [facility] CHC MED & PEDS [address] [place], [place] [phone] Meera Orozco CNP [address] [place] [address] Appointment Request Social History Tobacco Use Types Packs/Day [...] encounter Miscellaneous Notes * Telephone Encounter - Rayray Mancilla - 12/18/2024 11:04 AM EST Tc from pt requesting an apt with nurses regarding an injection for high cholesterol. Pt wants directions on how to put the injection. Contact pt at [phone] documented in this encounter Plan of Treatment Upcoming Encounters Date Type Department Care Team ([facility] st Contact Info) Description 12/27/2024 2:00 PM EST Office Visit [facility] CHC MED & PEDS [address] [place] [address] Meera Orozco CNP [address] [place] [address] documented as of this encounter Visit Diagnoses Not on filedocumented in this encounter Additional Health Concerns Assessment Noted Time PHQ-9 Depression Total Score: 4 07/31/19 24 10:35 AM EDT documented as of this encounter Care Teams Research Investigator Relationship Specialty Start Date End Date Meera Orozco CNP [address] [place] [address] PCP - General Family Medicine 12/16/24 documented as of this encounter
--- OUTSIDE RECORDS SUMMARY | 2024-12-25 18:29 | XMS_ITS | Encounter Summary ---
Author Organization [email or web address] Address [address] [facility] [address] [place] [address] Care Team Providers Care Visual Manager Name Role Phone Meera Orozco CNP Primary Care Provider [phone] Reason for Visit * Reason Comments Med Refill Encounter Details Date Type Department Care Team ([facility] Contact Info) Description 12/23/2024 Refill [facility] CHC MED & PEDS [address] [place] [address] Nancy Sellers MD [address] [place] [address] Social History Tobacco Use Types Packs/Day Years [...] Upcoming Encounters Date Type Department Care Team ([facility] st Contact Info) Description 12/27/2024 2:00 PM EST Office Visit [facility] MED & PEDS [address] [place] [address] Meera Orozco CNP [address] [place] [address] documented as of this encounter Visit Diagnoses Not on filedocumented in this encounter Additional Health Concerns Assessment Noted Time PHQ-9 Depression Total Score: 4 07/31/19 24 10:35 AM EDT documented as of this encounter Care Teams Visual Manager Relationship Specialty Start Date End Date Meera Orozco CNP [address] [place] [address] PCP - General Family Medicine 12/16/24 documented as of this encounter
--- OUTSIDE RECORDS SUMMARY | 2024-12-25 18:29 | XMS_ITS | Encounter Summary ---
Author Organization [employer] [facility] Address [address] [place] [address] [address], [place] [address] Care Team Providers Care Head Of Marketing Name Role Phone Nancy Sellers MD Primary Care Provider [phone] Meera Orozco CNP Primary Care Provider [phone] Encounter Details Date Type Department Care Team (Latest Contact Info) Description 08/14/2018 Abstract [facility] CONVERSIONS Dental, Provider, DDS Social History Tobacco [...] 2:00 PM EST Office Visit [facility] CHC MED & PEDS [address] [place] [address] Meera Orozco CNP [address] [place] [address] documented as of this encounter Visit Diagnoses Not on filedocumented in this encounter Care Teams Head Of Marketing Relationship Specialty Start Date End Date Nancy Sellers MD [address] [place] [address] PCP - General Family Medicine 01/30/12 12/15/24 Meera Orozco CNP [address] [place] [address] PCP - General Family Medicine 12/16/24 documented as of this encounter
--- OUTSIDE RECORDS SUMMARY | 2024-12-25 18:29 | XMS_ITS | Clinical Summary ---
Author Organization [facility] Address [address] [place] [address] Phone Care Team Providers Care Bottle Cleaner Name Role Phone Nancy Sellers MD Primary Care Provider [phone] Encounters Date Type Department Care Team Description 11/13/2024 2:15 PM EDT Consult Orthopedic [facility] [address] [address] Nirav Drew DPM Posterior tibial [...] Upcoming Encounters Date Type Department Care Team ([facility] st Contact Info) Description 01/13/2025 2:30 PM EST Office Visit [facility] [address] [address] Nirav Drew DPM [address] [phone] Health Maintenance Due Date Last Done Comments [...] Group ID:[id number] Type:Not on file Address: [address] [place] [address] Care Teams Bottle Cleaner Relationship Specialty Start Date End Date Nancy Sellers MD [address] [place] [address] PCP - General Family Medicine 09/04/24
== END 2024-12-25 15:15 | disposition home or self-care (01) ==
LOC: HO.MAMMO 15:14
PROVIDERS: Visit Provider Student in an Organized Health Care Education/Training Program
DX: Z12.31 Encounter for screening mammogram for malignant neoplasm of breast (principal)
CPT/HCPCS: 77063; 77067

== ENCOUNTER → 2024-12-25 15:45 | Outpatient (BNV) | payer OTHER, SELFPAY | PROVIDERS: Visit Provider Internal Medicine | DX: Z12.31 Encounter for screening mammogram for malignant neoplasm of breast (principal) | CPT/HCPCS: 77063; 77067 ==